=== PATIENT | female | born 1980 | race Hispanic/Latino ===

== ENCOUNTER 2022-06-12 00:34 | Emergency (ER) | payer BC ==
--- OUTSIDE RECORDS SUMMARY | 2022-06-12 00:41 | XMS REPORT | Continuity of Care Document ---
:[address] [facility] t Address [address] [place] [address] Care Team Providers Name Role Phone JOVITA YOU Primary Care Physician Unavailable NOEL LARSEN Attending Clinician Unavailable Maribel Everett Attending Clinician Unavailable RADIOLOGY Attending Clinician Unavailable Radiology Attending Clinician Unavailable Jong Pemberton DO Attending Clinician Elvie LONG, Janet Doyle Attending Clinician [phone] [facility] Resident Attending Clinician Unavailable Vern LONG, Mitzi Martin Attending Clinician Jovita Rivas Attending Clinician Yara Rasmussen MD Attending Clinician YARA RASMUSSEN Attending Clinician Unavailable Vishal LONG, Veronique Attending Clinician Doctor Unassigned, Simms Attending Clinician Unavailable John HI, Sara Hernández Attending Clinician Kathleen Reilly Attending Clinician Noel Larsen MD Attending Clinician Victorino Johnson Attending Clinician [phone] VICTORINO ESPINO Attending Clinician Unavailable NOEL LARSEN Admitting Clinician Unavailable Maribel Everett Admitting Clinician Unavailable XIOMARA HASTINGS Admitting Clinician Unavailable Payers Payer Name Policy Type Policy Number Effective Date Expiration Date S cassidy [employer] [place] [id number] 2020 WOMEN 00:00:00 HIM [employer] BLUE [id number] 2021 ADVANTAGE HMO 00:00:00 Problems Condition Condition Condition Status Onset Resolution Last Treating Co mments Source Name Details Category Date Date Treatment Clinician Date Anemia, Anemia, Disease Active 2019-07 Univers unspecifie unspecifie 07-13 it y of d type d type 00:00: [place] [address] Medical Branch Abnormal Abnormal Disease Active Unive rs uterine uterine 6-17 ity of bleeding bleeding 00:00: [address] Branch Well woman Well woman Disease Active U nivers exam exam 1-20 ity of 00:00: [address] General General Disease Active Univers counseling counseling 1-20 it y of [place] Medical contracept contracept Br anch lynne lynne management management Papanicola Papanicola Disease Active Overview : Univers ou smear ou smear 08-07 colpo ity of of cervix of cervix 00:00[place] 08/07/[place] low with low 00 , pap on [facility] benita grade grade 07/2015 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 lesion lesion colpo (LGSIL) (LGSIL) 08/07/2014 , pap on 07/2015 WNL Obesity Obesity Disease Active 2013-07 Overview: Univ ers (BMI (BMI 1-23 [place] ity of 30-39.9) 30-39.9) 00:00: g of this [place] 00 note Medical might be Branch different from the original. 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 Allergies, Adverse Reactions, Alerts Allergy Allergy Status Severity Reaction(s) Onset Inactive Treating Comm ents Source Name Type Date Date Clinician No Known DA Active U 2020- [facility] [place] No Known DA Active U 2020- [facility]ie [facility]-08 [facility] [place] No Known DA Active U 2020-0 [facility] All[facility]ie [facility]06 [facility] [place] No Known DA Active U 2020- [facility] Allergie 1-06 [facility] 00:[facility]: [facility] [place] No Known DA Active U 2006-0 [facility] Drug 7-10 [facility] 00:[facility]: [facility] [place] No Known DA Active U 2006-0 [facility] Contrast 7-10 [facility] Allergie 00:00: [facility] [place] No Known DA Active U 2007-0 [facility] Drug 7-10 [facility] Allergie 00:00: [facility] [place] No Known DA Active U 2007-0 [facility] Food 7-10 [facility] Allergie 00:00: [facility] [place] No Known DA Active U 2007-0 [facility] Other 7-10 [facility] Allergie 00:00: [facility] [place] NO KNOWN Drug Active Univers ALLERGIE Class ity of S [facility] Social History Social Habit Start Date Stop Date Quantity Comments Source History [facility] o f [facility] ed[facility] Branch History [facility] o f Alcohol Std Drinks [place] [facility] [place] History [facility] o f Alcohol Binge [place] [facility] Exposure to 2021-11-17 2021-11-27 Not sure University of SARS-CoV-2 (event) 00:00:00 15:25:00 [facility] Alcohol intake 2021-11-27 2021-11-27 0 /d University of 00:00:00 00:00:00 [facility] Alcohol Comment 2015-10-23 2015-10-23 socially only Univer sity of 00:00:00 00:00:00 [facility] Tobacco use and 2013-04-05 2013-04-05 Never used Universit y of exposure 00:00:00 00:00:00 [facility] Sex [birth year] At [birth year] Universit y of 00:00:00 00:00:00 [facility] Smoking Status Start Date Stop Date Source Never smoker [facility] Medications Ordered Filled Start Stop Current Ordering Indication Dosage Frequency Signature Comments Components Source Medication Medication Date Date Medication? Clinician (SIG) Name Name medroxyPROG 2020- 2020- No [id number] 150mg Univers ESTERone 0-30 10-30 100 ity of (DEPO-PROVE 22:00: 21:23 [place] RA) 00 :00 Medical injection Branch 150 mg medroxyPROG 2019- 2020- No [id number] 150mg 150 mg, Univers ESTERone 0-30 10-30 100 Intramuscu ity of (DEPO-PROVE 22:00: 21:23 lar, ONCE, [place] RA) 00 :00 1 dose, Medical injection Fri Branch 150 mg 05/09/20 at 1700, Routine medroxyPROG 2019- 2020- No [id number] 150mg Univers ESTERone 0-30 10-30 100 ity of (DEPO-PROVE 22:00: 21:23 [place] RA) 00 :00 Medical injection Branch 150 mg medroxyPROG 2019- 2020- No [id number] 150mg 150 mg, Univers ESTERone 0-30 10-30 100 Intramuscu ity of (DEPO-PROVE 22:00: 21:23 lar, ONCE, [place] RA) 00 :00 1 dose, Medical injection Fri Branch 150 mg 05/09/20 at 1700, Routine ferrous 2020- 2020- No [id number] Take by U nivers sulfate 02-06 mouth. ity of (IRON ORAL) 00:12: 00:00 [place] 20 :00 Medical Branch ferrous 2020-0 2020- No [id number] Take by U nivers sulfate 02-06 mouth. ity of (IRON ORAL) 00:12: 00:00 [place] 20 :00 Medical Branch ascorbic 2020-0 Yes [id number] 500mg Take 1 U nivers acid, 02-05 tablet by ity of vitamin C, 00:00: mouth [place] 500 [place] 00 (three) Medical tablet times Branch daily. ferrous 2020-0 Yes [id number] 325mg Take 1 Un rocio sulfate 7-29 tablet by ity of (IRON, 00:00: mouth 3 [place] FERROUS 00 (three) Medical SULFATE,) times Branch 325 mg (65 daily with mg iron) meals. tablet foLIC acid 2020-0 Yes [id number] 1mg Take 1 Univers 1 mg tablet 7-29 tablet by ity of 00:00: mouth [place] 00 daily. Medical Branch norgestimat 2020-0 Yes [id number] 1{tbl} Take 1 Univers e-ethinyl 7-29 100 tablet by ity o f estradiol 00:00: mouth [place] (FEMYNOR) 00 daily. Medical 0.25-35 Branch mg-mcg per tablet ascorbic 2020-0 Yes [id number] 500mg Take 1 U nivers acid, 7-29 tablet by ity of vitamin C, 00:00: [place] 500 [place] 00 (three) Medical tablet times Branch daily. ferrous 2020-0 Yes [id number] 325mg Take 1 Un rocio sulfate 7-29 tablet by ity of (IRON, 00:00: mouth 3 [place] FERROUS 00 (three) Medical SULFATE,) times Branch 325 mg (65 daily with mg iron) meals. tablet foLIC acid 2020-0 Yes [id number] 1mg Take 1 Univers 1 mg tablet 7-29 tablet by ity of 00:00: mouth [place] 00 daily. Medical Branch norgestimat 2020-0 Yes [id number] 1{tbl} Take 1 Univers e-ethinyl 7-29 100 tablet by ity o f estradiol 00:00: mouth [place] (FEMYNOR) 00 daily. Medical 0.25-35 Branch mg-mcg per tablet ascorbic 2020-0 Yes [id number] 500mg Take 1 U nivers acid, 7-29 tablet by ity of vitamin C, 00:00: mouth [place] 500 mg 00 (three) Medical tablet times Branch daily. ferrous 2020-0 Yes [id number] 325mg Take 1 Un rocio sulfate 7-29 tablet by ity of (IRON, 00:00: mouth 3 [place] FERROUS 00 (three) Medical SULFATE,) times Branch 325 mg (65 daily with mg iron) meals. tablet foLIC acid 2020-0 Yes [id number] 1mg Take 1 Univers 1 mg tablet 7-29 tablet by ity of 00:00: mouth [place] 00 daily. Medical Branch norgestimat 2020-0 Yes [id number] 1{tbl} Take 1 Univers e-ethinyl 7-29 100 tablet by ity o f estradiol 00:00: mouth [place] (FEMYNOR) 00 daily. Medical 0.25-35 Branch mg-mcg per tablet ascorbic 2020-0 Yes [id number] 500mg Take 1 U nivers acid, 7-29 tablet by ity of vitamin C, 00:00: mouth [place] 500 mg 00 (three) Medical tablet times Branch daily. ferrous 2020-0 Yes [id number] 325mg Take 1 Un rocio sulfate 7-29 tablet by ity of (IRON, 00:00: mouth 3 [place] FERROUS 00 (three) Medical SULFATE,) times Branch 325 mg (65 daily with mg iron) meals. tablet foLIC acid 2020-0 Yes [id number] 1mg Take 1 Univers 1 mg tablet 7-29 tablet by ity of 00:00: mouth [place] 00 daily. Medical [place] norgestimat 2019-0 Yes [id number] 1{tbl} Take 1 Univers e-ethinyl 7-29 100 tablet by ity o f estradiol 00:00: mouth [place] (FEMYNOR) 00 daily. Medical 0.25-35 Branch mg-mcg per tablet ascorbic 2020-0 Yes [id number] 500mg Take 1 U nivers acid, 7-29 tablet by ity of vitamin C, 00:00: mouth [place] 500 mg 00 (three) Medical tablet times Branch daily. ferrous 2020-0 Yes [id number] 325mg Take 1 Un rocio sulfate 7-29 tablet by ity of (IRON, 00:00: mouth 3 [place] FERROUS 00 (three) Medical SULFATE,) times Branch 325 mg (65 daily with mg iron) meals. tablet foLIC acid 2020-0 Yes [id number] 1mg Take 1 Univers 1 mg tablet 7-29 tablet by ity of 00:00: mouth [place] 00 daily. Medical Branch norgestimat 2020-0 Yes [id number] 1{tbl} Take 1 Univers e-ethinyl 7-29 100 tablet by ity o f estradiol 00:00: mouth [place] (FEMYNOR) 00 daily. Medical 0.25-35 Branch mg-mcg per tablet ascorbic 2020-0 Yes [id number] 500mg Take 1 U nivers acid, 7-29 tablet by ity of vitamin C, 00:00: mouth [place] 500 mg 00 (three) Medical tablet times Branch daily. ferrous 2020-0 Yes [id number] 325mg Take 1 Un rocio sulfate 7-29 tablet by ity of (IRON, 00:00: mouth 3 [place] FERROUS 00 (three) Medical SULFATE,) times Branch 325 mg (65 daily with mg iron) meals. tablet foLIC acid 2020-0 Yes [id number] 1mg Take 1 Univers 1 mg tablet 7-29 tablet by ity of 00:00: mouth [place] 00 daily. Medical Branch norgestimat 2020-0 Yes [id number] 1{tbl} Take 1 Univers e-ethinyl 7-29 100 tablet by ity o f estradiol 00:00: mouth [place] (FEMYNOR) 00 daily. Medical 0.25-35 Branch mg-mcg per tablet ascorbic 2020-0 Yes [id number] 500mg Take 1 U nivers acid, 7-29 tablet by ity of vitamin C, 00:00: mouth [place] 500 mg 00 (three) Medical tablet times Branch daily. ferrous 2020-0 Yes [id number] 325mg Take 1 Un rocio sulfate 7-29 tablet by ity of (IRON, 00:00: mouth 3 [place] FERROUS 00 (three) Medical SULFATE,) times Branch 325 mg (65 daily with mg iron) meals. tablet foLIC acid 2020-0 Yes [id number] 1mg Take 1 Univers 1 mg tablet 7-29 tablet by ity of 00:00: mouth [place] 00 daily. Medical Branch norgestimat 2020-0 Yes [id number] 1{tbl} Take 1 Univers e-ethinyl 7-29 100 tablet by ity o f estradiol 00:00: mouth [place] (FEMYNOR) 00 daily. Medical 0.25-35 Branch mg-mcg per tablet ascorbic 2020-0 Yes [id number] 500mg Take 1 U nivers acid, 7-29 tablet by ity of vitamin C, 00:00: mouth [place] 500 mg 00 (three) Medical tablet times Branch daily. ferrous 2020-0 Yes [id number] 325mg Take 1 Un rocio sulfate 7-29 tablet by ity of (IRON, 00:00: mouth 3 [place] FERROUS 00 (three) Medical SULFATE,) times Branch 325 mg (65 daily with mg iron) meals. tablet foLIC acid 2020-0 Yes [id number] 1mg Take 1 Univers 1 mg tablet 7-29 tablet by ity of 00:00: mouth [place] 00 daily. Medical Branch norgestimat 2020-0 Yes [id number] 1{tbl} Take 1 Univers e-ethinyl 7-29 100 tablet by ity o f estradiol 00:00: mouth [place] (FEMYNOR) 00 daily. Medical 0.25-35 Branch mg-mcg per tablet ascorbic 2020-0 Yes [id number] 500mg Take 1 U nivers acid, 7-29 tablet by ity of vitamin C, 00:00: mouth [place] 500 mg 00 (three) Medical tablet times Branch daily. ferrous 2020-0 Yes [id number] 325mg Take 1 Un rocio sulfate 7-29 tablet by ity of (IRON, 00:00: mouth 3 [place] FERROUS 00 (three) Medical SULFATE,) times Branch 325 mg (65 daily with mg iron) meals. tablet foLIC acid 2020-0 Yes [id number] 1mg Take 1 Univers 1 mg tablet 7-29 tablet by ity of 00:00: mouth [place] 00 daily. Medical Branch norgestimat 2019-0 Yes [id number] 1{tbl} Take 1 Univers e-ethinyl 7-29 100 tablet by ity o f estradiol 00:00: mouth [place] (FEMYNOR) 00 daily. Medical 0.25-35 Branch mg-mcg per tablet ascorbic 2020-0 Yes [id number] 500mg Take 1 U nivers acid, 7-29 tablet by ity of vitamin C, 00:00: mouth [place] 500 mg 00 (three) Medical tablet times Branch daily. ferrous 2020-0 Yes [id number] 325mg Take 1 Un rocio sulfate 7-29 tablet by ity of (IRON, 00:00: mouth 3 [place] FERROUS 00 (three) Medical SULFATE,) times Branch 325 mg (65 daily with mg iron) meals. tablet foLIC acid 2020-0 Yes [id number] 1mg Take 1 Univers 1 mg tablet 7-29 tablet by ity of 00:00: mouth [place] 00 daily. Medical Branch norgestimat 2020-0 Yes [id number] 1{tbl} Take 1 Univers e-ethinyl 7-29 100 tablet by ity o f estradiol 00:00: mouth [place] (FEMYNOR) 00 daily. Medical 0.25-35 Branch mg-mcg per tablet ascorbic 2020-0 Yes [id number] 500mg Take 1 U nivers acid, 7-29 tablet by ity of vitamin C, 00:00: mouth [place] 500 mg 00 (three) Medical tablet times Branch daily. ferrous 2020-0 Yes [id number] 325mg Take 1 Un rocio sulfate 7-29 tablet by ity of (IRON, 00:00: mouth 3 [place] FERROUS 00 (three) Medical SULFATE,) times Branch 325 mg (65 daily with mg iron) meals. tablet foLIC acid 2020-0 Yes [id number] 1mg Take 1 Univers 1 mg tablet 7-29 tablet by ity of 00:00: mouth [place] 00 daily. Medical Branch norgestimat 2020-0 Yes [id number] 1{tbl} Take 1 Univers e-ethinyl 7-29 100 tablet by ity o f estradiol 00:00: mouth [place] (FEMYNOR) 00 daily. Medical 0.25-35 Branch mg-mcg per tablet ascorbic 2020-0 Yes [id number] 500mg Take 1 U nivers acid, 7-29 tablet by ity of vitamin C, 00:00: mouth [place] 500 mg 00 (three) Medical tablet times Branch daily. ferrous 2020-0 Yes [id number] 325mg Take 1 Un rocio sulfate 7-29 tablet by ity of (IRON, 00:00: mouth 3 [place] FERROUS 00 (three) Medical SULFATE,) times Branch 325 mg (65 daily with mg iron) meals. tablet foLIC acid 2020-0 Yes [id number] 1mg Take 1 Univers 1 mg tablet 7-29 tablet by ity of 00:00: mouth [place] 00 daily. Medical Branch norgestimat 2020-0 Yes [id number] 1{tbl} Take 1 Univers e-ethinyl 7-29 100 tablet by ity o f estradiol 00:00: mouth [place] (FEMYNOR) 00 daily. Medical 0.25-35 Branch mg-mcg per tablet ascorbic 2020-0 Yes [id number] 500mg Take 1 U nivers acid, 7-29 tablet by ity of vitamin C, 00:00: mouth [place] 500 mg 00 (three) Medical tablet times Branch daily. ferrous 2020-0 Yes [id number] 325mg Take 1 Un rocio sulfate 7-29 tablet by ity of (IRON, 00:00: mouth 3 [place] FERROUS 00 (three) Medical SULFATE,) times Branch 325 mg (65 daily with mg iron) meals. tablet foLIC acid 2020-0 Yes [id number] 1mg Take 1 Univers 1 mg tablet 7-29 tablet by ity of 00:00: mouth [place] 00 daily. Medical Branch norgestimat 2020-0 Yes [id number] 1{tbl} Take 1 Univers e-ethinyl 7-29 100 tablet by ity o f estradiol 00:00: mouth [place] (FEMYNOR) 00 daily. Medical 0.25-35 Branch mg-mcg per tablet ascorbic 2020-0 Yes [id number] 500mg Take 1 U nivers acid, 7-29 tablet by ity of vitamin C, 00:00: mouth 3 [place] 500 mg 00 (three) Medical tablet times Branch daily. ferrous 2020-0 Yes [id number] 325mg Take 1 Un rocio sulfate 7-29 tablet by ity of (IRON, 00:00: mouth 3 [place] FERROUS 00 (three) Medical SULFATE,) times Branch 325 mg (65 daily with mg iron) meals. tablet foLIC acid 2020-0 Yes [id number] 1mg Take 1 Univers 1 mg tablet 7-29 tablet by ity of 00:00: mouth [place] 00 daily. Medical Branch norgestimat 2020-0 Yes [id number] 1{tbl} Take 1 Univers e-ethinyl 7-29 100 tablet by ity o f estradiol 00:00: mouth [place] (FEMYNOR) 00 daily. Medical 0.25-35 Branch mg-mcg per tablet ascorbic 2020-0 Yes [id number] 500mg Take 1 U nivers acid, 7-29 tablet by ity of vitamin C, 00:00: mouth 3 [place] 500 mg 00 (three) Medical tablet times Branch daily. ferrous 2020-0 Yes [id number] 325mg Take 1 Un orcio sulfate 7-29 tablet by ity of (IRON, 00:00: mouth 3 [place] FERROUS 00 (three) Medical SULFATE,) times Branch 325 mg (65 daily with mg iron) meals. tablet foLIC acid 2020-0 Yes [id number] 1mg Take 1 Univers 1 mg tablet 7-29 tablet by ity of 00:00: mouth [place] 00 daily. Medical Branch norgestimat 2020-0 Yes [id number] 1{tbl} Take 1 Univers e-ethinyl 7-29 100 tablet by ity o f estradiol 00:00: mouth [place] (FEMYNOR) 00 daily. Medical 0.25-35 Branch mg-mcg per tablet ascorbic 2020-0 Yes [id number] 500mg Take 1 U nivers acid, 7-29 tablet by ity of vitamin C, 00:00: mouth 3 [place] 500 mg 00 (three) Medical tablet times Branch daily. ferrous 2020-0 Yes [id number] 325mg Take 1 Un rocio sulfate 7-29 tablet by ity of (IRON, 00:00: mouth 3 [place] FERROUS 00 (three) Medical SULFATE,) times Branch 325 mg (65 daily with mg iron) meals. tablet foLIC acid 2020-0 Yes [id number] 1mg Take 1 Univers 1 mg tablet 7-29 tablet by ity of 00:00: mouth [place] 00 daily. Medical Branch norgestimat 2020-0 Yes [id number] 1{tbl} Take 1 Univers e-ethinyl 7-29 100 tablet by ity o f estradiol 00:00: mouth [place] (FEMYNOR) 00 daily. Medical 0.25-35 Branch mg-mcg per tablet ascorbic 2020-0 Yes [id number] 500mg Take 1 U nivers acid, 7-29 tablet by ity of vitamin C, 00:00: mouth 3 [place] 500 mg 00 (three) Medical tablet times Branch daily. ferrous 2020-0 Yes [id number] 325mg Take 1 Un rocio sulfate 7-29 tablet by ity of (IRON, 00:00: mouth 3 [place] FERROUS 00 (three) Medical SULFATE,) times Branch 325 mg (65 daily with mg iron) meals. tablet foLIC acid 2020-0 Yes [id number] 1mg Take 1 Univers 1 mg tablet 7-29 tablet by ity of 00:00: mouth [place] 00 daily. Medical Branch norgestimat 2020-0 Yes [id number] 1{tbl} Take 1 Univers e-ethinyl 7-29 100 tablet by ity o f estradiol 00:00: mouth [place] (FEMYNOR) 00 daily. Medical 0.25-35 Branch mg-mcg per tablet ascorbic 2020-0 Yes [id number] 500mg Take 1 U nivers acid, 7-29 tablet by ity of vitamin C, 00:00: mouth 3 [place] 500 mg 00 (three) Medical tablet times Branch daily. ferrous 2020-0 Yes [id number] 325mg Take 1 Un rocio sulfate 7-29 tablet by ity of (IRON, 00:00: mouth 3 [place] FERROUS 00 (three) Medical SULFATE,) times Branch 325 mg (65 daily with mg iron) meals. tablet foLIC acid 2020-0 Yes [id number] 1mg Take 1 Univers 1 mg tablet 7-29 tablet by ity of 00:00: mouth [place] 00 daily. Medical Branch norgestimat 2020-0 Yes [id number] 1{tbl} Take 1 Univers e-ethinyl 7-29 100 tablet by ity o f estradiol 00:00: mouth [place] (FEMYNOR) 00 daily. Medical 0.25-35 Branch mg-mcg per tablet ascorbic 2020-0 Yes [id number] 500mg Take 1 U nivers acid, 7-29 tablet by ity of vitamin C, 00:00: mouth 3 [place] 500 mg 00 (three) Medical tablet times Branch daily. ferrous 2020-0 Yes [id number] 325mg Take 1 Un rocio sulfate 7-29 tablet by ity of (IRON, 00:00: mouth 3 [place] FERROUS 00 (three) Medical SULFATE,) times Branch 325 mg (65 daily with mg iron) meals. tablet foLIC acid 2020-0 Yes [id number] 1mg Take 1 Univers 1 mg tablet 7-29 tablet by ity of 00:00: mouth [place] 00 daily. Medical Branch norgestimat 2019-0 Yes [id number] 1{tbl} Take 1 Univers e-ethinyl 7-29 100 tablet by ity o f estradiol 00:00: mouth [place] (FEMYNOR) 00 daily. Medical 0.25-35 Branch mg-mcg per tablet ascorbic 2020-0 Yes [id number] 500mg Take 1 U nivers acid, 7-29 tablet by ity of vitamin C, 00:00: mouth 3 [place] 500 mg 00 (three) Medical tablet times Branch daily. ferrous 2020-0 Yes [id number] 325mg Take 1 Un rocio sulfate 7-29 tablet by ity of (IRON, 00:00: mouth 3 [place] FERROUS 00 (three) Medical SULFATE,) times Branch 325 mg (65 daily with mg iron) meals. tablet foLIC acid 2020-0 Yes [id number] 1mg Take 1 Univers 1 mg tablet 7-29 tablet by ity of 00:00: mouth [place] 00 daily. Medical Branch norgestimat 2020-0 Yes [id number] 1{tbl} Take 1 Univers e-ethinyl 7-29 100 tablet by ity o f estradiol 00:00: mouth [place] (FEMYNOR) 00 daily. Medical 0.25-35 Branch mg-mcg per tablet norgestimat 2020-0 Yes [id number] 1{tbl} Take 1 Univers e-ethinyl 6-26 tablet by ity o f estradiol 00:00: mouth [place] (ORTHO-CYCL 00 daily. Medica l EN, 28,) DAW1 Branch 0.25-35 mg-mcg per tablet norgestimat 2020-0 Yes [id number] 1{tbl} Take 1 Univers e-ethinyl 6-26 tablet by ity o f estradiol 00:00: mouth [place] (ORTHO-CYCL 00 daily. Medica l EN, 28,) DAW1 Branch 0.25-35 mg-mcg per tablet norgestimat 2019-0 2020- No [id number] 1{tbl} Take 1 Univers e-ethinyl 6-26 07-29 tablet by ity of estradiol 00:00: 00:00 mouth [place] (ORTHO-CYCL 00 :00 daily. Medica l EN, 28,) DAW1 Branch 0.25-35 mg-mcg per tablet norgestimat 2019-0 2020- No [id number] 1{tbl} Take 1 Univers e-ethinyl 6-26 07-29 tablet by ity of estradiol 00:00: 00:00 mouth [place] (ORTHO-CYCL 00 :00 daily. Medica l EN, 28,) DAW1 Branch 0.25-35 mg-mcg per tablet norgestimat 2020-0 Yes [id number] 1{tbl} Take 1 Univers e-ethinyl 6-24 tablet by ity o f estradiol 00:00: mouth [place] (ORTHO-CYCL 00 daily. Medica l EN, 28,) Branch 0.25-35 mg-mcg per tablet norgestimat 2019-0 2020- No [id number] 1{tbl} Take 1 Univers e-ethinyl 6-24 06-26 tablet by ity of estradiol 00:00: 00:00 mouth [place] (ORTHO-CYCL 00 :00 daily. Medica l EN, 28,) Branch 0.25-35 mg-mcg per tablet norgestimat 2020-0 Yes [id number] 1{tbl} Take 1 Univers e-ethinyl 6-23 tablet by ity o f estradiol 00:00: mouth [place] (ORTHO-CYCL 00 daily. Medica l EN, 28,) Branch 0.25-35 mg-mcg per tablet norgestimat 2020-0 2020- No [id number] 1{tbl} Take 1 Univers e-ethinyl 6-23 06-24 tablet by ity of estradiol 00:00: 00:00 mouth [place] (ORTHO-CYCL 00 :00 daily. Medica l EN, 28,) Branch 0.25-35 mg-mcg per tablet norgestimat 2020-0 Yes [id number] 1{tbl} Take 1 Univers e-ethinyl 5-22 tablet by ity o f estradiol 00:00: mouth [place] 0.25-35 00 daily. Medical mg-mcg per Branch tablet norgestimat 2020-0 Yes [id number] 1{tbl} Take 1 Univers e-ethinyl 5-22 tablet by ity o f estradiol 00:00: mouth [place] 0.25-35 00 daily. Medical mg-mcg per Branch tablet norgestimat 2020-0 Yes [id number] 1{tbl} Take 1 Univers e-ethinyl 5-22 tablet by ity o f estradiol 00:00: mouth [place] 0.25-35 00 daily. Medical mg-mcg per Branch tablet norgestimat 2020-0 Yes [id number] 1{tbl} Take 1 Univers e-ethinyl 5-22 tablet by ity o f estradiol 00:00: mouth [place] 0.25-35 00 daily. Medical mg-mcg per Branch tablet norgestimat 2020-0 Yes [id number] 1{tbl} Take 1 Univers e-ethinyl 5-22 tablet by ity o f estradiol 00:00: mouth [place] 0.25-35 00 daily. Medical mg-mcg per Branch tablet norgestimat 2020-0 Yes [id number] 1{tbl} Take 1 Univers e-ethinyl 5-22 tablet by ity o f estradiol 00:00: mouth [place] 0.25-35 00 daily. Medical mg-mcg per Branch tablet norgestimat 2020-0 Yes [id number] 1{tbl} Take 1 Univers e-ethinyl 5-22 tablet by ity o f estradiol 00:00: mouth [place] 0.25-35 00 daily. Medical mg-mcg per Branch tablet norgestimat 2020-0 2020- No [id number] 1{tbl} Take 1 Univers e-ethinyl 5-22 07-29 tablet by ity of estradiol 00:00: 00:00 mouth [place] 0.25-35 00 :00 daily. Medical mg-mcg per Branch tablet norgestimat 2020-0 2020- No [id number] 1{tbl} Take 1 Univers e-ethinyl 5-22 07-29 tablet by ity of estradiol 00:00: 00:00 mouth [place] 0.25-35 00 :00 daily. Medical mg-mcg per Branch tablet ferrous 2020-0 Yes [id number] Take by Un rocio sulfate 2-28 mouth. ity of (IRON ORAL) 20:49: [address] ferrous 2020-0 Yes [id number] Take by Un rocio sulfate 2-28 mouth. ity of (IRON ORAL) 20:49: [address] ferrous 2020-0 Yes [id number] Take by Un rocio sulfate 2-28 mouth. ity of (IRON ORAL) 20:49: [address] ferrous 2020-0 Yes [id number] Take by Un rocio sulfate 2-28 mouth. ity of (IRON ORAL) 20:49: [address] ferrous 2020-0 Yes [id number] Take by Un rocio sulfate 2-28 mouth. ity of (IRON ORAL) 20:49: [address] Branch ferrous 2020-0 Yes [id number] Take by Un rocio sulfate 2-28 mouth. ity of (IRON ORAL) 20:49: [address] [address] Branch ferrous 2020-0 Yes [id number] Take by Un rocio sulfate 2-28 mouth. ity of (IRON ORAL) 20:49: [address] ferrous 2020-0 Yes [id number] Take by Un rocio sulfate 2-28 mouth. ity of (IRON ORAL) 20:49: [address] ferrous 2020-0 Yes [id number] Take by Un rocio sulfate 2-28 mouth. ity of (IRON ORAL) 20:49: [place] [facility] norgestimat Yes [id number] 1{tbl} Take 1 Univers e-ethinyl 2-28 tablet by ity o f estradiol 00:00: mouth [place] 0.25-35 00 daily. Medical mg-mcg per Branch tablet norgestimat Yes [id number] 1{tbl} Take 1 Univers e-ethinyl 2-28 tablet by ity o f estradiol 00:00: mouth [place] 0.25-35 00 daily. Medical mg-mcg per Branch tablet norgestimat 2020- No [id number] 1{tbl} Take 1 Univers e-ethinyl 2-28 05-22 tablet by ity of estradiol 00:00: 00:00 mouth [place] 0.25-35 00 :00 daily. Medical mg-mcg per Branch tablet norgestimat 2020- No [id number] 1{tbl} Take 1 Univers e-ethinyl 2-28 05-22 tablet by ity of estradiol 00:00: 00:00 mouth [place] 0.25-35 00 :00 daily. Medical mg-mcg per Branch tablet norgestimat Yes [id number] 1{tbl} Take 1 Univers e-ethinyl 1-27 100 tablet by ity o f estradiol 00:00: mouth [place] 0.25-35 00 daily. Medical mg-mcg per Branch tablet norgestimat Yes [id number] 1{tbl} Take 1 Univers e-ethinyl 1-27 100 tablet by ity o f estradiol 00:00: mouth [place] 0.25-35 00 daily. Medical mg-mcg per Branch tablet norgestimat 2020- No [id number] 1{tbl} Take 1 Univers e-ethinyl 1-27 02-28 100 tablet by ity of estradiol 00:00: 00:00 mouth [place] 0.25-35 00 :00 daily. Medical mg-mcg per Branch tablet norgestimat 2020- No [id number] 1{tbl} Take 1 Univers e-ethinyl 1-27 02-28 100 tablet by ity of estradiol 00:00: 00:00 mouth [place] 0.25-35 00 :00 daily. Medical mg-mcg per Branch tablet norgestimat 2018-07 2020- No [id number] 1{tbl} Take 1 Univers e-ethinyl 0-22 01-27 100 tablet by ity of estradiol 00:00: 00:00 mouth [place] 0.25-35 00 :00 daily. Medical mg-mcg per Branch tablet norgestimat 2019-0 Yes [id number] 1{tbl} Take 1 Univers e-ethinyl 9-16 100 tablet by ity o f estradiol 00:00: mouth [place] 0.25-35 00 daily. Medical mg-mcg per Branch tablet norgestimat 2019- No [id number] 1{tbl} Take 1 Univers e-ethinyl 7-05 09-16 100 tablet by ity of estradiol 00:00: 00:00 mouth [place] 0.25-35 00 :00 daily. Medical mg-mcg per Branch tablet Immunizations Ordered Filled Immunization Date Status Comments [facility] e Immunization Name Name [facility] 2012-05-16 Completed University of 00:00:00 [facility] MMR 2012-05-16 Completed University of 00:00:00 [facility] MMR 2012-05-16 Completed University of 00:00:00 [facility] MMR 2012-05-16 Completed University of 00:00:00 [facility] MMR 2012-05-16 Completed University of 00:00:00 [facility] MMR 2012-05-16 Completed University of 00:00:00 [facility] MMR 2012-05-16 Completed University of 00:00:00 [facility] MMR 2012-05-16 Completed University of 00:00:00 [facility] MMR 2012-05-16 Completed University of 00:00:00 [facility] MMR 2012-05-16 Completed University of 00:00:00 [facility] MMR 2012-05-16 Completed University of 00:00:00 [facility] MMR 2012-05-16 Completed University of 00:00:00 [facility] MMR 2012-05-16 Completed University of 00:00:00 [facility] MMR 2012-05-16 Completed University of 00:00:00 [facility] MMR 2012-05-16 Completed University of 00:00:00 [facility] MMR 2012-05-16 Completed University of 00:00:00 [facility] MMR 2012-05-16 Completed University of 00:00:00 [facility] MMR 2012-05-16 Completed University of 00:00:00 [facility] MMR 2012-05-16 Completed University of 00:00:00 [place] [facility] MMR 2012-05-16 Completed University of 00:00:00 [place] [facility] MMR 2012-05-16 Completed University of 00:00:00 [place] [facility] MMR 2012-05-16 Completed University of 00:00:00 [place] [facility] MMR 2012-05-16 Completed University of 00:00:00 [place] [facility] MMR 2012-05-16 Completed University of 00:00:00 [place] [facility] MMR 2012-05-16 Completed University of 00:00:00 [place] [facility] MMR 2012-05-16 Completed University of 00:00:00 [place] [facility] MMR 2012-05-16 Completed University of 00:00:00 [place] [facility] MMR 2012-05-16 Completed University of 00:00:00 [place] [facility] MMR 2012-05-16 Completed University of 00:00:00 [place] [facility] MMR 2012-05-16 Completed University of 00:00:00 [place] [facility] MMR 2012-05-16 Completed University of 00:00:00 [place] [facility] MMR 2012-05-16 Completed University of 00:00:00 [place] [facility] TDAP 2010-04-17 Completed University of 00:00:00 [place] [facility] TDAP 2010-04-17 Completed University of 00:00:00 [place] [facility] TDAP 2010-04-17 Completed University of 00:00:00 [place] [facility] TDAP 2010-04-17 Completed University of 00:00:00 [place] [facility] TDAP 2010-04-17 Completed University of 00:00:00 [place] [facility] TDAP 2010-04-17 Completed University of 00:00:00 [place] [facility] TDAP 2010-04-17 Completed University of 00:00:00 [place] [facility] TDAP 2010-04-17 Completed University of 00:00:00 [place] [facility] Tdap 2010-04-17 Completed University of 00:00:00 [place] [facility] TDAP 2010-04-17 Completed University of 00:00:00 [place] [facility] TDAP 2010-04-17 Completed University of 00:00:00 [place] [facility] TDAP 2010-04-17 Completed University of 00:00:00 [place] [facility] TDAP 2010-04-17 Completed University of 00:00:00 [place] [facility] TDAP 2010-04-17 Completed University of 00:00:00 [place] [facility] TDAP 2010-04-17 Completed University of 00:00:00 [place] [facility] TDAP 2010-04-17 Completed University of 00:00:00 [place] [facility] Tdap 2010-04-17 Completed University of 00:00:00 [place] [facility] TDAP 2010-04-17 Completed University of 00:00:00 [place] [facility] TDAP 2010-04-17 Completed University of 00:00:00 [place] [facility] TDAP 2010-04-17 Completed University of 00:00:00 [place] [facility] TDAP 2010-04-17 Completed University of 00:00:00 [place] [facility] TDAP 2010-04-17 Completed University of 00:00:00 [place] [facility] TDAP 2010-04-17 Completed University of 00:00:00 [place] [facility] TDAP 2010-04-17 Completed University of 00:00:00 [place] [facility] Tdap 2010-04-17 Completed University of 00:00:00 [place] [facility] TDAP 2010-04-17 Completed University of 00:00:00 [place] [facility] Tdap 2010-04-17 Completed University of 00:00:00 [facility] Tdap 2010-04-17 Completed University of 00:00:00 [facility] Tdap 2010-04-17 Completed University of 00:00:00 [facility] Tdap 2010-04-17 Completed University of 00:00:00 [facility] TDAP 2010-04-17 Completed University of 00:00:00 [facility] TDAP 2010-04-17 Completed University of 00:00:00 [facility] Vital Signs Vital Name Observation Time Observation Value Comments Source Systolic blood 2020-06-24 21:13:00 114 mm[Hg] Univer sity of pressure [facility] Diastolic blood 2020-06-24 21:13:00 76 mm[Hg] Unive rsity of pressure [facility] Heart rate 2020-06-24 21:13:00 77 /min [facility] Body temperature 2020-06-24 21:13:00 37 Pau [facility] ersity [facility] Respiratory rate 2020-06-24 21:13:00 18 /min [facility] Body height 2020-06-24 21:13:00 162.6 cm [facility] Body weight 2020-06-24 21:13:00 89.359 kg [facility] BMI 2020-06-24 21:13:00 33.81 kg/m2 [facility] Systolic blood 2020-06-24 21:13:00 114 mm[Hg] Univer sity of pressure [place] [facility] Diastolic blood 2020-06-24 21:13:00 76 mm[Hg] Unive rsity of pressure [place] [facility] Heart rate 2020-06-24 21:13:00 77 /min Universi ty of [place] [facility] Body temperature 2020-06-24 21:13:00 37 Pau Univ ersity of [place] [facility] Respiratory rate 2020-06-24 21:13:00 18 /min Univ ersity of [place] [facility] Body height 2020-06-24 21:13:00 162.6 cm Universi ty of [place] [facility] Body weight 2020-06-24 21:13:00 89.359 kg Universi ty of [place] [facility] BMI 2020-06-24 21:13:00 33.81 kg/m2 Universi ty of [place] [facility] Systolic blood 2020-05-09 20:17:00 130 mm[Hg] Univer sity of pressure [place] [facility] Diastolic blood 2020-05-09 20:17:00 80 mm[Hg] Unive rsity of pressure [place] [facility] Heart rate 2020-05-09 20:17:00 118 /min Universi ty of [place] [facility] Body temperature 2020-05-09 20:17:00 36.89 Pau Univ ersity of [place] [facility] Respiratory rate 2020-05-09 20:17:00 18 /min Univ ersity of [place] [facility] Body height 2020-05-09 20:17:00 162.6 cm Universi ty of [place] [facility] Body weight 2020-05-09 20:17:00 89.359 kg Universi ty of [place] [facility] BMI 2020-05-09 20:17:00 33.81 kg/m2 Universi ty of [place] [facility] Systolic blood 2020-02-06 20:13:00 122 mm[Hg] Univer sity of pressure [place] [facility] Diastolic blood 2020-02-06 20:13:00 72 mm[Hg] Unive rsity of pressure [place] [facility] Heart rate 2020-02-06 20:13:00 85 /min Universi ty of [place] [facility] Body temperature 2020-02-06 20:13:00 36.94 Pau Univ ersity of [place] [facility] Respiratory rate 2020-02-06 20:13:00 19 /min Univ ersity of [place] [facility] Body height 2020-02-06 20:13:00 162.6 cm Universi ty of [place] [facility] Body weight 2020-02-06 20:13:00 87.317 kg Universi ty of [place] [facility] BMI 2020-02-06 20:13:00 33.04 kg/m2 Universi ty of [facility] Systolic blood 2019-11-30 19:31:00 123 mm[Hg] Univer sity of pressure [facility] Diastolic blood 2019-11-30 19:31:00 80 mm[Hg] Unive rsity of pressure [facility] Heart rate 2019-11-30 19:31:00 103 /min Universi ty of [facility] Body temperature 2019-11-30 19:31:00 36.72 Pau Univ ersity of [facility] Respiratory rate 2019-11-30 19:31:00 16 /min Univ ersity of [facility] Body height 2019-11-30 19:31:00 162.6 cm Universi ty of [facility] Body weight 2019-11-30 19:31:00 86.354 kg Universi ty of [facility] BMI 2019-11-30 19:31:00 32.68 kg/m2 Universi ty of [facility] Systolic blood 2019-09-07 20:10:00 125 mm[Hg] Univer sity of pressure [facility] Diastolic blood 2019-09-07 20:10:00 72 mm[Hg] Unive rsity of pressure [facility] Heart rate 2019-09-07 20:10:00 81 /min Universi ty of [facility] Body temperature 2019-09-07 20:10:00 36.44 Pau Univ ersity of [facility] Respiratory rate 2019-09-07 20:10:00 18 /min Univ ersity of [facility] Body height 2019-09-07 20:10:00 162.6 cm Universi ty of [facility] Body weight 2019-09-07 20:10:00 87.204 kg Universi ty of [place] [facility] BMI 2019-09-07 20:10:00 33.00 kg/m2 Universi ty of [facility] Procedures Procedure Date / Time Performing Clinician Source Performed NOTICE OF PRIVACY 2021-11-27 20:23:00 Doctor Unassigned, No [facility] [place] Name Medical Branch CONSENT/REFUSAL FOR 2021-11-27 20:22:41 Doctor Unassigned, No Un iversity of [place] DIAGNOSIS AND TREATMENT Name [facility] Branch ASSIGNMENT OF BENEFITS 2021-11-27 20:22:27 Doctor Unassigned, No [facility] [id number] 2020-07-18 00:00:00 [facility] [id number] 2020-07-18 00:00:00 [facility] [id number] 2020-07-18 00:00:00 [facility] US PELVIS COMPLETE WITH 2020-06-04 16:34:54 Zaina Kelly [facility] [place] TRAN[facility]AGINAL [facility] CBC WITH DIFF 2020-05-09 21:28:00 Zaina Kelly [facility] ASSIGNMENT OF BENEFITS 2020-05-09 19:47:34 Doctor Unassigned, No [facility] CBC WITH DIFF 2020-02-06 21:19:00 [facility] CONSENT/REFUSAL FOR 2019-09-07 19:28:37 Doctor Unassigned, No [facility] Encounters Start End Encounter Admission Attending Care Care Encounter Source Date/Time Date/Time Type Type Clinicians Facility Department ID 2021-05-09 Outpatient SARAH [facility] [id number] Univers 11:32:[facility]-07-17 In[facility] EM Marguerite[facility] [id number] [facility] 16:49:00 Maribel 28 [facility] 2021-11-27 2021-11-27 Outpatient R RADIOLOGY [facility] [id number] Univers 15:25:12 23:59:00 ity of [facility] 2021-11-27 2021-11-27 Hospital Radiology [facility] 1.2.840.114 [id number] Univers 15:20:00 23:59:00 Encounter [place] [id number] ity [facility] 4.2.7.2.686 [facility] [id number] [place] [address] Branch 2020-09-29 2020-09-29 Patient Nilay [facility] 1.2.840.114 [id number] Univers 00:00:00 00:00:00 Outreach Jong PRIMARY [id number] i ty of [place] [id number] [place] [address] Branch 2020-07-29 2020-07-29 Telephone Elvie, UNIVERSIT 1.2.840.11 [id number] Univers 00:00:00 00:00:00 Janet Y HEALTH [id number] i ty of [place] [id number] [facility] 113 Branch 2020-06-27 2020-06-27 Telephone Elvie, UNIVERSIT 1.2.840.11 [id number] 00:00:00 00:00:00 Janet Y HEALTH [id number] [place] CL[facility]ICS 4.2.7.2.686 [id number] [facility] 2020-06-27 2020-06-27 Telephone Miguels, UNIVERSIT 1.2.840.11 [id number] Univers 00:00:00 00:00:00 Janet Y HEALTH [id number] i ty [place] [id number] [address] 2020-06-27 2020-06-27 Telephone Pool, [facility] UNIVERSIT 1.2.840.114 [id number] Univers 00:00:00 00:00:00 Resident Y HEALTH [id number] ity [place] [id number] [address] 2020-06-27 2020-06-27 Telephone Pool, [facility] UNIVERSIT 1.2.840.114 [id number] 00:00:00 00:00:00 Resident Y HEALTH 350.1.13.10 CLINICS 4.2.7.2.686 [id number] [facility] 2020-06-24 2020-06-24 Office Pool, [facility] Resident UNIVERSIT 1.2.8 40.114 [id number] Univers 15:01:32 15:56:37 Visit Mitzi Porras M Y HEALTH 350.1.13.10 ity of [place] [id number] [facility] [address] 2020-06-24 2020-06-24 Office [facility] UNIVERSIT 1.2.840.114 [id number] 15:01:32 15:56:37 Visit Resident Y HEALTH 350.1.13.10 CLINICS 4.2.7.2.686 [id number] 113 2020-06-24 2020-06-24 Outpatient R [facility] [id number] Univers 15:00:00 15:00:00 ity of [facility] 2020-06-24 2020-06-24 Prep For Elvie, UNIVERSIT 1.2.840.114 [id number] Univers 00:00:00 00:00:00 Surgery Janet Y HEALTH 350.1.13.10 i ty [place] [id number] [facility] [address] 2020-06-12 2020-06-12 Telephone Lauro [facility] 1.2.840.114 [id number] Univers 00:00:00 00:00:00 Jovita N Y HEALTH 350.1.13.10 i ty [place] [id number] [facility] [address] 2020-06-04 2020-06-04 [facility] 1.2.840.114 [id number] Univers 09:52:08 23:59:00 Encounter Yara Y HEALTH 350.1.13.10 ity of [place] [id number] [facility] [address] 2020-06-04 2020-06-[address] [facility] [id number] Univers 00:00:00 00:00:00 YARA ity of [facility] 2020-05-21 2020-05-21 Telephone DARNELL Rodgers 1.2.840.114 [id number] Univers 00:00:00 00:00:00 Veronique IRVING 350.1.13.10 it y of HOSPITAL 4.2.7.2.686 [place] [id number] [address] 2020-05-21 2020-05-21 Telephone DARNELL Rodgers 1.2.840.114 [id number] Univers 00:00:00 00:00:00 Veronique IRVING 350.1.13.10 it y of HOSPITAL 4.2.7.2.686 [place] as [id number] [facility] 013 Branch 2020-05-09 2020-05-09 Office Pool, [facility] Resident UNIVERSIT 1.2.8 40.114 [id number] Univers 14:46:46 16:37:57 Visit Yara Rasmussen Y HEALTH 350.1.13.10 ity of [place] [id number] [facility] [address] 2020-05-09 2020-05-09 Outpatient R [facility] [id number] Univers 14:45:00 14:45:00 ity of [facility] 2020-05-09 2020-05-09 Orders Doctor PATRICK 1.2.840.114 [id number] Univers 00:00:00 00:00:00 Only Unassigned, MARIA FERNANDA 350.1.13.10 ity of [facility] 4.2.7.2.686 [place] as [id number] [facility] 009 Branch 2020-04-10 2020-04-10 Sanford Lopez JOHN 1.2.840.114 [id number] Univers 00:00:00 00:00:00 Management , Sara IRVING 350.1.13.10 ity of HOSPITAL 4.2.7.2.686 [place] as [id number] [facility] 025 Branch 2020-03-26 2020-03-26 Telephone ALFONZO Beauchamp 1.2.840.114 [id number] Univers 00:00:00 00:00:00 [facility] 350.1.13.10 i ty of [place] [id number] [facility] [address] 2020-02-06 2020-02-06 Office [place], [facility] Resident UNIVERSIT 1.2.8 40.114 [id number] Univers 15:04:08 16:32:46 Visit Noel Larsen Y HEALTH 350.1.13.10 ity [place] [id number] [address] 2020-02-06 2020-02-06 Outpatient R [facility] [id number] Univers 15:00:00 15:00:00 ity of [facility] 2020-01-10 2020-01-[address] [facility] 1.2.840.114 [id number] Univers 00:00:00 00:00:00 Victorino C MANAGER INVENTORY 350.1.13.10 ity of REGIONAL 4.2.7.2.686 [place] as MATERNAL [id number] [facility] ical & CHILD [address] [place] [address] 2020-01-03 2020-01-[address] [facility] 1.2.840.114 [id number] Univers 00:00:00 00:00:00 Victorino C MANAGER INVENTORY 350.1.13.10 ity of REGIONAL 4.2.7.2.686 [place] as MATERNAL [id number] [facility] ical & CHILD [address] [place] [address] 2020-01-02 2020-01-02 Telephone [facility] 1.2.840.114 [id number] Univers 00:00:00 00:00:00 Victorino C MANAGER INVENTORY 350.1.13.10 ity of REGIONAL 4.2.7.2.686 [place] as MATERNAL [id number] [facility] & CHILD [address] [place] [address] 2020-01-01 2020-01-01 Telephone [facility] 1.2.840.114 [id number] Univers 00:00:00 00:00:00 Victorino C MANAGER INVENTORY 350.1.13.10 ity of REGIONAL 4.2.7.2.686 [place] as MATERNAL [id number] [facility] [address] [place] [address] 2019-11-30 2019-11-30 Outpatient R [facility] [id number] Univers 16:00:00 16:00:00 ity of [facility] 2019-11-30 2019-11-[address] [facility] [id number] Univers 14:20:59 14:54:38 Visit Victorino C MANAGER INVENTORY 350.1.13.10 ity of REGIONAL 4.2.7.2.686 [place] as MATERNAL [id number] [facility] [address] [place] [address] 2019-11-30 2019-11-30 Outpatient R SRINIVAS [facility] [id number] Univers 14:15:00 14:15:00 VICTORINO rosa [facility] 2019-11-29 2019-11-29 Outpatient R SRINIVAS [facility] [id number] Univers 13:30:00 13:30:00 VICTORINO rosa [facility] 2019-09-07 2019-09-07 Office [facility] 1.2.825.348 [id number] Univers 13:31:53 14:49:59 Visit Victorino Hernández MANAGER INVENTORY 350.1.13.10 ity of [facility] 4.2.7.2.686 [place] as MATERNAL [id number] [facility] [address] [place] [address] 2019-09-07 2019-09-07 Outpatient R SRINIVAS [facility] [id number] Univers 13:15:00 13:15:00 VICTORINO rosa [facility] 2019-09-07 2019-09-07 Orders Doctor DARNELL 1.2.840.114 [id number] Univers 00:00:00 00:00:00 Only Unassigned, MARIA FERNANDA 350.1.13.10 ity of [facility] 4.2.7.2.686 [place] as [id number] [address] 2019-08-06 2019-08-06 Telephone [facility] 1.2.840.114 [id number] Univers 00:00:00 00:00:00 Victorino Hernández MANAGER INVENTORY 350.1.13.10 ity of REGIONAL 4.2.7.2.686 [place] as MATERNAL [id number] [facility] ical & CHILD [address] [place] [address] 2019-03-26 2019-03-26 [facility] 1.2.840.114 [id number] Univers 00:00:00 00:00:00 Resident Y HEALTH 350.1.13.10 ity of [place] [id number] [facility] [address] Results Test Description Test Time Test Comments Results Result Comments Source CHEMISTRY 7 PROFILE 2020-07-23 14:19:00 Test Item Value Reference Range Interpretation Comme nts SODIUM (test code = NA) 138 mEq/L 135-145 N POTASSIUM (test code = K) 3.8 mEq/L 3.5-5.0 N CHLORIDE (test code = CL) 104 mEq/L 100-115 N CARBON DIOXIDE (test code = CO2) 25 mEq/L 22-31 N ANION GAP (test code = GAP) 13.10 10-20 N GLUCOSE (test code = GLU) 90 mg/dL 65-110 N BLOOD UREA NITROGEN (test code = BUN) 9 mg/dL 7-18 N GLOMERULAR FILTRATION RATE (test code = GFR) 70 ml/min >60 N CREATININE (test code = CREAT) 0.9 mg/dL 0.5-1.0 N CALCIUM (test code = CA) 7.8 mg/dL 8.4-10.2 L LIPID PROFILE (CORONARY RISK)2020-07-23 14:19:00 Test Item Value Reference Range Interpretation Comments TRIGLYCERIDES (test 160 mg/dL H Normal < 150 code = TRIG) Borderline high 150 - 199 High 200 - 499 Very High > 500 CHOLESTEROL (test code 148 mg/dL 120-200 N = CHOL) HDL CHOLESTEROL (test 38 mg/dL HDL <4 0 = Low HDL code = HDL) Cholesterolhdl >60 = High HDL CholesterolSour ce: NCEP-ATPIII LIPOPROTEIN LDL (test 78 mg/dL <130 (DESIRABLE) code = LDL) 130-159 (BORDER LINE) >=160 (HIGH) LIVER [id number] 14:19:00 Test Item Value Reference Range Interpretation Comments TOTAL PROTEIN (test code = PROT) 7.0 gm/dL 6.3-8.2 N ALBUMIN (test code = ALB) 3.4 gm/dL 3.4-4.8 N BILIRUBIN TOTAL (test code = BILT) 0.6 mg/dL 0.2-1.0 N BILIRUBIN DIRECT (test code = 0.2 mg/dL <0.2 N BILD) SGOT/AST (test code = AST) 35 units/L 15-37 N SGPT/ALT (test code = ALT) 81 units/L 12-78 H ALKALINE PHOSPHATASE TOTAL (test 93 units/L 46-116 N code = ALKP) HCG SERUM [id number] 14:19:00 Test Item Value Reference Range Interpretation Comments HCG SERUM QUAL (test code = HCGQL) NEGATIVE HEPATITIS C BY [id number] 14:19:00 Test Item Value Reference Range Interpretation Comments HEPATITIS C BY PCR Negative Negative Negative: HCV RNA Not (test code = HEPCT) Detected [facility]formed At: [facility] [facility] [place], [place] [id number] ra Miryam LONG Ph:[phone] 4 UTERUS,OTHER THAN PROLAPSE/[id number] 17:11:00 Test Item Value Reference Range Interpretation Comments UTERUS,OTHER THAN PROLAPSE/ZULEYKA (test code = UTERUSOTH) --------RUN DATE: 07/22/20 [facility] PAGE 1 RUN TIME: 1315 Specimen Inquiry RUN USER: INTERFACE --------PATIENT: DEL NIELSEN LOC: [facility] U #: [id number] AGE/SX: 39/F ROOM: [facility] RE07/17/20REG DR: Maribel Everett MD : 82 BED: A DIS: 07/19/20 STATUS: DIS IN TLOC: -------- SPEC #: [id number] RECD: 07/18/20 STATUS: HE CHO #: [id number] JOHANA: 07/18/20- SUBM DR: Maribel Everett MD ENTERED: 07/18/20-1521 SP TYPE: UTERUSOTH OTHR DR: Last Pedro MD ORDERED: LEVEL V SURGICA CODES: [id number] - UTERUS, NOS COPIES TO: Maribel Everett MD [address] [facility] [address] [place] [address] Last Pedro MD [address] [facility] [address] [place], [place] [id number] PROCEDURES: LEVEL V SURGICA (Incomplete) TISSUES: UTERUS, NOS - UTERUS, CERVIX AND BILATERAL FALLOPIAN TUBES CLINICAL HISTORY 39 year old, severe anemia, multiple fibroid posttransfusion (wpd) FINAL DIAGNOSIS Uterus, cervix, bilateral fallopian tubes, hysterectomy and bilateral salpingectomy: cervix - multiple Nabothian cysts endometrium - proliferative pattern myometrium - multiple leiomyomas (submucosal, intramural and subserosal) serosa - no pathologic alterations right fallopian tube - no pathologic alterations left fallopian tube - no pathologic alterations CPT: 23475 cds/wpd GROSS DESCRIPTION ANATOMIC SOURCE OF TISSUE (per Requisition): Uterus, cervix, bilateral tubes The specimen is received in a formalin-filled container, labeled with the patient's CONTINUED ON NEXT PAGE --------RUN DATE: 07/22/20 [facility] PAGE 2 RUN TIME: 1315 Specimen Inquiry RUN USER: INTERFACE --------SPEC #: [id number] PATIENT: DEL NIELSEN #[id number] (Continued) GROSS DESCRIPTION (Continued) name and designated "uterus, cervix, bilateral tubes". The specimen consists of a 280 gm, 12.5 x 8.5 x 8 cm previously bivalved uterus with cervix (3.5 x 3.5 cm with a 0.3 cm ovoid os), bilateral tubes (8 x 0.7 cm right and 9.5 x 0.7 cm left). Also received detached is a 2 x 1 x 0.8 cm arredondo-pink nodule. The serosa is arredondo-pink and dull. The endometrial cavity measures 7 x 2.8 cm. There is a 3 x 2.5 x 2 cm arredondo-pink, submucosal nodule. A smaller submucosal nodule measures 0.2 cm. The myometrium is arredondo-pink and trabecular. Multiple white whorled nodules are identified ranging from 0.3 to 2 cm. The endocervix is arredondo-pink. The ectocervix is white-pink and dull. The right fallopian tube is arredondo-pink with fimbriae. Sectioning reveals a pinpoint lumen. The left fallopian tube is arredondo-pink with fimbriae. The detached nodule is sectioned to reveal a arredondo-pink cut surface. First Sampler sections are submitted as follows: A1 - anterior cervix A2 - posterior cervix A3 - anterior endometrium and large submucosal nodule A4 - large submucosal nodule A5 - posterior endometrium and smaller submucosal nodule A6 through A8 - nodules A9 - nodule to serosa and detached nodule A10 - right fallopian tube A11 - left fallopian tube paul/krishna 07/18/20 Signed ____ Randy Estrada David 07/21/20 1711 -------- END OF REPORT CBC W/AUTO [id number] 06:46:00 Test Item Value Reference Range Interpretation Comments WHITE BLOOD CELL (test code = WBC) 10.7 K/mm3 6.6-12.1 RED BLOOD CELL (test code = RBC) 3.59 M/mm3 3.45-5.01 N HEMOGLOBIN (test code = HGB) 8.1 g/dL 10.7-13.9 L HEMATOCRIT (test code = HCT) 27.6 % 32.1-42.1 L MEAN CELL VOLUME (test code = MCV) 77 fL 84.1-94.8 L MEAN CELL HGB (test code = MCH) 22.6 pg 27-35 L MEAN CELL HGB CONCETRATION (test 29.3 gm/dL 32.2-34.1 L code = MCHC) RED CELL DISTRIBUTION WIDTH (test 23.5 % 12.4-16.5 H code = RDW) PLATELET COUNT (test code = PLT) 203 K/mm3 133-385 N IMMATURE PLATELET FRACTION (test 12.6 % 0.0-10.8 H code = IPF) NEUTROPHIL % (test code = NT%) 85.7 % 56.5-79.4 H LYMPHOCYTE % (test code = LY%) 7.3 % 14.3-34.3 L MONOCYTE % (test code = MO%) 6.4 % 5.1-10.4 N EOSINOPHIL % (test code = EO%) 0.0 % 0.1-3.0 L BASOPHIL % (test code = BA%) 0.1 % 0.1-1.0 N NEUTROPHIL # (test code = NT#) 9.2 K/mm3 LYMPHOCYTE # (test code = LY#) 0.8 K/mm3 MONOCYTE # (test code = MO#) 0.7 K/mm3 EOSINOPHIL # (test code = EO#) 0 K/mm3 BASOPHIL # (test code = BA#) 0.0 K/mm3 RBC MORPHOLOGY REQUIRED (test code ABNORMAL NORMAL ANISO 1+ = RBCM) PLATELET MORPHOLOGY REQUIRED (test NORMAL NORMAL code = PLTMR) CBC W/AUTO [id number] 05:53:00 Test Item Value Reference Range Interpretation Comments WHITE BLOOD CELL 6.0 K/mm3 6.6-12.1 L (test code = WBC) RED BLOOD CELL (test 3.62 M/mm3 3.45-5.01 N code = RBC) HEMOGLOBIN (test code 8.1 g/dL 10.7-13.9 L = HGB) HEMATOCRIT (test code 28.3 % 32.1-42.1 L = HCT) MEAN CELL VOLUME 78 fL 84.1-94.8 L (test code = MCV) MEAN CELL HGB (test 22.4 pg 27-35 L code = MCH) MEAN CELL HGB 28.6 gm/dL 32.2-34.1 L CONCETRATION (test code = MCHC) RED CELL DISTRIBUTION 23.1 % 12.4-16.5 H WIDTH (test code = RDW) PLATELET COUNT (test 203 K/mm3 133-385 N code = PLT) MEAN PLATELET VOLUME TEST NOT 9.1-12.7 (test code = MPV) PERFORMED fl NEUTROPHIL % (test 56.0 % 56.5-79.4 L code = NT%) LYMPHOCYTE % (test 30.1 % 14.3-34.3 N code = LY%) MONOCYTE % (test code 10.8 % 5.1-10.4 H = MO%) EOSINOPHIL % (test 2.3 % 0.1-3.0 N code = EO%) BASOPHIL % (test code 0.5 % 0.1-1.0 N = BA%) NEUTROPHIL # (test 3.4 K/mm3 code = NT#) LYMPHOCYTE # (test 1.8 K/mm3 code = LY#) MONOCYTE # (test code 0.7 K/mm3 = MO#) EOSINOPHIL # (test 0.14 K/mm3 code = EO#) BASOPHIL # (test code 0.0 K/mm3 = BA#) RBC MORPHOLOGY ABNORMAL NORMAL ANISO=1+HYPO =2+ REQUIRED (test code = RBCM) PLATELET MORPHOLOGY NORMAL NORMAL REQUIRED (test code = PLTMR) COVID 19 Asymptomatic IH [id number] 18:19:00 Test Item Value Reference Range Interpretation Comments COVID 19 NEGATIVE NEGATIVE This test has b een Asymptomatic IH AG authorize d only for the (test code = detection ofpro teins from COVNONPUIAG) SARS-CoV-2, not for any other viruses orpathogens. Ne gative results should be treated as presumptive andconfirmed wi th a molecular assay , if necessary for patientmanageme nt. Negative result s do not rule out COVID- 19 andshould not b e used as the sole basis for treatment orpat ient management deci sions, including infec tion controldecision s. Negative result s should be considered i n thecontext of a patient's recent exposure s, history and thepresence of clinical signs and symptoms consis tent withCOVID-19. T his test has not been FD A cleared or approved; th e test hasbeen authori pierre by FDA under an Emerge ncy Use Authorization(E UA) for use by laborato dale certified under the CLIA thatmeet the re quirements to perform mode rate, high or waivedcomple xity tests. This judy t is authorized for use at thePoint of Car e (POC), i.e., in patien t care settingsoperati ng under a CLIA Certificat e of Waiver, Certifi ignacio ofCompliance, o r Certificate of Accreditation. This test is only authori zed for the duration of thedeclaration that circumstances e xist justifying theauthorizatio n of emergency use o f in vitro diagnostic test sfor detection and/o r diagnosis of CO VID-19 under Nzuewll87 4(b)(1) of the Act, 21 U.S .C. 360bbb-3(b)(1), unless theauthorizatio n is terminated or r evoked sooner. AG HEPATITIS B [id number] 16:30:00 Test Item Value Reference Range Interpretation Comments AG HEPATITIS B SURFACE (test code NONREACTIVE NONREACTIVE = HBSAG) AB HIV 1 16:30:00 Test Item Value Reference Range Interpretation Comments AB HIV 1 2 (test NONREACTIVE NONREACTIVE Done by [facility] code = [id number]) 4th Gen HIV Ag/Ab Combo Screen AG HEPATITIS B [id number] 16:16:00 Test Item Value Reference Range Interpretation Comments AG HEPATITIS B SURFACE (test code NONREACTIVE NONREACTIVE = HBSAG) AB HIV 1 16:16:00 Test Item Value Reference Range Interpretation Comments AB HIV 1 2 (test code = [id number]) NONREACTIVE URINALYSIS [id number] 16:01:00 Test Item Value Reference Range Interpretation Comments UA COLOR (test code = COLU) STRAW YELLOW UA APPEARANCE (test code = CLEAR CLEAR APPU) UA GLUCOSE DIPSTICK (test code NEGATIVE NEG = DGLUU) UA BILIRUBIN DIPSTICK (test NEGATIVE NEG code = BILU) UA KETONE DIPSTICK (test code NEGATIVE NEG = KETU) UA SPECIFIC GRAVITY (test code 1.008 1.001-1.035 N = SGU) UA BLOOD DIPSTICK (test code = 2+ NEG A LAILA) UA PH DIPSTICK (test code = 7.0 5-9 CATHI) UA PROTEIN DIPSTICK (test code NEGATIVE NEG = PROU) UA UROBILINIOGEN DIPSTICK NEGATIVE mg/dL NEG (test code = URO) UA NITRITE DIPSTICK (test code NEG NEG = HEYDI) UA LEUKOCYTE ESTERASE DIPSTICK NEG NEG (test code = LEUU) UA WBC (test code = WBCU) 0-2 #/hpf NONE SEEN UA RBC (test code = RBCU) 0-2 #/hpf NONE SEEN UA EPITHELIAL CELLS (test code RARE #/HPF RARE-FEW = EPIU) UA BACTERIA (test code = BACU) NEGATIVE /HPF RARE-FEW UA MUCUS (test code = MUCU) RARE NONE SEEN CBC W/AUTO [id number] 15:56:00 Test Item Value Reference Range Interpretation Comments WHITE BLOOD CELL (test 5.7 K/mm3 6.6-12.1 L code = WBC) RED BLOOD CELL (test 3.68 M/mm3 3.45-5.01 N code = RBC) HEMOGLOBIN (test code = 8.3 g/dL 10.7-13.9 L HGB) HEMATOCRIT (test code = 29.3 % 32.1-42.1 L HCT) MEAN CELL VOLUME (test 80 fL 84.1-94.8 L code = MCV) MEAN CELL HGB (test code 22.6 pg 27-35 L = MCH) MEAN CELL HGB 28.3 gm/dL 32.2-34.1 L CONCETRATION (test code = MCHC) RED CELL DISTRIBUTION 22.5 % 12.4-16.5 H WIDTH (test code = RDW) PLATELET COUNT (test 219 K/mm3 133-385 N code = PLT) NEUTROPHIL % (test code 59.5 % 56.5-79.4 N = NT%) LYMPHOCYTE % (test code 28.3 % 14.3-34.3 N = LY%) MONOCYTE % (test code = 10.0 % 5.1-10.4 N MO%) EOSINOPHIL % (test code 1.2 % 0.1-3.0 N = EO%) BASOPHIL % (test code = 0.5 % 0.1-1.0 N BA%) NEUTROPHIL # (test code 3.4 K/mm3 = NT#) LYMPHOCYTE # (test code 1.6 K/mm3 = LY#) MONOCYTE # (test code = 0.6 K/mm3 MO#) EOSINOPHIL # (test code 0.07 K/mm3 = EO#) BASOPHIL # (test code = 0.0 K/mm3 BA#) RBC MORPHOLOGY REQUIRED ABNORMAL NORMAL 2+ H YPO; 1+ ANISO; (test code = RBCM) 1+ SCHIST O PLATELET MORPHOLOGY NORMAL NORMAL REQUIRED (test code = PLTMR) CHEMISTRY 7 [id number] 15:47:00 Test Item Value Reference Range Interpretation Comments SODIUM (test code = NA) 138 mEq/L 135-145 N POTASSIUM (test code = K) 3.8 mEq/L 3.5-5.0 N CHLORIDE (test code = CL) 104 mEq/L 100-115 N CARBON DIOXIDE (test code = CO2) 25 mEq/L 22-31 N ANION GAP (test code = GAP) 13.10 10-20 N GLUCOSE (test code = GLU) 90 mg/dL 65-110 N BLOOD UREA NITROGEN (test code = 9 mg/dL 7-18 N BUN) GLOMERULAR FILTRATION RATE (test 70 ml/min >60 N code = GFR) CREATININE (test code = CREAT) 0.9 mg/dL 0.5-1.0 N CALCIUM (test code = CA) 7.8 mg/dL 8.4-10.2 L LIPID PROFILE (CORONARY RISK)2020-07-17 15:47:00 Test Item Value Reference Range Interpretation Comments TRIGLYCERIDES (test 160 mg/dL H Normal < 150 code = TRIG) Borderline high 150 - 199 High 200 - 499 Very High > 500 CHOLESTEROL (test code 148 mg/dL 120-200 N = CHOL) HDL CHOLESTEROL (test 38 mg/dL HDL <4 0 = Low HDL code = HDL) Cholesterolhdl >60 = High HDL CholesterolSour ce: NCEP-ATPIII LIPOPROTEIN LDL (test 78 mg/dL <130 (DESIRABLE) code = LDL) 130-159 (BORDER LINE) >=160 (HIGH) LIVER [id number] 15:47:00 Test Item Value Reference Range Interpretation Comments TOTAL PROTEIN (test code = PROT) 7.0 gm/dL 6.3-8.2 N ALBUMIN (test code = ALB) 3.4 gm/dL 3.4-4.8 N BILIRUBIN TOTAL (test code = BILT) 0.6 mg/dL 0.2-1.0 N BILIRUBIN DIRECT (test code = 0.2 mg/dL <0.2 N BILD) SGOT/AST (test code = AST) 35 units/L 15-37 N SGPT/ALT (test code = ALT) 81 units/L 12-78 H ALKALINE PHOSPHATASE TOTAL (test 93 units/L 46-116 N code = ALKP) HCG SERUM [id number] 15:47:00 Test Item Value Reference Range Interpretation Comments HCG SERUM QUAL (test code = HCGQL) NEGATIVE HEPATITIS C BY [id number] 15:47:00 Test Item Value Reference Range Interpretation Comments HEPATITIS C BY PCR (test code = HEPCT) NONE DETECT CHEMISTRY 7 [id number] 15:33:00 Test Item Value Reference Range Interpretation Comments SODIUM (test code = NA) mEq/L 135-145 POTASSIUM (test code = K) mEq/L 3.5-5.0 CHLORIDE (test code = CL) mEq/L 100-115 CARBON DIOXIDE (test code = CO2) mEq/L 22-31 ANION GAP (test code = GAP) 10-20 GLUCOSE (test code = GLU) mg/dL 65-110 BLOOD UREA NITROGEN (test code = BUN) mg/dL 7-18 CREATININE (test code = CREAT) mg/dL 0.5-1.0 CALCIUM (test code = CA) mg/dL 8.4-10.2 LIPID PROFILE (CORONARY RISK)2020-07-17 15:33:00 Test Item Value Reference Range Interpretation Comments TRIGLYCERIDES (test code = TRIG) mg/dL CHOLESTEROL (test code = CHOL) mg/dL 120-200 HDL CHOLESTEROL (test code = HDL) mg/dL LIPOPROTEIN LDL (test code = LDL) mg/dL LIVER [id number] 15:33:00 Test Item Value Reference Range Interpretation Comments TOTAL PROTEIN (test code = PROT) gm/dL 6.3-8.2 ALBUMIN (test code = ALB) gm/dL 3.4-4.8 BILIRUBIN TOTAL (test code = BILT) mg/dL 0.2-1.0 BILIRUBIN DIRECT (test code = BILD) mg/dL <0.2 SGOT/AST (test code = AST) units/L 15-37 SGPT/ALT (test code = ALT) units/L 12-78 ALKALINE PHOSPHATASE TOTAL (test units/L 46-116 code = ALKP) HCG SERUM [id number] 15:33:00 Test Item Value Reference Range Interpretation Comments HCG SERUM QUAL (test code = HCGQL) NEGATIVE HEPATITIS C BY [id number] 15:33:00 Test Item Value Reference Range Interpretation Comments HEPATITIS C BY PCR (test code = HEPCT) NONE DETECT CBC W/AUTO [id number] 15:16:00 Test Item Value Reference Range Interpretation Comments WHITE BLOOD CELL (test code = WBC) 5.7 K/mm3 6.6-12.1 L RED BLOOD CELL (test code = RBC) 3.68 M/mm3 3.45-5.01 N HEMOGLOBIN (test code = HGB) 8.3 g/dL 10.7-13.9 L HEMATOCRIT (test code = HCT) 29.3 % 32.1-42.1 L MEAN CELL VOLUME (test code = MCV) 80 fL 84.1-94.8 L MEAN CELL HGB (test code = MCH) 22.6 pg 27-35 L MEAN CELL HGB CONCETRATION (test 28.3 gm/dL 32.2-34.1 L code = MCHC) RED CELL DISTRIBUTION WIDTH (test 22.5 % 12.4-16.5 H code = RDW) PLATELET COUNT (test code = PLT) 219 K/mm3 133-385 N NEUTROPHIL % (test code = NT%) 59.5 % 56.5-79.4 N LYMPHOCYTE % (test code = LY%) 28.3 % 14.3-34.3 N MONOCYTE % (test code = MO%) 10.0 % 5.1-10.4 N EOSINOPHIL % (test code = EO%) 1.2 % 0.1-3.0 N BASOPHIL % (test code = BA%) 0.5 % 0.1-1.0 N NEUTROPHIL # (test code = NT#) 3.4 K/mm3 LYMPHOCYTE # (test code = LY#) 1.6 K/mm3 MONOCYTE # (test code = MO#) 0.6 K/mm3 EOSINOPHIL # (test code = EO#) 0.07 K/mm3 BASOPHIL # (test code = BA#) 0.0 K/mm3 RBC MORPHOLOGY REQUIRED (test code NORMAL = RBCM) PLATELET MORPHOLOGY REQUIRED (test NORMAL code = PLTMR) HGB [id number] 13:41:00 Test Item Value Reference Range Interpretation Comments HEMOGLOBIN (test code = 7.9 g/dL 10.7-13.9 L Resu lts verified by HGB) repeat analysis HEMATOCRIT (test code = 26.7 % 32.1-42.1 L Res ults verified by HCT) repeat analysis CBC W/AUTO [id number] 06:55:00 Test Item Value Reference Range Interpretation Comments WHITE BLOOD CELL 6.4 K/mm3 6.6-12.1 L (test code = WBC) RED BLOOD CELL (test 2.68 M/mm3 3.45-5.01 L code = RBC) HEMOGLOBIN (test code 5.6 g/dL 10.7-13.9 LL RESULT S CALLED = HGB) TO OWEN Christiansen BACK & CONFIRMED? Y.BY FDAPHNIE.LGL0 07/17/20621.RESULTS VERIFIED BY REPEAT ANALYSIS HEMATOCRIT (test code 20.5 % 32.1-42.1 L = HCT) MEAN CELL VOLUME 77 fL 84.1-94.8 L (test code = MCV) MEAN CELL HGB (test 20.9 pg 27-35 L code = MCH) MEAN CELL HGB 27.3 gm/dL 32.2-34.1 L CONCETRATION (test code = MCHC) RED CELL DISTRIBUTION 23.5 % 12.4-16.5 H WIDTH (test code = RDW) PLATELET COUNT (test 188 K/mm3 133-385 N code = PLT) MEAN PLATELET VOLUME TEST NOT 9.1-12.7 (test code = MPV) PERFORMED fl NEUTROPHIL % (test 59.4 % 56.5-79.4 N code = NT%) LYMPHOCYTE % (test 29.5 % 14.3-34.3 N code = LY%) MONOCYTE % (test code 8.9 % 5.1-10.4 N = MO%) EOSINOPHIL % (test 1.6 % 0.1-3.0 N code = EO%) BASOPHIL % (test code 0.3 % 0.1-1.0 N = BA%) NEUTROPHIL # (test 3.8 K/mm3 code = NT#) LYMPHOCYTE # (test 1.9 K/mm3 code = LY#) MONOCYTE # (test code 0.6 K/mm3 = MO#) EOSINOPHIL # (test 0.10 K/mm3 code = EO#) BASOPHIL # (test code 0.0 K/mm3 = BA#) RBC MORPHOLOGY ABNORMAL NORMAL HYPO 2+ANISO 1+ REQUIRED (test code = RBCM) PLATELET MORPHOLOGY NORMAL NORMAL REQUIRED (test code = PLTMR) CHEMISTRY 7 [id number] 06:39:00 Test Item Value Reference Range Interpretation Comments SODIUM (test code = NA) 139 mEq/L 135-145 N POTASSIUM (test code = K) 3.8 mEq/L 3.5-5.0 N CHLORIDE (test code = CL) 106 mEq/L 100-115 N CARBON DIOXIDE (test code = CO2) 23 mEq/L 22-31 N ANION GAP (test code = GAP) 14.00 10-20 N GLUCOSE (test code = GLU) 89 mg/dL 65-110 N BLOOD UREA NITROGEN (test code = 7 mg/dL 7-18 N BUN) GLOMERULAR FILTRATION RATE (test 94 ml/min >60 N code = GFR) CREATININE (test code = CREAT) 0.7 mg/dL 0.5-1.0 N CALCIUM (test code = CA) 7.7 mg/dL 8.4-10.2 L CBC W/AUTO [id number] 06:23:00 Test Item Value Reference Range Interpretation Comments WHITE BLOOD CELL 6.4 K/mm3 6.6-12.1 L (test code = WBC) RED BLOOD CELL (test 2.68 M/mm3 3.45-5.01 L code = RBC) HEMOGLOBIN (test code 5.6 g/dL 10.7-13.9 LL RESULT S CALLED = HGB) TO OWEN Christiansen BACK & CONFIRMED? Y.BY FDAPHNIE.LGL0 07/17/20621.RESULTS VERIFIED BY REPEAT ANALYSIS HEMATOCRIT (test code 20.5 % 32.1-42.1 L = HCT) MEAN CELL VOLUME 77 fL 84.1-94.8 L (test code = MCV) MEAN CELL HGB (test 20.9 pg 27-35 L code = MCH) MEAN CELL HGB 27.3 gm/dL 32.2-34.1 L CONCETRATION (test code = MCHC) RED CELL DISTRIBUTION 23.5 % 12.4-16.5 H WIDTH (test code = RDW) PLATELET COUNT (test 188 K/mm3 133-385 N code = PLT) MEAN PLATELET VOLUME TEST NOT 9.1-12.7 (test code = MPV) PERFORMED fl NEUTROPHIL % (test 59.4 % 56.5-79.4 N code = NT%) LYMPHOCYTE % (test 29.5 % 14.3-34.3 N code = LY%) MONOCYTE % (test code 8.9 % 5.1-10.4 N = MO%) EOSINOPHIL % (test 1.6 % 0.1-3.0 N code = EO%) BASOPHIL % (test code 0.3 % 0.1-1.0 N = BA%) NEUTROPHIL # (test 3.8 K/mm3 code = NT#) LYMPHOCYTE # (test 1.9 K/mm3 code = LY#) MONOCYTE # (test code 0.6 K/mm3 = MO#) EOSINOPHIL # (test 0.10 K/mm3 code = EO#) BASOPHIL # (test code 0.0 K/mm3 = BA#) RBC MORPHOLOGY NORMAL REQUIRED (test code = RBCM) PLATELET MORPHOLOGY NORMAL REQUIRED (test code = PLTMR) - US TRANSVAGINAL [id number] 21:26:00 [facility] : 1980 Sex: F Patient Name: DEL NIELSEN Unit No: [id number] EXAMS: CPT CODE: [id number] US TRANSVAGINAL W/PELVIS 47533 PROCEDURE: PELVIC ULTRASOUND INDICATION: Pelvic pain. History of fibroid. Anemia. COMPARISON: None. TRANSABDOMINAL SCAN: The uterus is enlarged and heterogeneous [id number] x 6.2 x 7.8 cm with partially obscured endometrial stripe thought to measure 5 mm thickness. Few heterogeneous round hypoechoic uterine fibroids are seen as described below: Right anterior intramural, 2.3 x 2.6 x 2.4 cm Left submucosal, 3.5 x 2.6 x 3.8 cm Right posterior intramural, 2.5 x 3.2 x 2.9cm Right anterior intramural, 1.4 x 2.1 x 1.7 cm Left posterior intramural, 1.3 x 1.9 x 1.9 cm Rightovary measures 4.2 x 2.4 x 4.2 cm containing 3.1 x 1.7 x 3.5 cm anechoic avascular cyst. Arterial wav eforms are documented to the ovary. Left ovary is partially obscured measuring 2.6 x 2.2 x 2.4 cm with arterial waveforms documented. No free pelvic fluid seen. TRANSVAGINAL SCAN: Transvaginal exam wasperformed for better visualization of the pelvic structures. Heterogeneous uterus measures 11.3 x 7.1 x 7.7 cm with partially obscured endometrial stripe thought to measure 5 mm thickness. Multiple heterogeneous uterine fibroids are present as described below: Submucosal, 3.7 x 2.2 x 3.3 cm Right intramural, 2.3 x 3.2 x 2.6 cm Left posterior intramural, 2.4 x 1.7 x 2 cm Right posterior intramural, 2.3 x 1.7 x 2.1 cm Right ovary measures 4.4 x 3.5 x 3.3 cm containing 3.1 x 2.7 x 2.6 cm anechoic avascular cyst with posterior acoustic enhancement. Left ovary is partially obscured appearing normal measuring 2.4 x 1.6 x 1.7 cm. Arterial waveforms are documented to each ovary. IMPRESSION: 1. Enlarged heterogeneous leiomyomatous uterus. One of the fibroids appears submucosal in position. This less likely represents endometrial polyp. 2. Simple right ovarian cyst. SL: SG-H at 2125 Reported and signed by: Kd Rivera MD [facility] NAME: GIADEL DIAS Radiology Department PHYS: ROSIE Maribel Everett MD [address] : 1980 AGE: 39 SEX: F [place], [place] [address] LOC: [id number] PHONE #: [phone] EXAM DATE: 07/16/2020 STATUS: ADM IN FAX #: [phone] RAD NO: [id number] Page1 Signed Report (CONTINUED) Patient Name: DEL NIELSEN Unit No: [id number] EXAMS: CPT CODE: [id number] US TRANSVAGINAL W/PELVIS 27445 (Continued) CC: Maribel Everett MD Technologist: Lisandra Garza RDMS Probe: [id number] Trnscrbd D/ (2125) TomSG9 Orig Print D/T: S: 07/16/2020 (2128) [facility] NAME: GIADEL Radiology Department PHYS: ROSIE Maribel Everett MD [address] : 1980 AGE: 39 SEX: F [place], [place] [address] LOC: DENISE 5 PHONE #: [phone] EXAM DATE: 07/16/2020 STATUS: ADM IN FAX #: [phone] RAD NO: [id number] Page 2 Signed Report Patient Name: DEL NIELSEN Unit No: [id number] EXAMS: CPT CODE: [id number] US TRANSVAGINAL W/PELVIS 89687 (Continued) [facility] [facility] NAME: DEL NIELSEN Radiology Department PHYS: ROSIE.Johnson Maribel Everett MD[address] : 1980 AGE: 39 SEX: F [place], [place] [address] LOC: DENISE 5PHONE #: [phone] EXAM DATE: 07/16/2020 STATUS: ADM IN FAX #: [phone] RAD NO: [id number] Page 3Signed Report- DUP AB/PEL/SC/[id number] 21:26:00 [facility] : 1980 Sex: F Patient Name: DEL NIELSEN Unit No: [id number] EXAMS: CPT CODE: [id number] DUP AB/PEL/SC/LTD 79343 PROCEDURE: PELVIC ULTRASOUND INDICATION: Pelvic pain. History of fibroid. Anemia. COMPARISON: None. TRANSABDOMINAL SCAN: The uterus is enlarged and heterogeneous measuring 12 x 6.2 x 7.8 cm with partially obscured endometrial stripe thought to measure 5 mm thickness. Few heterogeneous round hypoechoic uterine fibroids are seen as described below: Right anterior intramural, 2.3x 2.6 x 2.4 cm Left submucosal, 3.5 x 2.6 x 3.8 cm Right posterior intramural, 2.5 x 3.2 x 2.9 cm Right anterior intramural, 1.4 x 2.1 x 1.7 cm Left posterior intramural, 1.3 x 1.9 x 1.9 cm Right ovarymeasures 4.2 x 2.4 x 4.2 cm containing 3.1 x 1.7 x 3.5 cm anechoic avascular cyst. Arterial waveforms are documented to the ovary. Left ovary is partially obscured measuring 2.6 x 2.2 x 2.4 cm with arterial waveforms documented. No free pelvic fluid seen. TRANSVAGINAL SCAN: Transvaginal exam was performed for better visualization of the pelvic structures. Heterogeneous uterus measures 11.3 x 7.1 x 7.7 cm with partially obscured endometrial stripe thought to measure 5 mm thickness. Multiple heterogeneous uterine fibroids are present as described below: Submucosal, 3.7 x 2.2 x 3.3 cm Right intramural, 2.3 x 3.2 x 2.6 cm Left posterior intramural, 2.4 x 1.7 x 2 cm Right posterior intramural, 2.3 x 1.7 x 2.1 cm Right ovary measures 4.4 x 3.5 x 3.3 cm containing 3.1 x 2.7 x 2.6 cm anechoic avascular cyst with posterior acoustic enhancement. Left ovary is partially obscured appearing normal measuring 2.4 x 1.6 x 1.7 cm. Arterial waveforms are documented to each ovary. IMPRESSION: 1. Enlarged heterogeneous leiomyomatous uterus. One of the fibroids appears submucosal in position. This less likely represents endometrial polyp. 2. Simple right ovarian cyst. SL: SG-H at 3175 Reported and signed by: Kd Rivera MD [facility] NAME: DEL NIELSEN Radiology Department PHYS: INDU.Johnson Maribel Everett MD [address] : 1980 AGE: 39 SEX: F [place], [place] [address] LOC: DENISE 5 PHONE #: [phone] EXAM DATE: 07/16/2020 STATUS: ADM IN FAX #: [phone] RAD NO: [id number] Page 1 Signed Report (CONTINUED) Patient Name: DEL NIELSEN Unit No: [id number] EXAMS: CPT CODE: [id number] DUP AB/PEL/SC/LTD 98918 (Continued) CC: Maribel Everett MD Technologist: Lisandra Garza RDMS Probe: Trnscrbd D/ (2125) [email or web address] Orig Print D/T: S: 07/16/2020 (2128) [facility] NAME: DEL NIELSEN Radiology Department PHYS: ROSIE. Maribel Everett MD [address] : 1980 AGE: 39 SEX: F [place] [address] LOC: DENISE 5 PHONE #: [phone] EXAM DATE: 07/16/2020 STATUS: ADM IN FAX #: [phone] RAD NO: [id number] Page 2 Signed Report Patient Name: DEL NIELSEN Unit No: [id number] EXAMS: CP T CODE: [id number] DUP AB/PEL/SC/LTD 88793 (Continued) [facility] NAME: GIA,VERONICA LARISSA Radiology Department PHYS: NESDC. Maribel Everett MD [address] : 1980 AGE: 39 SEX: F [place] [address] LOC: DENISE 5 PHONE #: [phone] EXAM DATE: 07/16/2020 STATUS: ADM IN FAX #: [phone] RAD NO: [id number] Page 3 Signed Report- US PELVIS [id number] 21:26:00 [facility] : 1980 Sex: F Patient Name: DEL NIELSEN Unit No: [id number] EXAMS: CPT CODE: [id number] US PELVIS COMPLETE 38655 PROCEDURE: PELVIC ULTRASOUND INDICATION: Pelvic pain. History of fibroid. Anemia. COMPARISON: None. TRANSABDOMINAL SCAN: The uterus is enlarged and heterogeneous measuring 12 x 6.2 x 7.8 cm with partially obscured endometrial stripe thought to measure 5 mm thickness. Few heterogeneous round hypoechoic uterine fibroids are seen as described below: Right anterior intramural, 2.3 x 2.6 x 2.4 cm Left submucosal, 3.5 x 2.6 x 3.8 cm Right posterior intramural, 2.5 x 3.2 x 2.9 cm Right anterior intramural, 1.4 x 2.1 x 1.7 cm Left posterior intramural, 1.3 x 1.9 x 1.9 cm Right ovary measures 4.2 x 2.4 x 4.2 cm containing 3.1 x 1.7 x 3.5 cm anechoic avascular cyst. Arterial waveforms are documented to the ovary. Left ovary is partially obscured measuring 2.6 x 2.2 x 2.4 cm with arterial waveforms documented. No free pelvic fluid seen. TRANSVAGINAL SCAN: Transvaginal exam was performed for better visualization of the pelvic structures. Heterogeneous uterus measures 11.3 x 7.1 x 7.7 cm with partially obscured endometrial stripe thought to measure 5 mm thickness. Multiple heterogeneous uterine fibroids are present as described below: Submucosal, 3.7 x 2.2 x 3.3 cm Right intramural, 2.3 x 3.2 x 2.6 cm Left posterior intramural, 2.4 x 1.7 x 2 cm Right posterior intramural, 2.3 x 1.7 x 2.1 cm Right ovary measures 4.4 x 3.5 x 3.3 cm containing 3.1 x 2.7 x 2.6 cm anechoic avascularcyst with posterior acoustic enhancement. Left ovary is partially obscured appearing normal measuring 2.4 x 1.6 x 1.7 cm. Arterial waveforms are documented to each ovary. IMPRESSION: 1. Enlarged heterogeneous leiomyomatous uterus. One of the fibroids appears submucosal in position. This less likely represents endometrial polyp. 2. Simple right ovarian cyst. SL: GRISELDA at 2126 Reported and signed by: Kd Rivera MD [facility] NAME: DEL NIELSEN Radiology Department PHYS: [address] : 1980 AGE: 39 SEX: F [place] [address] LOC: DENISE 5PHONE #: [phone] EXAM DATE: 07/16/2020 STATUS: ADM IN FAX #: [phone] RAD NO: [id number] Page 1Signed Report (CONTINUED) Patient Name: DEL NIELSEN Unit No: [id number] EXAMS: CPT CODE: [id number] US PELVIS COMPLETE 77691 (Continued) CC: Technologist: Lisandra Garza RDMS Probe: Trnscrbd D/ (2125) TomSG9 Orig Print D/T: S: 07/16/2020 (2128) [facility] NAME: DEL NIELSEN Radiology Department PHYS: [address] : 1980 AGE: 39 SEX: F [place] [address] LOC: DENISE 5PHONE #: [phone] EXAM DATE: 07/16/2020 STATUS: ADM IN FAX #: [phone] RAD NO: [id number] Page 2Signed Report Patient Name: DEL NIELSEN Unit No: [id number] EXAMS: CPT CODE: [id number] US PELVIS COMPLETE 11575 (Continued) [facility] NAME: DEL NIELSEN Radiology Department PHYS: BINARubenJulián Gomez Smith [place]man [address] : 1980 AGE: 39 SEX: F [place], [place] [address] LOC: DENISE Fajardo PHONE #: [phone] EXAM DATE: 07/16/2020 STATUS: ADM IN FAX #: [phone] RAD NO: [id number] Page 3 Signed ReportHCG SERUM 2020-07-16 21:04:00 Test Item Value Reference Range Interpretation Comments HCG SERUM (test <1 INTERPRETATI ON:VALUES BETWEEN code = HCG) 15-20 milliInte rnational units/mL NEED T O BERETESTED WITHIN 48 HOURS . All units for these ranges ar e in milliInternatio nalunits/mL0-1 WK AFTER CONCEP TION 0-50 1-2 WKS AFTER ROBIN PTION 40-3002-3 WKS AFTER ROBIN PTION 100-1,0003-4 WK S AFTER CONCEPTION 500- 6,0001-2 MONTHS AFTER CONCEPTIO N 5,000-200,0002- 3 MONTHS AFTER CONCEPTION 10,0 00-100,0002ND TRIMESTER 3,000 -50,0003RD TRIMESTER 1,000 -50,000 SPECIMENS WITH AN HCG LEVEL FROM 0-6 milliInternatio nalunits/mL SHOULD BE CONSI DERED NEGATIVE CHEMISTRY 7 [id number] 21:02:00 Test Item Value Reference Range Interpretation Comments SODIUM (test code = NA) 138 mEq/L 135-145 N POTASSIUM (test code = K) 3.8 mEq/L 3.5-5.0 N CHLORIDE (test code = CL) 104 mEq/L 100-115 N CARBON DIOXIDE (test code = CO2) 23 mEq/L 22-31 N ANION GAP (test code = GAP) 15.20 10-20 N GLUCOSE (test code = GLU) 100 mg/dL 65-110 N BLOOD UREA NITROGEN (test code = 8 mg/dL 7-18 N BUN) GLOMERULAR FILTRATION RATE (test 80 ml/min >60 N code = GFR) CREATININE (test code = CREAT) 0.8 mg/dL 0.5-1.0 N CALCIUM (test code = CA) 7.7 mg/dL 8.4-10.2 L CBC W/AUTO [id number] 20:44:00 Test Item Value Reference Range Interpretation Comments WHITE BLOOD CELL 8.6 K/mm3 6.6-12.1 N (test code = WBC) RED BLOOD CELL (test 2.41 M/mm3 3.45-5.01 L code = RBC) HEMOGLOBIN (test 4.1 g/dL 10.7-13.9 LL RESULTS MILES IFIED BY code = HGB) REPEAT ANALYSIS RESULTS CALLED TO OBI A .READ BACK & CONFIRME D? Y.BY F.LAB.RV 2022. HEMATOCRIT (test 17.1 % 32.1-42.1 LL RESULTS MILES IFIED BY code = HCT) REPEAT ANALYSIS RESULTS CALLED TO OBI A .READ BACK & CONFIRME D? Y.BY F.LAB.RV 2023. MEAN CELL VOLUME 71 fL 84.1-94.8 L (test code = MCV) MEAN CELL HGB (test 17.0 pg 27-35 L code = MCH) MEAN CELL HGB 24.0 gm/dL 32.2-34.1 L CONCETRATION (test code = MCHC) RED CELL 21.1 % 12.4-16.5 H DISTRIBUTION WIDTH (test code = RDW) PLATELET COUNT (test 238 K/mm3 133-385 N code = PLT) NEUTROPHIL % (test 72.5 % 56.5-79.4 N code = NT%) LYMPHOCYTE % (test 19.5 % 14.3-34.3 N code = LY%) MONOCYTE % (test 6.5 % 5.1-10.4 N code = MO%) EOSINOPHIL % (test 0.9 % 0.1-3.0 N code = EO%) BASOPHIL % (test 0.1 % 0.1-1.0 N code = BA%) NEUTROPHIL # (test 6.2 K/mm3 code = NT#) LYMPHOCYTE # (test 1.7 K/mm3 code = LY#) MONOCYTE # (test 0.6 K/mm3 code = MO#) EOSINOPHIL # (test 0.08 K/mm3 code = EO#) BASOPHIL # (test 0.0 K/mm3 code = BA#) RBC MORPHOLOGY ABNORMAL NORMAL +3 HYPOCHROMI A+1 REQUIRED (test code ANISOCYT OSIS = RBCM) PLATELET MORPHOLOGY NORMAL NORMAL REQUIRED (test code = PLTMR) UA RFLX MICR CULT IF [id number] 20:34:00 Test Item Value Reference Range Interpretation Comments UA COLOR (test code = COLU) STRAW YELLOW UA APPEARANCE (test code = CLEAR CLEAR APPU) UA GLUCOSE DIPSTICK (test code NEGATIVE NEG = DGLUU) UA BILIRUBIN DIPSTICK (test NEGATIVE NEG code = BILU) UA KETONE DIPSTICK (test code NEGATIVE NEG = KETU) UA SPECIFIC GRAVITY (test code 1.008 1.001-1.035 N = SGU) UA BLOOD DIPSTICK (test code = 1+ NEG A LAILA) UA PH DIPSTICK (test code = 6.0 5-9 CATHI) UA PROTEIN DIPSTICK (test code NEGATIVE NEG = PROU) UA UROBILINIOGEN DIPSTICK NEGATIVE mg/dL NEG (test code = URO) UA NITRITE DIPSTICK (test code NEG NEG = HEYDI) UA LEUKOCYTE ESTERASE DIPSTICK NEG NEG (test code = LEUU) UA WBC (test code = WBCU) 0-2 #/hpf NONE SEEN UA RBC (test code = RBCU) 0-2 #/hpf NONE SEEN UA EPITHELIAL CELLS (test code RARE #/HPF RARE-FEW = EPIU) UA BACTERIA (test code = BACU) NEGATIVE /HPF RARE-FEW UA MUCUS (test code = MUCU) RARE NONE SEEN Indication for culture: Dysuria/FrequencySpecimen Description: CLEAN CATCHCBC W/AUTO [id number] 20:25:00 Test Item Value Reference Range Interpretation Comments WHITE BLOOD CELL 8.6 K/mm3 6.6-12.1 N (test code = WBC) RED BLOOD CELL (test 2.41 M/mm3 3.45-5.01 L code = RBC) HEMOGLOBIN (test 4.1 g/dL 10.7-13.9 LL RESULTS MILES IFIED BY code = HGB) REPEAT ANALYSIS RESULTS CALLED TO ANA MirandaREAD BACK & CONFIRME D? Y.BY FRubenLABRubenRV 2022. HEMATOCRIT (test 17.1 % 32.1-42.1 LL RESULTS MILES IFIED BY code = HCT) REPEAT ANALYSIS RESULTS CALLED TO ANA MirandaREAD BACK & CONFIRME D? Y.BY FDAPHNIE.RV 2023. MEAN CELL VOLUME 71 fL 84.1-94.8 L (test code = MCV) MEAN CELL HGB (test 17.0 pg 27-35 L code = MCH) MEAN CELL HGB 24.0 gm/dL 32.2-34.1 L CONCETRATION (test code = MCHC) RED CELL 21.1 % 12.4-16.5 H DISTRIBUTION WIDTH (test code = RDW) PLATELET COUNT (test 238 K/mm3 133-385 N code = PLT) NEUTROPHIL % (test 72.5 % 56.5-79.4 N code = NT%) LYMPHOCYTE % (test 19.5 % 14.3-34.3 N code = LY%) MONOCYTE % (test 6.5 % 5.1-10.4 N code = MO%) EOSINOPHIL % (test 0.9 % 0.1-3.0 N code = EO%) BASOPHIL % (test 0.1 % 0.1-1.0 N code = BA%) NEUTROPHIL # (test 6.2 K/mm3 code = NT#) LYMPHOCYTE # (test 1.7 K/mm3 code = LY#) MONOCYTE # (test 0.6 K/mm3 code = MO#) EOSINOPHIL # (test 0.08 K/mm3 code = EO#) BASOPHIL # (test 0.0 K/mm3 code = BA#) RBC MORPHOLOGY NORMAL REQUIRED (test code = RBCM) PLATELET MORPHOLOGY NORMAL REQUIRED (test code = PLTMR) US PELVIS COMPLETE WITH [id number] 19:42:32 1. ?Enlarged heterogeneous uterus with multiple uterine fibroids andincreased endometrial vascularity. Per the patient, she will be getting ahysterectomy. 2. ?Unremarkable bilateral ovaries. Preliminary Report Dictated by Resident: Mally Cordoba. Andrea Jiménez MD., have reviewed this studyand agree with theabove report.EXAM: US PELVIS COMPLETE WITH TRANSVAGINAL HISTORY: 39 years - old Female with Abnormal uterine bleeding for one month. TECHNIQUE: Transabdominal and transvaginal ultrasound imaging of the pelviswas performed including color Doppler evaluation. First Sampler imageswere obtained for the record. COMPARISON: None FINDINGS: Uterus: The uterus is normal in size, 11.0 x 5.7 x 7.0 cm. The myometrium isheterogenous. Multiple well-defined heterogeneous iso-/hypoechoic focallesions are seen within the myometrium, largest lesion appears submucosalwithin the posterior wall and measures 3.5 x 3.0 x 3.5 cm. The endometriumis hypervascular. The cervix is unremarkable. Right Adnexa:Ovary size: 2.9 x 1.8 x 1.1 cmOvary appearance: Few small follicles.Other: No mass. Left Adnexa:Ovary size: 3.5 x 2.2 x 2.3 cmOvary appearance: Few small follicles.Other: No mass. Cul-de-sac: No free fluid. [facility], Radiant Results Inft User - 06/04/2020 1:43 PM CSTEXAM: US PELVIS COMPLETE WITH TRANSVAGINALHISTORY: 39 years -old Female with Abnormal uterine bleeding for one month.[id number]: Transabdominal and transvaginal ultrasound imaging of the pelviswas performed including color Doppler evaluation. First Sampler imageswere obtained for the record.COMPARISON: NoneFINDINGS:Uterus: The uterus is normal in size, 11.0 x 5.7 x 7.0 cm. The myometrium isheterogenous. Multiple well-defined heterogeneous iso-/hypoechoic focallesions are seen within the myometrium, largest lesion appears submucosalwithin the posterior wall and measures 3.5 x 3.0 x 3.5 cm. The endometriumis hypervascular. The cervix is unremarkable.Right Adnexa:Ovary size: 2.9 x 1.8 x 1.1 cmOvary appearance: Few small follicles.O ther: No mass.Left Adnexa:Ovary size: 3.5 x 2.2 x 2.3 cmOvary appearance: Few small follicles.Other:No mass.Cul-de-sac: No free fluid. IMPRESSION1. Enlarged heterogeneous uterus with multiple uterine fibroids andincreased endometrial vascularity. Per the patient, she will be getting ahysterectomy.2. Unremarkable bilateral ovaries.Preliminary Report Dictated by Resident: Mally Cordoba.I, Andrea Bhagat MD., have reviewed this study and agree with theabove report.[facility] WITH [id number] 23:41:00 Test Item Value Reference Range Interpretation Comments WBC (test code = See_Comment [Automated 6690-2) message] The sy stem which generated this result transmitted reference range : 4.30 - 11.10 10*3/?L. The reference range was not used to interpret this result as normal/abnormal . RBC (test code = See_Comment L [Automated 789-8) message] The sy stem which generated this result transmitted reference range : 3.93 - 5.25 10*6/?L. The reference range was not used to interpret this result as normal/abnormal . HGB (test code = 6.3 g/dL 11.6-15 L 718-7) HCT (test code = 23.4 % 35.7-45.2 L 4544-3) MCV (test code = 78.0 fL 80.6-95.5 L 787-2) MCH (test code = 21.0 pg 25.9-32.8 L 785-6) MCHC (test code = 26.9 g/dL 31.6-35.1 L 786-4) RDW-SD (test code = 66.5 fL 39-49.9 H 63290-9) RDW-CV (test code = 25.2 % 12-15.5 H 788-0) PLT (test code = See_Comment [Automated 777-3) message] The sy stem which generated this result transmitted reference range : 166 - 358 10*3/ ?L. The reference r fab was not used to interpret this result as normal/abnormal . MPV (test code = Not Measure d 84834-1) IPF % (test code = 10.7 % 1.3-7.7 H Platelet count 9954359206) measured by fluorescence method. NRBC/100 WBC (test See_Comment [Automat ed code = 3350909392) message] The system which generated this result transmitted reference range : 0.0 - 10.0 /100 WBCs. The refer ence range was not u sed to interpret th is result as normal/abnormal . NRBC x10^3 (test code See_Comment [Auto mated = 4603079043) message] The s ystem which generated this result transmitted reference range : 10*3/?L. The reference range was not used to interpret this result as normal/abnormal . GRAN MAT (NEUT) % 62.8 % (test code = 770-8) IMM GRAN % (test code 0.70 % = 5102267845) LYMPH % (test code = 26.9 % 736-9) MONO % (test code = 7.3 % 5905-5) EOS % (test code = 2.0 % 713-8) BASO % (test code = 0.3 % 706-2) GRAN MAT x10^3(ANC) 4.80 10*3/uL 1.88-7.09 (test code = 3740314937) IMM GRAN x10^3 (test 0.05 10*3/uL 0-0.06 code = 9099527885) LYMPH x10^3 (test code 2.05 10*3/uL 1.32-3.29 = 731-0) MONO x10^3 (test code 0.56 10*3/uL 0.33-0.92 = 742-7) EOS x10^3 (test code = 0.15 10*3/uL 0.03-0.39 711-2) BASO x10^3 (test code <0.03 0.01-0.07 = 704-7) POLYCHROMASIA (test 2+ See_Comment [Automa ben code = 77073-4) message] The system which generated this result transmitted reference range : 2+. The referen ce range was not u sed to interpret th is result as normal/abnormal . Lab Interpretation Abnormal (test code = 80515-9) [facility] WITH [id number] 23:41:00 Test Item Value Reference Range Interpretation Comments WBC (test code = See_Comment [Automated 8290-2) message] The sy stem which generated this result transmitted reference range : 4.30 - 11.10 10*3/?L. The reference range was not used to interpret this result as normal/abnormal . RBC (test code = See_Comment L [Automated 770-8) message] The sy stem which generated this result transmitted reference range : 3.93 - 5.25 10*6/?L. The reference range was not used to interpret this result as normal/abnormal . HGB (test code = 6.3 g/dL 11.6-15 L 718-7) HCT (test code = 23.4 % 35.7-45.2 L 4544-3) MCV (test code = 78.0 fL 80.6-95.5 L 787-2) MCH (test code = 21.0 pg 25.9-32.8 L 785-6) MCHC (test code = 26.9 g/dL 31.6-35.1 L 786-4) RDW-SD (test code = 66.5 fL 39-49.9 H 78229-2) RDW-CV (test code = 25.2 % 12-15.5 H 788-0) PLT (test code = See_Comment [Automated 777-3) message] The sy stem which generated this result transmitted reference range : 166 - 358 10*3/ ?L. The reference r fab was not used to interpret this result as normal/abnormal . MPV (test code = Not Measure d 32488-5) IPF % (test code = 10.7 % 1.3-7.7 H Platelet count 1650999972) measured by fluorescence method. NRBC/100 WBC (test See_Comment [Automat ed code = 6294017239) message] The system which generated this result transmitted reference range : 0.0 - 10.0 /100 WBCs. The refer ence range was not u sed to interpret th is result as normal/abnormal . NRBC x10^3 (test code See_Comment [Auto mated = 9506122116) message] The s ystem which generated this result transmitted reference range : 10*3/?L. The reference range was not used to interpret this result as normal/abnormal . GRAN MAT (NEUT) % 62.8 % (test code = 770-8) IMM GRAN % (test code 0.70 % = 7927574173) LYMPH % (test code = 26.9 % 736-9) MONO % (test code = 7.3 % 5905-5) EOS % (test code = 2.0 % 713-8) BASO % (test code = 0.3 % 706-2) GRAN MAT x10^3(ANC) 4.80 10*3/uL 1.88-7.09 (test code = 7689352539) IMM GRAN x10^3 (test 0.05 10*3/uL 0-0.06 code = 5320301725) LYMPH x10^3 (test code 2.05 10*3/uL 1.32-3.29 = 731-0) MONO x10^3 (test code 0.56 10*3/uL 0.33-0.92 = 742-7) EOS x10^3 (test code = 0.15 10*3/uL 0.03-0.39 711-2) BASO x10^3 (test code <0.03 0.01-0.07 = 704-7) POLYCHROMASIA (test 2+ See_Comment [Automa ben code = 71153-3) message] The system which generated this result transmitted reference range : 2+. The referen ce range was not u sed to interpret th is result as normal/abnormal . Lab Interpretation Abnormal (test code = 22002-8) [facility] WITH [id number] 23:34:00 Test Item Value Reference Range Interpretation Comments WBC (test code = See_Comment [Automated 0190-2) message] The sy stem which generated this result transmitted reference range : 4.30 - 11.10 10*3/?L. The reference range was not used to interpret this result as normal/abnormal . RBC (test code = See_Comment L [Automated 149-8) message] The sy stem which generated this result transmitted reference range : 3.93 - 5.25 10*6/?L. The reference range was not used to interpret this result as normal/abnormal . HGB (test code = 7.4 g/dL 11.6-15 L 718-7) HCT (test code = 26.9 % 35.7-45.2 L 4544-3) MCV (test code = 70.4 fL 80.6-95.5 L 787-2) MCH (test code = 19.4 pg 25.9-32.8 L 785-6) MCHC (test code = 27.5 g/dL 31.6-35.1 L 786-4) RDW-SD (test code = 53.7 fL 39-49.9 H 93418-2) RDW-CV (test code = 21.2 % 12-15.5 H 788-0) PLT (test code = See_Comment [Automated 777-3) message] The sy stem which generated this result transmitted reference range : 166 - 358 10*3/ ?L. The reference r fab was not used to interpret this result as normal/abnormal . MPV (test code = Not Measure d 53131-3) IPF % (test code = 12.9 % 1.3-7.7 H Platelet count 2325167612) measured by fluorescence method. NRBC/100 WBC (test See_Comment [Automat ed code = 5962676673) message] The system which generated this result transmitted reference range : 0.0 - 10.0 /100 WBCs. The refer ence range was not u sed to interpret th is result as normal/abnormal . NRBC x10^3 (test code <0.01 See_Comment [Auto mated = 6276377874) message] The s ystem which generated this result transmitted reference range : 10*3/?L. The reference range was not used to interpret this result as normal/abnormal . GRAN MAT (NEUT) % 64.0 % (test code = 770-8) IMM GRAN % (test code 0.10 % = 9020227373) LYMPH % (test code = 27.7 % 736-9) MONO % (test code = 6.9 % 5905-5) EOS % (test code = 1.0 % 713-8) BASO % (test code = 0.3 % 706-2) GRAN MAT x10^3(ANC) 4.36 10*3/uL 1.88-7.09 (test code = 2688149713) IMM GRAN x10^3 (test <0.03 0-0.06 code = 2897188714) LYMPH x10^3 (test code 1.89 10*3/uL 1.32-3.29 = 731-0) MONO x10^3 (test code 0.47 10*3/uL 0.33-0.92 = 742-7) EOS x10^3 (test code = 0.07 10*3/uL 0.03-0.39 711-2) BASO x10^3 (test code <0.03 0.01-0.07 = 704-7) ELLIPTO/OVAL (test 2+ See_Comment A [Automat ed code = 32455-4) message] The system which generated this result transmitted reference range : (none). The reference range was not used to interpret this result as normal/abnormal . POLYCHROMASIA (test 2+ See_Comment [Automa ben code = 94070-5) message] The system which generated this result transmitted reference range : 2+. The referen ce range was not u sed to interpret th is result as normal/abnormal . Lab Interpretation Abnormal (test code = 36644-3) [facility] WITH [id number] 23:34:00 Test Item Value Reference Range Interpretation Comments WBC (test code = See_Comment [Automated 6690-2) message] The sy stem which generated this result transmitted reference range : 4.30 - 11.10 10*3/?L. The reference range was not used to interpret this result as normal/abnormal . RBC (test code = See_Comment L [Automated 789-8) message] The sy stem which generated this result transmitted reference range : 3.93 - 5.25 10*6/?L. The reference range was not used to interpret this result as normal/abnormal . HGB (test code = 7.4 g/dL 11.6-15 L 718-7) HCT (test code = 26.9 % 35.7-45.2 L 4544-3) MCV (test code = 70.4 fL 80.6-95.5 L 787-2) MCH (test code = 19.4 pg 25.9-32.8 L 785-6) MCHC (test code = 27.5 g/dL 31.6-35.1 L 786-4) RDW-SD (test code = 53.7 fL 39-49.9 H 79860-9) RDW-CV (test code = 21.2 % 12-15.5 H 788-0) PLT (test code = See_Comment [Automated 777-3) message] The sy stem which generated this result transmitted reference range : 166 - 358 10*3/ ?L. The reference r fab was not used to interpret this result as normal/abnormal . MPV (test code = Not Measure d 85462-4) IPF % (test code = 12.9 % 1.3-7.7 H Platelet count 0725228727) measured by fluorescence method. NRBC/100 WBC (test See_Comment [Automat ed code = 2849429402) message] The system which generated this result transmitted reference range : 0.0 - 10.0 /100 WBCs. The refer ence range was not u sed to interpret th is result as normal/abnormal . NRBC x10^3 (test code <0.01 See_Comment [Auto mated = 0452050260) message] The s ystem which generated this result transmitted reference range : 10*3/?L. The reference range was not used to interpret this result as normal/abnormal . GRAN MAT (NEUT) % 64.0 % (test code = 770-8) IMM GRAN % (test code 0.10 % = 1325230117) LYMPH % (test code = 27.7 % 736-9) MONO % (test code = 6.9 % 5905-5) EOS % (test code = 1.0 % 713-8) BASO % (test code = 0.3 % 706-2) GRAN MAT x10^3(ANC) 4.36 10*3/uL 1.88-7.09 (test code = 6381127983) IMM GRAN x10^3 (test <0.03 0-0.06 code = 2489682110) LYMPH x10^3 (test code 1.89 10*3/uL 1.32-3.29 = 731-0) MONO x10^3 (test code 0.47 10*3/uL 0.33-0.92 = 742-7) EOS x10^3 (test code = 0.07 10*3/uL 0.03-0.39 711-2) BASO x10^3 (test code <0.03 0.01-0.07 = 704-7) ELLIPTO/OVAL (test 2+ See_Comment A [Automat ed code = 26950-0) message] The system which generated this result transmitted reference range : (none). The reference range was not used to interpret this result as normal/abnormal . POLYCHROMASIA (test 2+ See_Comment [Automa ben code = 72576-3) message] The system which generated this result transmitted reference range : 2+. The referen ce range was not u sed to interpret th is result as normal/abnormal . Lab Interpretation Abnormal (test code = 06954-1) [facility]
[2022-06-12] MEDS ORDERED: FAMOTIDINE 20 MG/2 ML VIAL IV ONE (01:18)
[2022-06-12] MEDS ORDERED: NA CHLORIDE 0.9% 1,000 ML ONE (01:18)
[2022-06-12] MEDS ORDERED: DIPHENHYDRAMINE 50 MG/ML VIAL ONE (01:18)
[2022-06-12] MEDS ORDERED: METHYLPREDNISOLONE 125 MG INJ ONE (01:18)
--- NOTE | 2022-06-12 02:26 | EDPHYS ---
Physician Documentation [facility] Name: Keiko Lay Age: 41 yrs Sex: Female : 1980 Arrival Date: 06/12/2022 Time: 00:40 Bed 9 Private MD: ED Physician Garland Jovel HPI: 06/12 01:00 This 41 yrs old Female presents to ER via Ambulatory with complaints of cp Allergic Reaction. 01:00 The patient presents with itching, localized swelling, rash, that is diffuse. Onset: cp The symptoms/episode began/occurred suddenly, tonight. Possible causes: started about an hour after applying face cream. At home the patient or guardian has treated the symptoms with Benadryl. 01:00 Severity of symptoms: in the emergency department the symptoms are unchanged despite cp home interventions. 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 - Social history:: Smoking status: Patient denies any tobacco usage or history of. ROS: 01:05 Constitutional: Negative for body aches, chills, fever, poor PO intake. cp 01:05 Eyes: Negative for injury, pain, redness, and discharge. cp Exam: 01:08 Constitutional: The patient appears in no acute distress, alert, awake, non-toxic, well cp developed, well nourished. 01:08 Head/face: Noted is erythema, that is moderate, of the diffusely, swelling, that is cp mild, of the diffusely. 01:08 Eyes: Periorbital structures: swelling, that is mild, bilaterally, Extraocular movements: intact throughout, Conjunctiva: normal, no exudate, no injection, Sclera: no appreciated abnormality, Lids and lashes: appear normal, bilaterally. 01:08 ENT: External ear(s): are unremarkable, Nose: is normal, Mouth: Lips: moist, Oral mucosa: pink and intact, moist, Tongue: is normal, Posterior pharynx: Airway: no evidence of obstruction, patent, swelling, is not appreciated, erythema, is not appreciated, exudate, is not appreciated, Voice: is normal. 01:08 Cardiovascular: Rate: normal, Rhythm: regular. 01:08 Respiratory: the patient does not display signs of respiratory distress, Respirations: normal, no use of accessory muscles, no retractions, labored breathing, is not present, Breath sounds: are clear throughout, no decreased breath sounds, no stridor, no wheezing. 01:08 Abdomen/GI: Exam negative for discomfort, distension, guarding. 01:08 Skin: rash can be described as hives, and is diffusely located. Vital Signs: 00:47 BP 133 / 90; Pulse 93; Resp 18; Temp 98.3; Pulse Ox 100% on R/A; Weight 74.84 kg; tw5 Height 5 ft. 4 in. (162.56 cm); Pain 0/10; 02:25 Pulse 63; Resp 18; Pulse Ox 100% on R/A; tw5 00:47 Body Mass Index 28.32 (74.84 kg, 162.56 cm) tw5 MDM: 01:00 Patient medically screened. cp 01:30 Differential diagnosis: anaphylaxis, angioedema, urticaria. cp 02:25 Data reviewed: vital signs, nurses notes. cp 02:25 Counseling: I had a detailed discussion with the patient and/or guardian regarding: the cp historical points, exam findings, and any diagnostic results supporting the discharge/admit diagnosis, to return to the emergency department if symptoms worsen or persist or if there are any questions or concerns that arise at home. Response to treatment: the patient's symptoms have mildly improved after treatment, and as a result, I will discharge patient. 06/12 01:03 Order name: IV; Complete Time: :38 cp Administered Medications: :38 Drug: NS 0.9% 1000 ml Route: IV; Rate: 500 ml/hr; Site: right antecubital; tw5 02:24 Follow up: Response: No adverse reaction; IV Status: Completed infusion; IV Intake: tw5 1000ml :38 Drug: SOLU-Medrol (methylPrednisoLONE) 125 mg Route: IVP; Site: right antecubital; tw5 02:24 Follow up: Response: No adverse reaction tw5 01:38 Drug: Benadryl (diphenhydrAMINE) 25 mg Route: IVP; Site: right antecubital; tw5 02:24 Follow up: Response: No adverse reaction tw5 01:38 Drug: Pepcid (famotidine) 20 mg Route: IVP; Site: right antecubital; tw5 02:24 Follow up: Response: No adverse reaction tw5 Disposition: 02:24 Co-signature as Attending Physician, Garland Jovel DO I was immediately available onsite ms3 in the emergency department for consultation in the care of the patient. Disposition Summary: 06/12/22 02:26 Discharge Ordered Location: Home cp Problem: new cp Symptoms: have improved cp Condition: Stable cp Diagnosis - Allergy, unspecified cp Followup: cp - With: Private Physician - When: 2 - 3 days - Reason: Worsening of condition Discharge Instructions: - Discharge Summary Sheet cp - Hives cp Forms: - Medication Reconciliation Form cp - Thank You Letter cp - Antibiotic Education cp - Prescription Opioid Use cp Prescriptions: - Prednisone 20 mg Oral Tablet - take 2 tablets by ORAL route once daily for 5 days , then take 1 tablet daily cp for 3 days and then 1/2 tablet daily for 2 days; 14 tablet; Refills: 0, Product Selection Permitted - Pepcid 20 mg Oral Tablet - take 1 tablet by ORAL route every 12 hours for 10 days; 20 tablet; Refills: 0, cp Product Selection Permitted Signatures: Elias Buchanan PA PA cp Garland Jovel DO DO ms3 Luda White tw5
--- NOTE | 2022-06-12 02:26 | ER ---
Nurse's Notes [facility] Name: Keiko Lay Age: 41 yrs Sex: Female : 1980 Arrival Date: 06/12/2022 Time: 00:40 Bed 9 Private MD: Diagnosis: Allergy, unspecified Presentation: 06/12 00:47 Chief complaint: Patient states: "It was just some face cream but the allergic reaction tw5 seems to be spreading. It is all over my face, my neck and now my chest, arms, and even legs. It took some Benadryl around 10 PM". Coronavirus screen: Vaccine status: Patient reports receiving the 2nd dose of the covid vaccine. J [employer] J. Ebola Screen: Patient negative for fever greater than or equal to 101.5 degrees Fahrenheit, and additional compatible Ebola Virus Disease symptoms Patient denies exposure to infectious person. Patient denies travel to an Ebola-affected area in the 21 days before illness onset. Onset: The symptoms/episode began/occurred gradually, 4 hour(s) ago. Anaphylaxis evaluation, angioedema. Initial Sepsis Screen: Does the patient meet any 2 criteria? No. Patient's initial sepsis screen is negative. Does the patient have a suspected source of infection? No. Patient's initial sepsis screen is negative. Risk Assessment: Do you want to hurt yourself or someone else? Patient reports no desire to harm self or others. Onset of symptoms was June 11, 2022 at 21:00. 00:47 Method Of Arrival: Ambulatory tw5 00:47 Acuity: MEY 2 tw5 Triage Assessment: 00:49 General: Appears uncomfortable, Behavior is calm, cooperative, appropriate for age. tw5 Pain: Denies pain. Derm: Rash noted that is itchy, red, urticaria, on face, chest, right arm, left arm, right leg and left leg. 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 - Social history:: Smoking status: Patient denies any tobacco usage or history of. Screenin:50 Abuse screen: Denies threats or abuse. Denies injuries from another. Nutritional tw5 screening: No deficits noted. Tuberculosis screening: No symptoms or risk factors identified. Fall Risk None identified. Assessment: 00:50 Respiratory: Airway is patent Trachea midline Respiratory effort is even, unlabored, tw5 Breath sounds are clear. Derm: Skin is intact, Rash noted that is itchy, red, urticaria, on face, chest, right arm, left arm, right leg and left leg. 01:37 General: Appears in no apparent distress. Behavior is calm, cooperative, appropriate tw5 for age. 02:25 Reassessment: Patient states feeling better. Patient states symptoms have improved. tw5 Neuro: No deficits noted. Respiratory: No deficits noted. Vital Signs: 00:47 BP 133 / 90; Pulse 93; Resp 18; Temp 98.3; Pulse Ox 100% on R/A; Weight 74.84 kg; tw5 Height 5 ft. 4 in. (162.56 cm); Pain 0/10; 02:25 Pulse 63; Resp 18; Pulse Ox 100% on R/A; tw5 00:47 Body Mass Index 28.32 (74.84 kg, 162.56 cm) tw5 ED Course: 00:40 Patient arrived in ED. ja2 00:45 Elias Buchanan PA is PHCP. cp 00:46 Garland Jovel DO is Attending Physician. cp 00:49 Triage completed. tw5 00:49 Arm band placed on. tw5 00:50 Patient has correct armband on for positive identification. Bed in low position. Call tw5 light in reach. Door closed. 01:14 Luda White is Primary Nurse. tw5 01:38 Inserted saline lock: 20 gauge in right antecubital area, using aseptic technique. tw5 02:25 No provider procedures requiring assistance completed. tw5 02:35 IV discontinued, intact, bleeding controlled, No redness/swelling at site. Pressure tw5 dressing applied. Administered Medications: 01:38 Drug: NS 0.9% 1000 ml Route: IV; Rate: 500 ml/hr; Site: right antecubital; tw5 02:24 Follow up: Response: No adverse reaction; IV Status: Completed infusion; IV Intake: tw5 1000ml 01:38 Drug: SOLU-Medrol (methylPrednisoLONE) 125 mg Route: IVP; Site: right antecubital; tw5 02:24 Follow up: Response: No adverse reaction tw5 01:38 Drug: Benadryl (diphenhydrAMINE) 25 mg Route: IVP; Site: right antecubital; tw5 02:24 Follow up: Response: No adverse reaction tw5 01:38 Drug: Pepcid (famotidine) 20 mg Route: IVP; Site: right antecubital; tw5 02:24 Follow up: Response: No adverse reaction tw5 Medication: 00:50 VIS not applicable for this client. tw5 Intake: 02:24 IV: 1000ml; Total: 1000ml. tw5 Outcome: 02:26 Discharge ordered by . cp 02:34 Discharged to home ambulatory, with family. tw5 02:34 Condition: improved 02:34 Discharge instructions given to patient, Instructed on discharge instructions, follow up and referral plans. medication usage, Demonstrated understanding of instructions, follow-up care, medications, Prescriptions given X 2. 02:35 Patient left the ED. tw5 Signatures: Elias Buchanan PA PA cp Alexander, Jessica ja2 Wood, Tiffany tw5
[2022-06-12 02:42] VITALS: BP 133/90; TEMP 98.3; O2SAT 100
== END 2022-06-12 02:35 | disposition home or self-care (01) ==
LOC: ER 00:34
DX: R21 Rash and other nonspecific skin eruption (principal); Z91.09 Other allergy status, other than to drugs and biological substances; E03.9 Hypothyroidism, unspecified
CPT/HCPCS: 96361; 96375; 96374; 99283; J1200; J7030; J2930

== ENCOUNTER 2023-05-06 15:30 | Emergency (ER) | payer BC ==
--- OUTSIDE RECORDS SUMMARY | 2023-05-06 15:44 | XMS REPORT | Continuity of Care Document ---
:1980 Author Organization [facility] t Address [address] [facility] [address] [place] [address] Care Team Providers Name Role Phone Castillo Cecil Bhatia Primary Care Physician NOEL LARSEN Attending Clinician Unavailable Maribel Everett Attending Clinician Unavailable SAIGE YOU Attending Clinician Unavailable Saige You DO Attending Clinician Lo Price MD Attending Clinician LO PRICE Attending Clinician Unavailable Doctor Unassigned, [place] Attending Clinician Unavailable RADIOLOGY Attending Clinician Unavailable Radiology Attending Clinician Unavailable Jong Pemberton DO Attending Clinician Elvie LONG, Janet Doyle Attending Clinician [phone] [facility] Resident Attending Clinician Unavailable Vern LONG, Mitzi Martin Attending Clinician Merary Rivas Attending Clinician Yara Rasmussen MD Attending Clinician YARA RASMUSSEN Attending Clinician Unavailable Vishal LONG, Veronique Attending Clinician John HI, Sara Hernández Attending Clinician Nito WEBERP, Kathleen Attending Clinician Suzie LONG, Noel Calloway Attending Clinician Javier WHARIANA, Victorino Hernández Attending Clinician [phone] [place]VICTOR[place] ALBERTS Attending Clinician Unavailable NOEL LARSEN Admitting Clinician Unavailable Maribel Everett Admitting Clinician Unavailable LO PRICE Admitting Clinician Unavailable Lo Price MD Admitting Clinician CECIL CASTILLO Admitting Clinician Unavailable XIOMARA HASTINGS Admitting Clinician Unavailable Payers Payer Name Policy Type Policy Number Effective Date Expiration Date S [employer] [place] [id number] 2020 WOMEN 00:00:00 HIM BCBS BLUE [id number] 2021 ADVANTAGE HMO 00:00:00 Problems Condition Condition Condition Status Onset Resolution Last Treating Co mments Source Name Details Category Date Date Treatment Clinician Date Abnormal Abnormal Disease Active Unive rs mammogram mammogram 9-19 ity of of left of left 00:00: [place] breast breast [address] [place] [address] Anemia, Anemia, Disease Active 2019-07 Univers unspecifie unspecifie 07-13 it y of d type d type 00:00: [address] Abnormal Abnormal Disease Active Unive rs uterine uterine 6-17 ity of bleeding bleeding 00:00: [address] Well woman Well woman Disease Active U nivers exam exam 1-20 ity of 00:00: [address] General General Disease Active Univers counseling counseling 1-20 [place] of [place] advice [place] 00 Medical contracept contracept Br anch lynne lynne management management Papanicola Papanicola Disease Active Overview : Univers ou smear ou smear 08-07 colpo ity of of cervix of cervix 00:00[place] 08/07/[place] with low with low 00 , pap on Medi benita grade grade 07/2015 Branch squamous squamous [...] different from the original. 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 No Known DA Active U [facility] Allergie -06 [facility] 00:00: Hospita 00 l [facility] No Known DA Active U 2020-0 [facility] Allergie 06 [facility] s 00:00: [facility] 00 l of [place] No Known DA Active U 2006-0 [facility] Drug 7-10 Woman's Intolera 00:00: Hospita nces 00 l of [place] No Known DA Active U 2007-0 [facility] Contrast 7-10 Woman's Allergie 00:00: Hospita s 00 l of [place] No Known DA Active U 2007-0 [facility] Drug 7-10 Woman's Allergie 00:00: [facility]osp[facility] s 00 l of [place] No Known DA Active U 2007-0 [facility] Food 7-10 Woman's Allergie 00:00: [facility]ospita s 00 l of [place] No Known DA Active U 2007-0 [facility] Other 7-10 Woman's Allergie 00:00: Hospita s 00 l [facility] NO KNOWN Drug Active Univers ALLERGIE Class ity of S [facility] Social History Social Habit Start Date Stop Date Quantity Comments Source History SDOH University o f Alcohol Frequency [facility] edical Branch History SDNH University o f Alcohol Std Drinks [facility] History [facility] o f Alcohol Binge [place] [facility] [place] Gender identity Universit y of [facility] Sexual orientation Univer sity of [facility] Alcohol intake 2023-04-30 2023-04-30 0 /d University of 00:00:00 00:00:00 [facility] History of Social 2023-04-28 2023-04-28 Univers ity of function 00:00:00 00:00:00 [facility] Tobacco use and 2023-03-29 2023-03-29 Smokeless Universit y of exposure 00:00:00 00:00:00 tobacco non-user [facility] Exposure to 2021-11-17 2021-11-[address] [facility] SARS-CoV-2 (event) 00:00:00 15:25:00 [facility] Alcohol Comment 2015-10-23 2015-10-23 socially only Univer sity of 00:00:00 00:00:00 [facility] Sex [birth year] At [birth year] Universit y of 00:00:00 00:00:00 [facility] Smoking Status Start Date Stop Date Source Never smoked tobacco [facility] [place] [facility] Medications Ordered Filled Start Stop Current Ordering Indication Dosage Frequency Signature Comments Components Source Medication Medication Date Date Medication? Clinician (SIG) Name Name sulfamethox 2022-07 Yes [id number] 1{tbl} Take 1 Univers azole-trime 0-21 tablet by ity of thoprim 00:00: mouth [place] 800-160 mg 00 every 12 Medic al per tablet (twelve) Branc h hours. sulfamethox 2022-07 Yes [id number] 1{tbl} Take 1 Univers azole-trime 0-21 tablet by ity of thoprim 00:00: mouth [place] 800-160 mg 00 every 12 Medic al per tablet (twelve) Branc h hours. traMADoL 2022-07 Yes 50mg 50 mg, Univers (ULTRAM) 0-19 Oral, PRN, ity o f tablet 50 13:48: 1 dose, [place] mg 53 Starting Medical on [facility] 04/28/23 at 0848, Until Discontinu ed, Routine, Pain (scale 4-6), DSU Recovery acetaminoph 2022-07 Yes 650mg 650 mg, Un rocio en 019 Oral, PRN, ity of (TYLENOL) 13:48: 1 dose, [place] tablet 650 53 Starting Medic al mg on [facility] 04/28/23 at 0848, Until Discontinu ed, Routine, Pain (scale 1-3), DSU Recovery traMADoL 2022-07- No 50mg 50 mg, Univer s (ULTRAM) 004-28 Oral, PRN, ity of tablet 50 13:48: 17:21 1 dose, [place] mg 53 :12 Starting Medical on [facility] 04/28/23 at 0848, Until [facility] 04/28/23 at 1221, Routine, Pain (scale 4-6), DSU Recovery acetaminoph 2022-07- No 650mg 650 mg, U nivers en 004-28 Oral, PRN, ity of (TYLENOL) 13:48: 17:21 1 dose, [place] tablet 650 53 :12 Starting Medic al mg on [facility] 04/28/23 at 0848, Until [facility] 04/28/23 at 1221, Routine, Pain (scale 1-3), DSU Recovery hydrogen 2022-07 Yes PRN, Univers peroxide 3 Starting ity o f % topical 12:15: on [facility] [place] solution 00 04/28/23 Medical at 0715, Branch Until Discontinu ed, Routine, Intra-op bupivacaine 2022-07- No PRN, Unive rs (preserv 04-28 Starting ity of free) 0.5% 12:15: 13:48 on [place] (SENSORCAIN 00 :41 04/28/23 Medi benita E MPF) 30 at 0715, Branch mL, Intra-op lidocaine 1% (PF) (XYLOCAINE) 15 mL, NaCl 0.9% (NS) 50 mL hydrogen 2022-07- No PRN, Univers peroxide 3 0-19 04-28 Starting ity of % topical 12:15: 17:21 on [facility] [place] solution 00 :11 04/28/23 Medical at 0715, Branch Until [facility] 04/28/23 at 1221, Routine, Intra-op acetaminoph 2022-07 No 650mg 650 mg, U nivers en 004-28 Oral, ity of (TYLENOL) 11:15: 11:15 ONCE, 1 [place] tablet 650 00 :00 dose, On Medic al mg [place] Branch 04/28/23 at 0615, Routine, DSU Pre-op celecoxib 2022-07- No 100mg 100 mg, Uni vers (CELEBREX) 04-28 Oral, ity of capsule 100 11:15: 11:15 ONCE, 1 [place] mg 00 :00 dose, On Medical [place] Branch 04/28/23 at 0615, Routine, DSU Pre-op lactated 2022-07 No 1000mL at 42 Unive rs ringers IV 0 10 mL/hr, ity of infusion 11:15: 11:32 1,000 mL, [place] 1,000 mL 00 :00 IV Medical Infusion, Branch ONCE, 1 dose, On [place] 04/28/23 at 0615, Routine, DSU Pre-op acetaminoph 2022-07 No 650mg 650 mg, U nivers en 04-28 Oral, ity of (TYLENOL) 11:15: 11:15 ONCE, 1 [place] tablet 650 00 :00 dose, On Medic al mg [facility] 04/28/23 at 0615, Routine, DSU Pre-op celecoxib 2022-07- No 100mg 100 mg, Uni vers (CELEBREX) 04-28 Oral, ity of capsule 100 11:15: 11:15 ONCE, 1 [place] mg 00 :00 dose, On Medical [facility] 04/28/23 at 0615, Routine, DSU Pre-op lactated 2022-07- No 1000mL at 42 Unive rs ringers IV 0- 10-19 mL/hr, ity of infusion 11:15: 11:32 1,000 mL, [place] 1,000 mL 00 :00 IV Medical Infusion, Branch ONCE, 1 dose, On [place] 04/28/23 at 0615, Routine, DSU Pre-op acetaminoph 2022-07- Yes [id number] 1000mg Take 2 Univers en 500 mg 0-19 11-03 tablets by ity of tablet 00:00: 04:59 mouth [place] 00 :00 every 8 Medical (eight) Branch hours for 14 days. celecoxib 2022-07- Yes [id number] 100mg Take 1 Univers 100 mg 0-19 11-03 capsule by ity of capsule 00:00: 04:59 mouth in [place] 00 :00 the Medical morning Branch and 1 capsule in the evening. Take with meals. Do all this for 14 days. acetaminoph 2022-07- Yes [id number] 1000mg Take 2 Univers en 500 mg 0-19 11-03 tablets by ity of tablet 00:00: 04:59 mouth [place] 00 :00 every 8 [facility] Branch hours for 14 days. celecoxib 2022-07- Yes [id number] 100mg Take 1 Univers 100 mg 0-19 11-03 capsule by ity of capsule 00:00: 04:59 mouth in [place] 00 :00 the Medical morning Branch and 1 capsule in the evening. Take with meals. Do all this for 14 days. acetaminoph 2022-07- Yes [id number] 1000mg Take 2 Univers en 500 mg 0-19 11-03 tablets by ity of tablet 00:00: 04:59 mouth [place] 00 :00 every 8 Medical [facility] Branch hours for 14 days. celecoxib 2022-07- Yes [id number] 100mg Take 1 Univers 100 mg 0-19 11-03 capsule by ity of capsule 00:00: 04:59 mouth in [place] 00 :00 the Medical morning Branch and 1 capsule in the evening. Take with meals. Do all this for 14 days. acetaminoph 2022-07- Yes [id number] 1000mg Take 2 Univers en 500 mg 0-19 11-03 tablets by ity of tablet 00:00: 04:59 mouth [place] 00 :00 every 8 Medical (eight) Branch hours for 14 days. celecoxib 2022-07- Yes [id number] 100mg Take 1 Univers 100 mg 0-19 11-03 capsule by ity of capsule 00:00: 04:59 mouth in [place] 00 :00 the Medical morning Branch and 1 capsule in the evening. Take with meals. Do all this for 14 days. acetaminoph 2022-07- Yes [id number] 1000mg Take 2 Univers en 500 mg 0-19 -03 tablets by ity of tablet 00:00: 04:59 mouth [place] 00 :00 every 8 Medical (eight) Branch hours for 14 days. celecoxib 2022-07- Yes [id number] 100mg Take 1 Univers 100 mg 0-03 capsule by ity of capsule 00:00: 04:59 mouth in [place] 00 :00 the Medical morning Branch and 1 capsule in the evening. Take with meals. Do all this for 14 days. amphetamine 2022-0 Yes 1 tablet Un rocio (ADZENYS 9-18 in the ity of XR-ODT) 00:00: morning [place] 15.7 mg 00 Orally Medical TbLB Once a day Branch for 30 days amphetamine 3-0 Yes 1 tablet Un rocio (ADZENYS 9-18 in the ity of XR-ODT) 00:00: morning [place] 15.7 mg 00 Orally Medical TbLB Once a day Branch for 30 days amphetamine 3-0 Yes 1 tablet Un rocio (ADZENYS 9-18 in the ity of XR-ODT) 00:00: morning [place] 15.7 mg 00 Orally Medical TbLB Once a day Branch for 30 days amphetamine 2023-0 Yes 1 tablet Un rocio (ADZENYS 9-18 in the ity of XR-ODT) 00:00: morning [place] 15.7 mg 00 Orally Medical TbLB Once a day Branch for 30 days amphetamine 2023-0 Yes 1 tablet Un rocio (ADZENYS 9-18 in the ity of XR-ODT) 00:00: morning [place] 15.7 mg 00 Orally Medical TbLB Once a day Branch for 30 days amphetamine 2023-0 Yes 1 tablet Un rocio (ADZENYS 9-18 in the ity of XR-ODT) 00:00: morning [place] 15.7 mg 00 Orally Medical TbLB Once a day Branch for 30 days amphetamine 2023-0 Yes 1 tablet Un rocio (ADZENYS 9-18 in the ity of XR-ODT) 00:00: morning [place] 15.7 mg 00 Orally Medical TbLB Once a day Branch for 30 days amphetamine Yes 1 tablet Un rocio (ADZENYS 9-18 in the ity of XR-ODT) 00:00: morning [place] 15.7 mg 00 Orally Medical TbLB Once a day Branch for 30 days medroxyPROG 2019-07 2020- No [id number] 150mg Univers ESTERone 0-30 10-30 100 ity of (DEPO-PROVE 22:00: 21:23 [place] RA) 00 :00 Medical injection Branch 150 mg medroxyPROG 2019-07 2020- No [id number] 150mg 150 mg, Univers ESTERone 0-30 10-30 100 Intramuscu ity of (DEPO-PROVE 22:00: 21:23 lar, ONCE, [place] RA) 00 :00 1 dose, Medical injection Fri Branch 150 mg 05/09/20 at 1700, Routine medroxyPROG 2019-07 2020- No [id number] 150mg Univers ESTERone 0-30 10-30 100 ity of (DEPO-PROVE 22:00: 21:23 [place] RA) 00 :00 Medical injection Branch 150 mg medroxyPROG 2019-07- No [id number] 150mg 150 mg, Univers ESTERone 0-30 10-30 100 Intramuscu ity of (DEPO-PROVE 22:00: 21:23 lar, ONCE, [place] RA) 00 :00 1 dose, Medical injection Fri Branch 150 mg 20 at 1700, Routine ferrous 2020- No [id number] Take by U nivers sulfate 7-29 mouth. ity of (IRON ORAL) 00:12: 00:00 [place] 20 :00 Medical Branch ferrous 2020- No [id number] Take by U nivers sulfate 02-06-29 mouth. ity of (IRON ORAL) 00:12: 00:00 [place] 20 :00 Medical Branch ascorbic 2020-0 Yes [id number] 500mg Take 1 U nivers acid, 7-29 tablet by ity of vitamin C, 00:00: mouth 3 [place] 500 mg 00 (three) Medical tablet times Branch daily. ferrous 2019- Yes [id number] 325mg Take 1 Un rocio sulfate 7-29 tablet by ity of (IRON, 00:00: mouth 3 [place] FERROUS 00 (three) Medical SULFATE,) times Branch 325 mg (65 daily with mg iron) meals. tablet foLIC acid 2020-0 Yes [id number] 1mg Take 1 Univers 1 mg tablet 7-29 tablet by ity of 00:00: mouth [place] 00 daily. Medical Branch norgestimat 2020-0 Yes [id number] 1{tbl} Take 1 Univers e-ethinyl 7-29 100 tablet by ity o f estradiol 00:00: mouth [place] (FEMYNOR) 00 daily. Medical 0.25-35 Branch mg-mcg per tablet ascorbic 2020-0 Yes [id number] 500mg Take 1 U nivers acid, 7-29 tablet by ity of vitamin C, 00:00: mouth 3 [place] 500 mg 00 (three) Medical tablet times Branch daily. ferrous 2020-0 Yes [id number] 325mg Take 1 Un rocio sulfate 7-29 tablet by ity of (IRON, 00:00: mouth 3 [place] FERROUS 00 (three) Medical SULFATE,) times Branch 325 mg (65 daily with mg iron) meals. tablet foLIC acid 2020-0 Yes [id number] 1mg Take 1 Univers 1 mg tablet 7-29 tablet by ity of 00:00: mouth [place] 00 daily. Medical Branch norgestimat 2019-0 Yes [id number] 1{tbl} Take 1 Univers e-ethinyl 7-29 100 tablet by ity o f estradiol 00:00: mouth [place] (FEMYNOR) 00 daily. Medical 0.25-35 Branch mg-mcg per tablet ascorbic 2020-0 Yes [id number] 500mg Take 1 U nivers acid, 7-29 tablet by ity of vitamin C, 00:00: mouth 3 [place] 500 mg 00 (three) Medical tablet times Branch daily. ferrous 2020-0 Yes [id number] 325mg Take 1 Un rocio sulfate 7-29 tablet by ity of (IRON, 00:00: mouth 3 [place] FERROUS 00 (three) Medical SULFATE,) times Branch 325 mg (65 daily with mg iron) meals. tablet foLIC acid 2020-0 Yes [id number] 1mg Take 1 Univers 1 mg tablet 7-29 tablet by ity of 00:00: mouth [place] 00 daily. Medical Branch norgestimat 2020-0 Yes [id number] 1{tbl} Take 1 Univers e-ethinyl 7-29 100 tablet by ity o f estradiol 00:00: mouth [place] (FEMYNOR) 00 daily. Medical 0.25-35 Branch mg-mcg per tablet ascorbic 2020-0 Yes [id number] 500mg Take 1 U nivers acid, 7-29 tablet by ity of vitamin C, 00:00: mouth 3 [place] 500 mg 00 (three) Medical tablet times Branch daily. ferrous 2020-0 Yes [id number] 325mg Take 1 Un rocio sulfate 7-29 tablet by ity of (IRON, 00:00: mouth 3 [place] FERROUS 00 (three) Medical SULFATE,) times Branch 325 mg (65 daily with mg iron) meals. tablet foLIC acid 2020-0 Yes [id number] 1mg Take 1 Univers 1 mg tablet 7-29 tablet by ity of 00:00: mouth [place] 00 daily. Medical Branch norgestimat 2020-0 Yes [id number] 1{tbl} Take 1 Univers e-ethinyl 7-29 100 tablet by ity o f estradiol 00:00: mouth [place] (FEMYNOR) 00 daily. Medical 0.25-35 Branch mg-mcg per tablet ascorbic 2020-0 Yes [id number] 500mg Take 1 U nivers acid, 7-29 tablet by ity of vitamin C, 00:00: mouth 3 [place] 500 mg 00 (three) Medical tablet times Branch daily. ferrous 2020-0 Yes [id number] 325mg Take 1 Un rocio sulfate 7-29 tablet by ity of (IRON, 00:00: mouth 3 [place] FERROUS 00 (three) Medical SULFATE,) times Branch 325 mg (65 daily with mg iron) meals. tablet foLIC acid 2020-0 Yes [id number] 1mg Take 1 Univers 1 mg tablet 7-29 tablet by ity of 00:00: mouth [place] 00 daily. Medical Branch norgestimat 2020-0 Yes [id number] 1{tbl} Take 1 Univers e-ethinyl 7-29 100 tablet by ity o f estradiol 00:00: mouth [place] (FEMYNOR) 00 daily. Medical 0.25-35 Branch mg-mcg per tablet ascorbic 2020-0 Yes [id number] 500mg Take 1 U nivers acid, 7-29 tablet by ity of vitamin C, 00:00: mouth 3 [place] 500 mg 00 (three) Medical tablet times Branch daily. ferrous 2020-0 Yes [id number] 325mg Take 1 Un rocio sulfate 7-29 tablet by ity of (IRON, 00:00: mouth 3 [place] FERROUS 00 (three) Medical SULFATE,) times Branch 325 mg (65 daily with mg iron) meals. tablet foLIC acid 2020-0 Yes [id number] 1mg Take 1 Univers 1 mg tablet 7-29 tablet by ity of 00:00: mouth [place] 00 daily. [facility] norgestimat 2020-0 Yes [id number] 1{tbl} Take 1 Univers e-ethinyl 7-29 100 tablet by ity o f estradiol 00:00: mouth [place] (FEMYNOR) 00 daily. Medical 0.25-35 Branch mg-mcg per tablet ascorbic 2020-0 Yes [id number] 500mg Take 1 U nivers acid, 7-29 tablet by ity of vitamin C, 00:00: mouth 3 [place] 500 mg 00 (three) Medical tablet times Branch daily. ferrous 2020-0 Yes [id number] 325mg Take 1 Un rocio sulfate 7-29 tablet by ity of (IRON, 00:00: mouth 3 [place] FERROUS 00 (three) Medical SULFATE,) times Branch 325 mg (65 daily with mg iron) meals. tablet foLIC acid 2020-0 Yes [id number] 1mg Take 1 Univers 1 mg tablet 7-29 tablet by ity of 00:00: mouth [place] 00 daily. [facility] norgestimat 2020-0 Yes [id number] 1{tbl} Take 1 Univers e-ethinyl 7-29 100 tablet by ity o f estradiol 00:00: mouth [place] (FEMYNOR) 00 daily. Medical 0.25-35 Branch mg-mcg per tablet ascorbic 2020-0 Yes [id number] 500mg Take 1 U nivers acid, 7-29 tablet by ity of vitamin C, 00:00: mouth 3 [place] 500 mg 00 (three) Medical tablet times Branch daily. ferrous 2020-0 Yes [id number] 325mg Take 1 Un rocio sulfate 7-29 tablet by ity of (IRON, 00:00: mouth 3 [place] FERROUS 00 (three) Medical SULFATE,) times Branch 325 mg (65 daily with mg iron) meals. tablet foLIC acid 2020-0 Yes [id number] 1mg Take 1 Univers 1 mg tablet 7-29 tablet by ity of 00:00: mouth [place] 00 daily. [facility] norgestimat 2020-0 Yes [id number] 1{tbl} Take 1 Univers e-ethinyl 7-29 100 tablet by ity o f estradiol 00:00: mouth [place] (FEMYNOR) 00 daily. Medical 0.25-35 Branch mg-mcg per tablet ascorbic 2020-0 Yes [id number] 500mg Take 1 U nivers acid, 7-29 tablet by ity of vitamin C, 00:00: mouth 3 [place] 500 mg 00 (three) Medical tablet times Branch daily. ferrous 2020-0 Yes [id number] 325mg Take 1 Un rocio sulfate 7-29 tablet by ity of (IRON, 00:00: mouth 3 [place] FERROUS 00 (three) Medical SULFATE,) times Branch 325 mg (65 daily with mg iron) meals. tablet foLIC acid 2020-0 Yes [id number] 1mg Take 1 Univers 1 mg tablet 7-29 tablet by ity of 00:00: mouth [place] 00 daily. Medical [place] norgestimat 2020-0 Yes [id number] 1{tbl} Take 1 Univers e-ethinyl 7-29 100 tablet by ity o f estradiol 00:00: mouth [place] (FEMYNOR) 00 daily. Medical 0.25-35 Branch mg-mcg per tablet ascorbic 2020-0 Yes [id number] 500mg Take 1 U nivers acid, 7-29 tablet by ity of vitamin C, 00:00: mouth 3 [place] 500 mg 00 (three) Medical tablet times Branch daily. ferrous 2020-0 Yes [id number] 325mg Take 1 Un rocio sulfate 7-29 tablet by ity of (IRON, 00:00: mouth 3 [place] FERROUS 00 (three) Medical SULFATE,) times Branch 325 mg (65 daily with mg iron) meals. tablet foLIC acid 2020-0 Yes [id number] 1mg Take 1 Univers 1 mg tablet 7-29 tablet by ity of 00:00: mouth [place] 00 daily. Medical Branch norgestimat 2020-0 Yes [id number] 1{tbl} Take 1 Univers e-ethinyl 7-29 100 tablet by ity o f estradiol 00:00: mouth [place] (FEMYNOR) 00 daily. Medical 0.25-35 Branch mg-mcg per tablet ascorbic 2020-0 Yes [id number] 500mg Take 1 U nivers acid, 7-29 tablet by ity of vitamin C, 00:00: mouth 3 [place] 500 mg 00 (three) Medical tablet times Branch daily. ferrous 2020-0 Yes [id number] 325mg Take 1 Un rocio sulfate 7-29 tablet by ity of (IRON, 00:00: mouth 3 [place] FERROUS 00 (three) Medical SULFATE,) times Branch 325 mg (65 daily with mg iron) meals. tablet foLIC acid 2020-0 Yes [id number] 1mg Take 1 Univers 1 mg tablet 7-29 tablet by ity of 00:00: mouth [place] 00 daily. Medical Branch norgestimat 2019-0 Yes [id number] 1{tbl} Take 1 Univers e-ethinyl 7-29 100 tablet by ity o f estradiol 00:00: mouth [place] (FEMYNOR) 00 daily. Medical 0.25-35 Branch mg-mcg per tablet ascorbic 2020-0 Yes [id number] 500mg Take 1 U nivers acid, 7-29 tablet by ity of vitamin C, 00:00: mouth 3 [place] 500 mg 00 (three) Medical tablet times Branch daily. ferrous 2020-0 Yes [id number] 325mg Take 1 Un rocio sulfate 7-29 tablet by ity of (IRON, 00:00: mouth 3 [place] FERROUS 00 (three) Medical SULFATE,) times Branch 325 mg (65 daily with mg iron) meals. tablet foLIC acid 2020-0 Yes [id number] 1mg Take 1 Univers 1 mg tablet 7-29 tablet by ity of 00:00: mouth [place] 00 daily. Medical Branch norgestimat 2019-0 Yes [id number] 1{tbl} Take 1 Univers e-ethinyl 7-29 100 tablet by ity o f estradiol 00:00: mouth [place] (FEMYNOR) 00 daily. Medical 0.25-35 Branch mg-mcg per tablet ascorbic 2020-0 Yes [id number] 500mg Take 1 U nivers acid, 7-29 tablet by ity of vitamin C, 00:00: mouth 3 [place] 500 mg 00 (three) Medical tablet times Branch daily. ferrous 2020-0 Yes [id number] 325mg Take 1 Un rocio sulfate 7-29 tablet by ity of (IRON, 00:00: mouth 3 [place] FERROUS 00 (three) Medical SULFATE,) times Branch 325 mg (65 daily with mg iron) meals. tablet foLIC acid 2020-0 Yes [id number] 1mg Take 1 Univers 1 mg tablet 7-29 tablet by ity of 00:00: mouth [place] 00 daily. Medical Branch norgestimat 2020-0 Yes [id number] 1{tbl} Take 1 Univers e-ethinyl 7-29 100 tablet by ity o f estradiol 00:00: mouth [place] (FEMYNOR) 00 daily. Medical 0.25-35 Branch mg-mcg per tablet ascorbic 2020-0 Yes [id number] 500mg Take 1 U nivers acid, 7-29 tablet by ity of vitamin C, 00:00: mouth 3 [place] 500 mg 00 (three) Medical tablet times Branch daily. ferrous 2020-0 Yes [id number] 325mg Take 1 Un rocio sulfate 7-29 tablet by ity of (IRON, 00:00: mouth 3 [place] FERROUS 00 (three) Medical SULFATE,) times Branch 325 mg (65 daily with mg iron) meals. tablet foLIC acid 2020-0 Yes [id number] 1mg Take 1 Univers 1 mg tablet 7-29 tablet by ity of 00:00: mouth [place] 00 daily. Medical Branch norgestimat 2020-0 Yes [id number] 1{tbl} Take 1 Univers e-ethinyl 7-29 100 tablet by ity o f estradiol 00:00: mouth [place] (FEMYNOR) 00 daily. Medical 0.25-35 Branch mg-mcg per tablet ascorbic 2020-0 Yes [id number] 500mg Take 1 U nivers acid, 7-29 tablet by ity of vitamin C, 00:00: mouth 3 [place] 500 mg 00 (three) Medical tablet times Branch daily. ferrous 2020-0 Yes [id number] 325mg Take 1 Un rocio sulfate 7-29 tablet by ity of (IRON, 00:00: mouth 3 [place] FERROUS 00 (three) Medical SULFATE,) times Branch 325 mg (65 daily with mg iron) meals. tablet foLIC acid 2020-0 Yes [id number] 1mg Take 1 Univers 1 mg tablet 7-29 tablet by ity of 00:00: mouth [place] 00 daily. Medical Branch norgestimat 2020-0 Yes [id number] 1{tbl} Take 1 Univers e-ethinyl 7-29 100 tablet by ity o f estradiol 00:00: mouth [place] (FEMYNOR) 00 daily. Medical 0.25-35 Branch mg-mcg per tablet ascorbic 2020-0 Yes [id number] 500mg Take 1 U nivers acid, 7-29 tablet by [facility] vitamin C, [place] (three) Medical tablet times Branch daily. ferrous 2020-0 Yes [id number] 325mg Take 1 Un rocio sulfate 7-29 tablet by ity of (IRON, 00:00: mouth 3 [place] FERROUS 00 (three) Medical SULFATE,) times Branch 325 mg (65 daily with mg iron) meals. tablet foLIC acid 2020-0 Yes [id number] 1mg Take 1 [facility] 1 mg tablet 7-29 tablet by ity of 00:00: mouth [place] 00 daily. Medical Branch norgestimat 2020-0 Yes [id number] 1{tbl} Take 1 [facility] e-ethinyl 7-29 100 tablet by ity o f estradiol 00:00: mouth [place] (FEMYNOR) 00 daily. Medical 0.25-35 Branch mg-mcg per tablet ascorbic 2020-0 Yes [id number] 500mg Take 1 U nivers acid, 7-29 tablet by [facility] vitamin C, 00:00: [place] 500 mg 00 (three) Medical tablet times Branch daily. ferrous 2020-0 Yes [id number] 325mg Take 1 Un rocio sulfate 7-29 tablet by ity of (IRON, 00:00: mouth 3 [place] FERROUS 00 (three) Medical SULFATE,) times Branch 325 mg (65 daily with mg iron) meals. tablet foLIC acid 2020-0 Yes [id number] 1mg Take 1 [facility] 1 mg tablet 7-29 tablet by ity of 00:00: mouth [place] 00 daily. Medical Branch norgestimat 2020-0 Yes [id number] 1{tbl} Take 1 [facility] e-ethinyl 7-29 100 tablet by ity o f estradiol 00:00: mouth [place] (FEMYNOR) 00 daily. Medical 0.25-35 Branch mg-mcg per tablet ascorbic 2020-0 Yes [id number] 500mg Take 1 U nivers acid, 7-29 tablet by [facility] vitamin C, 00:00: [place] 500 mg 00 (three) Medical tablet times Branch daily. ferrous 2020-0 Yes [id number] 325mg Take 1 Un rocio sulfate 7-29 tablet by ity of (IRON, 00:00: mouth 3 [place] FERROUS 00 (three) Medical SULFATE,) times Branch 325 mg (65 daily with mg iron) meals. tablet foLIC acid 2020-0 Yes [id number] 1mg Take 1 [facility] 1 mg tablet 7-29 tablet by ity of 00:00: mouth [place] 00 daily. Medical Branch norgestimat 2020-0 Yes [id number] 1{tbl} Take 1 [facility] e-ethinyl 7-29 100 tablet by ity o f estradiol 00:00: mouth [place] (FEMYNOR) 00 daily. Medical 0.25-35 Branch mg-mcg per tablet ascorbic 2020-0 Yes [id number] 500mg Take 1 U nivers acid, 7-29 tablet by [facility] vitamin C, 00:00: [place] 500 mg 00 (three) Medical tablet times Branch daily. ferrous 2020-0 Yes [id number] 325mg Take 1 Un rocio sulfate 7-29 tablet by ity of (IRON, 00:00: mouth 3 [place] FERROUS 00 (three) Medical SULFATE,) times Branch 325 mg (65 daily with mg iron) meals. tablet foLIC acid 2020-0 Yes [id number] 1mg Take 1 [facility] 1 mg tablet 7-29 tablet by ity of 00:00: mouth [place] 00 daily. Medical Branch norgestimat 2019-0 Yes [id number] 1{tbl} Take 1 [facility] e-ethinyl 7-29 100 tablet by ity o f estradiol 00:00: mouth [place] (FEMYNOR) 00 daily. Medical 0.25-35 Branch mg-mcg per tablet ascorbic 2020-0 Yes [id number] 500mg Take 1 U nivers acid, 7-29 tablet by [facility] vitamin C, 00:00: [place] 500 mg 00 (three) Medical tablet times Branch daily. ferrous 2020-0 Yes [id number] 325mg Take 1 Un rocio sulfate 7-29 tablet by ity of (IRON, 00:00: mouth 3 [place] FERROUS 00 (three) Medical SULFATE,) times Branch 325 mg (65 daily with mg iron) meals. tablet foLIC acid 2020-0 Yes [id number] 1mg Take 1 [facility] 1 mg tablet 7-29 tablet by ity of 00:00: mouth [place] 00 daily. Medical Branch norgestimat 2020-0 Yes [id number] 1{tbl} Take 1 [facility] e-ethinyl 7-29 100 tablet by ity o f estradiol 00:00: mouth [place] (FEMYNOR) 00 daily. Medical 0.25-35 Branch mg-mcg per tablet ascorbic 2020-0 Yes [id number] 500mg Take 1 U nivers acid, 7-29 tablet by [facility] vitamin C, 00:00: mouth [place] 500 mg 00 (three) Medical tablet times Branch daily. ferrous 2020-0 Yes [id number] 325mg Take 1 Un rocio sulfate 7-29 tablet by ity of (IRON, 00:00: mouth 3 [place] FERROUS 00 (three) Medical SULFATE,) times Branch 325 mg (65 daily with mg iron) meals. tablet foLIC acid 2020-0 Yes [id number] 1mg Take 1 [facility] 1 mg tablet 7-29 tablet by ity of 00:00: mouth [place] 00 daily. Medical Branch norgestimat 2020-0 Yes [id number] 1{tbl} Take 1 [facility] e-ethinyl 7-29 100 tablet by ity o f estradiol 00:00: mouth [place] (FEMYNOR) 00 daily. Medical 0.25-35 Branch mg-mcg per tablet ascorbic 2020-0 Yes [id number] 500mg Take 1 U nivers acid, 7-29 tablet by [facility] vitamin C, 00:00: mouth [place] 500 mg 00 (three) Medical tablet times Branch daily. ferrous 2020-0 Yes [id number] 325mg Take 1 Un rocio sulfate 7-29 tablet by ity of (IRON, 00:00: mouth 3 [place] FERROUS 00 (three) Medical SULFATE,) times Branch 325 mg (65 daily with mg iron) meals. tablet foLIC acid 2020-0 Yes [id number] 1mg Take 1 [facility] 1 mg tablet 7-29 tablet by ity of 00:00: mouth [place] 00 daily. Medical Branch norgestimat 2020-0 Yes [id number] 1{tbl} Take 1 [facility] e-ethinyl 7-29 100 tablet by ity o f estradiol 00:00: mouth [place] (FEMYNOR) 00 daily. Medical 0.25-35 Branch mg-mcg per tablet ascorbic 2020-0 Yes [id number] 500mg Take 1 U nivers acid, 7-29 tablet by [facility] vitamin C, 00:00: mouth [place] 500 mg 00 (three) Medical tablet times Branch daily. ferrous 2020-0 Yes [id number] 325mg Take 1 Un rocio sulfate 7-29 tablet by ity of (IRON, 00:00: mouth 3 [place] FERROUS 00 (three) Medical SULFATE,) times Branch 325 mg (65 daily with mg iron) meals. tablet foLIC acid 2020-0 Yes [id number] 1mg Take 1 [facility] 1 mg tablet 7-29 tablet by ity of 00:00: mouth [place] 00 daily. Medical Branch norgestimat 2020-0 Yes [id number] 1{tbl} Take 1 [facility] e-ethinyl 7-29 100 tablet by ity o f estradiol 00:00: mouth [place] (FEMYNOR) 00 daily. Medical 0.25-35 Branch mg-mcg per tablet ascorbic 2020-0 Yes [id number] 500mg Take 1 [facility] nivers acid, 7-29 tablet by [facility] of vitamin C, 00:00: mouth [place] 500 mg 00 (three) Medical tablet times Branch daily. ferrous 2020-0 Yes [id number] 325mg Take 1 Un rocio sulfate 7-29 tablet by ity of (IRON, 00:00: mouth 3 [place] FERROUS 00 (three) Medical SULFATE,) times Branch 325 mg (65 daily with mg iron) meals. tablet foLIC acid 2020-0 Yes [id number] 1mg Take 1 [facility] 1 mg tablet 7-29 tablet by ity of 00:00: mouth [place] 00 daily. Medical Branch norgestimat 2019-0 Yes [id number] 1{tbl} Take 1 [facility] e-ethinyl 7-29 100 tablet by ity o f estradiol 00:00: mouth [place] (FEMYNOR) 00 daily. Medical 0.25-35 Branch mg-mcg per tablet ascorbic 2020-0 Yes [id number] 500mg Take 1 [facility] nivers acid, 7-29 tablet by [facility] vitamin C, 00:00: mouth [place] 500 mg 00 (three) Medical tablet times Branch daily. ferrous 2020-0 Yes [id number] 325mg Take 1 Un rocio sulfate 7-29 tablet by ity of (IRON, 00:00: mouth 3 [place] FERROUS 00 (three) Medical SULFATE,) times Branch 325 mg (65 daily with mg iron) meals. tablet foLIC acid 2020-0 Yes [id number] 1mg Take 1 [facility] 1 mg tablet 7-29 tablet by ity of 00:00: mouth [place] 00 daily. Medical Branch norgestimat Yes [id number] 1{tbl} Take 1 [facility] e-ethinyl 7-29 100 tablet by ity o f estradiol 00:00: mouth [place] (FEMYNOR) 00 daily. Medical 0.25-35 Branch mg-mcg per tablet ascorbic Yes [id number] 500mg Take 1 [facility] nivers acid, - tablet by [facility] vitamin C, 00:00: mouth [place] 500 mg 00 (three) Medical tablet times Branch daily. ferrous Yes [id number] 325mg Take 1 Un rocio sulfate - tablet by ity of (IRON, 00:00: mouth 3 [place] FERROUS 00 (three) Medical SULFATE,) times Branch 325 mg (65 daily with mg iron) meals. tablet foLIC acid Yes [id number] 1mg Take 1 [facility] 1 mg tablet - tablet by ity of 00:00: mouth [place] 00 daily. Medical Branch norgestimat Yes [id number] 1{tbl} Take 1 [facility] e-ethinyl 7- 100 tablet by ity o f estradiol 00:00: mouth [place] (FEMYNOR) 00 daily. Medical 0.25-35 Branch mg-mcg per tablet ascorbic 2022- No [id number] 500mg Take 1 [facility] acid, -03-29 tablet by ity of vitamin C, 00:00: 00:00 mouth [place] 500 mg 00 :00 (three) Medical tablet times Branch daily. ferrous 2022- No [id number] 325mg Take 1 U nivers sulfate 02-05 tablet by ity of (IRON, 00:00: 00:00 mouth 3 [place] FERROUS 00 :00 (three) Medical SULFATE,) times Branch 325 mg (65 daily with mg iron) meals. tablet foLIC acid 2022- No [id number] 1mg Take 1 [facility] 1 mg tablet 02-05 tablet by it y of 00:00: 00:00 mouth [place] 00 :00 daily. Medical Branch norgestimat 2022- No [id number] 1{tbl} Take 1 [facility] e-ethinyl 02-05 100 tablet by ity of estradiol 00:00: 00:00 mouth [place] (FEMYNOR) 00 :00 daily. Medical 0.25-35 Branch mg-mcg per tablet ascorbic [id number] 500mg Take 1 [facility] acid, 02-05 tablet by ity of vitamin C, 00:00: 00:00 mouth [place] 500 mg 00 :00 (three) Medical tablet times Branch daily. ferrous [id number] 325mg Take 1 U nivers sulfate 02-05 tablet by ity of (IRON, 00:00: 00:00 mouth 3 [place] FERROUS 00 :00 (three) Medical SULFATE,) times Branch 325 mg (65 daily with mg iron) meals. tablet foLIC acid [id number] 1mg Take 1 [facility] 1 mg tablet 02-05 tablet by it y of 00:00: 00:00 mouth [place] 00 :00 daily. Medical Branch norgestimat No [id number] 1{tbl} Take 1 [facility] e-ethinyl 02-05 100 tablet by ity of estradiol 00:00: 00:00 mouth [place] (FEMYNOR) 00 :00 daily. Medical 0.25-35 Branch mg-mcg per tablet ascorbic [id number] 500mg Take 1 [facility] acid, 02-05 tablet by ity of vitamin C, 00:00: 00:00 mouth [place] 500 mg 00 :00 (three) Medical tablet times Branch daily. ferrous No [id number] 325mg Take 1 U nivers sulfate 02-05 tablet by ity of (IRON, 00:00: 00:00 mouth 3 [place] FERROUS 00 :00 (three) Medical SULFATE,) times Branch 325 mg (65 daily with mg iron) meals. tablet foLIC acid No [id number] 1mg Take 1 [facility] 1 mg tablet 02-05 tablet by it y of 00:00: 00:00 mouth [place] 00 :00 daily. Medical Branch norgestimat No [id number] 1{tbl} Take 1 [facility] e-ethinyl 02-05 100 tablet by ity of estradiol 00:00: 00:00 mouth [place] (FEMYNOR) 00 :00 daily. Medical 0.25-35 Branch mg-mcg per tablet norgestimat 2020-0 Yes [id number] 1{tbl} Take 1 [facility] e-ethinyl 6-26 tablet by ity o f estradiol 00:00: mouth [place] (ORTHO-CYCL 00 daily. Medica l EN, 28,) DAW1 Branch 0.25-35 mg-mcg per tablet norgestimat 2020-0 Yes [id number] 1{tbl} Take 1 [facility] e-ethinyl 6-26 tablet by ity o f estradiol 00:00: mouth [place] (ORTHO-CYCL 00 daily. Medica l EN, 28,) DAW1 Branch 0.25-35 mg-mcg per tablet norgestimat 2020-0 2020- No [id number] 1{tbl} Take 1 [facility] e-ethinyl 6-26 07-29 tablet by ity of estradiol 00:00: 00:00 mouth [place] (ORTHO-CYCL 00 :00 daily. Medica l EN, 28,) DAW1 Branch 0.25-35 mg-mcg per tablet norgestimat 2020-0 2020- No [id number] 1{tbl} Take 1 [facility] e-ethinyl 6-26 07-29 tablet by ity of estradiol 00:00: 00:00 mouth [place] (ORTHO-CYCL 00 :00 daily. Medica l EN, 28,) DAW1 Branch 0.25-35 mg-mcg per tablet norgestimat 2020-0 Yes [id number] 1{tbl} Take 1 [facility] e-ethinyl 6-24 tablet by ity o f estradiol 00:00: mouth [place] (ORTHO-CYCL 00 daily. Medica l EN, 28,) Branch 0.25-35 mg-mcg per tablet norgestimat 2020-0 2020- No [id number] 1{tbl} Take 1 [facility] e-ethinyl 6-24 06-26 tablet by ity of estradiol 00:00: 00:00 mouth [place] (ORTHO-CYCL 00 :00 daily. Medica l EN, 28,) Branch 0.25-35 mg-mcg per tablet norgestimat 2020-0 Yes [id number] 1{tbl} Take 1 [facility] e-ethinyl 6-23 tablet by ity o f estradiol 00:00: mouth [place] (ORTHO-CYCL 00 daily. Medica l EN, 28,) Branch 0.25-35 mg-mcg per tablet norgestimat 2020-0 2020- No [id number] 1{tbl} Take 1 [facility] e-ethinyl 6-23 06-24 tablet by ity of estradiol 00:00: 00:00 mouth [place] (ORTHO-CYCL 00 :00 daily. Medica l EN, 28,) Branch 0.25-35 mg-mcg per tablet norgestimat 2020-0 Yes [id number] 1{tbl} Take 1 [facility] e-ethinyl 5-22 tablet by ity o f estradiol 00:00: mouth [place] 0.25-35 00 daily. Medical mg-mcg per Branch tablet norgestimat 2020-0 Yes [id number] 1{tbl} Take 1 [facility] e-ethinyl 5-22 tablet by ity o f estradiol 00:00: mouth [place] 0.25-35 00 daily. Medical mg-mcg per Branch tablet norgestimat 2020-0 Yes [id number] 1{tbl} Take 1 [facility] e-ethinyl 5-22 tablet by ity o f estradiol 00:00: mouth [place] 0.25-35 00 daily. Medical mg-mcg per Branch tablet norgestimat 2020-0 Yes [id number] 1{tbl} Take 1 [facility] e-ethinyl 5-22 tablet by ity o f estradiol 00:00: mouth [place] 0.25-35 00 daily. Medical mg-mcg per Branch tablet norgestimat 2020-0 Yes [id number] 1{tbl} Take 1 [facility] e-ethinyl 5-22 tablet by ity o f estradiol 00:00: mouth [place] 0.25-35 00 daily. Medical mg-mcg per Branch tablet norgestimat 2020-0 Yes [id number] 1{tbl} Take 1 [facility] e-ethinyl 5-22 tablet by ity o f estradiol 00:00: mouth [place] 0.25-35 00 daily. Medical mg-mcg per Branch tablet norgestimat 2020-0 Yes [id number] 1{tbl} Take 1 [facility] e-ethinyl 5-22 tablet by ity o f estradiol 00:00: mouth [place] 0.25-35 00 daily. Medical mg-mcg per Branch tablet norgestimat 2020-0 2020- No [id number] 1{tbl} Take 1 [facility] e-ethinyl 5-22 07-29 tablet by ity of estradiol 00:00: 00:00 mouth [place] 0.25-35 00 :00 daily. Medical mg-mcg per Branch tablet norgestimat 2020-0 2020- No [id number] 1{tbl} Take 1 [facility] e-ethinyl 5-22 07-29 tablet by ity of estradiol 00:00: 00:00 mouth [place] 0.25-35 00 :00 daily. Medical mg-mcg per Branch tablet ferrous 2020-0 Yes [id number] Take by Un rocio sulfate 2-28 mouth. ity of (IRON ORAL) 20:49: [place] [address] Medical Branch ferrous 2020-0 Yes [id number] Take by Un rocio sulfate 2-28 mouth. ity of (IRON ORAL) 20:49: [address] ferrous 2020-0 Yes [id number] Take by Un rocio sulfate 2-28 mouth. ity of (IRON ORAL) 20:49: [address] Branch ferrous 2020-0 Yes [id number] Take by U nivers sulfate 2-28 mouth. ity of (IRON ORAL) 20:49: [address] Branch ferrous 2020-0 Yes [id number] Take by Un rocio sulfate 2-28 mouth. ity of (IRON ORAL) 20:49: [address] Branch ferrous 2020-0 Yes [id number] Take by Un rocio sulfate 2-28 mouth. ity of (IRON ORAL) 20:49: [address] Branch ferrous 2020-0 Yes [id number] Take by Un rocio sulfate 2-28 mouth. ity of (IRON ORAL) 20:49: [address] Branch ferrous 2020-0 Yes [id number] Take by Un rocio sulfate 2-28 mouth. ity of (IRON ORAL) 20:49: [address] Branch ferrous 2020-0 Yes [id number] Take by Un rocio sulfate 2-28 mouth. ity of (IRON ORAL) 20:49: [address] norgestimat 2020-0 Yes [id number] 1{tbl} Take 1 [facility] e-ethinyl 2-28 tablet by ity o f estradiol 00:00: mouth [place] 0.25-35 00 daily. Medical mg-mcg per Branch tablet norgestimat Yes [id number] 1{tbl} Take 1 [facility] e-ethinyl 2-28 tablet by ity o f estradiol 00:00: mouth [place] 0.25-35 00 daily. Medical mg-mcg per Branch tablet norgestimat 2020- No [id number] 1{tbl} Take 1 [facility] e-ethinyl 2-28 05-22 tablet by ity of estradiol 00:00: 00:00 mouth [place] 0.25-35 00 :00 daily. Medical mg-mcg per Branch tablet norgestimat 2020- No [id number] 1{tbl} Take 1 [facility] e-ethinyl 2-28 05-22 tablet by ity of estradiol 00:00: 00:00 mouth [place] 0.25-35 00 :00 daily. Medical mg-mcg per Branch tablet norgestimat Yes [id number] 1{tbl} Take 1 [facility] e-ethinyl 1-27 100 tablet by ity o f estradiol 00:00: mouth [place] 0.25-35 00 daily. Medical mg-mcg per Branch tablet norgestimat Yes [id number] 1{tbl} Take 1 [facility] e-ethinyl 1-27 100 tablet by ity o f estradiol 00:00: mouth [place] 0.25-35 00 daily. Medical mg-mcg per Branch tablet norgestimat 2020- No [id number] 1{tbl} Take 1 [facility] e-ethinyl 1-27 -28 100 tablet by ity of estradiol 00:00: 00:00 mouth [place] 0.25-35 00 :00 daily. Medical mg-mcg per Branch tablet norgestimat 2020- No [id number] 1{tbl} Take 1 [facility] e-ethinyl 1-27 02-28 100 tablet by ity of estradiol 00:00: 00:00 mouth [place] 0.25-35 00 :00 daily. Medical mg-mcg per Branch tablet norgestimat 2018-07 2020- No [id number] 1{tbl} Take 1 [facility] e-ethinyl 0-22 01-27 100 tablet by ity of estradiol 00:00: 00:00 mouth [place] 0.25-35 00 :00 daily. Medical mg-mcg per Branch tablet norgestimat 2018- Yes [id number] 1{tbl} Take 1 [facility] e-ethinyl 9-16 100 tablet by ity o f estradiol 00:00: mouth [place] 0.25-35 00 daily. Medical mg-mcg per Branch tablet norgestimat 2019- No [id number] 1{tbl} Take 1 [facility] e-ethinyl 7-05 09-16 100 tablet by ity of estradiol 00:00: 00:00 mouth [place] 0.25-35 00 :00 daily. Medical mg-mcg per Branch tablet Immunizations Ordered Filled Date Status Comments Source Immunization Name Immunization Name MMR 2012-05-16 Completed [facility] 00:00:00 [facility] MMR 2012-05-16 Completed [facility] 00:00:00 [facility] MMR 2012-05-16 Completed [facility] 00:00:00 [facility] MMR 2012-05-16 Completed [facility] of 00:00:00 [facility] MMR 2012-05-16 Completed [facility] 00:00:00 [facility] MMR 2012-05-16 Completed [facility] of 00:00:00 [facility] MMR 2012-05-16 Completed [facility] of 00:00:00 [facility] MMR 2012-05-16 Completed [facility] of 00:00:00 [facility] MMR 2012-05-16 Completed [facility] of 00:00:00 [facility] MMR 2012-05-16 Completed [facility] of 00:00:00 [facility] MMR 2012-05-16 Completed [facility] of 00:00:00 [facility] MMR 2012-05-16 Completed [facility] of 00:00:00 [facility] MMR 2012-05-16 Completed [facility] of 00:00:00 [facility] MMR 2012-05-16 Completed [facility] of 00:00:00 [facility] MMR 2012-05-16 Completed [facility] of 00:00:00 [facility] MMR 2012-05-16 Completed [facility] of 00:00:00 [facility] MMR 2012-05-16 Completed [facility] of 00:00:00 [facility] MMR 2012-05-16 Completed [facility] of 00:00:00 [facility] MMR 2012-05-16 Completed [facility] of 00:00:00 [facility] MMR 2012-05-16 Completed [facility] of 00:00:00 [facility] MMR 2012-05-16 Completed [facility] of 00:00:00 [facility] MMR 2012-05-16 Completed [facility] 00:00:00 [place] [facility] MMR 2012-05-16 Completed [facility] 00:00:00 [place] [facility] MMR 2012-05-16 Completed [facility] 00:00:00 [place] [facility] MMR 2012-05-16 Completed [facility] 00:00:00 [place] [facility] MMR 2012-05-16 Completed [facility] 00:00:00 [place] [facility] MMR 2012-05-16 Completed [facility] 00:00:00 [place] [facility] MMR 2012-05-16 Completed [facility] 00:00:00 [place] [facility] MMR 2012-05-16 Completed [facility] 00:00:00 [place] [facility] MMR 2012-05-16 Completed [facility] 00:00:00 [place] [facility] MMR 2012-05-16 Completed [facility] 00:00:00 [place] [facility] MMR 2012-05-16 Completed [facility] 00:00:00 [place] [facility] MMR 2012-05-16 Completed [facility] 00:00:00 [place] [facility] MMR 2012-05-16 Completed [facility] 00:00:00 [place] [facility] MMR 2012-05-16 Completed [facility] 00:00:00 [place] [facility] MMR 2012-05-16 Completed [facility] 00:00:00 [place] [facility] MMR 2012-05-16 Completed [facility] 00:00:00 [place] [facility] MMR 2012-05-16 Completed University of 00:00:00 [facility] TDAP 2010-04-17 Completed University of 00:00:00 [facility] TDAP 2010-04-17 Completed University of 00:00:00 [facility] TDAP 2010-04-17 Completed University of 00:00:00 [place] [facility] TDAP 2010-04-17 Completed [facility] of 00:00:00 [place] [facility] TDAP 2010-04-17 Completed [facility] of 00:00:00 [place] [facility] TDAP 2010-04-17 Completed [facility] 00:00:00 [place] [facility] TDAP 2010-04-17 Completed [facility] 00:00:00 [place] [facility] TDAP 2010-04-17 Completed [facility] 00:00:00 [place] [facility] Tdap 2010-04-17 Completed [facility] 00:00:00 [place] [facility] TDAP 2010-04-17 Completed [facility] 00:00:00 [place] [facility] TDAP 2010-04-17 Completed [facility] 00:00:00 [place] [facility] TDAP 2010-04-17 Completed [facility] 00:00:00 [place] [facility] TDAP 2010-04-17 Completed [facility] of 00:00:00 [facility] TDAP 2010-04-17 Completed University of 00:00:00 [facility] TDAP 2010-04-17 Completed [facility] of 00:00:00 [facility] TDAP 2010-04-17 Completed [facility] of 00:00:00 [facility] Tdap 2010-04-17 Completed [facility] of 00:00:00 [facility] TDAP 2010-04-17 Completed [facility] of 00:00:00 [facility] TDAP 2010-04-17 Completed [facility] of 00:00:00 [facility] TDAP 2010-04-17 Completed [facility] of 00:00:00 [facility] TDAP 2010-04-17 Completed [facility] of 00:00:00 [facility] TDAP 2010-04-17 Completed [facility] of 00:00:00 [facility] TDAP 2010-04-17 Completed [facility] of 00:00:00 [facility] TDAP 2010-04-17 Completed [facility] of 00:00:00 [facility] Tdap 2010-04-17 Completed [facility] of 00:00:00 [facility] TDAP 2010-04-17 Completed [facility] of 00:00:00 [facility] TDAP 2010-04-17 Completed University of 00:00:00 [facility] TDAP 2010-04-17 Completed [facility] of 00:00:00 [facility] TDAP 2010-04-17 Completed University of 00:00:00 [facility] Tdap 2010-04-17 Completed [facility] of 00:00:00 [facility] TDAP 2010-04-17 Completed [facility] of 00:00:00 [facility] TDAP 2010-04-17 Completed [facility] of 00:00:00 [facility] TDAP 2010-04-17 Completed [facility] of 00:00:00 [facility] Tdap 2010-04-17 Completed [facility] of 00:00:00 [facility] Tdap 2010-04-17 Completed [facility] of 00:00:00 [facility] Tdap 2010-04-17 Completed [facility] of 00:00:00 [facility] TDAP 2010-04-17 Completed [facility] of 00:00:00 [facility] TDAP 2010-04-17 Completed [facility] 00:00:00 [facility] MMR Unknown Completed [facility] TDAP Unknown Completed [facility] MMR Unknown Completed [facility] TDAP Unknown Completed [facility] MMR Unknown Completed [facility] TDAP Unknown [facility]pleted [facility] MMR Unknown Completed [facility] TDAP Unknown Completed [facility] MMR Unknown Completed [facility] TDAP Unknown Completed [facility] MMR Unknown Completed [facility] TDAP Unknown Completed [facility] MMR Unknown Completed [facility] TDAP Unknown [facility]pleted [facility] MMR Unknown Completed [facility] TDAP Unknown Completed [facility] MMR Unknown Completed [facility] TDAP Unknown Completed [facility] MMR Unknown Completed [facility] TDAP Unknown Completed [facility] Vital Signs Vital Name Observation Time Observation Value Comments Source Systolic blood 2023-04-30 17:55:00 131 mm[Hg] Univer sity of pressure [facility] Diastolic blood 2023-04-30 17:55:00 85 mm[Hg] Unive rsity of [facility] Heart rate 2023-04-30 17:55:00 85 /min [facility] Body temperature 2023-04-30 17:55:00 37.39 [facility] 2023-04-30 17:55:00 16 /min [facility] Body height 2023-04-30 17:55:00 162.6 cm [facility] Body weight 2023-04-30 17:55:00 73.483 kg [facility] BMI 2023-04-30 17:55:00 27.81 kg/m2 [facility] Oxygen saturation in 2023-04-30 17:55:00 100 /min [facility] Arterial blood by [facility] Pulse oximetry Branch Heart rate 2023-04-28 14:50:00 80 /min [facility] Respiratory rate 2023-04-28 14:50:00 26 /min [facility] in 2023-04-28 14:50:00 100 /min University Arterial blood by [facility] Pulse oximetry Branch Systolic blood 2023-04-28 14:45:00 118 mm[Hg] Univer sity of pressure [facility] Diastolic blood 2023-04-28 14:45:00 77 mm[Hg] Unive rsity of pressure [facility] Body temperature 2023-04-28 13:45:00 36.33 [place] Univ [facility] Body height 2023-04-28 11:15:00 162.6 cm [facility] Body weight 2023-04-28 11:15:00 73.483 kg [facility] BMI 2023-04-28 11:15:00 27.81 kg/m2 [facility] Systolic blood 2023-04-28 11:15:00 130 mm[Hg] Univer sity of pressure [facility] Diastolic blood 2023-04-28 11:15:00 78 mm[Hg] Unive rsity of pressure [facility] Heart rate 2023-04-28 11:15:00 85 /min [facility] Body temperature 2023-04-28 11:15:00 37.17 [place] Univ ersity of [facility] Respiratory rate 2023-04-28 11:15:00 18 /min Univ [facility] Body height 2023-04-28 11:15:00 162.6 cm [facility] Body weight 2023-04-28 11:15:00 73.483 kg [facility] BMI 2023-04-28 11:15:00 27.81 kg/m2 Universi ty of [facility] Oxygen saturation in 2023-04-28 11:15:00 100 /min [facility] Arterial blood by [facility] Pulse oximetry Branch Systolic blood 2023-03-29 19:13:00 127 mm[Hg] Univer sity of pressure [facility] Diastolic blood 2023-03-29 19:13:00 87 mm[Hg] Unive rsity of pressure [facility] Heart rate 2023-03-29 19:13:00 78 /min [facility] Body temperature 2023-03-29 19:13:00 37.39 [place] Univ ersity of [facility] Respiratory rate 2023-03-29 19:13:00 18 /min Univ [facility] Body height 2023-03-29 19:13:00 162.6 cm [facility] Body weight 2023-03-29 19:13:00 77.293 kg [facility] BMI 2023-03-29 19:13:00 29.25 kg/m2 Universi ty of [facility] Oxygen saturation in 2023-03-29 19:13:00 98 /min University Arterial blood by [facility] Pulse oximetry Branch Systolic blood 2020-06-24 21:13:00 114 mm[Hg] Univer sity of pressure [facility] Diastolic blood 2020-06-24 21:13:00 76 mm[Hg] Unive rsity of pressure [facility] Heart rate 2020-06-24 21:13:00 77 /min Universi ty of [facility] Body temperature 2020-06-24 21:13:00 37 [place] Univ ersity of [facility] Respiratory rate 2020-06-24 21:13:00 18 /min Univ ersity of [facility] Body height 2020-06-24 21:13:00 162.6 cm Universi ty of [facility] Body weight 2020-06-24 21:13:00 89.359 kg Universi ty of [facility] BMI 2020-06-24 21:13:00 33.81 kg/m2 [facility] Systolic blood 2020-06-24 21:13:00 114 mm[Hg] Univer sity of pressure [facility] Diastolic blood 2020-06-24 21:13:00 76 mm[Hg] Unive rsity of pressure [facility] Heart rate 2020-06-24 21:13:00 77 /min Universi ty of [facility] Body temperature 2020-06-24 21:13:00 37 [place] Univ ersity of [facility] Respiratory rate 2020-06-24 21:13:00 18 /min Univ ersity of [facility] Body height 2020-06-24 21:13:00 162.6 cm [facility] Body weight 2020-06-24 21:13:00 89.359 kg [facility] BMI 2020-06-24 21:13:00 33.81 kg/m2 Universi ty of [facility] Systolic blood 2020-05-09 20:17:00 130 mm[Hg] Univer sity of pressure [facility] Diastolic blood 2020-05-09 20:17:00 80 mm[Hg] Unive rsity of pressure [facility] Heart rate 2020-05-09 20:17:00 118 /min Universi ty [facility] Body temperature 2020-05-09 20:17:00 36.89 [place] [facility] Respiratory rate 2020-05-09 20:17:00 18 /min [facility] Body height 2020-05-09 20:17:00 162.6 cm [facility] Body weight 2020-05-09 20:17:00 89.359 kg [facility] BMI 2020-05-09 20:17:00 33.81 kg/m2 [facility] Systolic blood 2020-02-06 20:13:00 122 mm[Hg] Univer sity of pressure [facility] Diastolic blood 2020-02-06 20:13:00 72 mm[Hg] Unive rsity of pressure [facility] Heart rate 2020-02-06 20:13:00 85 /min [facility] Body temperature 2020-02-06 20:13:00 36.94 [place] Univ ersity of [facility] Respiratory rate 2020-02-06 20:13:00 19 /min Univ [facility] Body height 2020-02-06 20:13:00 162.6 cm [facility] Body weight 2020-02-06 20:13:00 87.317 kg [facility] BMI 2020-02-06 20:13:00 33.04 kg/m2 [facility] Systolic blood 2019-11-30 19:31:00 123 mm[Hg] Univer sity of pressure [facility] Diastolic blood 2019-11-30 19:31:00 80 mm[Hg] Unive rsity of pressure [facility] Heart rate 2019-11-30 19:31:00 103 /min [facility] Body temperature 2019-11-30 19:31:00 36.72 [place] [facility] Respiratory rate 2019-11-30 19:31:00 16 /min [facility] Body height 2019-11-30 19:31:00 162.6 cm [facility] Body weight 2019-11-30 19:31:00 86.354 kg [facility] BMI 2019-11-30 19:31:00 32.68 kg/m2 Universi ty of [facility] Systolic blood 2019-09-07 20:10:00 125 mm[Hg] Univer sity of pressure [facility] Diastolic blood 2019-09-07 20:10:00 72 mm[Hg] Unive rsity of pressure [facility] Heart rate 2019-09-07 20:10:00 81 /min General acute hospital Body temperature 2019-09-07 20:10:00 36.44 [place] [facility] Respiratory rate 2019-09-07 20:10:00 18 /min [facility] Body height 2019-09-07 20:10:00 162.6 cm General acute hospital Body weight 2019-09-07 20:10:00 87.204 kg General acute hospital BMI 2019-09-07 20:10:00 33.00 kg/m2 General acute hospital Procedures Procedure Date / Time Performing Clinician Source Performed CONSENT/REFUSAL FOR 2023-04-30 17:47:17 Doctor Unassigned, No Un [facility] DIAGNOSIS AND TREATMENT Name [facility] FL TIME OR 2023-04-28 13:27:29 [facility] FL TIME OR 2023-04-28 13:27:29 [facility] (NON-REPORTABLE) [facility] BREAST LUMPECTOMY 2023-04-28 12:05:00 Lo Price [facility] acute [facility] DAY SURGERY - VICTORY 2023-04-28 05:01:00 Doctor Unassigned, No [facility] DISCLOSURE AND CONSENT, 2023-03-30 05:01:00 Doctor Unassigned, N o [facility] MEDICAL AND SURGICAL Name [facility] PROCEDURES REFERRAL- 2023-03-28 05:01:00 Doctor Unassigned, No [facility] REQUEST/RESPONSE Name [facility] BI US GUIDED CORE 2023-02-25 15:22:29 Cecil Castillo [facility] BREAST BIOPSY LEFT Medical Branc h BI OMER BASINS LEFT 2023-02-21 20:08:44 Requisition, Paper [facility] BI COMBO ULTRASOUND 2023-02-21 20:08:44 Requisition, Paper Unive [facility] LEFT COMPLETE RIGHT Medical Bran ch LIMITED [facility] PATIENT FINANCIAL 2023-01-07 19:09:00 Doctor Unassigned, No [facility] POLICY [facility] NOTICE OF PRIVACY 2021-11-27 20:23:00 Doctor Unassigned, No Univ [facility] CONSENT/REFUSAL FOR 2021-11-27 20:22:41 [facility]igned, [facility] ASSIGNMENT OF BENEFITS 2021-11-27 20:22:27 Doctor Unassigned, No [facility] [id number] 2020-07-18 00:00:00 [facility] [id number] 2020-07-18 00:00:00 [facility] [id number] 2020-07-18 00:00:00 [facility] US PELVIS COMPLETE WITH 2020-06-04 16:34:54 Zaina Kelly Un [facility] TRANSVAGINAL [facility] CBC WITH DIFF 2020-05-09 21:28:00 Zaina Kelly [facility] ASSIGNMENT OF BENEFITS 2020-05-09 19:47:34 Doctor Unassigned, No [facility] CBC WITH DIFF 2020-02-06 21:19:00 Veronique [facility] CONSENT/REFUSAL FOR 2019-09-07 19:28:37 Doctor Unassigned, No Un [facility] DIAGNOSIS AND TREATMENT [facility] Encounters Start End Encounter Admission Attending Care Care Encounter Source Date/Time Date/Time Type Type Clinicians Facility Department ID 2021-05-09 Outpatient SUZIE [facility] [id number] Univers 11:32:44 NOEL [facility] 2020-07-17 Inpatient EM Marguerite, [facility] [id number] [facility] 16:49:00 [facility] 2023-04-30 2023-04-30 Emergency X KENYATTA [facility] ERT [id number] Univers 12:57:00 13:38:00 [facility] 2023-04-30 2023-04-30 [facility] 1.2.840.114 [id number] Univers 12:57:00 13:38:00 Saige Liza PAT 350.1.13.10 ity of [facility] 4.2.7.2.686 [facility] [id number] [place] [address] [place] 2023-04-30 2023-04-30 Patient [facility] 1.2.812.812 [id number] Univers 00:00:00 00:00:00 Secure Msg Lo STEWART 350.1.13.10 ity of [facility] [place].2.7.2.[place] [id number] Ny dical NAL 419 [facility] 2023-04-29 2023-04-29 Telephone [facility] 1.2.840.114 [id number] Univers 00:00:00 00:00:00 Lo STEWART 350.1.13.10 i ty of [facility] 4[place].7.2.[place] [id number] Ny dicca NAL 419 [facility] 2023-04-28 2023-04-28 Outpatient R [facility] HARIS [id number] Univers 05:51:00 10:19:00 LO ity of [facility] 2023-04-28 2023-04-28 [facility] 1.2.840.114 [id number] Univers 05:51:00 10:19:00 Encounter Lo Addison HEALTH 350.1.13.10 ity of [place] 4.2.7.2.686 [facility] [id number] [address] ([facility]) 2023-04-28 2023-04-28 Surgery [facility] 1.2.121.941 [id number] Univers 07:05:00 08:44:00 Lo S SPECIALTY 350.1.13.10 ity of [place].2.[place] [id number] Ny dical [facility] 2023-03-30 2023-03-30 Orders Doctor DARNELL 1.2.840.114 [id number] Univers 00:00:00 00:00:00 Only Unassigned, MARIA FERNANDA 350.1.13.10 ity of [place] [facility] 4.2.7.2.686 Brock as [id number] [facility] [address] [place] 2023-03-29 2023-03-29 Outpatient R DEE [facility] [id number] Univers 14:00:00 15:39:23 LO ity of [facility] 2023-03-29 2023-03-29 Office [facility] 1.2.228.236 [id number] Univers 14:00:00 15:39:23 Visit Lo STEWART 350.1.13.10 i ty of [place]2.7.2.686 [place] [facility] EDESSIO [id number] Ny dical NAL 419 [facility] 2023-03-28 2023-03-28 Orders Doctor DARNELL 1.2.840.114 [id number] Univers 00:00:00 00:00:00 Only Unassigned, MARIA FERNANDA 350.1.13.10 ity of [place] [facility] 4.2.7.2.686 [place] as [id number] [facility] [address] [place] 2023-02-25 2023-02-25 Outpatient R RADIOLOGY [facility] [id number] Univers 09:00:00 23:59:00 ity of [facility] 2023-02-25 2023-02-25 Hospital Radiology [facility] 1.2.840.114 [id number] Univers 08:43:51 23:59:00 Encounter SPECIALTY 350.1.13.10 ity [place].2.[place] [facility] AT [phone] Ny dical VICT[facility] 2023-02-24 2023-02-24 Patient Doctor DARNELL 1.2.840.114 [id number] Univers 00:00:00 00:00:00 Secure Msg Unassigned, MARIA FERNANDA 350.1.13.10 ity of [place] [facility] 4.2.7.2.686 [place] as [id number] [facility] [address] [place] 2023-02-21 2023-02-21 Hospital Radiology [facility] 1.2.840.114 [id number] Univers 13:54:47 23:59:00 Encounter SPECIALTY 350.1.13.10 ity [place].2.[place] C[place] AT [id number] Ny capo NAVARRO [address] [place] 2023-02-21 2023-02-21 Outpatient R RADIOLOGY [facility] [id number] Univers 13:54:21 23:59:00 ity of [facility] 2023-02-21 2023-02-21 [facility] Radiology [facility] 1.2.840.114 [id number] Univers 13:54:21 23:59:00 Encounter SPECIALTY 350.1.13.10 ity of [facility] 4.2.7.2.686 [facility] AT [id number] Ny capo NAVARRO [address] [facility] 2023-01-07 2023-01-07 Outpatient R RADIOLOGY [facility] [id number] Univers 14:09:49 23:59:00 ity of [facility] 2023-01-07 2023-01-07 [facility] Radiology [facility] 1.2.840.114 [id number] Univers 14:09:49 23:59:00 Encounter [place] 350.1.13.10 ity of [place] 4.2.7.2.686 [facility] [id number] [facility] [address] [place] 2023-01-07 2023-01-07 Orders Doctor DARNELL 1.2.840.114 [id number] Univers 00:00:00 00:00:00 Only Unassigned, MARIA FERNANDA 350.1.13.10 ity of [place] [facility] 4.2.7.2.686 [place] [id number] [place] [address] Branch 2021-11-27 2021-11-27 Outpatient R RADIOLOGY [facility] [id number] Univers 15:25:12 23:59:00 ity of [facility] 2021-11-27 2021-11-27 [facility] Radiology [facility] 1.2.840.114 [id number] Univers 15:20:00 23:59:00 Encounter [place] 350.1.13.10 ity of [place] 4.2.7.2.686 [facility] [id number] [facility] 800 Branch 2020-09-29 2020-09-29 Patient Nilay [facility] 1.2.840.114 [id number] Univers 00:00:00 00:00:00 Outreach Jong PRIMARY 350.1.13.10 i ty of [place] CARE [place].7.2.[place] [id number] [place] [address] Branch 2020-07-29 2020-07-29 Telephone Elvie, UNIVERSIT 1.2.840.11 [id number] Univers 00:00:00 00:00:00 Janet Y HEALTH 350.1.13.10 i ty of [place] [facility] [place].2.[place] [id number] [address] 2020-06-27 2020-06-27 Telephone Elvie, UNIVERSIT 1.2.840.11 [id number] 00:00:00 00:00:00 Janet Y HEALTH 350.1.13.10 [place] [facility] 4.2.7.2.686 [id number] [facility] 2020-06-27 2020-06-27 Telephone Pool, [facility] UNIVERSIT 1.2.840.114 [id number] 00:00:00 00:00:00 Resident Y HEALTH 350.1.13.10 CLINICS 4.2.7.2.686 [id number] [facility] 2020-06-27 2020-06-27 Telephone Elvie, UNIVERSIT 1.2.840.11 [id number] Univers 00:00:00 00:00:00 Janet Y HEALTH 350.1.13.10 i ty of [place] [facility] [place] [id number] [address] 2020-06-27 2020-06-27 Telephone Pool, [facility] UNIVERSIT 1.2.840.114 [id number] Univers 00:00:00 00:00:00 Resident Y HEALTH 350.1.13.10 ity of CLINICS [place].2.[place] [id number] [address] 2020-06-27 2020-06-27 Patient Doctor [facility] 1.2.261.971 [id number] Univers 00:00:00 00:00:00 Secure Msg Unassigned, Y HEALTH 350.1.13.10 ity of [place] [facility] [place]2.7.2.[place] [id number] [address] 2020-06-24 2020-06-24 Office Pool, [facility] Resident UNIVERSIT 1.2.8 40.114 [id number] Univers 15:01:32 15:56:37 Visit Vern Mitzi Martin Y HEALTH 350.1.13.10 ity of CLINICS [place]2.7.2.[place] [id number] [address] 2020-06-24 2020-06-24 Office [place], [facility] UNIVERSIT 1.2.840.114 [id number] 15:01:32 15:56:37 Visit Resident Y HEALTH 350.1.13.10 CLINICS 4.2.7.2.686 [id number] [facility] 2020-06-24 2020-06-24 Outpatient R [facility] [id number] Univers 15:00:00 15:00:00 ity of [facility] 2020-06-24 2020-06-24 Prep For Elvie, UNIVERSIT 1.2.840.114 [id number] Univers 00:00:00 00:00:00 Surgery Janet Y HEALTH 350.1.13.10 i ty of [place] [facility] [id number] [address] 2020-06-12 2020-06-12 Telephone ALFONZO You 1.2.840.114 [id number] Univers 00:00:00 00:00:00 Merary N Y HEALTH 350.1.13.10 i ty of CL[place]ICS [place].2.[place] [id number] [address] 2020-06-04 2020-06-04 [facility] 1.2.840.114 [id number] Univers 09:52:08 23:59:00 Encounter Yara Y HEALTH 350.1.13.10 ity of CLINICS [place].2.[place] [id number] [address] 2020-06-04 2020-06-04 [facility] [id number] Univers 00:00:00 00:00:00 YARA ity [facility] 2020-05-21 2020-05-21 Telephone DARNELL Rodgers 1.2.840.114 [id number] Univers 00:00:00 00:00:00 Veronique IRVING 350.1.13.10 it y of HOSPITAL 4.2.7.2.686 [place] as [id number] [facility] [address] [place] 2020-05-21 2020-05-21 Telephone Vishal DARNELL 1.2.840.114 [id number] Univers 00:00:00 00:00:00 Veronique IRVING 350.1.13.10 it y of HOSPITAL 4.2.7.2.686 [place] as [id number] [facility] [address] [place] 2020-05-09 2020-05-09 Office Pool, [facility] Resident UNIVERSIT 1.2.8 40.114 [id number] Univers 14:46:46 16:37:57 Visit Yara Rasmussen HEALTH 350.1.13.10 ity of CLINICS [place].2.[place] [id number] [address] 2020-05-09 2020-05-09 Outpatient R [facility] [id number] Univers 14:45:00 14:45:00 ity of [facility] 2020-05-09 2020-05-09 Orders Doctor DARNELL 1.2.840.114 [id number] Univers 00:00:00 00:00:00 Only Unassigned, MARIA FERNANDA 350.1.13.10 ity of [place] [facility] 4.2.7.2.686 [place] as [id number] [facility] [address] [place] 2020-04-10 2020-04-10 [facility] John DARNELL 1.2.840.114 [id number] Univers 00:00:00 00:00:00 Management , Sara IRVING 350.1.13.10 ity of HOSPITAL 4.2.7.2.686 [place] as [id number] [facility] 0[address] 2020-03-26 2020-03-26 Telephone ALFONZO Beauchamp 1.2.840.114 [id number] Univers 00:00:00 00:00:00 Kathleen Y HEALTH 350.1.13.10 i ty of CLINICS [place].2.[place] [id number] [facility] [address] [place] 2020-02-06 2020-02-06 Office Pool, [facility] Resident UNIVERSIT 1.2.8 40.114 [id number] Univers 15:04:08 16:32:46 Visit Noel Larsen [facility] 350.1.13.10 ity of [facility] 4.2.7.2.[place] [id number] [address] 2020-02-06 2020-02-06 Outpatient R [facility] [id number] Univers 15:00:00 15:00:00 ity of [facility] 2020-01-10 2020-01-10 Telephone [facility] 1.2.840.114 [id number] Univers 00:00:00 00:00:00 Victorino C EVENTS TRAFFIC CONTROLLER 350.1.13.10 ity of REGIONAL 4.2.7.2.686 [place] as MATERNAL [id number] [facility] ical & CHILD [address] [place] [address] 2020-01-03 2020-01-03 Telephone [facility] 1.2.840.114 [id number] Univers 00:00:00 00:00:00 Victorino C EVENTS TRAFFIC CONTROLLER 350.1.13.10 ity of REGIONAL 4.2.7.2.686 [place] as MATERNAL [id number] [facility] ical & CHILD [address] [place] [address] 2020-01-02 2020-01-02 Telephone [facility] 1.2.840.114 [id number] Univers 00:00:00 00:00:00 Victorino C EVENTS TRAFFIC CONTROLLER 350.1.13.10 ity of REGIONAL 4.2.7.2.686 [place] as MATERNAL [id number] [facility] & CHILD [address] [place] [address] 2020-01-01 2020-01-01 Telephone [facility] 1.2.840.114 [id number] Univers 00:00:00 00:00:00 Victorino C EVENTS TRAFFIC CONTROLLER 350.1.13.10 ity of REGIONAL 4.2.7.2.686 [place] as MATERNAL [id number] [facility] & CHILD [address] [place] [address] 2019-11-30 2019-11-30 Outpatient R [facility] [id number] Univers 16:00:00 16:00:00 ity of [facility] 2019-11-30 2019-11-30 Office [facility] 1.2.780.185 [id number] Univers 14:20:59 14:54:38 Visit Victorino Edgar EVENTS TRAFFIC CONTROLLER 350.1.13.10 ity of [facility] 4.2.7.2.686 [place] as MATERNAL [id number] [facility] & CHILD [address] [place] [address] 2019-11-30 2019-11-30 Outpatient [facility] [id number] Univers 14:15:00 14:15:00 VICTORINO hsieh o shelley [facility] 2019-11-29 2019-11-29 Outpatient R AKINSIPE, [facility] [id number] Univers 13:30:00 13:30:00 VICTORINO rosa [facility] 2019-09-07 2019-09-07 Office [facility] 1.2.725.971 [id number] Univers 13:31:53 14:49:[address] [facility] EVENTS TRAFFIC CONTROLLER 350.1.13.10 ity of [address]686 [place] as MATERNAL [id number] [facility] & CHILD [address] [place] [address] 2019-09-07 2019-09-07 Outpatient R AKINSIPE, [facility] [id number] Univers 13:15:00 13:15:00 VICTORINO rosa [facility] 2019-09-07 2019-09-07 Orders Doctor DARNELL 1.2.840.114 [id number] Univers 00:00:00 00:00:00 Only Unassigned, MARIA FERNANDA 350.1.13.10 ity of [place] [address]2.686 [place] as [id number] [address] 2019-08-06 2019-08-06 Telephone [facility] 1.2.840.114 [id number] Univers 00:00:00 00:00:00 Victorino C EVENTS TRAFFIC CONTROLLER 350.1.13.10 ity of [facility] 4.2.7.2.686 [place] as MATERNAL [id number] [facility] & CHILD [address] [place] [address] 2019-03-26 2019-03-26 Shivam Graf [facility] UNIVERSIT 1.2.840.114 [id number] Univers 00:00:00 00:00:00 Resident Y HEALTH 350.1.13.10 ity of CLINICS 4.2.7.2.686 Bertha addison [id number] [facility] [address] Branch Results Test Description Test Time Test Comments [...] LDL) 130-159 (BORDER LINE) >=160 (HIGH) LIVER [id number] 14:19:00 Test Item Value Reference Range Interpretation [...] 46-116 N code = ALKP) HCG SERUM [id number] 14:19:00 Test Item Value Reference Range Interpretation Comments HCG SERUM QUAL (test code = HCGQL) NEGATIVE HEPATITIS C BY [id number] 14:19:00 Test Item Value Reference Range Interpretation Comments HEPATITIS C BY PCR Negative Negative Negative: HCV RNA Not (test code = HEPCT) Detected Performed At: [facility] [id number] [place] [address] [id number] ra Miryam LONG Ph:[phone] UTERUS,OTHER THAN PROLAPSE/[id number] 17:11:00 Test Item Value Reference Range Interpretation Comments UTERUS,OTHER THAN PROLAPSE/ZULEYKA (test code = UTERUSOTH) --------RUN DATE: 07/22/20 [facility] PAGE 1 RUN TIME: 1315 Specimen Inquiry RUN USER: INTERFACE --------PATIENT: DEL NIELSEN LOC: [facility] U #: [id number] AGE/SX: 39/F ROOM: [facility] RE07/17/20REG DR: Maribel Everett MD : 82 BED: A DIS: 07/19/20 STATUS: DIS IN TLOC: -------- SPEC #: [id number] RECD: 07/18/20 STATUS: HE CHO #: [id number] JOHANA: 07/18/20- SUBM DR: Maribel Everett MD ENTERED: 07/18/20 SP TYPE: UTERUSOTH OTHR DR: Last Pedro MD ORDERED: LEVEL V SURGICA CODES: H49339 - UTERUS, NOS COPIES TO: Maribel Everett MD [address] [facility] [address] [place] [address] Last Pedro MD [address] [facility] [address] [place], [place] [id number] PROCEDURES: LEVEL V SURGICA (Incomplete) TISSUES: UTERUS, [...] fallopian tube - no pathologic alterations CPT: 60392 cds/wpd GROSS DESCRIPTION ANATOMIC SOURCE OF TISSUE (per Requisition): Uterus, cervix, bilateral tubes The specimen is received in a formalin-filled container, labeled with the patient's CONTINUED ON NEXT PAGE --------RUN DATE: 07/22/20 [facility] PAGE 2 RUN TIME: 1315 Specimen Inquiry RUN USER: INTERFACE --------SPEC #: [id number] PATIENT: DEL NIELSEN #[id number] (Continued) GROSS DESCRIPTION (Continued) name and designated [...] sectioned to reveal a arredondo-pink cut surface. Healthcare Risk Control Consultant sections are submitted as follows: A1 - anterior cervix A2 - posterior cervix A3 - anterior endometrium and large submucosal nodule A4 - large submucosal nodule A5 - posterior endometrium and smaller submucosal nodule A6 through A8 - nodules A9 - nodule to serosa and detached nodule A10 - right fallopian tube A11 - left fallopian tube hi 07/18/20 Signed ____ Randy Estrada 07/21/201710 -------- END OF REPORT CBC W/AUTO [id number] 06:46:00 Test Item Value Reference Range Interpretation [...] NORMAL NORMAL code = PLTMR) CBC W/AUTO [id number] 05:53:00 Test Item Value Reference Range Interpretation [...] code = PLTMR) COVID 19 Asymptomatic IH [id number] 18:19:00 Test Item Value Reference Range Interpretation [...] or approved; th e test hasbeen authori zed by FDA under an Emerge ncy Use [...] and/o r diagnosis of CO VID-19 under Fmqwjiy17 4(b)(1) of the Act, 21 U.S .C. 360bbb-3(b)(1), unless theauthorizatio n is terminated or r evoked sooner. AG HEPATITIS B [id number] 16:30:00 Test Item Value Reference Range Interpretation Comments AG HEPATITIS B SURFACE (test code NONREACTIVE NONREACTIVE = HBSAG) AB HIV 1 16:30:00 Test Item Value Reference Range Interpretation Comments AB HIV 1 2 (test NONREACTIVE NONREACTIVE Done by Sie [facility] code = OGU21RZ) 4th Gen HIV Ag/Ab Combo Screen AG HEPATITIS B [id number] 16:16:00 Test Item Value Reference Range Interpretation Comments AG HEPATITIS B SURFACE (test code NONREACTIVE NONREACTIVE = HBSAG) AB HIV 1 16:16:00 Test Item Value Reference Range Interpretation Comments AB HIV 1 2 (test code = NFK98NY) NONREACTIVE URINALYSIS [id number] 16:01:00 Test Item Value Reference Range Interpretation [...] = MUCU) RARE NONE SEEN CBC W/AUTO [id number] 15:56:00 Test Item Value Reference Range Interpretation [...] REQUIRED (test code = PLTMR) CHEMISTRY 7 [id number] 15:47:00 Test Item Value Reference Range Interpretation [...] LDL) 130-159 (BORDER LINE) >=160 (HIGH) LIVER [id number] 15:47:00 Test Item Value Reference Range Interpretation [...] 46-116 N code = ALKP) HCG SERUM [id number] 15:47:00 Test Item Value Reference Range Interpretation Comments HCG SERUM QUAL (test code = HCGQL) NEGATIVE HEPATITIS C BY [id number] 15:47:00 Test Item Value Reference Range Interpretation Comments HEPATITIS C BY PCR (test code = HEPCT) NONE DETECT CHEMISTRY 7 [id number] 15:33:00 Test Item Value Reference Range Interpretation [...] LDL (test code = LDL) mg/dL LIVER [id number] 15:33:00 Test Item Value Reference Range Interpretation [...] units/L 46-116 code = ALKP) HCG SERUM [id number] 15:33:00 Test Item Value Reference Range Interpretation Comments HCG SERUM QUAL (test code = HCGQL) NEGATIVE HEPATITIS C BY [id number] 15:33:00 Test Item Value Reference Range Interpretation Comments HEPATITIS C BY PCR (test code = HEPCT) NONE DETECT CBC W/AUTO [id number] 15:16:00 Test Item Value Reference Range Interpretation [...] REQUIRED (test NORMAL code = PLTMR) HGB [id number] 13:41:00 Test Item Value Reference Range Interpretation Comments HEMOGLOBIN (test code = 7.9 g/dL 10.7-13.9 L Resu lts verified by HGB) repeat analysis HEMATOCRIT (test code = 26.7 % 32.1-42.1 L Res ults verified by HCT) repeat analysis CBC W/AUTO [id number] 06:55:00 Test Item Value Reference Range Interpretation Comments WHITE BLOOD CELL 6.4 K/mm3 6.6-12.1 L (test code = WBC) RED BLOOD CELL (test 2.68 M/mm3 3.45-5.01 L code = RBC) HEMOGLOBIN (test code 5.6 g/dL 10.7-13.9 LL RESULT S CALLED = HGB) TO OWEN Christiansen BACK & CONFIRMED? Y.BY TRACEYLGL0 07/17/20621.RESULTS VERIFIED BY REPEAT ANALYSIS HEMATOCRIT (test [...] REQUIRED (test code = PLTMR) CHEMISTRY 7 [id number] 06:39:00 Test Item Value Reference Range Interpretation [...] CA) 7.7 mg/dL 8.4-10.2 L CBC W/AUTO [id number] 06:23:00 Test Item Value Reference Range Interpretation Comments WHITE BLOOD CELL 6.4 K/mm3 6.6-12.1 L (test code = WBC) RED BLOOD CELL (test 2.68 M/mm3 3.45-5.01 L code = RBC) HEMOGLOBIN (test code 5.6 g/dL 10.7-13.9 LL RESULT S CALLED = HGB) TO OWEN Christiansen BACK & CONFIRMED? Y.BY F.LAB.LGL0 07/17/20621.RESULTS VERIFIED BY REPEAT ANALYSIS HEMATOCRIT (test [...] (test code = PLTMR) - US TRANSVAGINAL [id number] 21:26:00 [facility] : 1980 Sex: F Patient Name: DEL NIELSEN Unit No: [id number] EXAMS: CPT CODE: [id number] TRANSVAGINAL W/PELVIS 40089 PROCEDURE: PELVIC ULTRASOUND INDICATION: Pelvic pain. History [...] x 3.5 cm anechoic avascular cyst. Arterial w aveforms are documented to the ovary. Left ovary [...] polyp. 2. Simple right ovarian cyst. SL: SG- H at 2126 Reported and signed by: Kd Rivera MD [facility] NAME: DEL NIELSEN Radiology Department PHYS: INDUSH. Sergei Everett MD [address] : 1980 AGE: 39 SEX: F [place], [place] [address] LOC: DENISE 5 PHONE #: [phone] EXAM DATE: 07/16/2020 STATUS: ADM IN FAX #: [phone] RAD NO: [id number] Page 1 Signed Report (CONTINUED) Patient Name: DEL NIELSEN Unit No: [id number] EXAMS: CPT CODE: [id number] US TRANSVAGINAL W/PELVIS 23482 (Continued) CC: Maribel Everett MD Technologist:Lisandra Garza RDMS Probe: [id number] Trnscrbd D/ (2125) rachaelSDR.SG9 Orig Print D/T: S:07/16/2020 (2128) The [facility] NAME: GIADEL DIAS Radiology Department PHYS: ROSIE. - Maribel Everett MD [address] : 1980 AGE: 39 SEX: F [place], [place] [address] LOC: DENISE 5 PHONE #: [phone] EXAM DATE: 07/16/2020 STATUS: ADM IN FAX #: [phone] RAD NO: [id number] Page 2 Signed Report Patient Name: DEL NIELSEN Unit No: [id number] EXAMS: CPT CODE: [id number] US TRANSVAGINAL W/PELVIS 48841 (Continued) The [facility] NAME: DEL NIELSEN Radiology Department PHYS: ROSIE. - Maribel Everett MD [address] : 1980 AGE: 39 SEX: F [place], [place] [address] LOC: JOSELUISSU 5 PHONE #: [phone] EXAM DATE: 07/16/2020 STATUS: ADM IN FAX #: [phone] RAD NO: [id number] 3 Signed Report- DUP AB/PEL/SC/[id number] 21:26:00 [facility] JANETTE NIELSENOsiel DIAS : 1980 Sex: F Patient Name: DEL NIELSEN Unit No: [id number] EXAMS: CPT CODE: [id number] DUP AB/PEL/SC/LTD 83615 PROCEDURE: PELVIC ULTRASOUND INDICATION: Pelvic pain. History of fibroid. Anemia. COMPARISON: None. TRANSABDOMINAL SCAN: The uterus is enlarged and heterogeneous measuring 12 x6.2 x 7.8 cm with partially obscured endometrial [...] Left ovary is partially obscured appearing normal measuring2.4 x 1.6 x 1.7 cm. Arterial waveforms are documented to each ovary. IMPRESSION: 1. Enlarged heterogeneous leiomyomatous uterus. One of the fibroids appears submucosal in position. This less likely represents endometrial polyp. 2. Simple right ovarian cyst. SL: GRISELDA at 2125 Reported and signed by: Kd Rivera MD The [facility] NAME: DEL NIELSEN Radiology Department PHYS: Maribel Del Rio MD [address] : 1980 AGE: 39 SEX: F [place] [address] LOC: DENISE 5 PHONE #: [phone] EXAM DATE: 07/16/2020 STATUS: ADM IN FAX #: [phone] RAD NO: [id number] Page 1 Signed Report (CONTINUED) Patient Name: DEL NIELSEN Unit No: [id number] EXAMS: CPT CODE: [id number] DUP AB/PEL/SC/LTD 89451 (Continued) CC: Maribel Everett MD Technologist: Lisandra Garza RDMS Probe: Trnscrbd D/ (2125) t.SDR.SG9 Orig Print D/T: S: 07/16/2020 (2128) The [facility] NAME: DEL NIELSENELLE Radiology Department PHYS: Maribel Downs MD [address] : 1980 AGE: 39 SEX: F [place] [address] LOC: DENISE 5 PHONE #: [phone] EXAM DATE: 07/16/2020 STATUS: ADM IN FAX #: [phone] RAD NO:[id number] Page 2 Signed Report Patient Name: DEL NIELSEN Unit No: [id number] EXAMS: CPT CODE: [id number] DUP AB/PEL/SC/LTD 86499 (Continued) The [facility] NAME: DEL NIELSEN Radiology Department PHYS: Maribel Del Rio MD [address] : 1980AGE: 39 SEX: F [place] [address] LOC: DENISE 5 PHONE #: [phone] EXAM DATE: 07/16/2020 STATUS: ADM IN FAX #: [phone] RAD NO: [id number] Page 3 Signed Report- US PELVIS [id number] 21:26:00 [facility] DEL NIELSEN : 1980 Sex: F Patient Name: DEL NIELSEN Unit No: [id number] EXAMS: CPT CODE: [id number] PELVIS COMPLETE 07468 PROCEDURE: PELVIC ULTRASOUND INDICATION: Pelvic pain. History [...] Reported and signed by: Kd Rivera MD [facility] NAME: DEL NIELSEN LARISSA Radiology Department PHYS: Smith Bojorquez[address] : 1980 AGE: 39 SEX: F [place] [address] LOC: DENISE Fajardo PHONE #: [phone] EXAM DATE: 07/16/2020 STATUS: ADM IN FAX #: [phone] RAD NO: [id number] Page 1 Signed Report (CONTINUED) Patient Name: DEL NIELSEN Unit No: [id number] EXAMS: CPT CODE: [id number] US PELVIS COMPLETE 62658 (Continued) CC: Technologist: Lisandra Garza RDMS Probe: Trnscrbd D/ (2125) TomSG9 Orig Print D/T: S: 07/16/2020 (2128) [facility] NAME: DEL NIELSEN LARISSA Radiology Department PHYS: Smith Bojorquez [address] : 1980 AGE: 39 SEX: F [place] [address] LOC: DENISE 5 PHONE #: [phone] EXAM DATE: 07/16/2020 STATUS: ADM IN FAX #: [phone] RAD NO: [id number] Page 2 Signed Report Patient Name: DEL NIELSEN Unit No: [id number] EXAMS: CPT CODE: [id number] US PELVIS COMPLETE 09650 (Continued) [facility] NAME: DEL NIELSEN Radiology Department PHYS: Smith Bojorquez [address] : 1980 AGE: 39 SEX: F [place], [place] [address] LOC: DENISE 5 PHONE #: [phone] EXAM DATE: 07/16/2020 STATUS: ADM IN FAX #: [phone] RAD NO: [id number] Page 3 Signed ReportHCG SERUM 2020-07-16 21:04:00 [...] ROBIN PTION 100-1,0003-4 WK S AFTER CONCEPTION 500 -6,0001-2 MONTHS AFTER CO NCEPTION 5,000-200,0002- 3 MONTHS AFTER CONCEPTION 10,0 00-100,0002ND TRIMESTER 3,000 -50,0003RD TRIMESTER 1,000 -50,000 SPECIMENS WITH AN HCG LEVEL FROM 0-6 milliInternatio nalunits/mL SHOULD BE CONSI DERED NEGATIVE CHEMISTRY 7 [id number] 21:02:00 Test Item Value Reference Range Interpretation [...] CA) 7.7 mg/dL 8.4-10.2 L CBC W/AUTO [id number] 20:44:00 Test Item Value Reference Range Interpretation [...] = PLTMR) UA RFLX MICR CULT IF [id number] 20:34:00 Test Item Value Reference Range Interpretation [...] for culture: Dysuria/FrequencySpecimen Description: CLEAN CATCHCBC W/AUTO [id number] 20:25:00 Test Item Value Reference Range Interpretation [...] code = PLTMR) US PELVIS COMPLETE WITH [id number] 19:42:32 1. ?Enlarged heterogeneous uterus with multiple uterine fibroids andincreased endometrial vascularity. Per the patient, she will be getting ahysterectomy. 2. ?Unremarkable bilateral ovaries. Preliminary Report Dictated by Resident: Mally Cordoba. I, Andrea Olea MD., have reviewed this studyand agree with theabove report.EXAM: US PELVIS COMPLETE WITH TRANSVAGINAL HISTORY: 39 years - old Female with Abnormal uterine bleeding for one month. TECHNIQUE: Transabdominal and transvaginal ultrasound imaging of the pelviswas performed including color Doppler evaluation. Healthcare Risk Control Consultant imageswere obtained for the record. COMPARISON: None [...] Female with Abnormal uterine bleeding for one month.X9KKRBJUSTB: Transabdominal and transvaginal ultrasound imaging of the pelviswas performed including color Doppler evaluation. Healthcare Risk Control Consultant imageswere obtained for the record.COMPARISON: NoneFINDINGS:Uterus: The [...] reviewed this study and agree with theabove report.[facility] WITH [id number] 23:41:00 Test Item Value Reference Range Interpretation [...] (test code = 66.5 fL 39-49.9 H 64016-5) RDW-CV (test code = 25.2 % 12-15.5 H 788-0) PLT (test code = See_Comment [Automated 777-3) message] The sy stem which generated this result transmitted reference range : 166 - 358 10*3/ ?L. The reference r fab was not used to interpret this result as normal/abnormal . MPV (test code = Not Measure d 88861-8) IPF % (test code = 10.7 % 1.3-7.7 H Platelet count 2460751338) measured by fluorescence method. NRBC/100 WBC (test See_Comment [Automat ed code = 3528312477) message] The system which generated this result transmitted reference range : 0.0 - 10.0 /100 WBCs. The refer ence range was not u sed to interpret th is result as normal/abnormal . NRBC x10^3 (test code See_Comment [Auto mated = 0900861708) message] The s ystem which generated this result transmitted reference range : 10*3/?L. The reference range was not used to interpret this result as normal/abnormal . GRAN MAT (NEUT) % 62.8 % (test code = 770-8) IMM GRAN % (test code 0.70 % = 1982732471) LYMPH % (test code = 26.9 % 736-9) MONO % (test code = 7.3 % 5905-5) EOS % (test code = 2.0 % 713-8) BASO % (test code = 0.3 % 706-2) GRAN MAT x10^3(ANC) 4.80 10*3/uL 1.88-7.09 (test code = 8603252498) IMM GRAN x10^3 (test 0.05 10*3/uL 0-0.06 code = 3276184033) LYMPH x10^3 (test code 2.05 10*3/uL 1.32-3.29 = 731-0) MONO x10^3 (test code 0.56 10*3/uL 0.33-0.92 = 742-7) EOS x10^3 (test code = 0.15 10*3/uL 0.03-0.39 711-2) BASO x10^3 (test code <0.03 0.01-0.07 = 704-7) POLYCHROMASIA (test 2+ See_Comment [Automa ben code = 10623-3) message] The system which generated this result transmitted reference range : 2+. The referen ce range was not u sed to interpret th is result as normal/abnormal . Lab Interpretation Abnormal (test code = 95241-1) [facility] WITH [id number] 23:41:00 Test Item Value Reference Range Interpretation Comments WBC (test code = See_Comment [Automated 7790-2) message] The sy stem which generated this [...] (test code = 66.5 fL 39-49.9 H 95027-2) RDW-CV (test code = 25.2 % 12-15.5 H 788-0) PLT (test code = See_Comment [Automated 777-3) message] The sy stem which generated this result transmitted reference range : 166 - 358 10*3/ ?L. The reference r fab was not used to interpret this result as normal/abnormal . MPV (test code = Not Measure d 25555-8) IPF % (test code = 10.7 % 1.3-7.7 H Platelet count 6119866366) measured by fluorescence method. NRBC/100 WBC (test See_Comment [Automat ed code = 2344196790) message] The system which generated this result transmitted reference range : 0.0 - 10.0 /100 WBCs. The refer ence range was not u sed to interpret th is result as normal/abnormal . NRBC x10^3 (test code See_Comment [Auto mated = 1569712851) message] The s ystem which generated this result transmitted reference range : 10*3/?L. The reference range was not used to interpret this result as normal/abnormal . GRAN MAT (NEUT) % 62.8 % (test code = 770-8) IMM GRAN % (test code 0.70 % = 4958198257) LYMPH % (test code = 26.9 % 736-9) MONO % (test code = 7.3 % 5905-5) EOS % (test code = 2.0 % 713-8) BASO % (test code = 0.3 % 706-2) GRAN MAT x10^3(ANC) 4.80 10*3/uL 1.88-7.09 (test code = 2662392333) IMM GRAN x10^3 (test 0.05 10*3/uL 0-0.06 code = 3498812408) LYMPH x10^3 (test code 2.05 10*3/uL 1.32-3.29 = 731-0) MONO x10^3 (test code 0.56 10*3/uL 0.33-0.92 = 742-7) EOS x10^3 (test code = 0.15 10*3/uL 0.03-0.39 711-2) BASO x10^3 (test code <0.03 0.01-0.07 = 704-7) POLYCHROMASIA (test 2+ See_Comment [Automa ben code = 24798-1) message] The system which generated this result transmitted reference range : 2+. The referen ce range was not u sed to interpret th is result as normal/abnormal . Lab Interpretation Abnormal (test code = 90964-4) [facility] WITH [id number] 23:34:00 Test Item Value Reference Range Interpretation Comments WBC (test code = See_Comment [Automated 6490-2) message] The sy stem which generated this result transmitted reference range : 4.30 - 11.10 10*3/?L. The reference range was not used to interpret this result as normal/abnormal . RBC (test code = See_Comment L [Automated 799-8) message] The sy stem which generated this [...] (test code = 53.7 fL 39-49.9 H 06698-1) RDW-CV (test code = 21.2 % 12-15.5 H 788-0) PLT (test code = See_Comment [Automated 777-3) message] The sy stem which generated this result transmitted reference range : 166 - 358 10*3/ ?L. The reference r fab was not used to interpret this result as normal/abnormal . MPV (test code = Not Measure d 12027-1) IPF % (test code = 12.9 % 1.3-7.7 H Platelet count 6413338704) measured by fluorescence method. NRBC/100 WBC (test See_Comment [Automat ed code = 4342721979) message] The system which generated this result transmitted reference range : 0.0 - 10.0 /100 WBCs. The refer ence range was not u sed to interpret th is result as normal/abnormal . NRBC x10^3 (test code <0.01 See_Comment [Auto mated = 4427503924) message] The s ystem which generated this result transmitted reference range : 10*3/?L. The reference range was not used to interpret this result as normal/abnormal . GRAN MAT (NEUT) % 64.0 % (test code = 770-8) IMM GRAN % (test code 0.10 % = 5619029483) LYMPH % (test code = 27.7 % 736-9) MONO % (test code = 6.9 % 5905-5) EOS % (test code = 1.0 % 713-8) BASO % (test code = 0.3 % 706-2) GRAN MAT x10^3(ANC) 4.36 10*3/uL 1.88-7.09 (test code = 4544938993) IMM GRAN x10^3 (test <0.03 0-0.06 code = 8138768702) LYMPH x10^3 (test code 1.89 10*3/uL 1.32-3.29 = 731-0) MONO x10^3 (test code 0.47 10*3/uL 0.33-0.92 = 742-7) EOS x10^3 (test code = 0.07 10*3/uL 0.03-0.39 711-2) BASO x10^3 (test code <0.03 0.01-0.07 = 704-7) ELLIPTO/OVAL (test 2+ See_Comment A [Automat ed code = 37427-2) message] The system which generated this result transmitted reference range : (none). The reference range was not used to interpret this result as normal/abnormal . POLYCHROMASIA (test 2+ See_Comment [Automa ben code = 31148-6) message] The system which generated this result transmitted reference range : 2+. The referen ce range was not u sed to interpret th is result as normal/abnormal . Lab Interpretation Abnormal (test code = 72762-5) [facility] WITH [id number] 23:34:00 Test Item Value Reference Range Interpretation [...] (test code = 53.7 fL 39-49.9 H 40967-5) RDW-CV (test code = 21.2 % 12-15.5 H 788-0) PLT (test code = See_Comment [Automated 777-3) message] The sy stem which generated this result transmitted reference range : 166 - 358 10*3/ ?L. The reference r fab was not used to interpret this result as normal/abnormal . MPV (test code = Not Measure d 28385-1) IPF % (test code = 12.9 % 1.3-7.7 H Platelet count 2452484603) measured by fluorescence method. NRBC/100 WBC (test See_Comment [Automat ed code = 7162746015) message] The system which generated this result transmitted reference range : 0.0 - 10.0 /100 WBCs. The refer ence range was not u sed to interpret th is result as normal/abnormal . NRBC x10^3 (test code <0.01 See_Comment [Auto mated = 1400226069) message] The s ystem which generated this result transmitted reference range : 10*3/?L. The reference range was not used to interpret this result as normal/abnormal . GRAN MAT (NEUT) % 64.0 % (test code = 770-8) IMM GRAN % (test code 0.10 % = 2253931327) LYMPH % (test code = 27.7 % 736-9) MONO % (test code = 6.9 % 5905-5) EOS % (test code = 1.0 % 713-8) BASO % (test code = 0.3 % 706-2) GRAN MAT x10^3(ANC) 4.36 10*3/uL 1.88-7.09 (test code = 8105589084) IMM GRAN x10^3 (test <0.03 0-0.06 code = 4190347350) LYMPH x10^3 (test code 1.89 10*3/uL 1.32-3.29 = 731-0) MONO x10^3 (test code 0.47 10*3/uL 0.33-0.92 = 742-7) EOS x10^3 (test code = 0.07 10*3/uL 0.03-0.39 711-2) BASO x10^3 (test code <0.03 0.01-0.07 = 704-7) ELLIPTO/OVAL (test 2+ See_Comment A [Automat ed code = 89264-5) message] The system which generated this result transmitted reference range : (none). The reference range was not used to interpret this result as normal/abnormal . POLYCHROMASIA (test 2+ See_Comment [Automa ben code = 06705-5) message] The system which generated this result transmitted reference range : 2+. The referen ce range was not u sed to interpret th is result as normal/abnormal . Lab Interpretation Abnormal (test code = 39750-1) [facility]
[2023-05-06 16:11] LABS: Absolute Lymphocytes (CBC) 2.8 K/uL (0.7-4.9); Hematocrit 38.3 % (36.0-45.0); Lymphocytes % 28.1 % (15.3-44.8); MCV 79.8 fL (80-100); MPV 10.1 fL (7.6-11.3); Platelets 139 thou/uL (152-406)
[2023-05-06] MEDS ORDERED: ONDANSETRON 4 MG/2 ML VIAL ONE (16:19)
[2023-05-06] MEDS ORDERED: MORPHINE 4 MG/ML SYR ONE (16:19)
[2023-05-06] MEDS ORDERED: NA CHLORIDE 0.9% 1,000 ML ONE (16:19)
[2023-05-06 16:31] LABS: Albumin 3.6 g/dL (3.4-5.0); Bilirubin Total 0.2 mg/dL (0.2-1.0); Potassium 3.7 mEq/L (3.5-5.1); Protein, Total 7.2 g/dL (6.4-8.2)
--- NOTE | 2023-05-06 16:32 | EDPHYS ---
Physician Documentation [facility] Name: Keiko Lay Age: 42 yrs Sex: Female : 1980 Arrival Date: 05/06/2023 Time: 15:30 Bed 18 Private MD: ED Physician Elias Aguilar HPI: 05/06 16:11 This 42 yrs old Female presents to ER via Ambulatory with complaints of Breast valerie Problem - left. 16:11 the patient presents with a swollen area of the left breast. Description: erythematous, valerie swollen, tense. Onset: The symptoms/episode began/occurred this morning, today. Possible cause(s): LEFT BREAST MASS, 7 DAYS. Associated signs and symptoms: Pertinent positives: PAIN. SWELLING AND PAIN. Modifying factors: the symptoms are alleviated by remaining still, the symptoms are aggravated by pressure. Onset: The symptoms/episode began/occurred 1 day(s) ago. Severity of symptoms: At their worst the symptoms were moderate, in the emergency department the symptoms are unchanged. Severity of symptoms: At their worst the symptoms were moderate in the emergency department the symptoms are worse markedly. INFORMATION LEAD: 18:21 LMP N/A - Hysterectomy, Not nj1 Historical: - Allergies: 15:36 Clindamycin; ld1 - PMHx: 15:36 left breast mass; ld1 17:49 Hypothyroidism; ADD; nj1 - PSHx: 15:36 Total abdominal hysterectomy; ld1 - Immunization history:: Adult Immunizations up to date, Client reports receiving the 2nd dose of the Covid vaccine. - Social history:: Smoking status: Patient denies any tobacco usage or history of. Patient/guardian denies using alcohol. - Family history:: not pertinent. ROS: 16:11 Constitutional: Negative for fever, chills, and weight loss, Eyes: Negative for injury, valerie pain, redness, and discharge, ENT: Negative for injury, pain, and discharge, Neck: Negative for injury, pain, and swelling, Cardiovascular: Negative for chest pain, palpitations, and edema, Respiratory: Negative for shortness of breath, cough, wheezing, and pleuritic chest pain, Abdomen/GI: Negative for abdominal pain, nausea, vomiting, diarrhea, and constipation, Back: Negative for injury and pain, : Negative for injury, bleeding, discharge, and swelling, Skin: Negative for injury, rash, and discoloration, Neuro: Negative for headache, weakness, numbness, tingling, and seizure, Psych: Negative for depression, anxiety, suicide ideation, homicidal ideation, and hallucinations, Allergy/Immunology: Negative for hives, rash, and allergies, Endocrine: Negative for neck swelling, polydipsia, polyuria, polyphagia, and marked weight changes, Hematologic/Lymphatic: Negative for swollen nodes, abnormal bleeding, and unusual bruising, 16:11 Skin: Positive for hematoma, swelling, Exam: 16:11 Constitutional: This is a well developed, well nourished patient who is awake, alert, valerie and in no acute distress. Head/Face: Normocephalic, atraumatic. Eyes: Pupils equal round and reactive to light, extra-ocular motions intact. Lids and lashes normal. Conjunctiva and sclera are non-icteric and not injected. Cornea within normal limits. Periorbital areas with no swelling, redness, or edema. ENT: Nares patent. No nasal discharge, no septal abnormalities noted. Tympanic membranes are normal and external auditory canals are clear. Oropharynx with no redness, swelling, or masses, exudates, or evidence of obstruction, uvula midline. Mucous membranes moist. Neck: Trachea midline, no thyromegaly or masses palpated, and no cervical lymphadenopathy. Supple, full range of motion without nuchal rigidity, or vertebral point tenderness. No Meningismus. Chest/axilla: Normal chest wall appearance and motion. Nontender with no deformity. No lesions are appreciated. Cardiovascular: Regular rate and rhythm with a normal S1 and S2. No gallops, murmurs, or rubs. Normal PMI, no JVD. No pulse deficits. Respiratory: Lungs have equal breath sounds bilaterally, clear to auscultation and percussion. No rales, rhonchi or wheezes noted. No increased work of breathing, no retractions or nasal flaring. Abdomen/GI: Soft, non-tender, with normal bowel sounds. No distension or tympany. No guarding or rebound. No evidence of tenderness throughout. Back: No spinal tenderness. No costovertebral tenderness. Full range of motion. Skin: Warm, dry with normal turgor. Normal color with no rashes, no lesions, and no evidence of cellulitis. MS/ Extremity: Pulses equal, no cyanosis. Neurovascular intact. Full, normal range of motion. Neuro: Awake and alert, GCS 15, oriented to person, place, time, and situation. Cranial nerves II-XII grossly intact. Motor strength 5/5 in all extremities. Sensory grossly intact. Cerebellar exam normal. Normal gait. Psych: Awake, alert, with orientation to person, place and time. Behavior, mood, and affect are within normal limits. 16:11 Musculoskeletal/extremity: Vital Signs: 15:36 BP 140 / 93; Pulse 125; Resp 22; Temp 99.3; Pulse Ox 100% on R/A; Weight 72.57 kg; ld1 Height 5 ft. 4 in. ; Pain 10/10; 16:00 BP 124 / 84; Pulse 92; Resp 18; Pulse Ox 100% ; Pain 10/10; nj1 16:40 Pain 3/10; nj1 16:45 BP 123 / 75; Pulse 87; Resp 16; Temp 98(O); Pulse Ox 100% on R/A; Pain 3/10; nj1 17:14 BP 132 / 90; Pulse 87; Resp 16; Pulse Ox 100% on R/A; Pain 3/10; nj1 18:00 BP 110 / 67; Pulse 80; Resp 16; Pulse Ox 100% ; Pain 3/10; nj1 15:36 Body Mass Index 27.46 (72.57 kg, 162.56 cm) ld1 15:36 Pain Scale: Adult ld1 16:00 Pain Scale: Adult nj1 16:40 Pain Scale: Adult nj1 16:45 Pain Scale: Adult nj1 17:14 Pain Scale: Adult nj1 18:00 Pain Scale: Adult nj1 MDM: 15:39 Patient medically screened. valerie 16:26 Differential diagnosis: abscess. Data reviewed: vital signs, nurses notes, lab test valerie result(s), radiologic studies, ultrasound. Consideration of Admission/Observation Escalation of care including admission/observation considered. I considered the following discharge prescriptions or medication management in the emergency department Medications were administered in the Emergency Department. See MAR. Independent interpretation of the following test(s) in the Emergency Department Radiology Department Ultrasound: My interpretation is LEFT BREAST USG. Historians other than the Patient: Family Member: . Care significantly affected by the following chronic conditions: LEFT BREAST MASS. 05/06 15:40 Order name: CBC with Diff; Complete Time: 16:28 [facility] 05/06 15:40 Order name: Comprehensive Metabolic Panel 05/06 16:27 Order name: PT-INR [facility] 05/06 16:11 Order name: US Extrmty Nonvasular Limited: LEFT BREAST [facility] 05/06 16:33 Order name: Chest Single View XRAY valerie 05/06 16:27 Order name: Ice pack; Complete Time: 16:28 valerie Administered Medications: 16:15 Drug: NS 0.9% IV 1000 ml IV at 1 bolus Per protocol; 1000 mL bolus Route: IV; Rate: 1 nj1 bolus; Site: right antecubital; 18:00 Follow up: Response: No adverse reaction; IV Status: Completed infusion; IV Intake: nj1 1000ml 16:15 Drug: Ondansetron IVP 4 mg IVP once; over 2 minutes Route: IVP; Site: right antecubital;nj1 16:40 Follow up: Response: No adverse reaction nj1 16:20 Drug: morphine IVP or IV 4 mg IVP once over 4 mins Route: IVP; Infused Over: 4 mins; nj1 Site: right antecubital; 16:40 Follow up: Pain 3/10 Adult; Response: No adverse reaction; Pain is decreased nj1 16:40 Drug: ceFAZolin IVPB 2 grams IVPB once over 30 mins; (mix in 100 mL NS) Route: IVPB; nj1 Infused Over: 30 mins; Site: right antecubital; 17:15 Follow up: IV Status: Completed infusion; IV Intake: 100ml nj1 16:45 Drug: Acetaminophen PO 650 mg PO once Route: PO; nj1 18:21 Follow up: Response: No adverse reaction nj1 18:20 Drug: HYDROmorphone IVP 1 mg IVP once Route: IVP; Site: right antecubital; nj1 Disposition Summary: 05/06/23 16:32 Transfer Ordered Notes: Transfer Location: [facility]-System valerie Reason: Higher level of care valerie Condition: Stable valerie Problem: new valerie Symptoms: have improved valerie Accepting Physician: TO [facility](05/06/23 18:22) nj1 Diagnosis - Intraoperative hemorrhage and hematoma of a musculoskeletal structure complicating valerie a musculoskeletal system procedure - LEFT BREAST, 8X10 CM HEMATOMA Forms: - Medication Reconciliation Form valerie - SBAR form valerie Signatures: Dispatcher [employer] Elias Mc MD MD cha Sims, Lauren RN RN ld1 Meggan Ramsay RN RN nj1 Corrections: (The following items were deleted from the chart) 15:37 15:36 PMHx: Hypothyroidism; ld1 ld1 18:22 16:32 TO [facility] valerie hernandez1
--- NOTE | 2023-05-06 16:32 | ER ---
Nurse's Notes [facility] Name: Keiko Lay Age: 42 yrs Sex: Female : 1980 Arrival Date: 05/06/2023 Time: 15:30 Bed 18 Private MD: Diagnosis: Intraoperative hemorrhage and hematoma of a musculoskeletal structure complicating a musculoskeletal system procedure-LEFT BREAST, 8X10 CM HEMATOMA Presentation: 05/06 15:35 Chief complaint: Patient states: breast swollen, painful, mass removed last , ld1 got infection and is on antibiotics. Coronavirus screen: Client denies travel out of the [place] in the last 14 days. Client indicates they have traveled out of the [place] in the last 14 days. At this time, unable to obtain information related to travel outside the [place] Ebola Screen: Patient negative for fever greater than or equal to 101.5 degrees Fahrenheit, and additional compatible Ebola Virus Disease symptoms Patient denies exposure to infectious person. Patient denies travel to an Ebola-affected area in the 21 days before illness onset. No symptoms or risks identified at this time. Initial Sepsis Screen: Does the patient meet any 2 criteria? No. Patient's initial sepsis screen is negative. Does the patient have a suspected source of infection? No. Patient's initial sepsis screen is negative. Risk Assessment: Do you want to hurt yourself or someone else? Patient reports no desire to harm self or others. Onset of symptoms was May 06, 2023. 15:35 Method Of Arrival: Ambulatory ld1 15:35 Acuity: MEY 3 ld1 Triage Assessment: 15:36 General: Appears distressed, Behavior is anxious. Pain: Complains of pain in right ld1 breast Pain currently is 10 out of 10 on a pain scale. Cardiovascular: Capillary refill < 3 seconds Patient's skin is warm and dry. Respiratory: Airway is patent Respiratory effort is even, unlabored, Respiratory pattern is regular, symmetrical. 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 - Social history:: Smoking status: Patient denies any tobacco usage or history of. Patient/guardian denies using alcohol. - Family history:: not pertinent. Screenin:07 [facility] ED Fall Risk Assessment (Adult) Score/Fall Risk Level 0 - 2 = Low Risk nj Oriented to surroundings, Maintained a safe environment, Hourly rounding (assess needs \T\ fall precautionary measures) done. Abuse screen: Denies threats or abuse. Denies injuries from another. Nutritional screening: No deficits noted. Tuberculosis screening: No symptoms or risk factors identified. Assessment: 16:00 General: Appears in no apparent distress. uncomfortable, Behavior is calm, cooperative, nj1 appropriate for age. Pain: Complains of pain in left breast Pain currently is 10 out of 10 on a pain scale. Neuro: Level of Consciousness is awake, alert, obeys commands, Oriented to person, place, time, situation. Cardiovascular: Patient's skin is warm and dry. Respiratory: Airway is patent Respiratory effort is even, unlabored. 16:00 Derm: Swelling noted to left breast. nj1 17:15 Reassessment: Patient appears in no apparent distress at this time. No changes from [facility] previously documented assessment. Patient is alert, oriented x 3, equal unlabored respirations, skin warm/dry/pink. 18:15 Reassessment: [facility], report given to Glory Hernandez EMTP. nj1 18:20 Reassessment: Patient appears in no apparent distress at this time. No changes from [facility] previously documented assessment. Patient is alert, oriented x 3, equal unlabored respirations, skin warm/dry/pink. Vital Signs: 15:36 BP 140 / 93; Pulse 125; Resp 22; Temp 99.3; Pulse Ox 100% on R/A; Weight 72.57 kg; ld1 Height 5 ft. 4 in. ; Pain 10/10; 16:00 BP 124 / 84; Pulse 92; Resp 18; Pulse Ox 100% ; Pain 10/10; nj1 16:40 Pain 3/10; nj1 16:45 BP 123 / 75; Pulse 87; Resp 16; Temp 98(O); Pulse Ox 100% on R/A; Pain 3/10; nj1 17:14 BP 132 / 90; Pulse 87; Resp 16; Pulse Ox 100% on R/A; Pain 3/10; nj1 18:00 BP 110 / 67; Pulse 80; Resp 16; Pulse Ox 100% ; Pain 3/10; nj1 15:36 Body Mass Index 27.46 (72.57 kg, 162.56 cm) ld1 15:36 Pain Scale: Adult ld1 16:00 Pain Scale: Adult nj1 16:40 Pain Scale: Adult nj1 16:45 Pain Scale: Adult nj1 17:14 Pain Scale: Adult nj1 18:00 Pain Scale: Adult nj1 ED Course: 15:32 Patient arrived in ED. im 15:36 Triage completed. ld1 15:36 Arm band placed on right wrist. ld1 15:38 Elias Aguilar MD is Attending Physician. [facility] 15:40 Meggan Ramsay, KOLTON is Primary Nurse. nj1 15:59 Inserted saline lock: 20 gauge in right antecubital area, using aseptic technique. nj1 Blood collected. 16:07 Patient has correct armband on for positive identification. Bed in low position. Call nj1 light in reach. Adult w/ patient. Provided Education on: call light, fall precautions. 16:[address] Aguilar with Jada from the [facility] transfer center. eb 16:41 US Extrmty Nonvasular Limited: LEFT BREAST In Process Unspecified. EDMS 16:[address] Mateusz Marie the general surgeon telephone collector for [facility] [place] with eb Dr. Aguilar for patient transfer consultation. 16:54 administrative approval given by Jada Pemberton/ patient has been accepted to [facility] [address] 209/ Dr. Mateusz Marie has accepted the patient in transfer/ report to be called to [phone]. 17:14 Chest Single View XRAY In Process Unspecified. EDMS 17:46 No provider procedures requiring assistance completed. Patient transferred, IV remains nj1 in place. Administered Medications: 16:15 Drug: NS 0.9% IV 1000 ml IV at 1 bolus Per protocol; 1000 mL bolus Route: IV; Rate: 1 nj1 bolus; Site: right antecubital; 18:00 Follow up: Response: No adverse reaction; IV Status: Completed infusion; IV Intake: nj1 1000ml 16:15 Drug: Ondansetron IVP 4 mg IVP once; over 2 minutes Route: IVP; Site: right antecubital;nj1 16:40 Follow up: Response: No adverse reaction nj1 16:20 Drug: morphine IVP or IV 4 mg IVP once over 4 mins Route: IVP; Infused Over: 4 mins; nj1 Site: right antecubital; 16:40 Follow up: Pain 3/10 Adult; Response: No adverse reaction; Pain is decreased nj1 16:40 Drug: ceFAZolin IVPB 2 grams IVPB once over 30 mins; (mix in 100 mL NS) Route: IVPB; nj1 Infused Over: 30 mins; Site: right antecubital; 17:15 Follow up: IV Status: Completed infusion; IV Intake: 100ml nj1 16:45 Drug: Acetaminophen PO 650 mg PO once Route: PO; nj1 18:21 Follow up: Response: No adverse reaction nj1 18:20 Drug: HYDROmorphone IVP 1 mg IVP once Route: IVP; Site: right antecubital; nj1 Medication: 17:46 VIS not applicable for this client. nj1 Intake: 17:15 IV: 100ml; Total: 100ml. nj1 18:00 IV: 1000ml; Total: 1100ml. nj1 Outcome: 16:32 ER care complete, transfer ordered by MD. padilla 17:46 Transferred by ground EMS to [facility], Transfer form nj1 completed. X-rays sent w/ patient. Note: Report given to Tammi HI 17:46 Condition: stable 17:46 Instructed on the need for transfer, 18:22 Patient left the ED. nj1 Signatures: Dispatcher [employer] EDElias Urbina MD MD cha Botello, Elizabeth eb Sims, Lauren RN RN ld1 Meggan Ramsay RN RN nj1 Tiffanie Shannon Corrections: (The following items were deleted from the chart) 15:37 15:36 PMHx: Hypothyroidism; ld1 ld1
[2023-05-06] MEDS ORDERED: CEFAZOLIN SODIUM 1 GM/VIAL ONE (16:49)
[2023-05-06] MEDS ORDERED: HYDROMORPHONE HCL 1 MG/ML INJ ONE (16:50)
[2023-05-06] MEDS ORDERED: NA CHLORIDE 0.9% 100 ML ONE (16:50)
[2023-05-06] MEDS ORDERED: ACETAMINOPHEN 325 MG TABLET ONE (16:50)
--- NOTE | 2023-05-06 17:01 | RAD REPORT ---
EXAM DESCRIPTION: US - Extremity Nonvascular Limited - 05/06/2023 4:40 pm CLINICAL HISTORY: Left breast pain and swelling COMPARISON: None FINDINGS: 4 centimeter fluid collection is present within the upper inner quadrant left breast at si te of prior surgery. There is an additional 6.6 centimeter fluid collection upper inner quadrant left breast Significant increased vascularity not noted IMPRESSION: Two fluid collections upper inner quadrant left breast. One measures 6.6 centimeters the other 4 centimeters. These probably represent hematomas. Abscesses are another consideration and sh ould be correlated clinically
[2023-05-06 17:07] LABS: Protime INR 1.05
--- NOTE | 2023-05-06 17:37 | RAD REPORT ---
[facility]12 [facility] CLINICAL HISTORY: Chest pain COMPARISON: none FINDINGS: Haziness overlying the left hemithorax corresponds to patient's known left breast masses. Lungs appear clear of acute infiltrate. Heart is normal size
[2023-05-06 18:38] VITALS: O2SAT 100
[2023-05-06 18:42] VITALS: TEMP 98
[2023-05-06 18:43] VITALS: BP 132/90
== END 2023-05-06 18:22 | disposition short-term general hospital (02) ==
LOC: ER 15:30
DX: M96.810 Intraoperative hemorrhage and hematoma of a musculoskeletal structure complicating a musculoskeletal system procedure (principal); L08.9 Local infection of the skin and subcutaneous tissue, unspecified; E03.9 Hypothyroidism, unspecified; F98.8 Other specified behavioral and emotional disorders with onset usually occurring in childhood and adolescence; Z88.3 Allergy status to other anti-infective agents
CPT/HCPCS: 36415; 71045; 76882; 80053; 85025; 85610; 96361; 96365; 96375; 99285; J0690; J1170; J2405; J7030

== ENCOUNTER 2024-11-25 07:23 | Emergency (ER) | payer BC, MEDICARE ==
--- OUTSIDE RECORDS SUMMARY | 2024-11-25 07:30 | XMS REPORT | Continuity of Care Document ---
Author Name Unknown Address [address] [facility]. [address] [place] [address] [facility] Address [address] [facility]. [address] [place] [address] Care Team Providers Care [employer] Supervisor Name Role Phone CECIL KONG Primary Care Physician UnavailNOEL Islas Attending Clinician Unavailable Maribel Everett Attending Clinician Unavailable LO PRICE Attending Clinician Unavailedda Price MD, Lo Croft Attending Clinician [phone] Doctor Unassigned, [place] Attending Clinician U еленаailDEDRA Colindres Attending Clinician Unavail able Dmitriy HI, Libby Calloway Attending Clinician Unavail able Mateusz Marie MD Attending Clinician [phone] Dedra Duque MD Attending Clinician [phone] Brady Mijares MD Attending Clinician +- [phone] SAIGE YOU Attending Clinician Unavailab Saige Prado DO Attending Clinician [phone] RADIOLOGY Attending Clinician Unavailable Radiology Attending Clinician Unavailable Jong Pemberton DO Attending Clinician [phone] Elvie LONG, Janet Doyle Attending Clinician Homar [facility] Resident Attending Clinician Unavailab eliana Porras MD, Mitzi Martin Attending Clinician [phone] Lauro FERMENTER OPERATOR, Merary Ortega Attending Clinician [phone] Christine LONG, Yara Attending Clinician [phone] YARA KING Attending Clinician Unavailable Vishal LONG, Veronique Attending Clinician [phone] John RN, Sara Hernández Attending Clinician + [phone] Nito WEBERP, Kathleen Attending Clinician [phone] Suzie LONG, Noel Calloway Attending Clinician [phone] [facility] Victorino Hern[facility]dez Attending Clinician + VICTORINO HERRERA Attending Clinician Unavail able NOEL LARSEN Admitting Clinician Unavailable Maribel Everett Admitting Clinician Unavailable DEDRA DUQUE Admitting Clinician Unavail able Neto OLNG, Dedra Vicente Admitting Clinician [phone] LO PRICE Admitting Clinician UnavailLo Bal MD Admitting Clinician [phone] CECIL KONG Admitting Clinician Unavailable XIOMARA HASTINGS Admitting Clinician Unavail able Payers Payer Name Policy Type Policy Number Effective Date Expirati on Date Source [employer] [place] [facility] [id number] 2020 00:00:00 [facility] O [id number] 2021 00:00:00 Problems Condition Name Condition Details Condition Category Status Onset Date Resolution Date Last Treatment Date Treating Clinician Comments Source Hematoma Hematoma Disease Active 2022-07 00:00: 00 [facility] Abnormal mammogram of left breast Abnormal mammogram of left breast Disease Active 03-29 00:00: 00 [facility] Anemia, unspecifie d type Anemia, unspecifie d type Disease Active 2019-07 00:00: 00 [facility] Abnormal uterine bleeding Abnormal uterine bleeding Disease Active 6-17 00:00: 00 [facility] Well woman exam Well woman exam Disease Active 07-30 00:00: 00 [facility] General counseling and advice for contracept lynne management General counseling and advice for contracept lynne management Disease Active 07-30 00:00: 00 [facility] Papanicola ou smear of cervix with low grade squamous intraepith elial lesion (LGSIL) Papanicola ou smear of cervix with low grade squamous intraepith elial lesion (LGSIL) Disease Active 08-07 00:00: 00 Overview: [facility]07/2014 [facility]ola [facility] of cervix with low grade squamous intraepith elial lesion (LGSIL) Papanicola ou smear of cervix with low grade squamous intraepith elial lesion (LGSIL) Disease Active 08-07 00:00: 00 Overview: Formattin g of this note might be different from the original. colpo 08/07/2014 , pap on 07/[facility] Obesity (BMI 30-39.9) Obesity (BMI 30-39.9) Disease Active 2013-07 00:00: 00 Overview: Formattin g of this note might be different from the original. ICD10 Diagnosis Term Sign Builder Supervisor Utility [facility] Allergies, Adverse Reactions, Alerts Allergy Name Allergy Type Status Severity Reaction(s) Onset Date Inactive Date Treating Clinician Comments Source ADHESIVE TAPE-LORRIE ICONES DRUG Active Unknown-Cmnt 2022-07 0 00:00: 00 [facility] Adhesive Tape-Lorrie icones Propensi ty to adverse reaction s Active Unknown - See comments 2022-07 00:00: 00 [facility] CLINDAMY HUMBERTO DRUG INGREDI Active Hives 2022-07 0 00:00: 00 [facility] Clindamy humberto Propensi ty to adverse reaction s Active Hives 2022-07 0 00:00: 00 [facility] No Known Allergie s DA Active U -08 00:00: 00 [facility] No Known Allergie s DA Active U 07-18 00:00: 00 [facility] No Known Allergie s DA Active U 07-16 00:00: 00 [facility] No Known Allergie s DA Active U 07-16 00:00: 00 [facility] No Known Drug Intolera nces DA Active U 01-17 00:00: 00 [facility] No Known Contrast Allergie s DA Active U 01-17 00:00: 00 [facility] No Known Drug Allergie s DA Active U 01-17 00:00: 00 [facility] No Known Food Allergie s DA Active U 01-17 00:00: 00 [facility] No Known Other Allergie s DA Active U 01-17 00:00: 00 [facility] NO KNOWN ALLERGIE S Drug Class Active [facility] Social History Social Habit Start Date Stop Date Quantity Comments Source History SDOH Alcohol Frequency [facility] History SDOH Alcohol Std Drinks [facility] History SDOH Alcohol Binge [facility] Gender identity [facility] Sexual orientation [facility] History of tobacco use Passive smoker [facility] Alcohol intake 2023-06-21 00:00:00 2023-06-21 00:00:00 0 /d [facility] Tobacco use and exposure 2023-05-06 00:00:00 2023-05-06 00:00:00 Smokeless tobacco non-user [facility] History of Social function 2023-04-28 00:00:00 2023-04-28 00:00:00 [facility] Exposure to SARS-CoV-2 (event) 2021-11-17 00:00:00 2021-11-27 15:25:00 Not sure [facility] Alcohol Comment 2015-10-23 00:00:00 2015-10-23 00:00:00 socially only [facility] Sex Assigned At 1980 00:00:00 1980 00:00:00 [facility] Smoking Status Start Date Stop Date Source Never smoked tobacco [facility] Medications Ordered Medication Name Filled Medication Name Start Date Stop Date Current Medication? Ordering Clinician Indication Dosage Frequency Signature (SIG) Comments Components Source thyroid (ARMOUR THYROID) 60 mg tablet 2022-07 13:50: 23 Yes 60mg Take 1 tablet by mouth every morning. [facility] thyroid (ARMOUR THYROID) 60 mg tablet 2022-07 11:31: 01 Yes 60mg Take 1 tablet by mouth every morning. [facility] hydrOXYzine (ATARAX) tablet 25 mg 2022-07 03:32: 29 05-08 18:36 :02 No 25mg 25 mg, Oral, PRN, 1 dose, Starting on 05/07/23 at 2232, Until 05/08/23 at 1336, Routine, Anxiety [facility] ondansetron (ZOFRAN (PF)) injection 4 mg 2022-07 03:13: 12 05-08 18:36 :02 No 4mg 4 mg, Slow IV Push, Q6HPRN, Nausea and Vomiting (N/V), Starting on 05/07/23 at 2213
Do ses of ondansetro n 16 mg and above need to be administer ed via IV piggyback. For Dose >=24mg ECG monitoring is advisable.
[facility] traMADoL 50 mg tablet 2022-07 00:00: 00 05-10 00:00 :00 No [id number] 50mg Take 1 tablet by mouth every 6 (six) hours as needed for Pain (scale 4-6) or Pain (scale 7-10) for up to 7 days. Indication s: acute pain [facility] acetaminoph en (TYLENOL) tablet 1,000 mg 2022-07 20:38: 00 05-08 18:36 :02 No 1000mg 1,000 mg, Oral, Q8H ABX, First dose (after last modificati on) on 05/07/23 at 1545, Until Discontinu ed, [facility]ine [facility] tra[facility] (ULTRAM) tablet 50 mg 2022-07 20:38: 00 05-08 18:36 :02 No 50mg 50 mg, Oral, Q6HPRN, Starting on 05/07/23 at 1538, Until 05/08/23 at 1336, Routine, Pain (scale 4-6), Pain (scale 7-10) [facility] pantoprazol e (PROTONIX) EC tablet 40 mg 2022-07 14:00: 00 05-08 18:36 :02 No 40mg 40 mg, Oral, DAILY, First dose on 05/07/23 at 0900, Until Discontinu ed, Routine [facility] sulfamethox azole-trime thoprim (BACTRIM DS) 800-160 mg per tablet 1 tablet 2022-07 13:00: 00 05-08 18:36 :02 No 1{tbl} 1 tablet, Oral, Q12H, First dose on 05/07/23 at 0800, Until Discontinu ed, GABRIELLE
Re ason for Anti-Infec tive: Documented Infection< br>Documen ben Infection Site: Skin / Soft Tissue
Duration of Therapy: 7 days [facility] celecoxib (CELEBREX) capsule 100 mg 2022-07 13:00: 00 05-08 18:36 :02 No 100mg 100 mg, Oral, BID MEALS, First dose on 05/07/23 at 0800, Until Discontinu ed, Routine [facility] thyroid (ARMOUR THYROID) tablet 60 mg 2022-07 11:00: 00 05-08 18:36 :02 No 60mg 60 mg, Oral, QAM-0600, First dose on 05/07/23 at 0600, Until Discontinu ed, Routine [facility] traMADoL (ULTRAM) tablet 50 mg 2022-07 06:51: 33 05-07 20:38 :27 No 50mg 50 mg, Oral, Q6HPRN, Starting on 05/07/23 at 0151, Until 05/07/23 at 1538, Routine, Pain (scale 4-6) [facility] sugammadex (BRIDION) injection 2022-07 04:35: 00 05-07 04:42 :42 No IV Push, ONCE INTRA PROCEDURE, Starting on Tue05/06/23 at 2335, Until Tue05/06/23 at 2342, Routine, Intra-op [facility] acetaminoph en ADULT (OFIRMEV) injection 2022-07 03:57: 00 05-07 04:42 :42 No IV Infusion, Administer over 15 Minutes, ONCE INTRA PROCEDURE, Starting on Tue05/06/23 at 2257, Until Tue05/06/23 at 2342, Routine, Intra-op [facility] dexamethaso ne (DECADRON PHOSPHATE) injection 2022-07 03:56: 00 05-07 04:42 :42 No IV Push, ONCE INTRA PROCEDURE, Starting on Tue05/06/23 at 2256, Until Tue05/06/23 at 2342, Routine, Intra-op [facility] ondansetron (ZOFRAN (PF)) injection 2022-07 03:56: 00 05-07 04:42 :42 No Slow IV Push, ONCE INTRA PROCEDURE, Starting on Tue05/06/23 at 2256, Until Tue05/06/23 at 2342, Routine, Intra-op [facility] midazolam (VERSED) injection 2022-07 03:34: 00 05-07 04:42 :42 No IV Push, ONCE INTRA PROCEDURE, Starting on Tue05/06/23 at 2234, Until Discontinu ed, Routine, Intra-op [facility] phenylephri ne (VAZCULEP) injection 2022-07 03:22: 00 05-07 04:42 :42 No Slow IV Push, ONCE INTRA PROCEDURE, Starting on Tue05/06/23 at 2222, Until Discontinu ed, Routine, Intra-op [facility] rocuronium (ZEMURON) injection 2022-07 03:21: 00 05-07 04:42 :42 No IV Push, ONCE INTRA PROCEDURE, Starting on Tue05/06/23 at 2221, Until Discontinu ed, Routine, Intra-op [facility] propofoL IV infusion 2022-07 03:19: 00 05-07 04:42 :42 No Slow IV Push, ONCE INTRA PROCEDURE, Starting on Tue05/06/23 at 2219, Until Discontinu ed, Routine, Intra-op [facility] lidocaine 1% (XYLOCAINE) 100 mg/10 mL (1 %) injection 2022-07 03:19: 00 05-07 04:42 :42 No Slow IV Push, ONCE INTRA PROCEDURE, Starting on Tue05/06/23 at 2219, Until Discontinu ed, Routine, Intra-op [facility] FENTanyl PF (SUBLIMAZE (PF)) injection 2022-07 03:19: 00 05-07 04:42 :42 No Slow IV Push, ONCE INTRA PROCEDURE, Starting on Tue05/06/23 at 2219, Until Discontinu ed, Routine, Intra-op [facility] ceFAZolin (ANCEF) injection 2022-07 03:19: 00 05-07 04:42 :42 No Slow IV Push, ONCE INTRA PROCEDURE, Starting on Tue05/06/23 at 2219, Until Discontinu ed, GABRIELLE, Intra-op [facility] ePHEDrine 25 mg/5 mL (5 mg/mL) syringe 2022-07 03:17: 00 05-07 04:42 :42 No Slow IV Push, ONCE INTRA PROCEDURE, Starting on Tue05/06/23 at 2217, Until Discontinu ed, Routine, Intra-op [facility] lactated ringers IV infusion 2022-07 03:16: 00 05-07 04:42 :42 No IV Infusion, CONTINUOUS PRN, Starting on Tue05/06/23 at 2216, Until Discontinu ed, Routine, Intra-op [facility] acetaminoph en (TYLENOL) tablet 1,000 mg 2022-07 03:00: 00 05-07 20:38 :27 No 1000mg 1,000 mg, Oral, Q8H, First dose on Tue05/06/23 at 2200, Until Discontinu ed, Routine [facility] D5W 0.45% NaCl (1/2NS) 1 L + KCL 20 mEq 2022-07 02:00: 00 05-08 18:36 :02 No IV Infusion, at 75 mL/hr, CONTINUOUS , Starting on Tue05/06/23 at 2100, Until 05/08/23 at 1336, Routine [facility] morpHINE (4 mg/mL) injection 4 mg 2022-07 01:51: 36 05-07 20:38 :26 No 4mg 4 mg, Slow IV Push, Q4HPRN, Starting on Tue05/06/23 at 2051, Until 05/07/23 at 1538, Routine, Pain (scale 7-10) [facility] thyroid (ARMOUR THYROID) 60 mg tablet 2022-07 22:18: 26 Yes 60mg Take 1 tablet by mouth every morning. [facility] sulfamethox azole-trime thoprim 800-160 mg per tablet 2022-07 00:00: 00 06-21 00:00 :00 No [id number] 1{tbl} Take 1 tablet by mouth every 12 (twelve) hours. [facility] traMADoL (ULTRAM) tablet 50 mg 2022-07 13:48: 53 Yes 50mg 50 mg, Oral, PRN, 1 dose, Starting on Tue04/28/23 at 0848, Until Discontinu ed, Routine, Pain (scale 4-6), [facility] acetaminoph en (TYLENOL) tablet 650 mg 2022-07 13:48: 53 Yes 650mg 650 mg, Oral, PRN, 1 dose, Starting on Tue04/28/23 at 0848, Until Discontinu ed, Routine, Pain (scale 1-3), [facility] hydrogen peroxide 3 % topical solution 2022-07 12:15: 00 Yes PRN, Starting on Janett 04/28/23 at 0715, Until Discontinu ed, Routine, Intra-op [facility] bupivacaine (preserv free) 0.5% (SENSORCAIN E MPF) 30 mL, lidocaine 1% (PF) (XYLOCAINE) 15 mL, NaCl 0.9% (NS) 50 mL 2022-07 12:15: 00 04-28 13:48 :41 No PRN, Starting on Janett 04/28/23 at 0715, Intra-op [facility] acetaminoph en (TYLENOL) tablet 650 mg 2022-07 11:15: 00 04-28 11:15 :00 No 650mg 650 mg, Oral, ONCE, 1 dose, On Janett 04/28/23 at 0615, Routine, [facility] celecoxib (CELEBREX) capsule 100 mg 2022-07 11:15: 00 04-28 11:15 :00 No 100mg 100 mg, Oral, ONCE, 1 dose, On Janett 04/28/23 at 0615, Routine, [facility] lactated ringers IV infusion 1,000 mL 2022-07 11:15: 00 04-28 11:32 :00 No 1000mL at 42 mL/hr, 1,000 mL, IV Infusion, ONCE, 1 dose, On Janett 04/28/23 at 0615, Routine, [facility] acetaminoph en 500 mg tablet 2022-07 00:00: 00 05-13 04:59 :00 No [id number] 1000mg Take 2 tablets by mouth every 8 (eight) hours for 14 days. [facility] celecoxib 100 mg capsule 2022-07 00:00: 00 05-10 00:00 :00 No [id number] 100mg Take 1 capsule by mouth in the morning and 1 capsule in the evening. Take with meals. Do all this for 14 days. [facility] amphetamine (ADZENYS XR-ODT) 15.7 mg TbLB 03-28 00:00: 00 Yes FOR ADD [facility] medroxyPROG ESTERone (DEPO-PROVE RA) injection 150 mg 2019-07 22:00: 00 05-09 21:23 :00 No [id number] 100 150mg [facility] ferrous sulfate (IRON ORAL) 02-06 00:12: 20 02-05 00:00 :00 No [id number] Take by mouth. [facility] ascorbic acid, vitamin C, 500 mg tablet 02-05 00:00: 03-29 00:00 :00 No [id number] 500mg Take 1 tablet by mouth 3 (three) times daily. [facility] ferrous sulfate (IRON, FERROUS SULFATE,) 325 mg (65 mg iron) tablet 02-05 00:00: 03-29 00:00 :00 No [id number] 325mg Take 1 tablet by mouth 3 (three) times daily with meals. [facility] foLIC acid 1 mg tablet 02-05 00:00: 03-29 00:00 :00 No [id number] 1mg Take 1 tablet by mouth daily. [facility] norgestimat e-ethinyl estradiol (FEMYNOR) 0.25-35 mg-mcg per tablet 02-05 00:00: 03-29 00:00 :00 No [id number] 100 1{tbl} Take 1 tablet by mouth daily. [facility] norgestimat e-ethinyl estradiol (ORTHO-CYCL EN, 28,) 0.25-35 mg-mcg per tablet 01-03 00:00: 02-05 00:00 :00 No [id number] 1{tbl} Take 1 tablet by mouth daily. DAW1 [facility] norgestimat e-ethinyl estradiol (ORTHO-CYCL EN, 28,) 0.25-35 mg-mcg per tablet 01-01 00:00: 01-03 00:00 :00 No [id number] 1{tbl} Take 1 tablet by mouth daily. [facility] norgestimat e-ethinyl estradiol (ORTHO-CYCL EN, 28,) 0.25-35 mg-mcg per tablet 0 6-23 00:00: 00 Yes [id number] 1{tbl} Take 1 tablet by mouth daily. [facility] norgestimat e-ethinyl estradiol 0.25-35 mg-mcg per tablet 0 5- 00:00: 00 02-05 00:00 :00 No [id number] 1{tbl} Take 1 tablet by mouth daily. [facility] ferrous sulfate (IRON ORAL) 228 20:49: 19 Yes [id number] Take by mouth. [facility] norgestimat e-ethinyl estradiol 0.25-35 mg-mcg per tablet 2 00:00: 00 11-29 00:00 :00 No [id number] 1{tbl} Take 1 tablet by mouth daily. [facility] norgestimat e-ethinyl estradiol 0.25-35 mg-mcg per tablet - 00:00: 00 09-07 00:00 :00 No [id number] 100 1{tbl} Take 1 tablet by mouth daily. [facility] norgestimat e-ethinyl estradiol 0.25-35 mg-mcg per tablet 2018-07 0 00:00: 00 08-06 00:00 :00 No [id number] 100 1{tbl} Take 1 tablet by mouth daily. [facility] norgestimat e-ethinyl estradiol 0.25-35 mg-mcg per tablet 0 03-26 00:00: 00 Yes [id number] 100 1{tbl} Take 1 tablet by mouth daily. [facility] norgestimat e-ethinyl estradiol 0.25-35 mg-mcg per tablet 0 7-05 00:00: 00 03-26 00:00 :00 No [id number] 100 1{tbl} Take 1 tablet by mouth daily. [facility] Immunizations Ordered Immunization Name Filled Immunization Name Date Status Comments Source MMR 2023-06-21 15:30:00 Completed [facility] TDAP 2023-06-21 15:30:00 Completed [facility] MMR 2023-05-26 00:00:00 Completed [facility] TDAP 2023-05-26 00:00:00 Completed [facility] MMR 2023-05-17 14:30:00 Completed [facility] TDAP 2023-05-17 14:30:00 Completed [facility] MMR 2023-05-10 13:30:00 Completed [facility] TDAP 2023-05-10 13:30:00 Completed [facility] MMR 2023-05-10 00:00:00 Completed [facility] TDAP 2023-05-10 00:00:00 Completed [facility] MMR 2023-05-07 00:10:00 Completed [facility] TDAP 2023-05-07 00:10:00 Completed [facility] MMR 2023-05-06 22:19:00 Completed [facility] TDAP 2023-05-06 22:19:00 Completed [facility] MMR 2023-05-06 22:00:00 Completed [facility] TDAP 2023-05-06 22:00:00 Completed [facility] MMR 2023-05-06 19:49:00 Completed [facility] TDAP 2023-05-06 19:49:00 Completed [facility] MMR 2023-05-06 00:00:00 Completed [facility] TDAP 2023-05-06 00:00:00 Completed [facility] MMR 2023-04-30 12:57:00 Completed [facility] TDAP 2023-04-30 12:57:00 Completed [facility] MMR 2023-04-30 00:00:00 Completed [facility] TDAP 2023-04-30 00:00:00 Completed [facility] MMR 2023-04-29 00:00:00 Completed [facility] TDAP 2023-04-29 00:00:00 Completed [facility] MMR 2023-04-28 07:05:00 Completed [facility] TDAP 2023-04-28 07:05:00 Completed [facility] MMR 2023-04-28 05:51:00 Completed [facility] TDAP 2023-04-28 05:51:00 Completed [facility] MMR 2023-03-30 00:00:00 Completed [facility] TDAP 2023-03-30 00:00:00 Completed [facility] MMR 2023-03-29 14:00:00 Completed [facility] TDAP 2023-03-29 14:00:00 Completed [facility] MMR 2023-02-24 00:00:00 Completed [facility] TDAP 2023-02-24 00:00:00 Completed [facility] MMR 2020-06-27 00:00:00 Completed [facility] TDAP 2020-06-27 00:00:00 Completed [facility] MMR 2012-05-16 00:00:00 Completed [facility] MMR 2012-05-16 00:00:00 Completed [facility] MMR 2012-05-16 00:00:00 Completed [facility] MMR 2012-05-16 00:00:00 Completed [facility] MMR 2012-05-16 00:00:00 Completed [facility] MMR 2012-05-16 00:00:00 Completed [facility] MMR 2012-05-16 00:00:00 Completed [facility] MMR 2012-05-16 00:00:00 Completed [facility] MMR 2012-05-16 00:00:00 Completed [facility] MMR 2012-05-16 00:00:00 Completed [facility] MMR 2012-05-16 00:00:00 Completed [facility] MMR 2012-05-16 00:00:00 Completed [facility] MMR 2012-05-16 00:00:00 Completed [facility] MMR 2012-05-16 00:00:00 Completed [facility] MMR 2012-05-16 00:00:00 Completed [facility] MMR 2012-05-16 00:00:00 Completed [facility] MMR 2012-05-16 00:00:00 Completed [facility] MMR 2012-05-16 00:00:00 Completed [facility] MMR 2012-05-16 00:00:00 Completed [facility] MMR 2012-05-16 00:00:00 Completed [facility] MMR 2012-05-16 00:00:00 Completed [facility] MMR 2012-05-16 00:00:00 Completed [facility] MMR 2012-05-16 00:00:00 Completed [facility] MMR 2012-05-16 00:00:00 Completed [facility] MMR 2012-05-16 00:00:00 Completed [facility] MMR 2012-05-16 00:00:00 Completed [facility] MMR 2012-05-16 00:00:00 Completed [facility] MMR 2012-05-16 00:00:00 Completed [facility] MMR 2012-05-16 00:00:00 Completed [facility] MMR 2012-05-16 00:00:00 Completed [facility] MMR 2012-05-16 00:00:00 Completed [facility] TDAP 2010-04-17 00:00:00 Completed [facility] TDAP 2010-04-17 00:00:00 Completed [facility] TDAP 2010-04-17 00:00:00 Completed [facility] TDAP 2010-04-17 00:00:00 Completed [facility] TDAP 2010-04-17 00:00:00 Completed [facility] TDAP 2010-04-17 00:00:00 Completed [facility] TDAP 2010-04-17 00:00:00 Completed [facility] Tdap 2010-04-17 00:00:00 Completed [facility] TDAP 2010-04-17 00:00:00 Completed [facility] TDAP 2010-04-17 00:00:00 Completed [facility] TDAP 2010-04-17 00:00:00 Completed [facility] TDAP 2010-04-17 00:00:00 Completed [facility] TDAP 2010-04-17 00:00:00 Completed [facility] TDAP 2010-04-17 00:00:00 Completed [facility] Tdap 2010-04-17 00:00:00 Completed [facility] TDAP 2010-04-17 00:00:00 Completed [facility] TDAP 2010-04-17 00:00:00 Completed [facility] TDAP 2010-04-17 00:00:00 Completed [facility] TDAP 2010-04-17 00:00:00 Completed [facility] TDAP 2010-04-17 00:00:00 Completed [facility] Tdap 2010-04-17 00:00:00 Completed [facility] TDAP 2010-04-17 00:00:00 Completed [facility] TDAP 2010-04-17 00:00:00 Completed [facility] TDAP 2010-04-17 00:00:00 Completed [facility] TDAP 2010-04-17 00:00:00 Completed [facility] Tdap 2010-04-17 00:00:00 Completed [facility] TDAP 2010-04-17 00:00:00 Completed [facility] TDAP 2010-04-17 00:00:00 Completed [facility] TDAP 2010-04-17 00:00:00 Completed [facility] Tdap 2010-04-17 00:00:00 Completed [facility] TDAP 2010-04-17 00:00:00 Completed [facility] Vital Signs Vital Name Observation Time Observation Value Comments S ource Systolic blood pressure 2023-06-21 21:32:00 129 mm[Hg] General acute hospital Diastolic blood pressure 2023-06-21 21:32:00 90 mm[Hg] General acute hospital Heart rate 2023-06-21 21:32:00 106 /min [facility] Oxygen saturation in Arterial blood by Pulse oximetry 2023-06-21 21:32:00 99 /min General acute hospital Body temperature 2023-06-21 21:31:00 37.61 Pau [facility] Respiratory rate 2023-06-21 21:31:00 18 /min [facility] Body height 2023-06-21 21:31:00 162.6 cm [facility] Body weight 2023-06-21 21:31:00 72.848 kg [facility] BMI 2023-06-21 21:31:00 27.57 [facility]2 [facility] 2023-05-17 20:28:00 122 mm[Hg] General acute hospital Diastolic blood pressure 2023-05-17 20:28:00 74 mm[Hg] General acute hospital Heart rate 2023-05-17 20:28:00 88 /min [facility] 2023-05-17 20:28:00 18 /min [facility] Body height 2023-05-17 20:28:00 162.6 cm [facility] Body weight 2023-05-17 20:28:00 76.204 kg Univ [facility] BMI 2023-05-17 20:28:00 28.84 kg/m2 Univ [facility] Oxygen saturation in Arterial blood by Pulse oximetry 2023-05-17 20:28:00 100 /min General acute hospital Systolic blood pressure 2023-05-10 18:49:00 114 mm[Hg] General acute hospital Diastolic blood pressure 2023-05-10 18:49:00 78 mm[Hg] General acute hospital Heart rate 2023-05-10 18:49:00 109 /min Unive [facility] Body temperature 2023-05-10 18:49:00 37.28 Pau [facility] Respiratory rate 2023-05-10 18:49:00 18 /min [facility] Body height 2023-05-10 18:49:00 162.6 cm [facility] Body weight 2023-05-10 18:49:00 76.204 kg Univ [facility] BMI 2023-05-10 18:49:00 28.84 kg/m2 Univ [facility] Oxygen saturation in Arterial blood by Pulse oximetry 2023-05-10 18:49:00 100 /min General acute hospital Systolic blood pressure 2023-05-08 13:29:00 117 mm[Hg] General acute hospital Diastolic blood pressure 2023-05-08 13:29:00 82 mm[Hg] General acute hospital Heart rate 2023-05-08 13:29:00 95 /min Unive [facility] Body temperature 2023-05-08 13:29:00 36.67 Pau [facility] Respiratory rate 2023-05-08 13:29:00 18 /min [facility] Oxygen saturation in Arterial blood by Pulse oximetry 2023-05-08 13:29:00 98 /min General acute hospital Body height 2023-05-07 00:50:00 162.6 cm [facility] Body weight 2023-05-07 00:50:00 74.844 kg [facility] BMI 2023-05-07 00:50:00 28.32 kg/m2 [facility] Systolic blood pressure 2023-05-07 06:55:00 109 mm[Hg] General acute hospital Diastolic blood pressure 2023-05-07 06:55:00 74 mm[Hg] General acute hospital Heart rate 2023-05-07 06:55:00 95 /min Unive [facility] Respiratory rate 2023-05-07 06:55:00 12 /min [facility] Oxygen saturation in Arterial blood by Pulse oximetry 2023-05-07 06:55:00 95 /min General acute hospital Body temperature 2023-05-07 06:36:00 36.17 Pau [facility] Body height 2023-05-07 00:50:00 162.6 cm [facility] Body weight 2023-05-07 00:50:00 74.844 kg [facility] BMI 2023-05-07 00:50:00 28.32 kg/m2 [facility] Systolic blood pressure 2023-05-07 04:49:00 128 mm[Hg] General acute hospital Diastolic blood pressure 2023-05-07 04:49:00 76 mm[Hg] General acute hospital Heart rate 2023-05-07 04:49:00 98 /min Unive [facility] Oxygen saturation in Arterial blood by Pulse oximetry 2023-05-07 04:49:00 100 /min General acute hospital Body height 2023-05-07 00:50:00 162.6 cm [facility] Body weight 2023-05-07 00:50:00 74.844 kg [facility] BMI 2023-05-07 00:50:00 28.32 kg/m2 [facility] Systolic blood pressure 2023-04-30 17:55:00 131 mm[Hg] General acute hospital Diastolic blood pressure 2023-04-30 17:55:00 85 mm[Hg] General acute hospital Heart rate 2023-04-30 17:55:00 85 /min Unive [facility] Body temperature 2023-04-30 17:55:00 37.39 Pau [facility] Respiratory rate 2023-04-30 17:55:00 16 /min [facility] Body height 2023-04-30 17:55:00 162.6 cm [facility] Body weight 2023-04-30 17:55:00 73.483 kg [facility] BMI 2023-04-30 17:55:00 27.81 kg/m2 [facility] Oxygen saturation in Arterial blood by Pulse oximetry 2023-04-30 17:55:00 100 /min General acute hospital Heart rate 2023-04-28 14:50:00 80 /min [facility] Respiratory rate 2023-04-28 14:50:00 26 /min [facility] Oxygen saturation in Arterial blood by Pulse oximetry 2023-04-28 14:50:00 100 /min General acute hospital Systolic blood pressure 2023-04-28 14:45:00 118 mm[Hg] General acute hospital Diastolic blood pressure 2023-04-28 14:45:00 77 mm[Hg] General acute hospital Body temperature 2023-04-28 13:45:00 36.33 Pau [facility] Body height 2023-04-28 11:15:00 162.6 cm [facility] Body weight 2023-04-28 11:15:00 73.483 kg Univ [facility] BMI 2023-04-28 11:15:00 27.81 kg/m2 [facility] Systolic blood pressure 2023-04-28 11:15:00 130 mm[Hg] General acute hospital Diastolic blood pressure 2023-04-28 11:15:00 78 mm[Hg] General acute hospital Heart rate 2023-04-28 11:15:00 85 /min Unive [facility] Body temperature 2023-04-28 11:15:00 37.17 Pau [facility] Respiratory rate 2023-04-28 11:15:00 18 /min [facility] Body height 2023-04-28 11:15:00 162.6 cm Univ [facility] Body weight 2023-04-28 11:15:00 73.483 kg [facility] BMI 2023-04-28 11:15:00 27.81 kg/m2 Univ [facility] Oxygen saturation in Arterial blood by Pulse oximetry 2023-04-28 11:15:00 100 /min General acute hospital Systolic blood pressure 2023-03-29 19:13:00 127 mm[Hg] General acute hospital Diastolic blood pressure 2023-03-29 19:13:00 87 mm[Hg] General acute hospital Heart rate 2023-03-29 19:13:00 78 /min Unive [facility] Body temperature 2023-03-29 19:13:00 37.39 Pau [facility] Respiratory rate 2023-03-29 19:13:00 18 /min [facility] Body height 2023-03-29 19:13:00 162.6 cm [facility] Body weight 2023-03-29 19:13:00 77.293 kg [facility] BMI 2023-03-29 19:13:00 29.25 kg/m2 Univ [facility] Oxygen saturation in Arterial blood by Pulse oximetry 2023-03-29 19:13:00 98 /min General acute hospital Systolic blood pressure 2020-06-24 21:13:00 114 mm[Hg] General acute hospital Diastolic blood pressure 2020-06-24 21:13:00 76 mm[Hg] General acute hospital Heart rate 2020-06-24 21:13:00 77 /min Unive [facility] Body temperature 2020-06-24 21:13:00 37 Pau [facility] Respiratory rate 2020-06-24 21:13:00 18 /min [facility] Body height 2020-06-24 21:13:00 162.6 cm Univ [facility] Body weight 2020-06-24 21:13:00 89.359 kg Univ [facility] BMI 2020-06-24 21:13:00 33.81 kg/m2 Univ [facility] Systolic blood pressure 2020-06-24 21:13:00 114 mm[Hg] [facility] [place] Diastolic blood pressure 2020-06-24 21:13:00 76 mm[Hg] [facility] o [facility] Heart rate 2020-06-24 21:13:00 77 /min Unive [facility] Body temperature 2020-06-24 21:13:00 37 Pau [facility] Respiratory rate 2020-06-24 21:13:00 18 /min [facility] Body height 2020-06-24 21:13:00 162.6 cm Univ [facility] Body weight 2020-06-24 21:13:00 89.359 kg Univ [facility] BMI 2020-06-24 21:13:00 33.81 kg/m2 Univ [facility] Systolic blood pressure 2020-05-09 20:17:00 130 mm[Hg] [facility] Diastolic blood pressure 2020-05-09 20:17:00 80 mm[Hg] [facility] Heart rate 2020-05-09 20:17:00 118 /min Unive [facility] Body temperature 2020-05-09 20:17:00 36.89 Pau [facility] Respiratory rate 2020-05-09 20:17:00 18 /min [facility] Body height 2020-05-09 20:17:00 162.6 cm Univ [facility] Body weight 2020-05-09 20:17:00 89.359 kg Univ [facility] BMI 2020-05-09 20:17:00 33.81 kg/m2 [facility] Systolic blood pressure 2020-02-06 20:13:00 122 mm[Hg] [facility] [place] Diastolic blood pressure 2020-02-06 20:13:00 72 mm[Hg] General acute hospital Heart rate 2020-02-06 20:13:00 85 /min Unive [facility] Body temperature 2020-02-06 20:13:00 36.94 Pau [facility] Respiratory rate 2020-02-06 20:13:00 19 /min [facility] Body height 2020-02-06 20:13:00 162.6 cm Univ [facility] Body weight 2020-02-06 20:13:00 87.317 kg Univ [facility] BMI 2020-02-06 20:13:00 33.04 kg/m2 Univ [facility] Systolic blood pressure 2019-11-30 19:31:00 123 mm[Hg] General acute hospital Diastolic blood pressure 2019-11-30 19:31:00 80 mm[Hg] General acute hospital Heart rate 2019-11-30 19:31:00 103 /min Unive [facility] Body temperature 2019-11-30 19:31:00 36.72 Pau [facility] Respiratory rate 2019-11-30 19:31:00 16 /min [facility] Body height 2019-11-30 19:31:00 162.6 cm Univ [facility] Body weight 2019-11-30 19:31:00 86.354 kg Univ [facility] BMI 2019-11-30 19:31:00 32.68 kg/m2 Univ [facility] Systolic blood pressure 2019-09-07 20:10:00 125 mm[Hg] General acute hospital Diastolic blood pressure 2019-09-07 20:10:00 72 mm[Hg] General acute hospital Heart rate 2019-09-07 20:10:00 81 /min Unive [facility] Body temperature 2019-09-07 20:10:00 36.44 Pau [facility] Respiratory rate 2019-09-07 20:10:00 18 /min [facility] Body height 2019-09-07 20:10:00 162.6 cm Univ [facility] Body weight 2019-09-07 20:10:00 87.204 kg Univ [facility] BMI 2019-09-07 20:10:00 33.00 kg/m2 [facility] Procedures Procedure Date / Time Performed Performing Clinician Source EXTERNAL PROVIDER RECORDS 2023-05-26 06:01:00 Doctor Unassigned, [place] [facility] PREPARE PACKED RBC 2023-05-08 16:31:08 Kristie Gorman [facility] CBC WITH DIFF 2023-05-08 09:33:00 [place] [facility] CBC WITH DIFF 2023-05-08 09:33:00 [place] [facility] CBC WITH DIFF 2023-05-08 09:33:00 [place] [facility] CBC WITHOUT DIFF 2023-05-07 23:40:00 [facility] [facility] CBC WITHOUT DIFF 2023-05-07 23:40:00 [facility] CBC WITHOUT DIFF 2023-05-07 23:40:00 [place] [facility] PHOSPHORUS 2023-05-07 11:07:00 Herb Gorman [facility] MAGNESIUM 2023-05-07 11:07:00 Herb Gorman [facility] BASIC METABOLIC PANEL (NA, K, CL, CO2, GLUCOSE, BUN, CREATININE, CA) 2023-05-07 11:07:00 Kristie Gorman [facility] PHOSPHORUS 2023-05-07 11:07:00 Herb Gorman [facility] MAGNESIUM 2023-05-07 11:07:00 Herb Gorman [facility] BASIC METABOLIC PANEL (NA, K, CL, CO2, GLUCOSE, BUN, CREATININE, CA) 2023-05-07 11:07:00 [facility]23-[facility]-07 11:07:00 Herb Gorman [facility] MAGNESIUM 2023-05-07 11:07:00 Herb Gorman [facility] BASIC METABOLIC PANEL (NA, K, CL, CO2, GLUCOSE, BUN, CREATININE, CA) 2023-05-07 11:07:00 [facility] 2023-05-07 11:06:00 Herb Gorman [facility] CBC WITH DIFF 2023-05-07 11:06:00 Herb Gorman [facility] CBC WITH DIFF 2023-05-07 11:06:00 Herb Gorman [facility] TEST, SERUM 2023-05-07 11:05:00 Taiwo nKristie [facility] TEST, SERUM 2023-05-07 11:05:00 [facility] 2023-05-07 11:05:00 Taiwo ortega [facility] ABORH CONFIRMATION (LAB ONLY) 2023-05-07 05:52:00 Dedra Duque [facility] ABORH CONFIRMATION (LAB ONLY) 2023-05-07 05:52:00 Dedra Duque [facility] ABORH CONFIRMATION (LAB ONLY) 2023-05-07 05:52:00 Dedra Duque [facility] CBC WITH DIFF 2023-05-07 05:43:00 Dedra Duque [facility] CBC WITH DIFF 2023-05-07 05:43:00 Dedra Duque [facility] CBC WITH DIFF 2023-05-07 05:43:00 Dedra Duque [facility] HEMATOMA EVACUATION 2023-05-07 04:45:00 Dedra Duque [facility] INTUBATION 2023-05-07 03:33:00 Brady Mijares [facility] HEMATOMA EVACUATION 2023-05-07 02:57:00 Dedra Duque [facility] PHOSPHORUS 2023-05-07 01:49:00 Herb Gorman [facility] MAGNESIUM 2023-05-07 01:49:00 Herb Gorman [facility] BASIC METABOLIC PANEL (NA, K, CL, CO2, GLUCOSE, BUN, CREATININE, CA) 2023-05-07 01:49:00 Kristie Gorman [facility] CBC WITH DIFF 2023-05-07 01:49:00 SherifHerb [facility] HB INDIRECT ANTIGLOBULIN TEST 2023-05-07 01:49:00 Sherif Kristie [facility] PHOSPHORUS 2023-05-07 01:49:00 Sherif [facility] MAGNESIUM 2023-05-07 01:49:00 Sherif [facility] BASIC METABOLIC PANEL (NA, K, CL, CO2, GLUCOSE, BUN, CREATININE, CA) 2023-05-07 01:49:00 Sherif Kristie [facility] CBC WITH DIFF 2023-05-07 01:49:00 Sherif Herb [facility] HB INDIRECT ANTIGLOBULIN TEST 2023-05-07 01:49:00 Sherif [facility] PHOSPHORUS 2023-05-07 01:49:00 Sherif Herb [facility] MAGNESIUM 2023-05-07 01:49:00 Sherif [facility] BASIC METABOLIC PANEL (NA, K, CL, CO2, GLUCOSE, BUN, CREATININE, CA) 2023-05-07 01:49:00 Sherif [facility] CBC WITH DIFF 2023-05-07 01:49:00 Sherif [facility] HB INDIRECT ANTIGLOBULIN TEST 2023-05-07 01:49:00 Sherif [facility] HOSPITAL ADMISSION 2023-05-06 05:01:00 Doctor Un assigned, [place] [facility] HOSPITAL ADMISSION 2023-05-06 05:01:00 Doctor Un assigned, [place] [facility] CONSENT/REFUSAL FOR DIAGNOSIS AND TREATMENT 2023-04-30 17:47:17 Doctor Unassigned, [place] [facility] FL TIME OR (NON-REPORTABLE) 2023-04-28 13:27:29 Yael Delarosa [facility] FL TIME OR (NON-REPORTABLE) 2023-04-28 13:27:29 Yael Delarosa [facility] BREAST LUMPECTOMY 2023-04-28 12:05:00 Lo Price [facility] DAY SURGERY - [place] 2023-04-28 05:01:00 Doctor Unassigned, [place] [facility] DISCLOSURE AND CONSENT, MEDICAL AND SURGICAL PROCEDURES 2023-03-30 05:01:00 Doctor Unassigned, [place] [facility] REFERRAL- REQUEST/RESPONSE 2023-03-28 05:01:00 Doctor Unassigned, [place] [facility] BI US GUIDED CORE BREAST BIOPSY LEFT 2023-02-25 15:22:29 Cecil Kong [facility] BI OMER BASINS LEFT 2023-02-21 20:08:44 Requisition, Paper [facility] BI COMBO ULTRASOUND LEFT COMPLETE RIGHT LIMITED 2023-02-21 20:08:44 Requisition, Paper [facility] PATIENT FINANCIAL POLICY 2023-01-07 19:09:00 Doctor Unassigned, [place] [facility] NOTICE OF PRIVACY PRACTICES 2021-11-27 20:23:00 Doctor Unassigned, [place] [facility] CONSENT/REFUSAL FOR DIAGNOSIS AND TREATMENT 2021-11-27 20:22:41 Doctor Unassigned, [place] [facility] ASSIGNMENT OF BENEFITS 2021-11-27 20:22:27 Docto r Unassigned, [place] [facility] [id number] 2020-07-18 00:00:00 [facility] [id number] 2020-07-18 00:00:00 [facility] [id number] 2020-07-18 00:00:00 [facility] US PELVIS COMPLETE WITH TRANSVAGINAL 2020-06-04 16:34:54 Zaina Kelly [facility] CBC WITH DIFF 2020-05-09 21:28:00 Zaina Kelly [facility] ASSIGNMENT OF BENEFITS 2020-05-09 19:47:34 Docto r Unassigned, [place] [facility] CBC WITH DIFF 2020-02-06 21:19:00 Veronique Rodgers [facility] CONSENT/REFUSAL FOR DIAGNOSIS AND TREATMENT 2019-09-07 19:28:37 Doctor Unassigned, [place] [facility] Encounters Start Date/Time End Date/Time Encounter Type Admission Type Attending Clinicians Care Facility Care Department Encounter ID Source 2021-05-09 11:32:44 Outpatient NOEL LARSEN [facility] [id number] [facility] 2020-07-17 16:49:00 Inpatient Maribel Leon [facility] [id number] [facility] 2023-06-21 15:30:00 2023-06-21 16:11:05 Outpatient LO ARORA [facility] [id number] [facility] 2023-06-21 15:30:00 2023-06-21 16:11:05 Office Visit Lo Price [facility] 1.2.840.114 350.1.13.10 4.2.7.2.686 [id number] [facility] 2023-05-26 00:00:00 2023-05-26 00:00:00 Orders Only Doctor Unassigned, [place] [facility] 1.2.840.114 350.1.13.10 4.2.7.2.686 [id number] [facility] 2023-05-17 14:30:00 2023-05-17 14:52:35 Outpatient LO ARORA [facility] [id number] [facility] 2023-05-17 14:30:00 2023-05-17 14:52:35 Office Visit Lo Price [facility] 1..840.114 350.1.13.10 4.2.7.2.686 [id number] [facility] 2023-05-12 10:15:00 2023-05-12 10:15:00 Outpatient DEDRA RAMSAY [facility] [id number] [facility] 2023-05-10 13:30:00 2023-05-10 14:40:53 Outpatient R LO PRICE [facility] [id number] [facility] 2023-05-10 13:30:00 2023-05-10 14:40:53 Office Visit Lo Price S [facility] PAT [facility] 1.2840.114 350.1.13.10 4.2.7.2.686 [id number] [facility] 2023-05-10 00:00:00 2023-05-10 00:00:00 Transition of Care Libby Izaguirre GENAR[facility] 1.2840.114 350.1.13.10 4.2.7.2.686 [id number] [facility] 2023-05-06 19:49:00 2023-05-08 11:30:00 Inpatient X DEDRA DUQUE [facility] HAR[facility] [id number] [facility] 2023-05-06 19:49:00 2023-05-08 11:30:00 Hospital Encounter Mateusz Marie Douglas Scott [facility] 1.2840.114 350.1.13.10 4.2.7.2.686 [id number] [facility] 2023-05-07 00:10:00 2023-05-07 01:59:00 Surgery Dedra Duque [facility] 1.2840.114 350.1.13.10 4.2.7.2.686 [id number] [facility] 2023-05-06 22:00:00 2023-05-06 23:49:00 Surgery Dedra Duque [facility] 1.2840.114 350.1.13.10 4.2.7.2.686 [id number] [facility] 2023-05-06 22:19:00 2023-05-06 23:42:00 Anesthesia Event Brady Mijares [facility] 1.2.840.114 350.1.13.10 4.2.7.2.686 [id number] [facility] 2023-05-06 00:00:00 2023-05-06 00:00:00 Telephone Lo Price [facility] 1.2.840.114 350.1.13.10 4.2.7.2.686 [id number] [facility] 2023-04-30 12:57:00 2023-04-30 13:38:00 Emergency X SAIGE YOU [facility] ERT [id number] [facility] 2023-04-30 12:57:00 2023-04-30 13:38:00 Emergency Saige You [facility] 1.2.840.114 350.1.13.10 4.2.7.2.686 [id number] [facility] 2023-04-30 00:00:00 2023-04-30 00:00:00 Patient Secure Msg Lo Price [facility] 1.2.840.114 350.1.13.10 4.2.7.2.686 [id number] [facility] 2023-04-29 00:00:00 2023-04-29 00:00:00 Telephone Lo Price [facility] 1.2.840.114 350.1.13.10 4.2.7.2.686 [id number] [facility] 2023-04-28 05:51:00 2023-04-28 10:19:00 Outpatient R LO PRICE [facility] [id number] [facility] 2023-04-28 05:51:00 2023-04-28 10:19:00 Hospital Encounter Lo Price [facility] 1.0.114 350.1.13.10 4.2.7.2.686 [id number] [facility] 2023-04-28 07:05:00 2023-04-28 08:44:00 Surgery Nathaanel Priceki [facility] 1.0.114 350.1.13.10 4.2.7.2.686 [id number] [facility] 2023-03-30 00:00:00 2023-03-30 00:00:00 Orders Only Doctor Unassigned, [place] [facility] 1..114 350.1.13.10 4.2.7.2.686 [id number] [facility] 2023-03-29 14:00:00 2023-03-29 15:39:23 Outpatient R SHANNONMANNYLO [facility] [id number] [facility] 2023-03-29 14:00:00 2023-03-29 15:39:23 Office Visit Lo Price [facility] 1..114 350.1.13.10 4.2.7.2.686 [id number] [facility] 2023-03-28 00:00:00 2023-03-28 00:00:00 Orders Only Doctor Unassigned, [place] [facility] 1.2.114 350.1.13.10 4.2.7.2.686 [id number] [facility] 2023-02-25 09:00:00 2023-02-25 23:59:00 Outpatient R RADIOLOGY [facility] [id number] [facility] 2023-02-25 08:43:51 2023-02-25 23:59:00 Hospital Encounter Radiology [facility] 1.2.840.114 350.1.13.10 4.2.7.2.686 [id number] [facility] 2023-02-24 00:00:00 2023-02-24 00:00:00 Patient Secure Msg Doctor Unassigned, [place] [facility] 1.2840.114 350.1.13.10 4.2.7.2.686 [id number] [facility] 2023-02-21 13:54:47 2023-02-21 23:59:00 Hospital Encounter Radiology [facility] 1.2840.114 350.1.13.10 4.2.7.2.686 [id number] [facility] 2023-02-21 13:54:21 2023-02-21 23:59:00 Outpatient R RADIOLOGY [facility] [id number] [facility] 2023-02-21 13:54:21 2023-02-21 23:59:00 Hospital Encounter Radiology [facility] 1.2840.114 350.1.13.10 4.2.7.2.686 [id number] 800 [id number] [facility] 2023-01-07 14:09:49 2023-01-07 23:59:00 Outpatient R RADIOLOGY [facility] [id number] [facility] 2023-01-07 14:09:49 2023-01-07 23:59:00 Hospital Encounter Radiology [facility] 1.2.840.114 350.1.13.10 4.2.7.2.686 [id number] 800 [id number] [facility] 2023-01-07 00:00:00 2023-01-07 00:00:00 Orders Only Doctor Unassigned, [place] [facility] 1.840.114 350.1.13.10 4.2.7.2.686 [id number] [facility] 2021-11-27 15:25:12 2021-11-27 23:59:00 Outpatient R RADIOLOGY [facility] [id number] [facility] 2021-11-27 15:20:00 2021-11-27 23:59:00 Hospital Encounter Radiology [facility] 1.840.114 350.1.13.10 4.2.7.2.686 [id number] [facility] 2020-09-29 00:00:00 2020-09-29 00:00:00 Patient Outreach Jong Pemberton [facility] 1.0.114 350.1.13.10 4.2.7.2.686 [id number] [facility] 2020-07-29 00:00:00 2020-07-29 00:00:00 Telephone Janet Bermeo [facility] 1.840.114 350.1.13.10 4.2.7.2.686 [id number] 113 [id number] [facility] 2020-06-27 00:00:00 2020-06-27 00:00:00 Telephone Janet Bermeo [facility] 1.840.114 350.1.13.10 4.2.7.2.686 [id number] 113 [id number] 2020-06-27 00:00:00 2020-06-27 00:00:00 Telephone Homar [facility] 1.0.114 350.1.13.10 4.2.7.2.686 [id number] 113 [id number] 2020-06-27 00:00:00 2020-06-27 00:00:00 Telephone Janet Bermeo [facility] 1.0.114 350.1.13.10 4.2.7.2.686 [id number] 113 [id number] [facility] 2020-06-27 00:00:00 2020-06-27 00:00:00 Telephone Homar, [facility] 1.0.114 350.1.13.10 4.2.7.2.686 [id number] [facility] 2020-06-27 00:00:00 2020-06-27 00:00:00 Patient Secure Msg Doctor Unassigned, [place] [facility] 1.0.114 350.1.13.10 4.2.7.2.686 [id number] 113 [id number] [facility] 2020-06-24 15:01:32 2020-06-24 15:56:37 Office Visit [place], [facility] Resident Mitzi Porras [facility] 1.0.114 350.1.13.10 4.2.7.2.686 [id number] 113 [id number] [facility] 2020-06-24 15:01:32 2020-06-24 15:56:37 Office Visit [place], [facility] 1.0.114 350.1.13.10 4.2.7.2.686 [id number] 113 [id number] 2020-06-24 15:00:00 2020-06-24 15:00:00 Outpatient R [facility] [id number] [facility] 2020-06-24 00:00:00 2020-06-24 00:00:00 Prep For Surgery Janet Bermeo [facility] 1.0.114 350.1.13.10 4.2.7.2.686 [id number] 113 [id number] [facility] 2020-06-12 00:00:00 2020-06-12 00:00:00 Telephone Merary You [facility] 1..114 350.1.13.10 4.2.7.2.686 [id number] 113 [id number] [facility] 2020-06-04 09:52:08 2020-06-04 23:59:00 Hospital Encounter [place], [facility] 1.2.840.114 350.1.13.10 4.2.7.2.686 [id number] [facility] 2020-06-04 00:00:00 2020-06-04 00:00:00 Outpatient R [facility] [id number] [facility] 2020-05-21 00:00:00 2020-05-21 00:00:00 Telephone [facility] 1.2.840.114 350.1.13.10 4.2.7.2.686 [id number] [facility] 2020-05-21 00:00:00 2020-05-21 00:00:00 Telephone [facility] 1.2.840.114 350.1.13.10 4.2.7.2.686 [id number] [facility] 2020-05-09 14:46:46 2020-05-09 16:37:57 Office Visit [place], [facility] Resident Christine [facility] 1.2.840.114 350.1.13.10 4.2.7.2.686 [id number] 113 [id number] [facility] 2020-05-09 14:45:00 2020-05-09 14:45:00 Outpatient R [facility] [id number] [facility] 2020-05-09 00:00:00 2020-05-09 00:00:00 Orders Only Doctor Unassigned, [place] [facility] 1.2.840.114 350.1.13.10 4.2.7.2.686 [id number] [facility] 2020-04-10 00:00:00 2020-04-10 00:00:00 Case Management Lopez , Sara C [facility] 1.0.114 350.1.13.10 4.2.7.2.686 [id number] [facility] 2020-03-26 00:00:00 2020-03-26 00:00:00 Telephone Kathleen Beauchamp [facility] 1.0.114 350.1.13.10 4.2.7.2.686 [id number] 113 [id number] [facility] 2020-02-06 15:04:08 2020-02-06 16:32:46 Office Visit [place], [facility] Resident Noel Larsen [facility] 1..114 350.1.13.10 4.2.7.2.686 [id number] 113 [id number] [facility] 2020-02-06 15:00:00 2020-02-06 15:00:00 Outpatient R [facility] [id number] [facility] 2020-01-10 00:00:00 2020-01-10 00:00:00 Telephone Victorino Herrera [facility] 1.0.114 350.1.13.10 4.2.7.2.686 [id number] [facility] 2020-01-03 00:00:00 2020-01-03 00:00:00 Telephone Victorino Herrera [facility] 1.840.114 350.1.13.10 4.2.7.2.686 [id number] 107 [id number] [facility] 2020-01-02 00:00:00 2020-01-02 00:00:00 Telephone Victorino Herrera [facility] 1.2840.114 350.1.13.10 4.2.7.2.686 [id number] [facility] 2020-01-01 00:00:00 2020-01-01 00:00:00 Telephone Victorino Herrera [facility] 1.114 350.1.13.10 4.2.7.2.686 [id number] 107 [id number] [facility] 2019-11-30 16:00:00 2019-11-30 16:00:00 Outpatient R [facility] [id number] [facility] 2019-11-30 14:20:59 2019-11-30 14:54:38 Office Visit Victorino Herrera [facility] 1.114 350.1.13.10 4.2.7.2.686 [id number] 107 [id number] [facility] 2019-11-30 14:15:00 2019-11-30 14:15:00 Outpatient R VICTORINO HERRERA [facility] [id number] [facility] 2019-11-29 13:30:00 2019-11-29 13:30:00 Outpatient R VICTORINO HERRERA [facility] [id number] [facility] 2019-09-07 13:31:53 2019-09-07 14:49:59 Office Visit Victorino Herrera [facility] 1..114 350.1.13.10 4.2.7.2.686 [id number] 107 [id number] [facility] 2019-09-07 13:15:00 2019-09-07 13:15:00 Outpatient R VICTORINO HERRERA [facility] [id number] [facility] 2019-09-07 00:00:00 2019-09-07 00:00:00 Orders Only Doctor Unassigned, [place] [facility] 1.114 350.1.13.10 4.2.7.2.686 [id number] [facility] 2019-08-06 00:00:00 2019-08-06 00:00:00 Telephone Victorino Herrera [facility] 1.2840.114 350.1.13.10 4.2.7.2.686 [id number] 107 [id number] [facility] 2019-03-26 00:00:00 2019-03-26 00:00:00 Refill Homar [facility] 1.840.114 350.1.13.10 4.2.7.2.686 [id number] 113 [id number] [facility] Results Test Description Test Time Test Comments Results Result Co mments Source [facility] WITHOUT [id number] 23:45:24* Test Item Value Reference Range Interpretation Comme nts WBC (test code = 6690-2) 15.78 See_Comment H [Automated message] The system which generated this result transmitted reference range: 4.30 - 11.10 10*3/?L. The reference range was not used to interpret this result as normal/abnormal. RBC (test code = 789-8) 3.74 See_Comment L [Automated message] The system which generated this result transmitted reference range: 3.93 - 5.25 10*6/?L. The reference range was not used to interpret this result as normal/abnormal. HGB (test code = 718-7) 10.1 g/dL 11.6-15.0 L HCT (test code = 4544-3) 30.5 % 35.7-45.2 L MCH (test code = 785-6) 27.0 pg 25.9-32.8 MCV (test code = 787-2) 81.6 fL 80.6-95.5 MCHC (test code = 786-4) 33.1 g/dL 31.6-35.1 PLT (test code = 777-3) 165 See_Comment L [Automated message] The system which generated this result transmitted reference range: 166 - 358 10*3/?L. The reference range was not used to interpret this result as normal/abnormal. MPV (test code = 47647-3) 12.3 fL 9.5-12.9 RDW-CV (test code = 788-0) 12.7 % 12.0-15.5 RDW-SD (test code = 17990-2) 37.5 fL 39.0-49.9 L NRBC x10^3 (test code = 0153390056) See_Comment [Automated messa ge] The system which generated this result transmitted reference range: 10*3/?L. The reference range was not used to interpret this result as normal/abnormal. NRBC/100 WBC (test code = 5890059558) 0.0 See_Comment [Automated messa ge] The system which generated this result transmitted reference range: 0.0 - 10.0 /100 WBCs. The reference range was not used to interpret this result as normal/abnormal. IPF % (test code = 1626860593) Lab Interpretation (test code = 50861-4) Abnormal [facility] WITHOUT [id number] 23:45:24* Test Item Value Reference Range Interpretation Comme nts WBC (test code = 6690-2) 15.78 See_Comment H [Automated message] The system which generated this result transmitted reference range: 4.30 - 11.10 10*3/?L. The reference range was not used to interpret this result as normal/abnormal. RBC (test code = 789-8) 3.74 See_Comment L [Automated message] The system which generated this result transmitted reference range: 3.93 - 5.25 10*6/?L. The reference range was not used to interpret this result as normal/abnormal. HGB (test code = 718-7) 10.1 g/dL 11.6-15.0 L HCT (test code = 4544-3) 30.5 % 35.7-45.2 L MCH (test code = 785-6) 27.0 pg 25.9-32.8 MCV (test code = 787-2) 81.6 fL 80.6-95.5 MCHC (test code = 786-4) 33.1 g/dL 31.6-35.1 PLT (test code = 777-3) 165 See_Comment L [Automated message] The system which generated this result transmitted reference range: 166 - 358 10*3/?L. The reference range was not used to interpret this result as normal/abnormal. MPV (test code = 48603-7) 12.3 fL 9.5-12.9 RDW-CV (test code = 788-0) 12.7 % 12.0-15.5 RDW-SD (test code = 44993-9) 37.5 fL 39.0-49.9 L NRBC x10^3 (test code = 2545011104) See_Comment [Automated messa ge] The system which generated this result transmitted reference range: 10*3/?L. The reference range was not used to interpret this result as normal/abnormal. NRBC/100 WBC (test code = 9031324453) 0.0 See_Comment [Automated messa ge] The system which generated this result transmitted reference range: 0.0 - 10.0 /100 WBCs. The reference range was not used to interpret this result as normal/abnormal. IPF % (test code = 2320077941) Lab Interpretation (test code = 60615-3) Abnormal [facility] WITH [id number] 06:03:10* Test Item Value Reference Range Interpretation Comme nts WBC (test code = 6690-2) 9.26 See_Comment [Automated messa ge] The system which generated this result transmitted reference range: 4.30 - 11.10 10*3/?L. The reference range was not used to interpret this result as normal/abnormal. RBC (test code = 789-8) 3.40 See_Comment L [Automated messa ge] The system which generated this result transmitted reference range: 3.93 - 5.25 10*6/?L. The reference range was not used to interpret this result as normal/abnormal. HGB (test code = 718-7) 9.1 g/dL 11.6-15.0 L HCT (test code = 4544-3) 28.1 % 35.7-45.2 L MCV (test code = 787-2) 82.6 fL 80.6-95.5 MCH (test code = 785-6) 26.8 pg 25.9-32.8 MCHC (test code = 786-4) 32.4 g/dL 31.6-35.1 RDW-SD (test code = 14774-3) 38.5 fL 39.0-49.9 L RDW-CV (test code = 788-0) 12.7 % 12.0-15.5 PLT (test code = 777-3) 107 See_Comment L [Automated messa ge] The system which generated this result transmitted reference range: 166 - 358 10*3/?L. The reference range was not used to interpret this result as normal/abnormal. MPV (test code = 32303-0) 12.1 fL 9.5-12.9 NRBC/100 WBC (test code = 8919987932) 0.0 See_Comment [Automated me ssage] The system which generated this result transmitted reference range: 0.0 - 10.0 /100 WBCs. The reference range was not used to interpret this result as normal/abnormal. NRBC x10^3 (test code = 1605764542) See_Comment [Automated messa ge] The system which generated this result transmitted reference range: 10*3/?L. The reference range was not used to interpret this result as normal/abnormal. GRAN MAT (NEUT) % (test code = 770-8) 74.7 % IMM GRAN % (test code = 8465281848) 0.30 % LYMPH % (test code = 736-9) 18.3 % MONO % (test code = 5905-5) 4.0 % EOS % (test code = 713-8) 2.5 % BASO % (test code = 706-2) 0.2 % GRAN MAT x10^3(ANC) (test code = 4160315607) 6.92 10*3/uL 1.88-7.09 IMM GRAN x10^3 (test code = 0929963278) 0.03 10*3/uL 0.00-0.06 LYMPH x10^3 (test code = 731-0) 1.69 10*3/uL 1.32-3.29 MONO x10^3 (test code = 742-7) 0.37 10*3/uL 0.33-0.92 EOS x10^3 (test code = 711-2) 0.23 10*3/uL 0.03-0.39 BASO x10^3 (test code = 704-7) 0.01-0.07 Lab Interpretation (test code = 97071-1) Abnormal [facility] WITH [id number] 06:03:10* Test Item Value Reference Range Interpretation Comme nts WBC (test code = 6690-2) 9.26 See_Comment [Automated messa ge] The system which generated this result transmitted reference range: 4.30 - 11.10 10*3/?L. The reference range was not used to interpret this result as normal/abnormal. RBC (test code = 789-8) 3.40 See_Comment L [Automated messa ge] The system which generated this result transmitted reference range: 3.93 - 5.25 10*6/?L. The reference range was not used to interpret this result as normal/abnormal. HGB (test code = 718-7) 9.1 g/dL 11.6-15.0 L HCT (test code = 4544-3) 28.1 % 35.7-45.2 L MCV (test code = 787-2) 82.6 fL 80.6-95.5 MCH (test code = 785-6) 26.8 pg 25.9-32.8 MCHC (test code = 786-4) 32.4 g/dL 31.6-35.1 RDW-SD (test code = 19822-1) 38.5 fL 39.0-49.9 L RDW-CV (test code = 788-0) 12.7 % 12.0-15.5 PLT (test code = 777-3) 107 See_Comment L [Automated messa ge] The system which generated this result transmitted reference range: 166 - 358 10*3/?L. The reference range was not used to interpret this result as normal/abnormal. MPV (test code = 37298-2) 12.1 fL 9.5-12.9 NRBC/100 WBC (test code = 1318489103) 0.0 See_Comment [Automated me ssage] The system which generated this result transmitted reference range: 0.0 - 10.0 /100 WBCs. The reference range was not used to interpret this result as normal/abnormal. NRBC x10^3 (test code = 2736352966) See_Comment [Automated messa ge] The system which generated this result transmitted reference range: 10*3/?L. The reference range was not used to interpret this result as normal/abnormal. GRAN MAT (NEUT) % (test code = 770-8) 74.7 % IMM GRAN % (test code = 1228482801) 0.30 % LYMPH % (test code = 736-9) 18.3 % MONO % (test code = 5905-5) 4.0 % EOS % (test code = 713-8) 2.5 % BASO % (test code = 706-2) 0.2 % GRAN MAT x10^3(ANC) (test code = 9586884516) 6.92 10*3/uL 1.88-7.09 IMM GRAN x10^3 (test code = 0839956257) 0.03 10*3/uL 0.00-0.06 LYMPH x10^3 (test code = 731-0) 1.69 10*3/uL 1.32-3.29 MONO x10^3 (test code = 742-7) 0.37 10*3/uL 0.33-0.92 EOS x10^3 (test code = 711-2) 0.23 10*3/uL 0.03-0.39 BASO x10^3 (test code = 704-7) 0.01-0.07 Lab Interpretation (test code = 68022-1) Abnormal [facility] WITH [id number] 06:03:10* Test Item Value Reference Range Interpretation Comme nts WBC (test code = 6690-2) 9.26 See_Comment [Automated messa ge] The system which generated this result transmitted reference range: 4.30 - 11.10 10*3/?L. The reference range was not used to interpret this result as normal/abnormal. RBC (test code = 789-8) 3.40 See_Comment L [Automated messa ge] The system which generated this result transmitted reference range: 3.93 - 5.25 10*6/?L. The reference range was not used to interpret this result as normal/abnormal. HGB (test code = 718-7) 9.1 g/dL 11.6-15.0 L HCT (test code = 4544-3) 28.1 % 35.7-45.2 L MCV (test code = 787-2) 82.6 fL 80.6-95.5 MCH (test code = 785-6) 26.8 pg 25.9-32.8 MCHC (test code = 786-4) 32.4 g/dL 31.6-35.1 RDW-SD (test code = 90083-5) 38.5 fL 39.0-49.9 L RDW-CV (test code = 788-0) 12.7 % 12.0-15.5 PLT (test code = 777-3) 107 See_Comment L [Automated messa ge] The system which generated this result transmitted reference range: 166 - 358 10*3/?L. The reference range was not used to interpret this result as normal/abnormal. MPV (test code = 84696-3) 12.1 fL 9.5-12.9 NRBC/100 WBC (test code = 6169607882) 0.0 See_Comment [Automated [employer] ssage] The system which generated this result transmitted reference range: 0.0 - 10.0 /100 WBCs. The reference range was not used to interpret this result as normal/abnormal. NRBC x10^3 (test code = 5075856276) See_Comment [Automated messa ge] The system which generated this result transmitted reference range: 10*3/?L. The reference range was not used to interpret this result as normal/abnormal. GRAN MAT (NEUT) % (test code = 770-8) 74.7 % IMM GRAN % (test code = 5662523274) 0.30 % LYMPH % (test code = 736-9) 18.3 % MONO % (test code = 5905-5) 4.0 % EOS % (test code = 713-8) 2.5 % BASO % (test code = 706-2) 0.2 % GRAN MAT x10^3(ANC) (test code = 0114933795) 6.92 10*3/uL 1.88-7.09 IMM GRAN x10^3 (test code = 4936980745) 0.03 10*3/uL 0.00-0.06 LYMPH x10^3 (test code = 731-0) 1.69 10*3/uL 1.32-3.29 MONO x10^3 (test code = 742-7) 0.37 10*3/uL 0.33-0.92 EOS x10^3 (test code = 711-2) 0.23 10*3/uL 0.03-0.39 BASO x10^3 (test code = 704-7) 0.01-0.07 Lab Interpretation (test code = 91387-4) [facility] [id number] 14:19:00* Test Item Value Reference Range Interpretation Comme [...] mg/dL 65-110 N BLOOD UREA NITROGEN (test co de = BUN) 9 mg/dL 7-18 N GLOMERULAR FILTRATION RATE ( test code = GFR) 70 ml/min >60 N CREATININE (test code = CREAT) 0.9 mg/dL 0.5-1.0 N CALCIUM (test code = CA) 7.8 mg/dL 8.4-10.2 L LIPID PROFILE (CORONARY RISK)2020-07-23 14:19:00* Test Item Value Reference Range Interpretation Comme nts TRIGLYCERIDES (test code = TRIG) 160 mg/dL H Normal < 150 Borderline high 150 - 199 High 200 - 499 Very High > 500 CHOLESTEROL (test code = CHOL) 148 mg/dL 120-200 N HDL CHOLESTEROL (test code = HDL) 38 mg/dL HDL <40 = Low HD L Cholesterolhdl >60 = High HDL CholesterolSource: NCEP-ATPIII LIPOPROTEIN LDL (test code = LDL) 78 mg/dL <130 (DESIRABLE) 130-159 (BORDERLINE) >=160 (HIGH) LIVER [id number] 14:19:00* Test Item Value Reference Range Interpretation Comme nts TOTAL PROTEIN (test code = PROT) 7.0 gm/dL 6.3-8.2 N ALBUMIN (test code = ALB) 3.4 gm/dL 3.4-4.8 N BILIRUBIN TOTAL (test code = BILT) 0.6 mg/dL 0.2-1.0 N BILIRUBIN DIRECT (test code = BILD) 0.2 mg/dL <0.2 N SGOT/AST (test code = AST) 35 units/L 15-37 N SGPT/ALT (test code = ALT) 81 units/L 12-78 H ALKALINE PHOSPHATASE TOTAL ( test code = ALKP) 93 units/L 46-116 N HCG SERUM [id number] 14:19:00* Test Item Value Reference Range Interpretation Comme nts HCG SERUM QUAL (test code = HCGQL) NEGATIVE HEPATITIS C BY [id number] 14:19:00* Test Item Value Reference Range Interpretation Comme nts HEPATITIS C BY PCR (test code = HEPCT) Negative Negative Negative: HC V RNA Not DetectedPerformed At: Lab[address] [id number] Sanjai MD Ph:[phone] UTERUS,OTHER THAN PROLAPSE/[id number] 17:11:00* Test Item Value Reference Range Interpretation Comme nts UTERUS,OTHER THAN PROLAPSE/ZULEYKA (test code = UTERUSOTH) --------RUN DATE: 07/22/20 [facility] PAGE 1 RUN TIME: 1315 Specimen Inquiry RUN USER: INTERFACE --------PATIENT: [place] LOC: [facility] #: [id number] AGE/SX: 39/F ROOM: [facility] RE07/17/20REG DR: Maribel Everett MD : 82 BED: A DIS: 07/19/20 STATUS: DIS IN TLOC: -------- SPEC #: [id number] RECD: 07/18/20 STATUS: HE RETori #: [id number] JOHANA: 07/18/20- SUBM DR: Maribel Everett MD ENTERED: 07/18/20-1521 SP TYPE: UTERUSOTH OTHR DR: Last Pedro MD ORDERED: LEVEL V SURGICA CODES: [id number] - UTERUS, NOS COPIES TO: Maribel Everett MD [address] [facility] [address] [place] [address] [id number] Last Pedro MD [facility] [address], [place] [address] PROCEDURES: LEVEL V SURGICA (Incomplete) TISSUES: UTERUS, [...] fallopian tube - no pathologic alterations CPT: 71035 cds/wpd GROSS DESCRIPTION ANATOMIC SOURCE OF TISSUE (per Requisition): Uterus, cervix, bilateral tubes The specimen is received in a formalin-filled container, labeled with the patient's CONTINUED ON NEXT PAGE --------RUN DATE: 07/22/20 [facility] PAGE 2 RUN TIME: 1315 Specimen Inquiry RUN USER: INTERFACE --------SPEC #: [id number] PATIENT: [place] #[id number] (Continued) GROSS DESCRIPTION (Continued) name and designated [...] sectioned to reveal a arredondo-pink cut surface. Line Repairer sections are submitted as follows: A1 - anterior cervix A2 - posterior cervix A3 - anterior endometrium and large submucosal nodule A4 - large submucosal nodule A5 - posterior endometrium and smaller submucosal nodule A6 through A8 - nodules A9 - nodule to serosa and detached nodule A10 - right fallopian tube A11 - left fallopian tube hi 07/18/20 Signed ____ Randy Estrada 07/21/20 1711 -------- END OF REPORT CBC W/AUTO [id number] 06:46:00* Test Item Value Reference Range Interpretation Comme nts WHITE BLOOD CELL (test code = WBC) [...] pg 27-35 L MEAN CELL HGB CONCETRATION ( test code = MCHC) 29.3 gm/dL 32.2-34.1 L RED CELL DISTRIBUTION WIDTH (test code = RDW) 23.5 % 12.4-16.5 H PLATELET COUNT (test code = PLT) 203 K/mm3 133-385 N IMMATURE PLATELET FRACTION ( test code = IPF) 12.6 % 0.0-10.8 H NEUTROPHIL % (test code = NT%) 85.7 [...] = BA#) 0.0 K/mm3 RBC MORPHOLOGY REQUIRED (judy t code = RBCM) ABNORMAL NORMAL ANISO 1+ PLATELET MORPHOLOGY REQUIRED (test code = PLTMR) NORMAL NORMAL CBC W/AUTO [id number] 05:53:00* Test Item Value Reference Range Interpretation Comme nts WHITE BLOOD CELL (test code = WBC) 6.0 K/mm3 6.6-12.1 L RED BLOOD CELL (test code = RBC) 3.62 M/mm3 3.45-5.01 N HEMOGLOBIN (test code = HGB) 8.1 g/dL 10.7-13.9 L HEMATOCRIT (test code = HCT) 28.3 % 32.1-42.1 L MEAN CELL VOLUME (test code = MCV) 78 fL 84.1-94.8 L MEAN CELL HGB (test code = MCH) 22.4 pg 27-35 L MEAN CELL HGB CONCETRATION (test code = MCHC) 28.6 gm/dL 32.2-34.1 L RED CELL DISTRIBUTION WIDTH (test code = RDW) 23.1 % 12.4-16.5 H PLATELET COUNT (test code = PLT) 203 K/mm3 133-385 N MEAN PLATELET VOLUME (test code = MPV) TEST NOT PERFORMED fl 9.1-12.7 NEUTROPHIL % (test code = NT%) 56.0 % 56.5-79.4 L LYMPHOCYTE % (test code = LY%) 30.1 % 14.3-34.3 N MONOCYTE % (test code = MO%) 10.8 % 5.1-10.4 H EOSINOPHIL % (test code = EO%) 2.3 % 0.1-3.0 N BASOPHIL % (test code = BA%) 0.5 % 0.1-1.0 N NEUTROPHIL # (test code = NT#) 3.4 K/mm3 LYMPHOCYTE # (test code = LY#) 1.8 K/mm3 MONOCYTE # (test code = MO#) 0.7 K/mm3 EOSINOPHIL # (test code = EO#) 0.14 K/mm3 BASOPHIL # (test code = BA#) 0.0 K/mm3 RBC MORPHOLOGY REQUIRED (test code = RBCM) ABNORMAL NORMAL ANISO=1+HYPO =2+ PLATELET MORPHOLOGY REQUIRED (test code = PLTMR) NORMAL NORMAL COVID 19 Asymptomatic IH [id number] 18:19:00* Test Item Value Reference Range Interpretation Comme nts COVID 19 Asymptomatic IH AG (test code = COVNONPUIAG) NEGATIVE NEGATIVE This test has be en authorized only for the detection ofproteins from SARS-CoV-2, not for any other viruses orpathogens. Negative results should be treated as presumptive andconfirmed with a molecular assay, if necessary for patientmanagement. Negative results do not rule out COVID-19 andshould not be used as the sole basis for treatment orpatient management decisions, including infection controldecisions. Negative results should be considered in thecontext of a patient's recent exposures, history and thepresence of clinical signs and symptoms consistent withCOVID-19. This test has not been FDA cleared or approved; the test hasbeen authorized by FDA under an Emergency Use Authorization(EUA) for use by laboratories certified under the CLIA thatmeet the requirements to perform moderate, high or waivedcomplexity tests. This test is authorized for use at thePoint of Care (POC), i.e., in patient care settingsoperating under a CLIA Certificate of Waiver, Certificate ofCompliance, or Certificate of Accreditation. This test is only authorized for the duration of thedeclaration that circumstances exist justifying theauthorization of emergency use of in vitro diagnostic testsfor detection and/or diagnosis of COVID-19 under Sdhtdrm515(b)(1) of the Act, 21 U.S.C. 360bbb-3(b)(1), unless theauthorization is terminated or revoked sooner. AG HEPATITIS B [id number] 16:30:00* Test Item Value Reference Range Interpretation Comme nts AG HEPATITIS B SURFACE (test code = HBSAG) NONREACTIVE NONREACTIVE AB HIV 1 16:30:00* Test Item Value Reference Range Interpretation Comme nts AB HIV 1 2 (test code = [id number]) NONREACTIVE NONREACTIVE Done by [employer] HIV Ag/Ab Combo Screen AG HEPATITIS B [id number] 16:16:00* Test Item Value Reference Range Interpretation Comme nts AG HEPATITIS B SURFACE (test code = HBSAG) NONREACTIVE NONREACTIVE AB HIV 1 16:16:00* Test Item Value Reference Range Interpretation Comme nts AB HIV 1 2 (test code = [id number]) NONREACTIVE URINALYSIS [id number] 16:01:00* Test Item Value Reference Range Interpretation Comme nts UA COLOR (test code = COLU) STRAW YELLOW UA APPEARANCE (test code = APPU) CLEAR CLEAR UA GLUCOSE DIPSTICK (test co de = DGLUU) NEGATIVE NEG UA BILIRUBIN DIPSTICK (test code = BILU) NEGATIVE NEG UA KETONE DIPSTICK (test cod e = KETU) NEGATIVE NEG UA SPECIFIC GRAVITY (test co de = SGU) 1.008 1.001-1.035 N UA BLOOD DIPSTICK (test code = LAILA) 2+ NEG A UA PH DIPSTICK (test code = CATHI) 7.0 5-9 UA PROTEIN DIPSTICK (test co de = PROU) NEGATIVE NEG UA UROBILINIOGEN DIPSTICK (test code = URO) NEGATIVE mg/dL NEG UA NITRITE DIPSTICK (test co de = HEYDI) NEG NEG UA LEUKOCYTE ESTERASE DIPSTI CK (test code = LEUU) NEG NEG UA WBC (test code = WBCU) 0-2 #/hpf NONE SEEN UA RBC (test code = RBCU) 0-2 #/hpf NONE SEEN UA EPITHELIAL CELLS (test co de = EPIU) RARE #/HPF RARE-FEW UA BACTERIA (test code = BACU) NEGATIVE /HPF RARE-FEW UA MUCUS (test code = MUCU) RARE NONE SEEN CBC W/AUTO [id number] 15:56:00* Test Item Value Reference Range Interpretation Comme nts WHITE BLOOD CELL (test code = WBC) [...] 27-35 L MEAN CELL HGB CONCETRATION (test code = MCHC) 28.3 gm/dL 32.2-34.1 L RED CELL DISTRIBUTION WIDTH (test code = RDW) 22.5 % 12.4-16.5 H PLATELET COUNT (test code = PLT) 219 [...] 0.0 K/mm3 RBC MORPHOLOGY REQUIRED (test code = RBCM) ABNORMAL NORMAL 2+ HYPO; 1+ A NISO; 1+ SCHISTO PLATELET MORPHOLOGY REQUIRED (test code = PLTMR) NORMAL NORMAL CHEMISTRY 7 [id number] 15:47:00* Test Item Value Reference Range Interpretation Comme [...] mg/dL 65-110 N BLOOD UREA NITROGEN (test co de = BUN) 9 mg/dL 7-18 N GLOMERULAR FILTRATION RATE ( test code = GFR) 70 ml/min >60 N CREATININE (test code = CREAT) 0.9 mg/dL 0.5-1.0 N CALCIUM (test code = CA) 7.8 mg/dL 8.4-10.2 L LIPID PROFILE (CORONARY RISK)2020-07-17 15:47:00* Test Item Value Reference Range Interpretation Comme nts TRIGLYCERIDES (test code = TRIG) 160 mg/dL H Normal < 150 Borderline high 150 - 199 High 200 - 499 Very High > 500 CHOLESTEROL (test code = CHOL) 148 mg/dL 120-200 N HDL CHOLESTEROL (test code = HDL) 38 mg/dL HDL <40 = Low HD L Cholesterolhdl >60 = High HDL CholesterolSource: NCEP-ATPIII LIPOPROTEIN LDL (test code = LDL) 78 mg/dL <130 (DESIRABLE) 130-159 (BORDERLINE) >=160 (HIGH) LIVER [id number] 15:47:00* Test Item Value Reference Range Interpretation Comme nts TOTAL PROTEIN (test code = PROT) 7.0 gm/dL 6.3-8.2 N ALBUMIN (test code = ALB) 3.4 gm/dL 3.4-4.8 N BILIRUBIN TOTAL (test code = BILT) 0.6 mg/dL 0.2-1.0 N BILIRUBIN DIRECT (test code = BILD) 0.2 mg/dL <0.2 N SGOT/AST (test code = AST) 35 units/L 15-37 N SGPT/ALT (test code = ALT) 81 units/L 12-78 H ALKALINE PHOSPHATASE TOTAL ( test code = ALKP) 93 units/L 46-116 N HCG SERUM [id number] 15:47:00* Test Item Value Reference Range Interpretation Comme nts HCG SERUM QUAL (test code = HCGQL) NEGATIVE HEPATITIS C BY [id number] 15:47:00* Test Item Value Reference Range Interpretation Comme nts HEPATITIS C BY PCR (test code = HEPCT) NONE DET ECT CHEMISTRY 7 [id number] 15:33:00* Test Item Value Reference Range Interpretation Comme nts SODIUM (test code = NA) mEq/L 135-145 [...] CA) mg/dL 8.4-10.2 LIPID PROFILE (CORONARY RISK)2020-07-17 15:33:00* Test Item Value Reference Range Interpretation Comme nts TRIGLYCERIDES (test code = TRIG) mg/dL CHOLESTEROL (test code = CHOL) mg/dL 120-200 HDL CHOLESTEROL (test code = HDL) mg/dL LIPOPROTEIN LDL (test code = LDL) mg/dL LIVER [id number] 15:33:00* Test Item Value Reference Range Interpretation Comme nts TOTAL PROTEIN (test code = PROT) gm/dL 6.3-8.2 ALBUMIN (test code = ALB) gm/dL 3.4-4.8 BILIRUBIN TOTAL (test code = BILT) mg/dL 0.2-1.0 BILIRUBIN DIRECT (test code = BILD) mg/dL <0.2 SGOT/AST (test code = AST) units/L 15-37 SGPT/ALT (test code = ALT) units/L 12-78 ALKALINE PHOSPHATASE TOTAL ( test code = ALKP) units/L 46-116 HCG SERUM [id number] 15:33:00* Test Item Value Reference Range Interpretation Comme nts HCG SERUM QUAL (test code = HCGQL) NEGATIVE HEPATITIS C BY [id number] 15:33:00* Test Item Value Reference Range Interpretation Comme nts HEPATITIS C BY PCR (test code = HEPCT) NONE DET ECT CBC W/AUTO [id number] 15:16:00* Test Item Value Reference Range Interpretation Comme nts WHITE BLOOD CELL (test code = WBC) [...] pg 27-35 L MEAN CELL HGB CONCETRATION ( test code = MCHC) 28.3 gm/dL 32.2-34.1 L RED CELL DISTRIBUTION WIDTH (test code = RDW) 22.5 % 12.4-16.5 H PLATELET COUNT (test code = PLT) 219 [...] = BA#) 0.0 K/mm3 RBC MORPHOLOGY REQUIRED (judy t code = RBCM) NORMAL PLATELET MORPHOLOGY REQUIRED (test code = PLTMR) NORMAL HGB [id number] 13:41:00* Test Item Value Reference Range Interpretation Comme nts HEMOGLOBIN (test code = HGB) 7.9 g/dL 10.7-13.9 L Results verified by repeat analysis HEMATOCRIT (test code = HCT) 26.7 % 32.1-42.1 L Results verified by repeat analysis CBC W/AUTO [id number] 06:55:00* Test Item Value Reference Range Interpretation Comme nts WHITE BLOOD CELL (test code = WBC) 6.4 K/mm3 6.6-12.1 L RED BLOOD CELL (test code = RBC) 2.68 M/mm3 3.45-5.01 L HEMOGLOBIN (test code = HGB) 5.6 g/dL 10.7-13.9 LL RESULTS CALLED TO OWEN JeffREAD BACK & CONFIRMED? Y.BY FDAPHNIE.LGL0 07/17/20621.RESULTS VERIFIED BY REPEAT ANALYSIS HEMATOCRIT (test code = HCT) 20.5 % 32.1-42.1 L MEAN CELL VOLUME (test code = MCV) 77 fL 84.1-94.8 L MEAN CELL HGB (test code = MCH) 20.9 pg 27-35 L MEAN CELL HGB CONCETRATION (test code = MCHC) 27.3 gm/dL 32.2-34.1 L RED CELL DISTRIBUTION WIDTH (test code = RDW) 23.5 % 12.4-16.5 H PLATELET COUNT (test code = PLT) 188 K/mm3 133-385 N MEAN PLATELET VOLUME (test code = MPV) TEST NOT PERFORMED fl 9.1-12.7 NEUTROPHIL % (test code = NT%) 59.4 % 56.5-79.4 N LYMPHOCYTE % (test code = LY%) 29.5 % 14.3-34.3 N MONOCYTE % (test code = MO%) 8.9 % 5.1-10.4 N EOSINOPHIL % (test code = EO%) 1.6 % 0.1-3.0 N BASOPHIL % (test code = BA%) 0.3 % 0.1-1.0 N NEUTROPHIL # (test code = NT#) 3.8 K/mm3 LYMPHOCYTE # (test code = LY#) 1.9 K/mm3 MONOCYTE # (test code = MO#) 0.6 K/mm3 EOSINOPHIL # (test code = EO#) 0.10 K/mm3 BASOPHIL # (test code = BA#) 0.0 K/mm3 RBC MORPHOLOGY REQUIRED (test code = RBCM) ABNORMAL NORMAL HYPO 2+ANISO 1+ PLATELET MORPHOLOGY REQUIRED (test code = PLTMR) NORMAL NORMAL CHEMISTRY 7 [id number] 06:39:00* Test Item Value Reference Range Interpretation Comme nts SODIUM (test code = NA) 139 mEq/L 135-145 N POTASSIUM (test code = K) 3.8 mEq/L 3.5-5.0 N CHLORIDE (test code = CL) 106 mEq/L 100-115 N CARBON DIOXIDE (test code = CO2) 23 mEq/L 22-31 N ANION GAP (test code = GAP) 14.00 10-20 N GLUCOSE (test code = GLU) 89 mg/dL 65-110 N BLOOD UREA NITROGEN (test co de = BUN) 7 mg/dL 7-18 N GLOMERULAR FILTRATION RATE ( test code = GFR) 94 ml/min >60 N CREATININE (test code = CREAT) 0.7 mg/dL 0.5-1.0 N CALCIUM (test code = CA) 7.7 mg/dL 8.4-10.2 L CBC W/AUTO [id number] 06:23:00* Test Item Value Reference Range Interpretation Comme nts WHITE BLOOD CELL (test code = WBC) 6.4 K/mm3 6.6-12.1 L RED BLOOD CELL (test code = RBC) 2.68 M/mm3 3.45-5.01 L HEMOGLOBIN (test code = HGB) 5.6 g/dL 10.7-13.9 LL RESULTS CALLED TO OWEN JeffREAD BACK & CONFIRMED? Y.BY FRubenLAB.LGL0 07/17/20621.RESULTS VERIFIED BY REPEAT ANALYSIS HEMATOCRIT (test code = HCT) 20.5 % 32.1-42.1 L MEAN CELL VOLUME (test code = MCV) 77 fL 84.1-94.8 L MEAN CELL HGB (test code = MCH) 20.9 pg 27-35 L MEAN CELL HGB CONCETRATION (test code = MCHC) 27.3 gm/dL 32.2-34.1 L RED CELL DISTRIBUTION WIDTH (test code = RDW) 23.5 % 12.4-16.5 H PLATELET COUNT (test code = PLT) 188 K/mm3 133-385 N MEAN PLATELET VOLUME (test code = MPV) TEST NOT PERFORMED fl 9.1-12.7 NEUTROPHIL % (test code = NT%) 59.4 % 56.5-79.4 N LYMPHOCYTE % (test code = LY%) 29.5 % 14.3-34.3 N MONOCYTE % (test code = MO%) 8.9 % 5.1-10.4 N EOSINOPHIL % (test code = EO%) 1.6 % 0.1-3.0 N BASOPHIL % (test code = BA%) 0.3 % 0.1-1.0 N NEUTROPHIL # (test code = NT#) 3.8 K/mm3 LYMPHOCYTE # (test code = LY#) 1.9 K/mm3 MONOCYTE # (test code = MO#) 0.6 K/mm3 EOSINOPHIL # (test code = EO#) 0.10 K/mm3 BASOPHIL # (test code = BA#) 0.0 K/mm3 RBC MORPHOLOGY REQUIRED (test code = RBCM) NORMAL PLATELET MORPHOLOGY REQUIRED (test code = PLTMR) NORMAL - US TRANSVAGINAL W/[id number] 21:26:00 [facility] 1980 Sex: F Patient Name: DEL LAY Unit No: [id number] EXAMS: CPT CODE: [id number] US TRANSVAGINAL W/PELVIS 96398 PROCEDURE: PELVIC ULTRASOUND INDICATION: Pelvic pain. History of fibroid. Anemia. COMPARISON: None. TRANSABDOMINAL SCAN: The uterus is enlarged and heterogeneous measuring 12 x 6.2 x 7.8 cm with partially obscured endometrial stripe thought to measure 5 mm thickness. Few heterogeneous round hypoechoic uterine fibroids are seen as described below: Right anterior in tramural, 2.3 x 2.6 x 2.4 cm Left [...] ovary is partially obscured measuring 2.6 x 2.2x 2.4 cm with arterial waveforms documented. No [...] 3.3 cm containing 3.1 x 2.7 x 2.6cm anechoic avascular cyst with posterior acoustic enhancement. Left ovary is partially obscured appearing normal measuring 2.4 x 1.6 x 1.7 cm. Arterial waveforms are documented to each ovary. IMPRESSION: 1. Enlarged heterogeneous leiomyomatous uterus. One of the fibroids appears submucosal in position. This less likely represents endometrial polyp. 2. Simple right ovarian cyst. SL: SG-H at 2126 Reported and signed by: Kd Rivera MD [facility] NAME: DEL LAY LARISSA Radiology Department PHYS: NESSH. Maribel Everett MD [address] : 1980 AGE: 39 SEX: F [place], [place] [address] LOC: DENISE Fajardo PHONE #: [phone] EXAM DATE: 07/16/2020 STATUS: ADM IN FAX #: [phone] RAD NO: [id number] Page 1 Signed Report (CONTINUED) Patient Name: DEL LAYELLE Unit No: [id number] EXAMS: CPT CODE: [id number] US TRANSVAGINAL W/PELVIS 05645 (Continued) CC: Mairbel Everett MD Technologist: Lisandra Garza, [facility] Probe: [id number] Trnscrbd D/ (2125) [email or web address] Orig Print D/T: S: 07/16/2020 (2128) The [facility] NAME: DEL LAY LARISSA Radiology Department PHYS: Maribel Downs MD [address] : 1980 AGE: 39 SEX: F [place] [address] LOC: DENISE 5 PHONE #: [phone] EXAM DATE: 07/16/2020 STATUS: ADM IN FAX #: [phone] RAD NO: [id number] Page 2 Signed Report Patient Name: DEL ARROYO Unit No: [id number] EXAMS: CPT CODE: [id number] US TRANSVAGINAL W/PELVIS 99246 (Continued) The [facility] NAME: GIADEL DIAS Radiology Department PHYS: Maribel Del Rio MD [address] : 1980 AGE: 39 SEX: F [place], [place] [address]YWAO NO: [id number] LOC: DENISE 5 PHONE #: [phone] EXAM DATE: 07/16/2020 STATUS: ADM IN FAX#: [phone] RAD NO: [id number] Page 3 Signed Report- DUP AB/PEL/SC/[id number] 21:26:00 [facility] : 1980 Sex: F Patient Name: DEL LAY Unit No: [id number] EXAMS: CPT CODE: [id number] DUP AB/PEL/SC/LTD 78371 PROCEDURE: PELVIC ULTRASOUND INDICATION: Pelvic pain. History of fibroid.Anemia. COMPARISON: None. TRANSABDOMINAL SCAN: The uterus is [...] waveforms are documented to each ovary. IMPRESSION: 1.Enlarged heterogeneous leiomyomatous uterus. One of the fibroids appears submucosal in position. This less likely represents endometrial polyp. 2. Simple right ovarian cyst. SL: SG-H at 2125 Reported and signed by: Kd Rivera MD The [facility] NAME: DEL LAY LARISSA Radiology Department PHYS: Maribel Bailey MD [address] : 1980 AGE: 39 SEX: F [place] [id number] LOC: JOSELUIS 5 PHONE #: [phone] EXAM DATE: 07/16/2020 STATUS: ADM IN FAX #: [phone] RAD NO: [id number] Page 1 Signed Report (CONTINUED) Patient Name: DEL LAY Unit No: [id number] EXAMS: CPT CODE: [id number] DUP AB/PEL/SC/LTD 74023 (Continued) CC: Maribel Everett MD Techn ologist: Lisandra Garza RDMS Probe: Trnscrbd D/ (2125) [email or web address] Orig Print D/T: S: 07/16/2020 (2128) The [facility] NAME: DEL LAY LARISAS Radiology Department PHYS: Maribel Everett MD [address] : 1980 AGE: 39 SEX: F [place] [id number] LOC: JOSELUIS 5 PHONE #: [phone] EXAM DATE: 07/16/2020 STATUS: ADM IN FAX #: [phone] RAD NO: [id number] Page 2 Signed Report Patient Name: DEL LAY Unit No: [id number] EXAMS: CPT CODE: [id number] DUP AB/PEL/SC/LTD 99917 (Continued) The [facility] NAME: DEL LAY LARISSA Radiology Department PHYS: Maribel Everett MD [address] : 1980 AGE: 39 SEX: F [place], [place] [address] LOC: DENISE Fajardo PHONE #: [phone] EXAM DATE: 07/16/2020 STATUS: ADM IN FAX #: [phone] RAD NO: [id number] 3 Signed Report- US PELVIS [id number] 21:26:00 [facility] : 1980 Sex: F Patient Name: DEL LAY Unit No: [id number] EXAMS: CPT CODE: [id number] US PELVIS COMPLETE 76287 PROCEDURE: PELVIC ULTRASOUND INDICATION: Pelvic pain. History [...] acoustic enhancement. Left ovary is partially obscured appearingnormal measuring 2.4 x 1.6 x 1.7 cm. Arterial waveforms are documented to each ovary. IMPRESSION: 1. Enlarged heterogeneous leiomyomatous uterus. One of the fibroids appears submucosal in position. This less likely represents endometrial polyp. 2. Simple right ovarian cyst. SL: SG-H at 2126 Reported and signed by: Kd Rivera MD [facility] NAME: DEL LAY Radiology Department PHYS: TAYLER Jason Smith Pittman [address] : 1980 AGE: 39 SEX: F [place], [place] [address] LOC: DENISE Fajardo PHONE #: [phone] EXAM DATE: 07/16/2020 STATUS: ADM IN FAX #: [phone] RAD NO: [id number] Page 1 Signed Report (CONTINUED) Patient Name: DEL LAY Unit No: [id number] EXAMS: CPT CODE: [id number] US PELVIS COMPLETE 48187 (Continued) CC: Technologist: Lisandra Garza RDMS Probe: Trnscrbd D/ (2125) [id number] Orig Print D/T: S: 07/16/2020 (2128) [facility] NAME: DEL LAY Radiology Department PHYS: GRAEMESmith Perea [address] : 1980 AGE: 39 SEX: F [place], [place] [address] LOC: DENISE 5 PHONE #: [phone] EXAM DATE: 07/16/2020 STATUS: ADM IN FAX #: [phone] RAD NO: [id number] Page 2 Signed Report Patient Name: DEL LAY Unit No: [id number] EXAMS: CPT CODE: [id number] US PELVIS COMPLETE 18094 (Continued) [facility] NAME: DEL LAY Radiology Department PHYS: Smith Bojorquez [address] : 1980 AGE: 39 SEX: F [place], [place] [address] LOC: JOSELUIS 5 PHONE #: [phone] EXAM DATE: 07/16/2020 STATUS: ADM IN FAX #: [phone] RAD NO: [id number] Page 3 Signed ReportHCG SERUM 2020-07-16 21:04:00* Test Item Value Reference Range Interpretation Comme nts HCG SERUM (test code = HCG) <1 INTERPRETATION:V ALUES BETWEEN 15-20 milliInternational units/mL NEED TO BERETESTED WITHIN 48 HOURS. All units for these ranges are in milliInternationalunits/mL0-1 WK AFTER CONCEPTION 0-50 1-2 WKS AFTER CONCEPTION 40-3002-3 WKS AFTER CONCEPTION 100-1,0003-4 WKS AFTER CONCEPTION 500-6,0001-2 MONTHS AFTER CONCEPTION 5,000-200,0002-3 MONTHS AFTER CONCEPTION 10,000-100,0002ND TRIMESTER 3,000-50,0003RD TRIMESTER 1,000-50,000 SPECIMENS WITH AN HCG LEVEL FROM 0-6 milliInternationalunits/mL SHOULD BE CONSIDERED NEGATIVE CHEMISTRY 7 [id number] 21:02:00* Test Item Value Reference Range Interpretation Comme [...] mg/dL 65-110 N BLOOD UREA NITROGEN (test co de = BUN) 8 mg/dL 7-18 N GLOMERULAR FILTRATION RATE ( test code = GFR) 80 ml/min >60 N CREATININE (test code = CREAT) 0.8 mg/dL 0.5-1.0 N CALCIUM (test code = CA) 7.7 mg/dL 8.4-10.2 L CBC W/AUTO [id number] 20:44:00* Test Item Value Reference Range Interpretation Comme nts WHITE BLOOD CELL (test code = WBC) 8.6 K/mm3 6.6-12.1 N RED BLOOD CELL (test code = RBC) 2.41 M/mm3 3.45-5.01 L HEMOGLOBIN (test code = HGB) 4.1 g/dL 10.7-13.9 LL RESULTS VERIFIED BY REPEAT ANALYSISRESULTS CALLED TO OBI A.READ BACK & CONFIRMED? Y.BY F.LAB. 07/16/202022. HEMATOCRIT (test code = HCT) 17.1 % 32.1-42.1 LL RESULTS VERIFIED BY REPEAT ANALYSISRESULTS CALLED TO OBI A.READ BACK & CONFIRMED? Y.BY F.LAB. 07/16/202023. MEAN CELL VOLUME (test code = MCV) 71 fL 84.1-94.8 L MEAN CELL HGB (test code = MCH) 17.0 pg 27-35 L MEAN CELL HGB CONCETRATION (test code = MCHC) 24.0 gm/dL 32.2-34.1 L RED CELL DISTRIBUTION WIDTH (test code = RDW) 21.1 % 12.4-16.5 H PLATELET COUNT (test code = PLT) 238 K/mm3 133-385 N NEUTROPHIL % (test code = NT%) 72.5 % 56.5-79.4 N LYMPHOCYTE % (test code = LY%) 19.5 % 14.3-34.3 N MONOCYTE % (test code = MO%) 6.5 % 5.1-10.4 N EOSINOPHIL % (test code = EO%) 0.9 % 0.1-3.0 N BASOPHIL % (test code = BA%) 0.1 % 0.1-1.0 N NEUTROPHIL # (test code = NT#) 6.2 K/mm3 LYMPHOCYTE # (test code = LY#) 1.7 K/mm3 MONOCYTE # (test code = MO#) 0.6 K/mm3 EOSINOPHIL # (test code = EO#) 0.08 K/mm3 BASOPHIL # (test code = BA#) 0.0 K/mm3 RBC MORPHOLOGY REQUIRED (test code = RBCM) ABNORMAL NORMAL +3 HYPOCHROMIA+1 ANISOCYTOSIS PLATELET MORPHOLOGY REQUIRED (test code = PLTMR) NORMAL NORMAL UA RFLX MICR CULT IF [id number] 20:34:00* Test Item Value Reference Range Interpretation Comme nts UA COLOR (test code = COLU) STRAW YELLOW UA APPEARANCE (test code = APPU) CLEAR CLEAR UA GLUCOSE DIPSTICK (test co de = DGLUU) NEGATIVE NEG UA BILIRUBIN DIPSTICK (test code = BILU) NEGATIVE NEG UA KETONE DIPSTICK (test cod e = KETU) NEGATIVE NEG UA SPECIFIC GRAVITY (test co de = SGU) 1.008 1.001-1.035 N UA BLOOD DIPSTICK (test code = LAILA) 1+ NEG A UA PH DIPSTICK (test code = CATHI) 6.0 5-9 UA PROTEIN DIPSTICK (test co de = PROU) NEGATIVE NEG UA UROBILINIOGEN DIPSTICK (test code = URO) NEGATIVE mg/dL NEG UA NITRITE DIPSTICK (test co de = HEYDI) NEG NEG UA LEUKOCYTE ESTERASE DIPSTI CK (test code = LEUU) NEG NEG UA WBC (test code = WBCU) 0-2 #/hpf NONE SEEN UA RBC (test code = RBCU) 0-2 #/hpf NONE SEEN UA EPITHELIAL CELLS (test co de = EPIU) RARE #/HPF RARE-FEW UA BACTERIA (test code = BACU) NEGATIVE /HPF RARE-FEW UA MUCUS (test code = MUCU) RARE NONE SEEN Indication for culture: Dysuria/FrequencySpecimen Description: CLEAN CATCHCBC W/AUTO [id number] 20:25:00* Test Item Value Reference Range Interpretation Comme nts WHITE BLOOD CELL (test code = WBC) 8.6 K/mm3 6.6-12.1 N RED BLOOD CELL (test code = RBC) 2.41 M/mm3 3.45-5.01 L HEMOGLOBIN (test code = HGB) 4.1 g/dL 10.7-13.9 LL RESULTS VERIFIED BY REPEAT ANALYSISRESULTS CALLED TO OBI A.READ BACK & CONFIRMED? Y.BY F.LAB.RV 07/16/202022. HEMATOCRIT (test code = HCT) 17.1 % 32.1-42.1 LL RESULTS VERIFIED BY REPEAT ANALYSISRESULTS CALLED TO OBI A.READ BACK & CONFIRMED? Y.BY F.LAB.RV 07/16/202023. MEAN CELL VOLUME (test code = MCV) 71 fL 84.1-94.8 L MEAN CELL HGB (test code = MCH) 17.0 pg 27-35 L MEAN CELL HGB CONCETRATION (test code = MCHC) 24.0 gm/dL 32.2-34.1 L RED CELL DISTRIBUTION WIDTH (test code = RDW) 21.1 % 12.4-16.5 H PLATELET COUNT (test code = PLT) 238 K/mm3 133-385 N NEUTROPHIL % (test code = NT%) 72.5 % 56.5-79.4 N LYMPHOCYTE % (test code = LY%) 19.5 % 14.3-34.3 N MONOCYTE % (test code = MO%) 6.5 % 5.1-10.4 N EOSINOPHIL % (test code = EO%) 0.9 % 0.1-3.0 N BASOPHIL % (test code = BA%) 0.1 % 0.1-1.0 N NEUTROPHIL # (test code = NT#) 6.2 K/mm3 LYMPHOCYTE # (test code = LY#) 1.7 K/mm3 MONOCYTE # (test code = MO#) 0.6 K/mm3 EOSINOPHIL # (test code = EO#) 0.08 K/mm3 BASOPHIL # (test code = BA#) 0.0 K/mm3 RBC MORPHOLOGY REQUIRED (test code = RBCM) NORMAL PLATELET MORPHOLOGY REQUIRED (test code = PLTMR) NORMAL US PELVIS COMPLETE WITH [id number] 19:42:321. ?Enlarged heterogeneous uterus with multiple uterine fibroids andincreased endometrial vascularity. Per the patient, she will be getting ahysterectomy. 2. ?Unremarkable bilateral ovaries. Preliminary Report Dictated by Resident: Mally Cordoba. I, Andrea ?MD Leola., have reviewed this study and agree with theabove report.EXAM: US PELVIS COMPLETE WITH TRANSVAGINAL HISTORY: 39 years - old Female with Abnormal uterine bleeding for one month. TECHNIQUE: Transabdominal and transvaginalultrasound imaging of the pelviswas performed including color Doppler evaluation. Line Repairer imageswere obtained for the record. COMPARISON: None [...] Female with Abnormal uterine bleeding for one month.TE CHNIQUE: Transabdominal and transvaginal ultrasound imaging of the pelviswas performed including color Doppler evaluation. Line Repairer imageswere obtained for the record.COMPARISON: NoneFINDINGS:Uterus: The uterus is normal in size, 11.0 x 5.7 x 7.0 cm. The myometrium isheterogenous. Multiple well-defined heterogeneous iso-/hypoechoic focallesions are seen within the myometrium, largest lesionappears submucosalwithin the posterior wall and measures 3.5 x 3.0 x 3.5 cm. The endometriumis hypervascular. The cervix is unremarkable.Right Adnexa:Ovary size: 2.9 x 1.8 x 1.1 cmOvary appearance: Few small follicles.Other: No mass.Left Adnexa:Ovary size: 3.5 x 2.2 x 2.3 cmOvary appearance: Few small follicles.Other: No mass.Cul-de-sac: No free fluid. IMPRESSION1. Enlarged heterogeneous uterus with multiple uterine fibroids andincreased endometrial vascularity. Per the patient, she will be getting ahysterectomy.2. Unremarkable bilateral ovaries.Preliminary Report Dictated by Resident: Mally Cordoba.I, Andrea Bhagat MD., have reviewed this study and agree with theabove report.[facility]FF 2020-05-09 23:41:00* Test Item Value Reference Range Interpretation Comme nts WBC (test code = 6690-2) See_Comment [Automated [employer] ge] The system which generated this result transmitted reference range: 4.30 - 11.10 10*3/?L. The reference range was not used to interpret this result as normal/abnormal. RBC (test code = 789-8) See_Comment L [Automated messa ge] The system which generated this result transmitted reference range: 3.93 - 5.25 10*6/?L. The reference range was not used to interpret this result as normal/abnormal. HGB (test code = 718-7) 6.3 g/dL 11.6-15 L HCT (test code = 4544-3) 23.4 % 35.7-45.2 L MCV (test code = 787-2) 78.0 fL 80.6-95.5 L MCH (test code = 785-6) 21.0 pg 25.9-32.8 L MCHC (test code = 786-4) 26.9 g/dL 31.6-35.1 L RDW-SD (test code = 06812-9) 66.5 fL 39-49.9 H RDW-CV (test code = 788-0) 25.2 % 12-15.5 H PLT (test code = 777-3) See_Comment [Automated [employer] ge] The system which generated this result transmitted reference range: 166 - 358 10*3/?L. The reference range was not used to interpret this result as normal/abnormal. MPV (test code = 45927-5) Not Measured IPF % (test code = 0475623840) 10.7 % 1.3-7.7 H Platelet count measured by fluorescence method. NRBC/100 WBC (test code = 2650396140) See_Comment [Automated [employer] ssage] The system which generated this result transmitted reference range: 0.0 - 10.0 /100 WBCs. The reference range was not used to interpret this result as normal/abnormal. NRBC x10^3 (test code = 3266936745) See_Comment [Automated messa ge] The system which generated this result transmitted reference range: 10*3/?L. The reference range was not used to interpret this result as normal/abnormal. GRAN MAT (NEUT) % (test code = 770-8) 62.8 % IMM GRAN % (test code = 7014127689) 0.70 % LYMPH % (test code = 736-9) 26.9 % MONO % (test code = 5905-5) 7.3 % EOS % (test code = 713-8) 2.0 % BASO % (test code = 706-2) 0.3 % GRAN MAT x10^3(ANC) (test code = 0345506461) 4.80 10*3/uL 1.88-7.09 IMM GRAN x10^3 (test code = 2264015505) 0.05 10*3/uL 0-0.06 LYMPH x10^3 (test code = 731-0) 2.05 10*3/uL 1.32-3.29 MONO x10^3 (test code = 742-7) 0.56 10*3/uL 0.33-0.92 EOS x10^3 (test code = 711-2) 0.15 10*3/uL 0.03-0.39 BASO x10^3 (test code = 704-7) <0.03 0.01-0.07 POLYCHROMASIA (test code = 49953-6) 2+ See_Comment [Automated messa ge] The system which generated this result transmitted reference range: 2+. The reference range was not used to interpret this result as normal/abnormal. Lab Interpretation (test code = 30151-1) Abnormal [facility] WITH [id number] 23:41:00* Test Item Value Reference Range Interpretation Comme nts WBC (test code = 6690-2) See_Comment [Automated messa ge] The system which generated this result transmitted reference range: 4.30 - 11.10 10*3/?L. The reference range was not used to interpret this result as normal/abnormal. RBC (test code = 789-8) See_Comment L [Automated [employer] ge] The system which generated this result transmitted reference range: 3.93 - 5.25 10*6/?L. The reference range was not used to interpret this result as normal/abnormal. HGB (test code = 718-7) 6.3 g/dL 11.6-15 L HCT (test code = 4544-3) 23.4 % 35.7-45.2 L MCV (test code = 787-2) 78.0 fL 80.6-95.5 L MCH (test code = 785-6) 21.0 pg 25.9-32.8 L MCHC (test code = 786-4) 26.9 g/dL 31.6-35.1 L RDW-SD (test code = 33749-9) 66.5 fL 39-49.9 H RDW-CV (test code = 788-0) 25.2 % 12-15.5 H PLT (test code = 777-3) See_Comment [Automated [email or web address]] The system which generated this result transmitted reference range: 166 - 358 10*3/?L. The reference range was not used to interpret this result as normal/abnormal. MPV (test code = 05361-4) Not Measured IPF % (test code = 3243201093) 10.7 % 1.3-7.7 H Platelet count measured by fluorescence method. NRBC/100 WBC (test code = 7857575205) See_Comment [Automated [employer]] The system which generated this result transmitted reference range: 0.0 - 10.0 /100 WBCs. The reference range was not used to interpret this result as normal/abnormal. NRBC x10^3 (test code = 3645869789) See_Comment [Automated [email or web address]] The system which generated this result transmitted reference range: 10*3/?L. The reference range was not used to interpret this result as normal/abnormal. GRAN MAT (NEUT) % (test code = 770-8) 62.8 % IMM GRAN % (test code = 2657655153) 0.70 % LYMPH % (test code = 736-9) 26.9 % MONO % (test code = 5905-5) 7.3 % EOS % (test code = 713-8) 2.0 % BASO % (test code = 706-2) 0.3 % GRAN MAT x10^3(ANC) (test code = 8742052008) 4.80 10*3/uL 1.88-7.09 IMM GRAN x10^3 (test code = 1104365996) 0.05 10*3/uL 0-0.06 LYMPH x10^3 (test code = 731-0) 2.05 10*3/uL 1.32-3.29 MONO x10^3 (test code = 742-7) 0.56 10*3/uL 0.33-0.92 EOS x10^3 (test code = 711-2) 0.15 10*3/uL 0.03-0.39 BASO x10^3 (test code = 704-7) <0.03 0.01-0.07 POLYCHROMASIA (test code = 92469-3) 2+ See_Comment [Automated messa ge] The system which generated this result transmitted reference range: 2+. The reference range was not used to interpret this result as normal/abnormal. Lab Interpretation (test code = 65101-9) Abnormal [facility] WITH [id number] 23:34:00* Test Item Value Reference Range Interpretation Comme nts WBC (test code = 6690-2) See_Comment [Automated messa ge] The system which generated this result transmitted reference range: 4.30 - 11.10 10*3/?L. The reference range was not used to interpret this result as normal/abnormal. RBC (test code = 789-8) See_Comment L [Automated messa ge] The system which generated this result transmitted reference range: 3.93 - 5.25 10*6/?L. The reference range was not used to interpret this result as normal/abnormal. HGB (test code = 718-7) 7.4 g/dL 11.6-15 L HCT (test code = 4544-3) 26.9 % 35.7-45.2 L MCV (test code = 787-2) 70.4 fL 80.6-95.5 L MCH (test code = 785-6) 19.4 pg 25.9-32.8 L MCHC (test code = 786-4) 27.5 g/dL 31.6-35.1 L RDW-SD (test code = 04745-3) 53.7 fL 39-49.9 H RDW-CV (test code = 788-0) 21.2 % 12-15.5 H PLT (test code = 777-3) See_Comment [Automated [employer] ge] The system which generated this result transmitted reference range: 166 - 358 10*3/?L. The reference range was not used to interpret this result as normal/abnormal. MPV (test code = 95012-8) Not Measured IPF % (test code = 8675695624) 12.9 % 1.3-7.7 H Platelet count measured by fluorescence method. NRBC/100 WBC (test code = 7069968357) See_Comment [Automated [employer] ssage] The system which generated this result transmitted reference range: 0.0 - 10.0 /100 WBCs. The reference range was not used to interpret this result as normal/abnormal. NRBC x10^3 (test code = 1230532163) <0.01 See_Comment [Automated [employer] ge] The system which generated this result transmitted reference range: 10*3/?L. The reference range was not used to interpret this result as normal/abnormal. GRAN MAT (NEUT) % (test code = 770-8) 64.0 % IMM GRAN % (test code = 5220178360) 0.10 % LYMPH % (test code = 736-9) 27.7 % MONO % (test code = 5905-5) 6.9 % EOS % (test code = 713-8) 1.0 % BASO % (test code = 706-2) 0.3 % GRAN MAT x10^3(ANC) (test code = 4157204340) 4.36 10*3/uL 1.88-7.09 IMM GRAN x10^3 (test code = 5572954119) <0.03 0-0.06 LYMPH x10^3 (test code = 731-0) 1.89 10*3/uL 1.32-3.29 MONO x10^3 (test code = 742-7) 0.47 10*3/uL 0.33-0.92 EOS x10^3 (test code = 711-2) 0.07 10*3/uL 0.03-0.39 BASO x10^3 (test code = 704-7) <0.03 0.01-0.07 ELLIPTO/OVAL (test code = 11614-9) 2+ See_Comment A [Automated messa ge] The system which generated this result transmitted reference range: (none). The reference range was not used to interpret this result as normal/abnormal. POLYCHROMASIA (test code = 15205-5) 2+ See_Comment [Automated messa ge] The system which generated this result transmitted reference range: 2+. The reference range was not used to interpret this result as normal/abnormal. Lab Interpretation (test code = 08854-1) Abnormal [facility] WITH [id number] 23:34:00* Test Item Value Reference Range Interpretation Comme nts WBC (test code = 6690-2) See_Comment [Automated messa ge] The system which generated this result transmitted reference range: 4.30 - 11.10 10*3/?L. The reference range was not used to interpret this result as normal/abnormal. RBC (test code = 789-8) See_Comment L [Automated messa ge] The system which generated this result transmitted reference range: 3.93 - 5.25 10*6/?L. The reference range was not used to interpret this result as normal/abnormal. HGB (test code = 718-7) 7.4 g/dL 11.6-15 L HCT (test code = 4544-3) 26.9 % 35.7-45.2 L MCV (test code = 787-2) 70.4 fL 80.6-95.5 L MCH (test code = 785-6) 19.4 pg 25.9-32.8 L MCHC (test code = 786-4) 27.5 g/dL 31.6-35.1 L RDW-SD (test code = 28921-9) 53.7 fL 39-49.9 H RDW-CV (test code = 788-0) 21.2 % 12-15.5 H PLT (test code = 777-3) See_Comment [Automated [employer] ge] The system which generated this result transmitted reference range: 166 - 358 10*3/?L. The reference range was not used to interpret this result as normal/abnormal. MPV (test code = 22854-7) Not Measured IPF % (test code = 9343813481) 12.9 % 1.3-7.7 H Platelet count measured by fluorescence method. NRBC/100 WBC (test code = 5453701230) See_Comment [Automated [employer] ssage] The system which generated this result transmitted reference range: 0.0 - 10.0 /100 WBCs. The reference range was not used to interpret this result as normal/abnormal. NRBC x10^3 (test code = 0986095774) <0.01 See_Comment [Automated [employer] ge] The system which generated this result transmitted reference range: 10*3/?L. The reference range was not used to interpret this result as normal/abnormal. GRAN MAT (NEUT) % (test code = 770-8) 64.0 % IMM GRAN % (test code = 4217928988) 0.10 % LYMPH % (test code = 736-9) 27.7 % MONO % (test code = 5905-5) 6.9 % EOS % (test code = 713-8) 1.0 % BASO % (test code = 706-2) 0.3 % GRAN MAT x10^3(ANC) (test code = 7448826832) 4.36 10*3/uL 1.88-7.09 IMM GRAN x10^3 (test code = 7317939905) <0.03 0-0.06 LYMPH x10^3 (test code = 731-0) 1.89 10*3/uL 1.32-3.29 MONO x10^3 (test code = 742-7) 0.47 10*3/uL 0.33-0.92 EOS x10^3 (test code = 711-2) 0.07 10*3/uL 0.03-0.39 BASO x10^3 (test code = 704-7) <0.03 0.01-0.07 ELLIPTO/OVAL (test code = 10175-3) 2+ See_Comment A [Automated messa ge] The system which generated this result transmitted reference range: (none). The reference range was not used to interpret this result as normal/abnormal. POLYCHROMASIA (test code = 26872-6) 2+ See_Comment [Automated messa ge] The system which generated this result transmitted reference range: 2+. The reference range was not used to interpret this result as normal/abnormal. Lab Interpretation (test code = 89274-2) Abnormal [facility] Notes Date/Time Note Provider Source 2020-07-19 11:49:00 [facility] ([facility]) Discharge Summary REPORT#:[id number] REPORT STATUS: Signed DATE:07/19/20 TIME: 1149 PATIENT: DEL LAY UNIT #: [id number] ROOM/BED: [address] : 81 AGE: 39 SEX: F ATTEND: Maribel Everett MD ADM AUTHOR: Last Pedro MD * ALL edits or amendments must be made on the electronic/computer document * PCP PCP PCP: 39 YO g3 AND p3 WITH SEVERE ANEIMNA AND TRANSFUSED 3 UNITS OF rbcS AND ffp 2 HAVING EVIDENCE OF MULTIPLE FIBROIDS IS SCHEDULLED FOR ROBOTIC LAPAROSCOIC TLH + BS. PCP: Maribel Everett MD Pending result: PATHOLOGY Discharge to: home General Information Problem List/A P: 1. Symptomatic anemia 2. Dizziness 3. Uterine fibroids affecting Date of admission: Observation Start Date: 07/16/20 Date of admission: 07/17/20 Discharge date: 07/19/20 Admission diagnosis: SEVERE ANEMIA FIBROIDS Discharge diagnosis: SAME Hospital course: POST OP MUCH INPROVED TO FOLLOW WITH DR BEAUCHAMP Consultants: gynecology, hospitalist Pt. condition on discharge: improved, stable Allergies: Allergies: No Known Allergies (Coded, 07/18/20) COVID-19: Discharge Plan CDC criteria met for testing: yes Test performed: yes, result negative Pt. disposition at DC: home Recomm.-Isolat. repeat testing Hold 'CTRL' garcia and click link below to activate it Recommendations for Isolation and Repeat Testing: https://www.cdc.gov/coronavirus/2019-ncov/infecti on-control/control- recommendations.html Med Rec PCP PCP: PCP: Maribel Everett MD Med Rec Discharge meds: Stop taking the following medications: IRON (IRON) 18 MG TAB 18 MILLIGRAM ORAL DAILY. Continue taking these medications: FOLIC ACID (FOLIC ACID) 1 MG TAB 1 MILLIGRAM ORAL DAILY. Start taking the following new medications: FERROUS SULFATE (FEOSOL) 325 MG TAB 325 MILLIGRAM ORAL THREE TIMES A DAY. Qty = 90 No Refills DOCUSATE SODIUM (COLACE) 50 MG CAP 50 MILLIGRAM ORAL TWICE DAILY. as needed for CONSTIPATION Qty = 30 No Refills HYDROcodone/APAP (NORCO 5/325) 1 TAB TAB 1 TABLET ORAL EVERY 6 HOURS NEEDED. as needed for PAIN SCALE 7-10 Qty = 20 No Refills Objective VS/I O Last Documented: Result Date Time Pulse Ox 98 07/19 710 B/P 111/70 07/19 710 B/P Mean 83.3 07/19 710 O2 Delivery Room air 07/19 710 Temp 98.8 07/19 710 Pulse 79 07/19 710 Resp 18 07/19 710 O2 Flow Rate 10 07/18 1542 24 hour I O ending at 0700: 07/19 0700 07/18 1900 Intake Total 550.00 1038.50 Output Total 1999 250 Balance -1450.00 788.50 Intake, IV 550.00 1037.50 Intake, Oral 1 Number Voids 3 Output, 50 Estimated Blood Loss Output, Urine 1999 200 Patient 202 lb Weight Weight Standing scale Measurement Method PATIENT WEIGHT: Weight (lb): 201 Weight (oz): 11.57 Weight (kg): 91.500 General appearance: alert, awake, oriented Results Findings/Data: Laboratory Tests: 07/19 529 Hematology WBC (6.6 - 12.1 K/mm3) 10.7 RBC (3.45 - 5.01 M/mm3) 3.59 Hgb (10.7 - 13.9 g/dL) 8.1 L Hct (32.1 - 42.1 %) 27.6 L MCV (84.1 - 94.8 fL) 77 L MCH (27 - 35 pg) 22.6 L MCHC (32.2 - 34.1 gm/dL) 29.3 L RDW (12.4 - 16.5 %) 23.5 H Plt Count (133 - 385 K/mm3) 203 Neut % (Auto) (56.5 - 79.4 %) 85.7 H Lymph % (Auto) (14.3 - 34.3 %) 7.3 L [place] % (Auto) (5.1 - 10.4 %) 6.4 Eos % (Auto) (0.1 - 3.0 %) 0.0 L Baso % (Auto) (0.1 - 1.0 %) 0.1 Neut # (Auto) (K/mm3) 9.2 Lymph # (Auto) (K/mm3) 0.8 [place] # (Auto) (K/mm3) 0.7 Eos # (Auto) (K/mm3) 0 Baso # (Auto) (K/mm3) 0.0 Immature Plt Fraction (0.0 - 10.8 %) 12.6 H Results: no new labs Free Text Obj Notes Free Text Obj Notes: HOME TODAY Discharge Instructions PCP )( Discharge to: Home/Self Care Discharge Instructions Additional Discharge Routines: PCP Follow-Up, Attending Follow-Up, Film And Video Graphics Designer 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, Return to Work/School, Wound/Dressing Care )( Diet: Regular )( Activity: As Tolerated, No Lifting >20lbs )( Wound/dressing care: Keep wound clean and dry )( Return to work/school date: 07/28/20 )( Work/school restrictions: Light lifting Follow-up Appointments PCP follow up: PCP: Maribel Everett MD PCP follow up timeframe: In 1-2 weeks Attending Physician: Attending Physician: Deejay Cain MD Attending physician follow up timeframe: In 1-2 weeks Consulting provider 1: Provider 1: Last Pedro MD Specialty: Obstetrics Gynecology Consult follow up timeframe: In 1-2 weeks Quality: Gen Med Crit Care Current Medications Current medication review: I attest that the foregoing medication list in the medical record is true, accurate, and complete to the best of my knowledge. at 1155 [facility] #:[id number] END OF REPORT [facility] 2020-07-18 15:31:00 [phone] [facility] [address], [place] [address] PATIENT NAME: DEL LAY ADMIT DATE: 07/17/20 ACCOUNT NO: [id number] ROOM NO: 2610 AGE: 39 SEX: F ADMITTING PHYSICIAN: Maribel Everett MD ATTENDING PHYSICIAN: Maribel Everett MD OPERATION DATE: 07/18/2020 TIME: 1430 PRIMARY PROCEDURE: Robotic laparoscopic hysterectomy and bilateral salpingectomy with cystourethroscopy. PREOPERATIVE DIAGNOSES: Severe anemia, multiple myomata with intracavitary myomata, menometrorrhagia, and post-transfusion. POSTOPERATIVE DIAGNOSES: Severe anemia, multiple myomata with intracavitary myomata, menometrorrhagia, and post-transfusion. PROCEDURES PERFORMED: Robotic total laparoscopic hysterectomy with bilateral salpingectomy and cystourethroscopy. The uterus weighted 392 g. SURGEON: Last Pedro MD VEGETABLE COOK: Parker Landry, certified alcohol drug counselor ANESTHESIOLOGIST: Jah Beach MD ANESTHESIA: General anesthesia. INDICATIONS: Severe anemia, menometrorrhagia, multiple leiomyomata with a myoma intracavitary. COMPLICATIONS: There were no complications. BLOOD LOSS: 50 mL. TRANSFUSION: She had had 3 units of RBCs with 2 units fresh frozen plasma transfused prior to her surgery. INTRAVENOUS FLUIDS: She had 500 mL of crystalloids. URINARY OUTPUT: During the procedure was 200 mL. DISPOSITION: The patient was transferred to PACU and to [facility]. FINDINGS AND PROCEDURE: Mrs. Lay, 39 years old, 3 and para 3 with no previous surgery, had uterus sounded to 10 cm, irregular and large, cervix cup 3.5 cm. Time-out was taken after being prepped, draped, and under PATIENT NAME: DEL LAY general anesthesia and a Long catheter inserted. Attention was drawn to the abdomen where it was infiltrated with Marcaine. A 10-mm incision done. The pneumoperitoneum established. The carbon dioxide was then placed to a total of 3 L. Trocar [address] infraumbilical with a laparoscope right and left at approximately 10 cm. About a centimeter and a half below the umbilical scar, the next 2 trocars of 8 mm were placed. Then, in the right side is the 10-mm trocar of the air flow and connected in deep Trendelenburg. The [place] robot was brought to the right side and paired. The laparoscope in the left side, the bipolar Force and the right side scissors and the initial was a salpingectomy in the left to the utero-ovarian and round ligament and broad ligament, and then in the right side, the fallopian tube also fulgurated to take in the meso. The incision to the utero-ovarian ligament, round ligament, broad ligament to the broad ligament up to the uterines and then bladder peritoneum at the level of the endopelvic fascia. Incision is anterior and then the cervical branches were taken posterior and taken around 60 degrees. Then, the uterus was removed through the vagina and closure was done with a V-Loc in 2 layers starting in the right angle and the area then examined. Hemostasis secured. Pneumoperitoneum evacuated and no bleeding noted. The cystourethroscopy with a 70-degree cystoscope was performed with the urethra normal, sphincter normal, trigone and evidence of ureters and jets of urine. Bladder intact and bubbles of gas at the top. Cystoscopy was completed. The patient will not have the Long and she will be allowed to start voiding spontaneously. The patient was transferred to PACU and to [facility]. Dictated By: Last Pedro MD WT: OP:KARLIE/AUSTEN/EFE Conf#: [id number]#: [id number] Authenticated by Last Pedro MD On 07/19/2020 11:56:11 AM at 1156 PATIENT NAME: DEL LAY [facility] 2020-07-18 15:19:00 [facility] ([facility]) Full Op Note REPORT#:[id number] REPORT STATUS: Signed DATE:07/18/20 TIME: 151 PATIENT: DEL LAY UNIT #: [id number] ROOM/BED: [address] : 81 AGE: 39 SEX: F ATTEND: Maribel Everett MD ADM AUTHOR: Last Pedro MD * ALL edits or amendments must be made on the electronic/computer document * Operative Report ORM Surgeries: Surgery Date and Time: 07/18/2020 1430 Primary Procedure: FOUR PUNCTURE ROBOTIC Secondary Procedure: CYSTOSCOPY WITH PROCEDURE Start date: 07/18/20 Start time: 1414 Pre-procedure diagnosis: SEVERE ANEMIA MULTIPLE MIOMA POST TRANSFUSION Post-procedure diagnosis: SAME Procedures performed: ROBOTIC LAPAROSCOPIC TLH + BS AND CYSTOSCOPY UTERUS 292 GRAMS Technique/Procedure: LAPAROSCOPIC Primary Surgeon: LAST PEDRO MD Asbestos Siding Mechanic(s): PARKER LANDRY CSA Anesthesiologist: DR JAH ALONSO Anesthesia: general anesthesia Indications: SEVERE ANEMIA MENORRHAGIA; MULTIPLE MIOMAS INTRACAVITARY Operative findings: MULTIPLE MIOMAS NORMAL OVARIES POST OP CYTOSCOPY NORMAL BLADDER Complications: none Estimated blood loss in ml's: 50 CC Blood products: RBC (PRIOR TO SURGERY 3 UNITS PRBCs), FFP Specimens removed/altered: UTERUS, CERVIX, TUBES Cultures sent: No Drain(s)/tube(s): none Implant(s): none Fluids: 500 CRYSTALLOIDS Urine output: 200 CC Approach: [facility] Recommendations: LONG REMOVED CBC IN AM LOVENOX POST OP at 1525 RPT #:[id number] END OF REPORT [facility] 2020-07-18 09:58:00 [facility] ([facility] Gynecology Progress Note REPORT#:[id number] REPORT STATUS: Signed DATE:07/18/20 TIME: 957 PATIENT: DEL LAY UNIT #: [id number] ROOM[facility]BED: [facility] : 81 AGE: 39 SEX: F ATTEND: Maribel Everett MD ADM AUTHOR: Last Pedro MD * ALL edits or amendments must be made on the electronic/computer document * Subjective Chief Complaint: SEVERE ANEMIA MENORRHAGIA FIBROIDS POST RANSFUSION Patient reports: No: complaints (AFTER TRANSFUSION). Comments: MUCH INPROVED POST TRANSFUSION Objective General VS/I O: Last Documented: Result Date Time Pulse Ox 100 07/18 818 B/P 116/73 07/18 818 B/P Mean 87.1 07/18 818 Temp 98.1 07/18 818 Pulse 76 07/18 818 Resp 18 07/18 818 O2 Delivery Room air 07/18 358 24 hour I O ending at 0700: 07/18 0700 07/17 1900 Intake Total 800.00 3650.00 Output Total Balance 800.00 3650.00 Intake, IV 300.00 3050.00 Intake, Oral 500 Intake, 600 Packed Cells PATIENT WEIGHT: Weight (lb): Weight (oz): Weight (kg): 91.500 Medications: Active Meds + DC'd Last 24 Hrs Multivitamin Hematinic Therapeutic 1 EACH AC BK MARY PO (CKD) Sodium Chloride 50 ML ASDIR IV Gabapentin 300 MG BID PO Acetaminophen 650 MG Q4H PRN PRN PO Benzonatate 100 MG TID PRN PRN PO Bisacodyl 10 MG DAILY PRN PRN PO Hydralazine HCl 10 MG Q4H PRN PRN IV Hydrocodone Bitart/Acetaminophen 1 TAB Q4H PRN PRN PO Labetalol HCl 10 MG Q4H PRN PRN IV Morphine Sulfate 2 MG Q4H PRN PRN IV Ondansetron HCl 4 MG Q6H PRN PRN IV Simethicone 80 MG Q6H PRN PRN PO Trazodone HCl 50 MG BEDTIME PRN PRN PO Sodium Chloride 10 ML ASDIR IV Sodium Chloride 500 ML ONCE IV Nutrition assessment: The data set between the solid lines has been imported from the dietitian's assessment. Any exceptions have been noted under Provider comments. BMI Calculated: 34.6 Nutrition related diagnosis: Nutrition diagnosis details: Nutrition problem: Nutrition etiology: Nutrition signs and symptoms: Nutrition prescription: Dietitian name: Assessment completed: Provider comments on imported dietitian assessment: Results Findings/Data: Laboratory Tests 07/17 1500 Chemistry Sodium (135 - 145 mEq/L) 138 Potassium (3.5 - 5.0 mEq/L) 3.8 Chloride (100 - 115 mEq/L) 104 Carbon Dioxide (22 - 31 mEq/L) 25 Anion Gap (10 - 20) 13.10 BUN (7 - 18 mg/dL) 9 Creatinine (0.5 - 1.0 mg/dL) 0.9 Glomerular Filtr Rate (>60 ml/min) 70 Glucose (65 - 110 mg/dL) 90 Calcium (8.4 - 10.2 mg/dL) 7.8 L Total Bilirubin (0.2 - 1.0 mg/dL) 0.6 Direct Bilirubin (<0.2 mg/dL) 0.2 AST (15 - 37 units/L) 35 ALT (12 - 78 units/L) 81 H Total Alk Phosphatase (46 - 116 units/L) 93 Total Protein (6.3 - 8.2 gm/dL) 7.0 Albumin (3.4 - 4.8 gm/dL) 3.4 Triglycerides (mg/dL) 160 H Cholesterol (120 - 200 mg/dL) 148 LDL Cholesterol, Calc (mg/dL) 78 HDL Cholesterol (mg/dL) 38 Serum , Qual NEGATIVE Laboratory Tests 07/18 07/17 07/17 0530 1500 1325 Hematology WBC (6.6 - 12.1 K/mm3) 6.0 L 5.7 L RBC (3.45 - 5.01 M/mm3) 3.62 3.68 Hgb (10.7 - 13.9 g/dL) 8.1 L 8.3 L 7.9 L Hct (32.1 - 42.1 %) 28.3 L 29.3 L 26.7 L MCV (84.1 - 94.8 fL) 78 L 80 L MCH (27 - 35 pg) 22.4 L 22.6 L MCHC (32.2 - 34.1 gm/dL) 28.6 L 28.3 L RDW (12.4 - 16.5 %) 23.1 H 22.5 H Plt Count (133 - 385 K/mm3) 203 219 MPV (9.1 - 12.7 fl) ND Neut % (Auto) (56.5 - 79.4 %) 56.0 L 59.5 Lymph % (Auto) (14.3 - 34.3 %) 30.1 28.3 [place] % (Auto) (5.1 - 10.4 %) 10.8 H 10.0 Eos % (Auto) (0.1 - 3.0 %) 2.3 1.2 Baso % (Auto) (0.1 - 1.0 %) 0.5 0.5 Neut # (Auto) (K/mm3) 3.4 3.4 Lymph # (Auto) (K/mm3) 1.8 1.6 [place] # (Auto) (K/mm3) 0.7 0.6 Eos # (Auto) (K/mm3) 0.14 0.07 Baso # (Auto) (K/mm3) 0.0 0.0 Laboratory Tests 07/17 07/17 1725 1500 Serology Hep Bs Antigen (NONREACTIVE) NONREACTIVE HIV 1 2 Antibody (NONREACTIVE) NONREACTIVE SARS-CoV-2 Ag (Rapid) (NEGATIVE) NEGATIVE Laboratory Tests 07/17 1410 Urines Urine Color (YELLOW) STRAW Urine Appearance (CLEAR) CLEAR Urine pH (5 - 9) 7.0 Ur Specific [place] (1.001 - 1.035) 1.008 Urine Protein (NEG) NEGATIVE Urine Glucose (UA) (NEG) NEGATIVE Urine Ketones (NEG) NEGATIVE Urine Blood (NEG) 2+ H Urine Nitrite (NEG) NEG Urine Bilirubin (NEG) NEGATIVE Urine Urobilinogen (NEG mg/dL) NEGATIVE Ur Leukocyte Esterase (NEG) NEG Urine RBC (NONE SEEN #/hpf) 0-2 Urine WBC (NONE SEEN #/hpf) 0-2 Ur Epithelial Cells (RARE - FEW #/HPF) RARE Urine Bacteria (RARE - FEW /HPF) NEGATIVE Urine Mucus (NONE SEEN) RARE Results: no new labs Treatment Prophylaxis Treatment Prophylaxis Other: pLAN ROBOTIC TLH BS AND CYSTOSCOPY TODAY AT 2;30 PM at 1001 RPT #:[id number] END OF REPORT [facility] 2020-07-18 09:02:00 [facility] Hospitalist Progress Note REPORT#:[id number] REPORT STATUS: Signed DATE:07/18/20 TIME: 901 PATIENT: DEL LAY UNIT #: [id number] ROOM/BED: [address] : 81 AGE: 39 SEX: F ATTEND: Maribel Everett MD ADM AUTHOR: Deejya Cain MD * ALL edits or amendments must be made on the electronic/computer document * Subjective Chief Complaint: Abnormal lab HPI: 39-year-old female with history of menorrhagia, uterine fibroids, chronic blood loss anemia who establish primary care physician recently to plan for a hysterectomy due to menorrhagia secondary to uterine fibroid but was found to have low H H on the first visit. She was sent to the hospital for transfusion. Past medical history: As stated in HPI Surgical history: Varicose veins Social history: Negative 2. Occasional alcohol Allergies: No known drug allergies CODE STATUS: Full code Family history: Thyroid, prostate and kidney cancer in her father. Essential hypertension Hospital course: 07/17/2020: Inadequate correction of H H after transfusion of 2 units of packed red blood cells. Patient will require 2 more units of pack red blood cells transfusion. 07/18/2020: Status post transfusion of 2 additional units of packed red blood cells. Patient seen by surgeon and determined patient needs a hysterectomy. She will undergo hysterectomy today. Okay to go for surgery. Subjective: Patient seen and evaluated at bedside. She feels much better after transfusion. Per nurse, events as above. Review of Systems All systems rev neg: except as marked Objective General VS/I O: Vital Signs: Date Time Temp Pulse Resp B/P B/P Pulse O2 O2 Flow FiO2 Mean Ox Delivery Rate 01/08 0819 36.7 76 18 116/73 87.1 100 07/18 0359 36.6 69 18 119/75 90.0 98 Room air 07/18 0010 36.5 83 16 121/78 92.2 98 Room air 07/17 1923 36.7 84 17 122/76 91.6 100 Room air 07/17 1508 36.7 87 16 115/73 87.2 100 Room air 07/17 1305 37.0 92 16 124/77 92.7 98 07/17 1230 36.9 91 16 121/71 87.3 99 07/17 1148 36.8 98 18 126/73 90.8 99 07/17 1107 36.8 98 16 127/79 95.1 99 07/17 1041 36.9 90 16 124/76 92.1 99 07/17 1007 36.8 92 16 121/74 89.3 99 07/17 0933 96 18 114/76 88.4 100 24 hour I O ending at 0700: 07/18 0700 07/17 1900 Intake Total 800.00 3650.00 Output Total Balance 800.00 3650.00 Intake, IV 300.00 3050.00 Intake, Oral 500 Intake, 600 Packed Cells PATIENT WEIGHT: Weight (lb): Weight (oz): Weight (kg): 91.500 Medications: Active Meds + DC'd Last 24 Hrs Multivitamin Hematinic Therapeutic 1 EACH AC BK MARY PO (CKD) Sodium Chloride 50 ML ASDIR IV Gabapentin 300 MG BID PO Acetaminophen 650 MG Q4H PRN PRN PO Benzonatate 100 MG TID PRN PRN PO Bisacodyl 10 MG DAILY PRN PRN PO Hydralazine HCl 10 MG Q4H PRN PRN IV Hydrocodone Bitart/Acetaminophen 1 TAB Q4H PRN PRN PO Labetalol HCl 10 MG Q4H PRN PRN IV Morphine Sulfate 2 MG Q4H PRN PRN IV Ondansetron HCl 4 MG Q6H PRN PRN IV Simethicone 80 MG Q6H PRN PRN PO Trazodone HCl 50 MG BEDTIME PRN PRN PO Sodium Chloride 10 ML ASDIR IV Sodium Chloride 500 ML ONCE IV Results Findings/Data: Laboratory Tests 07/17 1500 Chemistry Sodium (135 - 145 mEq/L) 138 Potassium (3.5 - 5.0 mEq/L) 3.8 Chloride (100 - 115 mEq/L) 104 Carbon Dioxide (22 - 31 mEq/L) 25 Anion Gap (10 - 20) 13.10 BUN (7 - 18 mg/dL) 9 Creatinine (0.5 - 1.0 mg/dL) 0.9 Glomerular Filtr Rate (>60 ml/min) 70 Glucose (65 - 110 mg/dL) 90 Calcium (8.4 - 10.2 mg/dL) 7.8 L Total Bilirubin (0.2 - 1.0 mg/dL) 0.6 Direct Bilirubin (<0.2 mg/dL) 0.2 AST (15 - 37 units/L) 35 ALT (12 - 78 units/L) 81 H Total Alk Phosphatase (46 - 116 units/L) 93 Total Protein (6.3 - 8.2 gm/dL) 7.0 Albumin (3.4 - 4.8 gm/dL) 3.4 Triglycerides (mg/dL) 160 H Cholesterol (120 - 200 mg/dL) 148 LDL Cholesterol, Calc (mg/dL) 78 HDL Cholesterol (mg/dL) 38 Serum , Qual NEGATIVE Laboratory Tests 07/18 07/17 07/17 0530 1500 1325 Hematology WBC (6.6 - 12.1 K/mm3) 6.0 L 5.7 L RBC (3.45 - 5.01 M/mm3) 3.62 3.68 Hgb (10.7 - 13.9 g/dL) 8.1 L 8.3 L 7.9 L Hct (32.1 - 42.1 %) 28.3 L 29.3 L 26.7 L MCV (84.1 - 94.8 fL) 78 L 80 L MCH (27 - 35 pg) 22.4 L 22.6 L MCHC (32.2 - 34.1 gm/dL) 28.6 L 28.3 L RDW (12.4 - 16.5 %) 23.1 H 22.5 H Plt Count (133 - 385 K/mm3) 203 219 MPV (9.1 - 12.7 fl) ND Neut % (Auto) (56.5 - 79.4 %) 56.0 L 59.5 Lymph % (Auto) (14.3 - 34.3 %) 30.1 28.3 [place] % (Auto) (5.1 - 10.4 %) 10.8 H 10.0 Eos % (Auto) (0.1 - 3.0 %) 2.3 1.2 Baso % (Auto) (0.1 - 1.0 %) 0.5 0.5 Neut # (Auto) (K/mm3) 3.4 3.4 Lymph # (Auto) (K/mm3) 1.8 1.6 [place] # (Auto) (K/mm3) 0.7 0.6 Eos # (Auto) (K/mm3) 0.14 0.07 Baso # (Auto) (K/mm3) 0.0 0.0 Laboratory Tests 07/17 07/17 1725 1500 Serology Hep Bs Antigen (NONREACTIVE) NONREACTIVE HIV 1 2 Antibody (NONREACTIVE) NONREACTIVE SARS-CoV-2 Ag (Rapid) (NEGATIVE) NEGATIVE Laboratory Tests 07/17 1410 Urines Urine Color (YELLOW) STRAW Urine Appearance (CLEAR) CLEAR Urine pH (5 - 9) 7.0 Ur Specific [place] (1.001 - 1.035) 1.008 Urine Protein (NEG) NEGATIVE Urine Glucose (UA) (NEG) NEGATIVE Urine Ketones (NEG) NEGATIVE Urine Blood (NEG) 2+ H Urine Nitrite (NEG) NEG Urine Bilirubin (NEG) NEGATIVE Urine Urobilinogen (NEG mg/dL) NEGATIVE Ur Leukocyte Esterase (NEG) NEG Urine RBC (NONE SEEN #/hpf) 0-2 Urine WBC (NONE SEEN #/hpf) 0-2 Ur Epithelial Cells (RARE - FEW #/HPF) RARE Urine Bacteria (RARE - FEW /HPF) NEGATIVE Urine Mucus (NONE SEEN) RARE Free Text Obj Notes Free Text Obj Notes: General: No acute distress. Awake, alert and oriented 3 HEENT: PERRLA, EOMI, nasal septum in the midline. Ears are symmetric. Atraumatic Cardiovascular: Rhythm and rate are regular. No murmurs, rubs, gallops Pulmonary: Clear to auscultation. No wheezing, rhonchi or crackles GI: Soft, nontender, nondistended, positive bowel sounds. Skin: Dry, intact, no evidence of breakdown. Generalized pallor. Capillary refill is less than 3 seconds Musculoskeletal: Range of motion is intact. No palpable edema. Neurologic: Cranial nerves II through XII are grossly intact. Deep tendon reflex exam normoreflexic. Speech is normal Psychiatric: Normal mood. Cooperative. Diagnosis, Assessment Plan Code status: full code Plan discussed with: patient, consultants, nurse Free Text DxA P Notes Free text DxA P notes: Assessment: Symptom anemia Chronic blood loss anemia Dysfunctional vaginal bleeding Uterine fibroids Menorrhagia Plan: Inpatient Surgery follows. Hysterectomy today. Ok to go for surgery. Transfusion of packed red blood cells as needed [facility] follows Monitor H H at 0821 RPT #:[id number] END OF REPORT [facility] 2020-07-17 16:40:00 [id number] [facility] [address] [place], [place] [address] PATIENT NAME: DEL LAY ADMIT DATE: 07/17/20 ACCOUNT NO: [id number] ROOM NO: [facility] AGE: 39 SEX: F ADMITTING PHYSICIAN: Maribel Everett MD ATTENDING PHYSICIAN: Maribel Everett MD Order: [id number] Test Reason : PRE- OP Test Date/Time Stamp: TueJul 17 2020 16:40:58 Blood Pressure : / mmHG Vent. Rate : 082 BPM Atrial Rate : 082 BPM P-R Int : 156 ms QRS Dur : 078 ms QT Int : 372 ms P-R-T Axes : 058 039 042 degrees QTc Int : 434 ms Normal sinus rhythm Normal ECG No previous ECGs available Confirmed by AIDE HOGAN MD ([id number]) on 07/20/2020 2:44:20 PM Referred By: Maribel Everett Confirmed by:AIDE HOGAN MD at 1444 PATIENT NAME: DEL LAY [facility] 2020-07-17 07:30:00 [facility] ([facility] Hospitalist Progress Note REPORT#:[id number] REPORT STATUS: Signed DATE:07/17/20 TIME: 729 PATIENT: DEL LAY UNIT #: [id number] ROOM/BED: [address] : [address] AGE: 39 SEX: F ATTEND: Maribel Everett MD ADM AUTHOR: Deejay Cain MD * ALL edits or amendments must be made on the electronic/computer document * Subjective Chief Complaint: Abnormal lab HPI: 39-year-old female with history of menorrhagia, uterine fibroids, chronic blood loss anemia who establish primary care physician recently to plan for a hysterectomy due to menorrhagia secondary to uterine fibroid but was found to have low H H on the first visit. She was sent to the hospital for transfusion. Past medical history: As stated in HPI Surgical history: Varicose veins Social history: Negative 2. Occasional alcohol Allergies: No known drug allergies CODE STATUS: Full code Family history: Thyroid, prostate and kidney cancer in her father. Essential hypertension Hospital course: 07/17/2020: Inadequate correction of H H after transfusion of 2 units of packed red blood cells. Patient will require 2 more units of pack red blood cells transfusion. Subjective: Patient seen and evaluated at bedside. She has no acute complaints. Per nurse, no other acute events except for above. Review of Systems All systems rev neg: except as marked Objective General VS/I O: Vital Signs: Date Time Temp Pulse Resp B/P B/P Pulse O2 O2 Flow FiO2 Mean Ox Delivery Rate 07/17 0706 36.9 92 16 115/71 85.9 98 Room air 07/17 0358 37.0 95 19 114/72 85.6 99 Room air 07/17 0256 36.9 87 16 114/73 86.7 99 Room air 07/17 0242 37.0 93 16 121/78 92.4 100 07/17 0205 36.7 94 16 114/70 84.6 99 07/17 0143 37.0 93 16 108/68 81.6 99 07/16 2328 36.9 100 16 120/75 89.8 98 07/16 2256 37.0 102 20 123/59 100 07/16 2240 37.4 107 20 139/78 100 07/16 2120 37.0 110 20 134/67 89 98 Room air 07/16 2023 100 07/16 1941 37.1 111 20 137/78 97 100 Room air 24 hour I O ending at 0700: 07/17 0700 07/16 1900 Intake Total 1382.00 Output Total Balance 1382.00 Intake, IV 800.00 Intake, 582 Packed Cells Number Voids 3 Patient 91.5 kg Weight Weight Standing scale Measurement Method PATIENT WEIGHT: Weight (lb): Weight (oz): Weight (kg): 91.500 Medications: Active Meds + DC'd Last 24 Hrs Acetaminophen 650 MG Q4H PRN PRN PO Benzonatate 100 MG TID PRN PRN PO Bisacodyl 10 MG DAILY PRN PRN PO Hydralazine HCl 10 MG Q4H PRN PRN IV Hydrocodone Bitart/Acetaminophen 1 TAB Q4H PRN PRN PO Labetalol HCl 10 MG Q4H PRN PRN IV Morphine Sulfate 2 MG Q4H PRN PRN IV Ondansetron HCl 4 MG Q6H PRN PRN IV Simethicone 80 MG Q6H PRN PRN PO Trazodone HCl 50 MG BEDTIME PRN PRN PO Acetaminophen 650 MG BLOOD-DOSE BEFORE ONE PO (DC) Diphenhydramine HCl 25 MG BLOOD-DOSE BEFORE ONE IV (DC) Sodium Chloride 10 ML ASDIR IV Sodium Chloride 500 ML ONCE IV Results Findings/Data: Laboratory Tests 07/17 Chemistry Sodium (135 - 145 mEq/L) 139 138 Potassium (3.5 - 5.0 mEq/L) 3.8 3.8 Chloride (100 - 115 mEq/L) 106 104 Carbon Dioxide (22 - 31 mEq/L) 23 23 Anion Gap (10 - 20) 14.00 15.20 BUN (7 - 18 mg/dL) 7 8 Creatinine (0.5 - 1.0 mg/dL) 0.7 0.8 Glomerular Filtr Rate (>60 ml/min) 94 80 Glucose (65 - 110 mg/dL) 89 100 Calcium (8.4 - 10.2 mg/dL) 7.7 L 7.7 L Laboratory Tests 07/17 Hematology WBC (6.6 - 12.1 K/mm3) 6.4 L 8.6 RBC (3.45 - 5.01 M/mm3) 2.68 L 2.41 L Hgb (10.7 - 13.9 g/dL) 5.6 *L 4.1 *L Hct (32.1 - 42.1 %) 20.5 L 17.1 *L MCV (84.1 - 94.8 fL) 77 L 71 L MCH (27 - 35 pg) 20.9 L 17.0 L MCHC (32.2 - 34.1 gm/dL) 27.3 L 24.0 L RDW (12.4 - 16.5 %) 23.5 H 21.1 H Plt Count (133 - 385 K/mm3) 188 238 MPV (9.1 - 12.7 fl) ND Neut % (Auto) (56.5 - 79.4 %) 59.4 72.5 Lymph % (Auto) (14.3 - 34.3 %) 29.5 19.5 [place] % (Auto) (5.1 - 10.4 %) 8.9 6.5 Eos % (Auto) (0.1 - 3.0 %) 1.6 0.9 Baso % (Auto) (0.1 - 1.0 %) 0.3 0.1 Neut # (Auto) (K/mm3) 3.8 6.2 Lymph # (Auto) (K/mm3) 1.9 1.7 [place] # (Auto) (K/mm3) 0.6 0.6 Eos # (Auto) (K/mm3) 0.10 0.08 Baso # (Auto) (K/mm3) 0.0 0.0 Laboratory Tests 07/16 1958 Miscellaneous Maternal Serum HCG <1 Laboratory Tests 07/16 1958 Urines Urine Color (YELLOW) STRAW Urine Appearance (CLEAR) CLEAR Urine pH (5 - 9) 6.0 Ur Specific [place] (1.001 - 1.035) 1.008 Urine Protein (NEG) NEGATIVE Urine Glucose (UA) (NEG) NEGATIVE Urine Ketones (NEG) NEGATIVE Urine Blood (NEG) 1+ H Urine Nitrite (NEG) NEG Urine Bilirubin (NEG) NEGATIVE Urine Urobilinogen (NEG mg/dL) NEGATIVE Ur Leukocyte Esterase (NEG) NEG Urine RBC (NONE SEEN #/hpf) 0-2 Urine WBC (NONE SEEN #/hpf) 0-2 Ur Epithelial Cells (RARE - FEW #/HPF) RARE Urine Bacteria (RARE - FEW /HPF) NEGATIVE Urine Mucus (NONE SEEN) RARE Radiology data: Recent Impressions: ULTRASOUND - US TRANSVAGINAL W/PELVIS 07/16 2027 Report Impression - Status: SIGNED Entered: 07/16/20202128 IMPRESSION: 1. Enlarged heterogeneous leiomyomatous uterus. One of the fibroids appears submucosal in position. This less likely represents endometrial polyp. 2. Simple right ovarian cyst. SL: SG-H Impression By: Hansel Rivera MD ULTRASOUND - DUP AB/PEL/SC/LTD 07/16 2027 Report Impression - Status: SIGNED Entered: 07/16/20202128 IMPRESSION: 1. Enlarged heterogeneous leiomyomatous uterus. One of the fibroids appears submucosal in position. This less likely represents endometrial polyp. 2. Simple right ovarian cyst. SL: SG-H Impression By: Hansel Rivera MD ULTRASOUND - US PELVIS COMPLETE 07/16 2027 Report Impression - Status: SIGNED Entered: 07/16/20202128 IMPRESSION: 1. Enlarged heterogeneous leiomyomatous uterus. One of the fibroids appears submucosal in position. This less likely represents endometrial polyp. 2. Simple right ovarian cyst. SL: SG-H Impression By: Hansel Rivera MD Free Text Obj Notes Free Text Obj Notes: General: No acute distress. Awake, alert and oriented 3 HEENT: PERRLA, EOMI, nasal septum in the midline. Ears are symmetric. Atraumatic Cardiovascular: Rhythm and rate are regular. No murmurs, rubs, gallops Pulmonary: Clear to auscultation. No wheezing, rhonchi or crackles GI: Soft, nontender, nondistended, positive bowel sounds. Skin: Dry, intact, no evidence of breakdown. Generalized pallor. Capillary refill is less than 3 seconds Musculoskeletal: Range of motion is intact. No palpable edema. Neurologic: Cranial nerves II through XII are grossly intact. Deep tendon reflex exam normoreflexic. Speech is normal Psychiatric: Normal mood. Cooperative. Diagnosis, Assessment Plan Plan discussed with: patient Free Text DxA P Notes Free text DxA P notes: Assessment: Symptom anemia Chronic blood loss anemia Dysfunctional vaginal bleeding Uterine fibroids Menorrhagia Plan: Inpatient Surgery consult Transfusion of packed red blood cells as needed [facility] follows Monitor H H at 0902 RPT #:[id number] END OF REPORT [facility] 2020-07-16 20:48:00 [facility] ([facility]) History Physical - Adult REPORT#:[id number] REPORT STATUS: Signed DATE:07/16/20 TIME: 2047 PATIENT: DEL LAY UNIT #: [id number] ROOM/BED: 2610[address] : 81 AGE: 39 SEX: F ATTEND: Maribel Everett MD ADM AUTHOR: Deejay Cain MD * ALL edits or amendments must be made on the electronic/computer document * History of Present Illness HPI Chief complaint: Abnormal lab PCP: PCP: Maribel Everett MD HPI: 39-year-old female with history of menorrhagia, uterine fibroids, chronic blood loss anemia who establish primary care physician recently to plan for a hysterectomy due to menorrhagia secondary to uterine fibroid but was found to have low H H on the first visit. She was sent to the hospital for transfusion. Past medical history: As stated in HPI Surgical history: Varicose veins Social history: Negative 2. Occasional alcohol Allergies: No known drug allergies CODE STATUS: Full code Family history: Thyroid, prostate and kidney cancer in her father. Essential hypertension History Smoking status for patients 13 years old or older: Never Smoker Medication/Allergy-Vaccine Hx Allergies: Coded Allergies: No Known Allergies (07/16/20) Ambulatory status: Independent Review of Systems All systems rev neg: except as marked Physical Exam VS/I O Vital Signs: Date Time Temp Pulse Resp B/P B/P Pulse O2 O2 Flow FiO2 Mean Ox Delivery Rate 07/16 2023 100 07/16 1940 37.1 111 20 137/78 97 100 Room air PATIENT WEIGHT: Weight (lb): Weight (oz): Weight (kg): 91.500 Results Findings/Data: Laboratory Tests: 07/16 1958 Hematology WBC (6.6 - 12.1 K/mm3) 8.6 RBC (3.45 - 5.01 M/mm3) 2.41 L Hgb (10.7 - 13.9 g/dL) 4.1 *L Hct (32.1 - 42.1 %) 17.1 *L MCV (84.1 - 94.8 fL) 71 L MCH (27 - 35 pg) 17.0 L MCHC (32.2 - 34.1 gm/dL) 24.0 L RDW (12.4 - 16.5 %) 21.1 H Plt Count (133 - 385 K/mm3) 238 Neut % (Auto) (56.5 - 79.4 %) 72.5 Lymph % (Auto) (14.3 - 34.3 %) 19.5 [place] % (Auto) (5.1 - 10.4 %) 6.5 Eos % (Auto) (0.1 - 3.0 %) 0.9 Baso % (Auto) (0.1 - 1.0 %) 0.1 Neut # (Auto) (K/mm3) 6.2 Lymph # (Auto) (K/mm3) 1.7 [place] # (Auto) (K/mm3) 0.6 Eos # (Auto) (K/mm3) 0.08 Baso # (Auto) (K/mm3) 0.0 Urines Urine Color (YELLOW) STRAW Urine Appearance (CLEAR) CLEAR Urine pH (5 - 9) 6.0 Ur Specific [place] (1.001 - 1.035) 1.008 Urine Protein (NEG) NEGATIVE Urine Glucose (UA) (NEG) NEGATIVE Urine Ketones (NEG) NEGATIVE Urine Blood (NEG) 1+ H Urine Nitrite (NEG) NEG Urine Bilirubin (NEG) NEGATIVE Urine Urobilinogen (NEG mg/dL) NEGATIVE Ur Leukocyte Esterase (NEG) NEG Urine RBC (NONE SEEN #/hpf) 0-2 Urine WBC (NONE SEEN #/hpf) 0-2 Ur Epithelial Cells (RARE - FEW #/HPF) RARE Urine Bacteria (RARE - FEW /HPF) NEGATIVE Urine Mucus (NONE SEEN) RARE Free Text PE Notes Free Text PE Notes: General: No acute distress. Awake, alert and oriented 3 HEENT: PERRLA, EOMI, nasal septum in the midline. Ears are symmetric. Atraumatic Cardiovascular: Rhythm and rate are regular. No murmurs, rubs, gallops Pulmonary: Clear to auscultation. No wheezing, rhonchi or crackles GI: Soft, nontender, nondistended, positive bowel sounds. Skin: Dry, intact, no evidence of breakdown. Generalized pallor. Capillary refill is less than 3 seconds Musculoskeletal: Range of motion is intact. No palpable edema. Neurologic: Cranial nerves II through XII are grossly intact. Deep tendon reflex exam normoreflexic. Speech is normal Psychiatric: Normal mood. Cooperative. Diagnosis, Assessment Plan Plan discussed with: patient Code Status/Resusc. Discussion Code status: full code Free Text DxA P Notes Free Text DxA P Notes: Assessment: Symptom anemia Chronic blood loss anemia Dysfunctional vaginal bleeding Uterine fibroids Menorrhagia Plan: Observation Transfusion of packed red blood cells [employer] consultation Monitor H H at 1023 RPT #:[id number] END OF REPORT [facility] 2020-07-16 19:57:00 [facility] EMERGENCY PROVIDER REPORT REPORT#:[id number] REPORT STATUS: Signed DATE:07/16/20 TIME: 1956 PATIENT: DEL LAY UNIT #: [id number] ROOM/BED: [place] [address] AGE: 39 SEX: F PCP PHYS: Maribel Everett MD SERVICE AUTHOR: Jessica Serrano DO * ALL edits or amendments must be made on the electronic/computer document * Jessica Serrano 07/16/201956: HPI-General Illness General Initial Greet Date/Time 07/16/20 190 Provider in Triage Greet Note I have greeted and performed a focused rapid initial assessment of this patient. A comprehensive ED assessment and evaluation of the patient, analysis of all test results, and completion of the medical decision-making process will be conducted by additional ED providers. HPI Chief Complaint Shortness of breath, anemia ROS Reports: Palpitations, Shortness of breath, Dyspnea on exertion, Headache. Denies: Fever, Blurry vision, Cough, Abdominal pain, Nausea, Vomiting, Diarrhea. PE General/Const No acute distress, short of breath with conversation HEENT Atraumatic, Normocephalic Neck Inspection normal, Supple Respiratory/Chest No respiratory distress, Breath sounds normal Cardiovascular Heart sounds normal, Pulses full equal, Regular rate rhythm Abdomen/GI Non-tender, No guarding, No rebound Skin Color abnormal, pale Neurologic Alert, Oriented X3, Speech normal, No focal neuro deficit Progress 39-year-old female with history of fibroids who presents with significant anemia , noted to be 4.4 mg/dL by PCP today. Patient reports that she has been feeling short of breath, with dyspnea on exertion, along with racing heartbeat for several days now. Patient reports 2-year history of vaginal bleeding, but notes that fibroids were just diagnosed 1 month ago. No history of blood transfusion. G3, P3. PMH: fibroids PSH: none Meds: Implanon. Depo shot 05/09/2020. Folic acid. Iron. Imm: UTD NKDA PCP: Dr. Ish Beauchamp MSE Not Complete The medical screening exam is not complete. Further evaluation and/or treatment is required. The patient will be re-directed to the emergency department. Past Medical History - Adult Stated Complaint ANEMIA (HGB 4.4)/UTERINE FIBROIDS Allergies Coded Allergies: No Known Allergies (07/16/20) Home Medications Reported Medications FOLIC ACID 1 MG PO DAILY IRON 18 MG PO DAILY Physical Exam Vital Signs Vital Signs First Documented: Result Date Time Pulse Ox 100 07/16 1940 B/P 137/78 07/16 194 B/P Mean 97 07/16 1940 O2 Delivery Room air 07/16 1940 Temp 37.1 07/16 1940 Pulse 111 07/16 1940 Resp 20 07/16 1940 Last Documented: Result Date Time Pulse Ox 100 07/16 1940 B/P 137/78 07/16 194 B/P Mean 97 07/16 1940 O2 Delivery Room air 07/16 1940 Temp 37.1 07/16 1940 Pulse 111 07/16 1940 Resp 20 07/16 1940 Review of Vital Signs Reviewed, Vital signs normal Interpretation Diagnostics Lab Results Interpretation Results Laboratory Tests 07/16/201958: [Embedded Image Not Available] Laboratory Tests: 07/16 1958 Hematology WBC (6.6 - 12.1 K/mm3) 8.6 RBC (3.45 - 5.01 M/mm3) 2.41 L Hgb (10.7 - 13.9 g/dL) 4.1 *L Hct (32.1 - 42.1 %) 17.1 *L MCV (84.1 - 94.8 fL) 71 L MCH (27 - 35 pg) 17.0 L MCHC (32.2 - 34.1 gm/dL) 24.0 L RDW (12.4 - 16.5 %) 21.1 H Plt Count (133 - 385 K/mm3) 238 Neut % (Auto) (56.5 - 79.4 %) 72.5 Lymph % (Auto) (14.3 - 34.3 %) 19.5 [place] % (Auto) (5.1 - 10.4 %) 6.5 Eos % (Auto) (0.1 - 3.0 %) 0.9 Baso % (Auto) (0.1 - 1.0 %) 0.1 Neut # (Auto) (K/mm3) 6.2 Lymph # (Auto) (K/mm3) 1.7 [place] # (Auto) (K/mm3) 0.6 Eos # (Auto) (K/mm3) 0.08 Baso # (Auto) (K/mm3) 0.0 Urines Urine Color (YELLOW) STRAW Urine Appearance (CLEAR) CLEAR Urine pH (5 - 9) 6.0 Ur Specific [place] (1.001 - 1.035) 1.008 Urine Protein (NEG) NEGATIVE Urine Glucose (UA) (NEG) NEGATIVE Urine Ketones (NEG) NEGATIVE Urine Blood (NEG) 1+ H Urine Nitrite (NEG) NEG Urine Bilirubin (NEG) NEGATIVE Urine Urobilinogen (NEG mg/dL) NEGATIVE Ur Leukocyte Esterase (NEG) NEG Urine RBC (NONE SEEN #/hpf) 0-2 Urine WBC (NONE SEEN #/hpf) 0-2 Ur Epithelial Cells (RARE - FEW #/HPF) RARE Urine Bacteria (RARE - FEW /HPF) NEGATIVE Urine Mucus (NONE SEEN) RARE Re-Evaluation MDM ED Course Medication(s) Ordered Medication(s) Ordered: Antihistamine Drugs Sig/Tyler Start time Last Medication Dose Route Stop Time Status Admin Diphenhydramine HCl 25 MG BLOOD-DOSE BEFORE .. 07/16 1999 DC IV 07/16 2000 Central Nervous System Agents Sig/Tyler Start time Last Medication Dose Route Stop Time Status Admin Acetaminophen 650 MG BLOOD-DOSE BEFORE .. 07/16 1999 DC PO 07/16 2000 Electrolytic, Caloric, And Marcus Sig/Tyler Start time Last Medication Dose Route Stop Time Status Admin Sodium Chloride 500 ML ONCE 07/16 1999 AC IV 09/14 1958 Pharmaceutical Aids Sig/Tyler Start time Last Medication Dose Route Stop Time Status Admin Sodium Chloride 10 ML ASDIR 07/16 1999 AC IV 09/14 1958 Patient Discharge Departure Vital Signs/Condition Vital Signs First Documented: Result Date Time Pulse Ox 100 01/06 1941 B/P 137/78 07/16 1940 B/P Mean 97 07/16 1940 O2 Delivery Room air 07/16 1940 Temp 37.1 07/16 1940 Pulse 111 07/16 1940 Resp 20 07/16 1940 Last Documented: Result Date Time Pulse Ox 100 07/16 1940 B/P 137/78 07/16 1940 B/P Mean 97 07/16 1940 O2 Delivery Room air 07/16 1940 Temp 37.1 07/16 1940 Pulse 111 07/16 1940 Resp 20 07/16 1940 All vital signs available at the time of this entry have been reviewed. ZainSmith 07/16/202003: Re-Evaluation MDM Free Text MDM Notes Free Text MDM Notes 39 yrs old female with h/o anemia, uterine fibroid sent to the er for blood transfusion, hg of 4.4 from pcp. Outside us showed fibroid of 3x3x3 Symptomatic enemia, dizziness type and screen for two units pending cbc, cmp, ua, lipase Discussed case with Dr. Venegas, ob, accepted pt to the floor. Consultation Consultation Referral/Consult Name Maribel Everett MD [employer] Designer Called [facility], On-call physician Requested Call Time 2006 Requested Call Date 07/16/20 Call Returned Call returned Call Returned Time 2006 Call Returned Date 07/16/20 [employer] Designer Will see patient, Agrees with eval, Agrees with plan Free Text Consult Notes accepted pt to the floor. Patient Discharge Departure Vital Signs/Condition Condition Stable, Improved Clinical Impression Clinical Impression Primary Impression: Symptomatic anemia Secondary Impressions: Dizziness, Uterine fibroids affecting Time of Impression 2004 Disposition Decision Admit Admit Physician Name Maribel Everett MD Admit Physician Hospitalist, [facility] [facility], Brimmer Blocker Physician Request Time 2004 Request Date 07/16/20 )( Admission Accepts Yes )( Accepted Time 2004 )( Accepted Date 07/16/20 Call Information will see patient, agrees with eval, agrees with plan Discharge/Care Plan Counseled Regarding Diagnosis, Lab results, Imaging studies, Need for admission, Need for follow-up, When to return to ED Admit Note I have spoken with the patient and/or caregivers. I have explained the patient's condition, diagnoses and treatment plan based on the information available to me at this time. I have answered the patient's and/or caregiver's questions and addressed any concerns. The patient and/or caregivers have as good an understanding of the patient's diagnosis, condition and treatment plan as can be expected at this point. The patient has been stabilized within the capability of the emergency department. The patient will be transported for further care and management or will be moved to an observation or inpatient service. I have communicated with the staff or medical practitioner taking over this patient's care. at 2041 RPT #:[id number] END OF REPORT [facility] 2020-07-16 19:57:00 [facility] ([facility]) EMERGENCY PROVIDER REPORT REPORT#:[id number] REPORT STATUS: Signed DATE:07/16/20 TIME: 1956 PATIENT: DEL LAY UNIT #: [id number] ROOM/BED: [address] AGE: 39 SEX: F PCP PHYS: Maribel Everett MD SERVICE AUTHOR: Jessica Serrano DO * ALL edits or amendments must be made on the electronic/computer document * Jessica Serrano 07/16/201956: HPI-General Illness Provider in Triage Greet Note I have greeted and performed a focused rapid initial assessment of this patient. A comprehensive ED assessment and evaluation of the patient, analysis of all test results, and completion of the medical decision-making process will be conducted by additional ED providers. HPI Chief Complaint Shortness of breath, anemia ROS Reports: Palpitations, Shortness of breath, Dyspnea on exertion, Headache. Denies: Fever, Blurry vision, Cough, Abdominal pain, Nausea, Vomiting, Diarrhea. PE General/Const No acute distress, short of breath with conversation HEENT Atraumatic, Normocephalic Neck Inspection normal, Supple Respiratory/Chest No respiratory distress, Breath sounds normal Cardiovascular Heart sounds normal, Pulses full equal, Regular rate rhythm Abdomen/GI Non-tender, No guarding, No rebound Skin Color abnormal, pale Neurologic Alert, Oriented X3, Speech normal, No focal neuro deficit Progress 39-year-old female with history of fibroids who presents with significant anemia , noted to be 4.4 mg/dL by PCP today. Patient reports that she has been feeling short of breath, with dyspnea on exertion, along with racing heartbeat for several days now. Patient reports 2-year history of vaginal bleeding, but notes that fibroids were just diagnosed 1 month ago. No history of blood transfusion. G3, P3. PMH: fibroids PSH: none Meds: Implanon. Depo shot 05/09/2020. Folic acid. Iron. Imm: UTD NKDA PCP: Dr. Ish Beauchamp MSE Not Complete The medical screening exam is not complete. Further evaluation and/or treatment is required. The patient will be re-directed to the emergency department. Past Medical History - Adult Stated Complaint ANEMIA (HGB 4.4)/UTERINE FIBROIDS Physical Exam Vital Signs Vital Signs First Documented: Result Date Time Pulse Ox 100 07/16 1940 B/P 137/78 07/16 194 B/P Mean 97 07/16 1940 O2 Delivery Room air 07/16 1940 Temp 37.1 07/16 1940 Pulse 111 07/16 1940 Resp 20 07/16 1940 Last Documented: Result Date Time Pulse Ox 100 07/16 194 B/P 137/78 07/16 194 B/P Mean 97 07/16 1940 O2 Delivery Room air 07/16 1940 Temp 37.1 07/16 1940 Pulse 111 07/16 1940 Resp 20 07/16 1940 Review of Vital Signs Reviewed, Vital signs normal Interpretation Diagnostics Lab Results Interpretation Results Laboratory Tests 07/16/201958: [Embedded Image Not Available] Laboratory Tests: 07/16 1958 Chemistry Sodium (135 - 145 mEq/L) 138 Potassium (3.5 - 5.0 mEq/L) 3.8 Chloride (100 - 115 mEq/L) 104 Carbon Dioxide (22 - 31 mEq/L) 23 Anion Gap (10 - 20) 15.20 BUN (7 - 18 mg/dL) 8 Creatinine (0.5 - 1.0 mg/dL) 0.8 Glomerular Filtr Rate (>60 ml/min) 80 Glucose (65 - 110 mg/dL) 100 Calcium (8.4 - 10.2 mg/dL) 7.7 L Hematology WBC (6.6 - 12.1 K/mm3) 8.6 RBC (3.45 - 5.01 M/mm3) 2.41 L Hgb (10.7 - 13.9 g/dL) 4.1 *L Hct (32.1 - 42.1 %) 17.1 *L MCV (84.1 - 94.8 fL) 71 L MCH (27 - 35 pg) 17.0 L MCHC (32.2 - 34.1 gm/dL) 24.0 L RDW (12.4 - 16.5 %) 21.1 H Plt Count (133 - 385 K/mm3) 238 Neut % (Auto) (56.5 - 79.4 %) 72.5 Lymph % (Auto) (14.3 - 34.3 %) 19.5 [place] % (Auto) (5.1 - 10.4 %) 6.5 Eos % (Auto) (0.1 - 3.0 %) 0.9 Baso % (Auto) (0.1 - 1.0 %) 0.1 Neut # (Auto) (K/mm3) 6.2 Lymph # (Auto) (K/mm3) 1.7 [place] # (Auto) (K/mm3) 0.6 Eos # (Auto) (K/mm3) 0.08 Baso # (Auto) (K/mm3) 0.0 Miscellaneous Maternal Serum HCG <1 Urines Urine Color (YELLOW) STRAW Urine Appearance (CLEAR) CLEAR Urine pH (5 - 9) 6.0 Ur Specific [place] (1.001 - 1.035) 1.008 Urine Protein (NEG) NEGATIVE Urine Glucose (UA) (NEG) NEGATIVE Urine Ketones (NEG) NEGATIVE Urine Blood (NEG) 1+ H Urine Nitrite (NEG) NEG Urine Bilirubin (NEG) NEGATIVE Urine Urobilinogen (NEG mg/dL) NEGATIVE Ur Leukocyte Esterase (NEG) NEG Urine RBC (NONE SEEN #/hpf) 0-2 Urine WBC (NONE SEEN #/hpf) 0-2 Ur Epithelial Cells (RARE - FEW #/HPF) RARE Urine Bacteria (RARE - FEW /HPF) NEGATIVE Urine Mucus (NONE SEEN) RARE Re-Evaluation MDM ED Course Medication(s) Ordered Medication(s) Ordered: Antihistamine Drugs Sig/Tyler Start time Last Medication Dose Route Stop Time Status Admin Diphenhydramine HCl 25 MG BLOOD-DOSE BEFORE .. 07/16 1999 DC IV 07/16 2000 Central Nervous System Agents Sig/Tyler Start time Last Medication Dose Route Stop Time Status Admin Acetaminophen 650 MG BLOOD-DOSE BEFORE .. 07/16 1999 DC PO 07/16 2000 Electrolytic, Caloric, And Marcus Sig/Tyler Start time Last Medication Dose Route Stop Time Status Admin Sodium Chloride 500 ML ONCE 07/16 1999 AC IV 09/14 1958 Pharmaceutical Aids Sig/Tyler Start time Last Medication Dose Route Stop Time Status Admin Sodium Chloride 10 ML ASDIR 07/16 1999 AC IV 09/14 1958 Patient Discharge Departure Vital Signs/Condition Vital Signs First Documented: Result Date Time Pulse Ox 100 07/16 194 B/P 137/78 07/16 194 B/P Mean 97 07/16 194 O2 Delivery Room air 07/16 1940 Temp 37.1 07/16 1940 Pulse 111 07/16 194 Resp 20 07/16 1940 Last Documented: Result Date Time Pulse Ox 100 07/16 194 B/P 137/78 07/16 194 B/P Mean 97 07/16 194 O2 Delivery Room air 07/16 1940 Temp 37.1 07/16 1941 Pulse 111 07/16 1940 Resp 20 07/16 1940 All vital signs available at the time of this entry have been reviewed. Smith Pittman 07/16/20 2004: HPI-General Illness Free Text HPI Notes Free Text HPI Notes 39 yrs old female with h/o anemia, uterine fibroid sent to the er for blood transfusion, hg of 4.4 from pcp. Outside us showed fibroid of 3x3x3 General Confirmed Patient Yes Patient Type New patient Initial Greet Date/Time 07/16/20 1846 Pt in Research Study? NO Presentation Chief Complaint anemia Review of Systems ROS Statements All systems rev neg except as marked. Complete sys rev neg except as marked. Past Medical History - Adult Allergies Coded Allergies: No Known Allergies (07/18/20) Home Medications Reported Medications FOLIC ACID 1 MG PO DAILY Discontinued Reported Medications IRON 18 MG PO DAILY Review of Nursing Notes Rev avail, and agree Physical Exam Vital Signs Review of Vital Signs Reviewed Physical Exam General/Const General/Const Awake, Alert, Well appearing Ears/Nose/Throat Ears/Nose/Throat Airway patent, Mucous membranes moist, Pharynx NL Resp/Chest Respiratory/Chest Breath sounds NL, Breath sounds = bilat, No respiratory distress, No rales, No rhonchi, No wheezing Cardiovascular Cardiovascular Heart rate NL, Regular rhythm, Heart sounds NL, Cap refill not delayed, Peripheral circulation NL Abdomen/GI Abdomen/GI Soft, Non-tender, No guarding, No rebound MS Upper Extrem Upper Extremity/MS Inspection NL, No swelling, Non-tender, No erythema, No deformity, Neurologic intact, Vascular intact, No clubbing/cyanosis MS Lower Extrem Lower Ext/Pelvis/MS Inspection NL, No swelling, Non-tender, No erythema, No deformity, Neurologic intact, Vascular intact, No edema Skin Skin Color NL, Warm, Dry, Turgor NL Neurologic Neurologic Oriented X3, Speech NL, No motor deficits, No sensory deficits Psychiatric Psychiatric Affect NL, Mood NL, Thought content NL Interpretation Diagnostics Lab Results Interpretation Lab Statement Laboratory studies reviewed and considered in the medical decision-making. Imaging Statement Radiographic studies reviewed and considered in the medical decision-making. Lab Imaging Statement Laboratory radiographic studies reviewed and considered in the medical decision-making. Point of Care Testing Pulse Oximetry Pulse Ox % 99 On: Room air Interpretation Interpreted by me, Pulse oximetry normal Time 0444 Re-Evaluation MDM Free Text MDM Notes Free Text MDM Notes 39 yrs old female with h/o anemia, uterine fibroid sent to the er for blood transfusion, hg of 4.4 from pcp. Outside us showed fibroid of 3x3x3 Symptomatic enemia, dizziness type and screen for two units pending cbc, cmp, ua, lipase Discussed case with Dr. Venegas, ob, accepted pt to the floor. Consultation Consultation Referral/Consult Name Maribel Everett MD [employer] Graphics Designer Called [employer]IST, On-call physician Requested Call Time 2006 Requested Call Date 07/16/20 Call Returned Call returned Call Returned Time 2006 Call Returned Date 07/16/20 Film And Video Graphics Designer Will see patient, Agrees with eval, Agrees with plan Free Text Consult Notes accepted pt to the floor. Patient Discharge Departure Vital Signs/Condition Condition Stable, Improved Clinical Impression Clinical Impression Primary Impression: Symptomatic anemia Secondary Impressions: Dizziness, Uterine fibroids affecting Time of Impression 2004 Disposition Decision Admit Admit Physician Name Maribel Everett MD Admit Physician Hospitalist, [employer] MAINTENANCE SPECIALIST, Brimmer Blocker Physician Request Time 2004 Request Date 07/16/20 )( Admission Accepts Yes )( Accepted Time 2004 )( Accepted Date 07/16/20 Call Information will see patient, agrees with eval, agrees with plan Discharge/Care Plan Counseled Regarding Diagnosis, Lab results, Imaging studies, Need for admission, Need for follow-up, When to return to ED (Auto) Prescriptions Current Visit Scripts FERROUS SULFATE (FEOSOL) 325 MG PO TID FERROUS SULFATE (FEOSOL) 325 MG PO TID #90 TABS DOCUSATE SODIUM (COLACE) 50 MG PO BID PRN CONSTIPATION DOCUSATE SODIUM (COLACE) 50 MG PO BID PRN CONSTIPATION #30 CAPS HYDROcodone/APAP (NORCO 5/325) 1 TAB PO Q6H PRN PRN PAIN SCALE 7-10 HYDROcodone/APAP (NORCO 5/325) 1 TAB PO Q6H PRN PRN PAIN SCALE 7-10 #20 TABS Admit Note I have spoken with the patient and/or caregivers. I have explained the patient's condition, diagnoses and treatment plan based on the information available to me at this time. I have answered the patient's and/or caregiver's questions and addressed any concerns. The patient and/or caregivers have as good an understanding of the patient's diagnosis, condition and treatment plan as can be expected at this point. The patient has been stabilized within the capability of the emergency department. The patient will be transported for further care and management or will be moved to an observation or inpatient service. I have communicated with the staff or medical practitioner taking over this patient's care. at 5444 at 0487 RPT #:[id number] END OF REPORT [facility]
[2024-11-25] MEDS ORDERED: ONDANSETRON 4 MG/2 ML VIAL ONE (07:32)
[2024-11-25] MEDS ORDERED: MORPHINE 4 MG/ML SYR ONE (07:32)
[2024-11-25] MEDS ORDERED: NA CHLORIDE 0.9% 1,000 ML ONE (07:33)
[2024-11-25 08:02] LABS: Absolute Eosinophils 0.1 K/uL (0-0.5); Absolute Lymphocytes (CBC) 1.8 K/uL (0.7-4.9); Absolute Monocytes 0.5 K/uL (0.1-1.3); Absolute Neutrophil 6.6 K/uL (1.8-8.0); Basophils % 0.3 % (0-1.3); Eosinophils % 1.2 % (0-4.4); Hematocrit 41.4 % (36.0-45.0); Hemoglobin 14.1 g/dL (12.0-15.0); Lymphocytes % 19.7 % (15.3-44.8); MCHC 34.1 g/dL (32.0-36.0); Monocytes % 5.1 % (3.3-12.3); Neutrophils % 73.7 % (41.7-73.7); Platelets 174 thou/uL (152-406); RBC Red Blood Cell Count 5.24 M/uL (3.86-4.86); Red Cell Distribution Width 12.9 % (12.1-15.2)
[2024-11-25 08:09] LABS: Specific Gravity 1.025 (1.005-1.030); Urine Bilirubin Negative (Negative); Urine Clarity Cloudy (Clear); Urine Color Light-Yellow (Yellow); Urine Glucose Negative (Negative)
[2024-11-25 08:10] LABS: Urine Blood Negative (Negative); Urine Ketones Negative (Negative); Urine Microscopic Reflex YN NO UMIC; Urine Nitrite Negative (Negative); Urine Protein Negative (Negative); Urine Urobilinogen Normal mg/dL (0.2-1.0)
[2024-11-25 08:21] LABS: Albumin 3.7 g/dL (3.4-5.0); Albumin/Globulin Ratio 0.9 (1.1-1.8); Anion Gap 10.1 mEq/L (5.0-15.0); Bilirubin Total 0.3 mg/dL (0.2-1.0); Globulin 4.1 g/dL (2.3-3.5); Potassium 4.1 mEq/L (3.5-5.1); Protein, Total 7.8 g/dL (6.4-8.2)
--- NOTE | 2024-11-25 09:03 | RAD REPORT ---
EXAMINATION: Abdomen Pelvis W Contrast CLINICAL INDICATION: Female, 44 years old.ABD PAIN TECHNIQUE: CT abdomen and pelvis was performed, after the administration of IV contrast, [facility]. Axial, sagittal and coronal reconstructions were obtained. One or more of the following dose reduction techniques were used: Automated exposure control, adjustment of the mA and/o r kV according to patient size, and/or iterative reconstruction. Unless otherwise specified, incidental findings do not require dedicated imaging follow-up. [id number]. COMPARISON: No prior exam. FINDINGS: LOWER CHEST: Partially imaged 4 mm right lower lobe nodule of doubtful significance.No significant pe ricardial effusion. UPPER GI: No significant abnormality. LIVER: No significant focal abnormality. GALLBLADDER/BILE DUCTS: Significantly distended gallbladder with cholelithiasis. No significant peric holecystic inflammatory changes.?Slight intrahepatic biliary duct dilatation. The common bile duct is borderline dilated. PANCREAS: No mass, ductal dilation, or ned-pancreatic fluid. SPLEEN: Unremarkable. ADRENALS: No adrenal masses. KIDNEYS AND URETERS: No hydronephrosis.No suspicious renal mass.No renal calculi. ABDOMINAL AORTA AND OTHER VESSELS: Normal caliber aorta and IVC. PERITONEUM: Mild free fluid present in the right pericolic gutter. Mild pelvic free fluid. LYMPH NODES: No pathologic lymphadenopathy. ABDOMINAL WALL: Unremarkable SMALL BOWEL/COLON: Small bowel has normal course and caliber. No colonic wall thickening or pericolon ic inflammatory changes.Nonvisualized appendix but no secondary signs of acute appendicitis. URINARY BLADDER: Underdistended but grossly unremarkable. REPRODUCTIVE ORGANS: 5.8 cm cystic structure in the right adnexa probably arising from the right ovar y. There is a heterogeneous left adnexal lesion measuring 2.9 cm is not well assessed but does have some layering hyperdensity and could reflect a hemorrhagic cyst.. Hysterectomy. MUSCULOSKELETAL: No a cute or suspicious osseous abnormality. ADDITIONAL FINDINGS: None. IMPRESSION: Cholelithiasis with significantly dilated gallbladder and mild intrahepatic and borderline extrahepat ic biliary duct dilatation. On the significant pericholecystic inflammatory changes are identified, acute or chronic cholecystitis is within the differential. Correlate with LFTs. Hysterectomy with pelvic free fluid in both right and left adnexal masses. On the right, there is lik jeffery a simple cyst though measuring nearly 6 cm. On the left, the abnormality is not as well evaluated on CT but could represent a hemorrhagic cyst. Pelvic free fluid is present that may be phys iologic. If there is concern for acute pelvic pathology, pelvic ultrasound would be recommended.
[2024-11-25] MEDS ORDERED: HYDROMORPHONE HCL 1 MG/ML INJ ONE ×2 (09:29→10:36)
--- NOTE | 2024-11-25 10:03 | RAD REPORT ---
Abdomen Exam Limited: 11/25/2024 9:10 AM CLINICAL HISTORY: abnormal CT;Abd pain STUDY: Limited right upper quadrant ultrasound of abdomen. COMPARISON: Same day CT FINDINGS: Liver: Limited evaluation but grossly unremarkable. Bile ducts: No intrahepatic or extrahepatic biliary ductal dilatation. Common bile duct measures 5 mm. Gallbladder: Dilated gallbladder with multiple shadowing and mobile gallstones. No sonographic Jeter sign. No gallbladder wall thickening. Other: Small volume of free fluid identified in the right upper quadrant. IMPRESSION: Cholelithiasis but without sonographic evidence of acute cholecystitis. No biliary ductal dilatation.
--- NOTE | 2024-11-25 10:26 | EDPHYS ---
Physician Documentation [facility] Name: Keiko Lay Age: 44 yrs Sex: Female : 1980 Arrival Date: 11/25/2024 Time: 07:23 Bed 19 Private MD: ED Physician Raghu Rasmussen HPI: 11/25 07:39 This 44 yrs old Female presents to ER via Ambulatory with complaints of sp3 Abdominal Pain, Nausea. 07:39 44-year-old female with history of hypothyroidism, ADD, status post hysterectomy, sp3 presents to the ED with left lower quadrant abdominal pain for the last 2 days. Patient had a similar episode last week that spontaneously resolved. Patient also states she has been constipated. She endorses nausea but denies any vomiting, diarrhea, upper abdominal pain, back pain, dysuria, CLIENT SERVICES DIRECTOR symptoms, chest pain, shortness of breath, syncope, fever, known sick contacts, travel history, prolonged immobilization, or any other signs or symptoms on ROS at this time.. Historical: - Allergies: 07:34 Clindamycin; ll1 - PMHx: 07:34 ADD; Hypothyroidism; left breast mass; ll1 - PSHx: 07:34 Total abdominal hysterectomy; ll1 - Immunization history:: Adult Immunizations up to date. - Infectious Disease History:: Denies. - Social history:: Smoking status: Patient denies any tobacco usage or history of. ROS: 07:40 Constitutional: Negative for fever, chills, and weight loss, Eyes: Negative for injury, sp3 pain, redness, and discharge, ENT: Negative for injury, pain, and discharge, Neck: Negative for injury, pain, and swelling, Cardiovascular: Negative for chest pain, palpitations, and edema, Respiratory: Negative for shortness of breath, cough, wheezing, and pleuritic chest pain, Back: Negative for injury and pain, MS/Extremity: Negative for injury and deformity, Skin: Negative for injury, rash, and discoloration, Neuro: Negative for headache, weakness, numbness, tingling, and seizure, Psych: Negative for depression, anxiety, suicide ideation, homicidal ideation, and hallucinations, Allergy/Immunology: Negative for hives, rash, and allergies, Endocrine: Negative for neck swelling, polydipsia, polyuria, polyphagia, and marked weight changes, Hematologic/Lymphatic: Negative for swollen nodes, abnormal bleeding, and unusual bruising, 07:40 All other systems are negative, Exam: 07:40 Constitutional: This is a well developed, well nourished patient who is awake, alert, sp3 and in no acute distress. Head/Face: Normocephalic, atraumatic. Eyes: Pupils equal round and reactive to light, extra-ocular motions intact. Lids and lashes normal. Conjunctiva and sclera are non-icteric and not injected. Cornea within normal limits. Periorbital areas with no swelling, redness, or edema. Neck: Trachea midline, no thyromegaly or masses palpated, and no cervical lymphadenopathy. Supple, full range of motion without nuchal rigidity, or vertebral point tenderness. No Meningismus. Chest/axilla: Normal chest wall appearance and motion. Nontender with no deformity. No lesions are appreciated. Cardiovascular: Regular rate and rhythm with a normal S1 and S2. No gallops, murmurs, or rubs. Normal PMI, no JVD. No pulse deficits. Respiratory: Lungs have equal breath sounds bilaterally, clear to auscultation and percussion. No rales, rhonchi or wheezes noted. No increased work of breathing, no retractions or nasal flaring. Back: No spinal tenderness. No costovertebral tenderness. Full range of motion. Skin: Warm, dry with normal turgor. Normal color with no rashes, no lesions, and no evidence of cellulitis. MS/ Extremity: Pulses equal, no cyanosis. Neurovascular intact. Full, normal range of motion. Neuro: Awake and alert, GCS 15, oriented to person, place, time, and situation. Cranial nerves II-XII grossly intact. Motor strength 5/5 in all extremities. Sensory grossly intact. Cerebellar exam normal. Normal gait. Psych: Awake, alert, with orientation to person, place and time. Behavior, mood, and affect are within normal limits. 07:40 Abdomen/GI: Left lower quadrant abdominal pain extending superiorly. No right-sided sp3 pain noted. No CVA tenderness., Vital Signs: 07:34 BP 128 / 95; Pulse 67; Resp 16; Temp 97.7; Pulse Ox 100% ; Weight 68.04 kg; Height 5 ll1 ft. 4 in. ; Pain 10/10; 09:32 BP 129 / 95; Pulse 78; Resp 18; Pulse Ox 100% on R/A; Pain 10/10; mb9 10:18 BP 127 / 80; Pulse 74; Resp 18; Pulse Ox 100% on R/A; Pain 10/10; mb9 11:30 BP 116 / 76; Pulse 62; Resp 16; Pulse Ox 100% on R/A; mb9 07:34 Body Mass Index 25.75 (68.04 kg, 162.56 cm) ll1 07:34 Pain Scale: Adult ll1 09:32 Pain Scale: Adult mb9 10:18 Pain Scale: Adult mb9 MDM: 07:29 Medical Screening Exam initiated sp3 07:41 Data reviewed: vital signs, nurses notes, old medical records, lab test result(s), sp3 radiologic studies. ED course: 44-year-old female with left lower quadrant abdominal pain. Differential diagnosis includes idiopathic abdominal pain, constipation, diverticulitis, other bowel pathology, UTI/pyelonephritis spectrum, kidney stone, among others. Workup will include CT scan of the abdomen pelvis with IV contrast, general labs, IV fluids, morphine and ondansetron IV for symptomatic control. Disposition pending workup and patient course.. 10:24 ED course: Hemorrhagic cyst noted on the left side. Pain not consistent with torsion or sp3 any acute pathology. Patient is status post hysterectomy. Pain is improved with medication.. 10:35 ED course: Patient still having pain prior to discharge so we will obtain ultrasound sp3 pelvis to ascertain. More Dilaudid also given.. 11:48 ED course: Ultrasound demonstrates bilateral ovarian flow. Will discharge now.. sp3 11/25 07:35 Order name: CBC with Diff; Complete Time: 08:43 sp3 11/25 07:35 Order name: CMP; Complete Time: 08:43 sp3 11/25 07:35 Order name: Lipase; Complete Time: 08:43 sp3 11/25 07:35 Order name: UA Rfx Ino Cult if indicated; Complete Time: 08:43 sp3 11/25 07:35 Order name: CT Abd/Pelvis - IV Contrast Only; Complete Time: 09:08 sp3 11/25 09:10 Order name: US Abdomen Limited; Complete Time: 10:17 sp3 11/25 11:23 Order name: Pelvis Complete; Complete Time: 11:48 EDMS 11/25 07:35 Order name: IV Saline Lock; Complete Time: 08:00 sp3 11/25 07:35 Order name: Labs collected and sent; Complete Time: 08:00 sp3 Administered Medications: 07:50 Drug: Ondansetron IVP 4 mg IVP once; over 2 minutes Route: IVP; Site: right antecubital;mb9 08:40 Follow up: Response: No adverse reaction mb9 07:50 Drug: NS 0.9% IV 1000 ml IV at 1 bolus Per protocol; to be given as a bolus over 60 mb9 minutes Route: IV; Rate: 1 bolus; Site: right antecubital; 09:33 Follow up: Response: No adverse reaction; IV Status: Completed infusion mb9 07:52 Drug: morphine IVP or IV 4 mg IVP once over 4 mins Route: IVP; Infused Over: 4 mins; mb9 Site: right antecubital; 08:40 Follow up: Response: No adverse reaction mb9 09:32 Drug: HYDROmorphone IVP 1 mg IVP once Route: IVP; Site: right antecubital; mb9 10:35 Follow up: Response: No adverse reaction mb9 10:39 Drug: HYDROmorphone IVP 1 mg IVP once Route: IVP; Site: right antecubital; mb9 11:29 Follow up: Response: No adverse reaction mb9 Disposition Summary: 11/25/24 11:48 Discharge Ordered Notes: Location: Home(11/25/24 11:48) sp3 Condition: Stable(11/25/24 11:48) sp3 Diagnosis - Ovarian cyst, abdominal pain sp3 Discharge Instructions: - Discharge Summary Sheet sp3 - Ovarian Cyst sp3 Forms: - Medication Reconciliation Form sp3 - Antibiotic Education sp3 - Prescription Opioid Use sp3 - Patient Portal Instructions sp3 - Leadership Thank You Letter sp3 Prescriptions: - Tramadol 50 mg Oral Tablet - take 1 tablet ORAL route every 8 hours as needed; 12 tablet; Refills: 0, sp3 Product Selection Permitted Signatures: Dispatcher [employer] Franky Rivera RN RN ll1 Raghu Rasmussen MD MD sp3 Shila Burgos RN RN mb9 Corrections: (The following items were deleted from the chart) 10:34 10:25 Home sp3 sp3 10:34 10:25 Stable sp3 sp3 10:34 10:25 Abdominal pain sp3 sp3 11:23 10:35 Transvaginal Study (Probe)+[email or web address] ordered. EDMS EDMS
--- NOTE | 2024-11-25 10:26 | ER ---
Nurse's Notes [facility] Name: Keiko Lay Age: 44 yrs Sex: Female : 1980 Arrival Date: 11/25/2024 Time: 07:23 Bed 19 Private MD: Diagnosis: Ovarian cyst, abdominal pain Presentation: 11/25 07:34 Chief complaint: Patient states: Abdominal pain with nausea since last night. No fever. ll1 States she had similar episodes last weekend but it resolved on its own. Coronavirus screen: Client denies travel out of the [place] in the last 14 days. nausea, Client presents with at least one sign or symptom that may indicate coronavirus-19. Standard/surgical mask placed on the client. Ebola Screen: Patient denies travel to an Ebola-affected area in the 21 days before illness onset. Initial Sepsis Screen: Does the patient meet any 2 criteria? No. Patient's initial sepsis screen is negative. Does the patient have a suspected source of infection? No. Patient's initial sepsis screen is negative. Risk Assessment: Do you want to hurt yourself or someone else? Patient reports no desire to harm self or others. Onset of symptoms was November 24, 2024. 07:34 Method Of Arrival: Ambulatory ll1 07:34 Acuity: MEY 3 ll1 Triage Assessment: 07:36 General: Appears distressed, uncomfortable, Behavior is calm, cooperative, appropriate ll1 for age, Reports feeling ill for fatigue for. Pain: Complains of pain in abdomen Pain currently is 10 out of 10 on a pain scale. Quality of pain is described as aching, crampy. Neuro: Reports weakness. GI: Reports lower abdominal pain, upper abdominal pain, nausea. Historical: - Allergies: 07:34 Clindamycin; ll1 - PMHx: 07:34 ADD; Hypothyroidism; left breast mass; ll1 - PSHx: 07:34 Total abdominal hysterectomy; ll1 - Immunization history:: Adult Immunizations up to date. - Infectious Disease History:: Denies. - Social history:: Smoking status: Patient denies any tobacco usage or history of. Screenin:59 [facility] ED Fall Risk Assessment (Adult) History of falling in the last 3 months, mb9 including since admission No falls in past 3 months (0 pts) Confusion or Disorientation No (0 pts) Intoxicated or Sedated No (0 pts) Impaired Gait No (0 pts) Mobility Assist Device Used No (0 pt) Altered Elimination No (0 pt) Score/Fall Risk Level 0 - 2 = Low Risk Oriented to surroundings, Maintained a safe environment, Educated pt \T\ family on fall prevention, incl call for assistance when getting out of bed. Abuse screen: Denies threats or abuse. Nutritional screening: No deficits noted. Tuberculosis screening: No symptoms or risk factors identified. Assessment: 07:53 General: Appears uncomfortable, Behavior is cooperative. Pain: Complains of pain in mb9 abdomen Pain radiates to LLQ Pain currently is 8 out of 10 on a pain scale. Quality of pain is described as sharp, stabbing, Pain began 1 day ago. Is continuous. Neuro: Suero Agitation-Sedation Scale (RASS): 0 - Alert and Calm Level of Consciousness is awake, alert, obeys commands, Oriented to person, place, time, situation, Appropriate for age. Cardiovascular: Heart tones S1 S2 present Patient's skin is warm and dry. Respiratory: Airway is patent Respiratory effort is even, unlabored, Respiratory pattern is regular, symmetrical. GI: Abdomen is flat, non-distended, Bowel sounds present X 4 quads. Abd is soft Abdomen is tender to palpation in left lower quadrant Reports nausea. : No signs and/or symptoms were reported regarding the genitourinary system. EENT: No signs and/or symptoms were reported regarding the EENT system. Derm: Skin is pink, warm \T\ dry. Musculoskeletal: Range of motion: intact in all extremities. 09:33 Reassessment: Patient is alert, oriented x 3, equal unlabored respirations, skin mb9 warm/dry/pink. Patient states symptoms have not improved. 10:18 Reassessment: No changes from previously documented assessment. Patient and/or family mb9 updated on plan of care and expected duration. Pain level reassessed. Patient is alert, oriented x 3, equal unlabored respirations, skin warm/dry/pink. 10:30 Reassessment: Pt states she is in a lot of pain on the RUL/RLQ. ERP notified. D/C mb9 cancelled and further imaging ordered. 11:21 Reassessment: Patient and/or family updated on plan of care and expected duration. Pain mb9 level reassessed. Patient is alert, oriented x 3, equal unlabored respirations, skin warm/dry/pink. Patient states feeling better. Patient states symptoms have improved. Vital Signs: 07:34 BP 128 / 95; Pulse 67; Resp 16; Temp 97.7; Pulse Ox 100% ; Weight 68.04 kg; Height 5 ll1 ft. 4 in. ; Pain 10/10; 09:32 BP 129 / 95; Pulse 78; Resp 18; Pulse Ox 100% on R/A; Pain 10/10; mb9 10:18 BP 127 / 80; Pulse 74; Resp 18; Pulse Ox 100% on R/A; Pain 10/10; mb9 11:30 BP 116 / 76; Pulse 62; Resp 16; Pulse Ox 100% on R/A; mb9 07:34 Body Mass Index 25.75 (68.04 kg, 162.56 cm) ll1 07:34 Pain Scale: Adult ll1 09:32 Pain Scale: Adult mb9 10:18 Pain Scale: Adult mb9 ED Course: 07:27 Patient arrived in ED. sj2 07:29 Raghu Rasmussen MD is Attending Physician. sp3 07:34 Arm band placed on Patient placed in an exam room, on a stretcher. ll1 07:36 Triage completed. ll1 07:37 Shila Burgos RN is Primary Nurse. mb9 07:40 Initial lab(s) drawn, by me, sent to lab. Inserted saline lock: 20 gauge in right mb9 antecubital area, using aseptic technique. Blood collected. Flushed with 10 mL NS. 07:59 Placed in gown. Bed in low position. Call light in reach. Side rails up X 1. Provided mb9 Education on: press call light if needing anything. Client placed on continuous cardiac and pulse oximetry monitoring. NIBP monitoring applied. 08:00 No provider procedures requiring assistance completed. mb9 08:00 CBC with Diff Sent. mb9 08:00 CMP Sent. mb9 08:00 Lipase Sent. mb9 08:00 UA Rfx Ino Cult if indicated Sent. mb9 08:48 CT Abd/Pelvis - IV Contrast Only In Process Unspecified. EDMS 09:48 US Abdomen Limited In Process Unspecified. EDMS 11:23 Pelvis Complete In Process Unspecified. EDMS 11:54 IV discontinued, intact, bleeding controlled, No redness/swelling at site. Pressure mb9 dressing applied. Administered Medications: 07:50 Drug: Ondansetron IVP 4 mg IVP once; over 2 minutes Route: IVP; Site: right antecubital;mb9 08:40 Follow up: Response: No adverse reaction mb9 07:50 Drug: NS 0.9% IV 1000 ml IV at 1 bolus Per protocol; to be given as a bolus over 60 mb9 minutes Route: IV; Rate: 1 bolus; Site: right antecubital; 09:33 Follow up: Response: No adverse reaction; IV Status: Completed infusion mb9 07:52 Drug: morphine IVP or IV 4 mg IVP once over 4 mins Route: IVP; Infused Over: 4 mins; mb9 Site: right antecubital; 08:40 Follow up: Response: No adverse reaction mb9 09:32 Drug: HYDROmorphone IVP 1 mg IVP once Route: IVP; Site: right antecubital; mb9 10:35 Follow up: Response: No adverse reaction mb9 10:39 Drug: HYDROmorphone IVP 1 mg IVP once Route: IVP; Site: right antecubital; mb9 11:29 Follow up: Response: No adverse reaction mb9 Medication: 08:00 VIS not applicable for this client. mb9 Outcome: 10:25 Discharge ordered by . sp3 11:48 Discharge ordered by . sp3 11:54 Discharged to home via wheelchair, with family, mb9 11:54 Condition: stable 11:54 Discharge instructions given to patient, Instructed on discharge instructions, follow up and referral plans. Demonstrated understanding of instructions, follow-up care, medications, Prescriptions given X 1, 11:55 Patient left the ED. mb9 Signatures: Dispatcher [employer] EDMS Franky Márquez RN RN ll1 Raghu Rasmussen MD MD sp3 Shila Burgos RN RN mb9 Miguel Dean2 Corrections: (The following items were deleted from the chart) 11:30 09:32 BP 129 / 95; Pulse 78bpm; Resp 18bpm; Pulse Ox 100% RA; mb9 mb9 11:30 10:18 BP 127 / 80; Pulse 74bpm; Resp 18bpm; Pulse Ox 100% RA; mb9 mb9
--- NOTE | 2024-11-25 11:38 | RAD REPORT ---
Pelvis Complete CLINICAL INDICATION: Female 44 years old LLQ cyst TECHNIQUE: Real-time ultrasonography of the pelvis was performed transabdominally. Color and spectral Doppler evaluation of the ovaries was performed. [id number]. COMPARISON: Same day CT FINDINGS: UTERUS AND CERVIX: Hysterectomy RIGHT OVARY: Normal The right ovary measures 4.1 x 2.3 x 1.9 cm with volume of 9.3 mL. Normal color a nd spectral Doppler evaluation of the right ovary.. LEFT OVARY: Probable hemorrhagic cyst in the left ovary measuring 4.1 cm. There is a minimally comp jade cyst in the left ovary measuring 5.5 cm. The left ovary measures 7.3 x 6.1 x 9 cm with volume of 207 mL. Normal Color and spectral Doppler evaluation of the left ovary.. FREE FLUID: No free fluid. IMPRESSION: 1. 2 lesions in the left ovary, both are benign. One is consistent with a minimally complex cyst and the other a hemorrhagic cyst. Neither require follow-up. 2. Bilateral ovarian blood flow. 3. Hysterectomy
[2024-11-25 12:15] VITALS: TEMP 97.7; O2SAT 100
[2024-11-25 12:22] VITALS: BP 116/76
== END 2024-11-25 11:55 | disposition home or self-care (01) ==
LOC: ER 07:23
DX: N83.209 Unspecified ovarian cyst, unspecified side (principal)
CPT/HCPCS: 36415; 74177; 76705; 76856; 80053; 81003; 83690; 85025; 96361; 96374; 96375; 99284; J1171; J2405; J7030; Q9967